=== PATIENT | female | born 1945 | race Caucasian/White ===

== ENCOUNTER → 2020-07-31 09:21 | Outpatient (BNVA) | payer MEDICARE, SELFPAY | PROVIDERS: PCP Family Medicine; Referring Provider Family Medicine; Visit Provider Nurse Practitioner | DX: R10.9 Unspecified abdominal pain (principal); K59.00 Constipation, unspecified; K64.9 Unspecified hemorrhoids; K21.9 Gastro-esophageal reflux disease without esophagitis; Z87.19 Personal history of other diseases of the digestive system | CPT/HCPCS: 99212; Q3014 ==

== ENCOUNTER → 2020-08-18 09:07 | Outpatient (BNVA) | payer MEDICARE, SELFPAY | PROVIDERS: PCP Family Medicine; Visit Provider Nurse Practitioner | DX: K59.00 Constipation, unspecified (principal); K21.9 Gastro-esophageal reflux disease without esophagitis; Z79.899 Other long term (current) drug therapy; Z87.19 Personal history of other diseases of the digestive system | CPT/HCPCS: Q3014 ==

== ENCOUNTER 2020-09-10 12:32 | Inpatient (IN) | payer MEDICARE, SELFPAY ==
[2020-09-10] VITALS (9 sets, daily range): BP systolic 107–173; BP diastolic 47–97; PULSE 90–112; RESP 16–26; TEMP 36.6–37.1; O2SAT 89–99; BMI 26.0
--- NOTE | 2020-09-10 12:55 | ECG_ITS ---
Test Reason : SOB Blood Pressure : / mmHG Vent. Rate : 113 BPM Atrial Rate : 089 BPM P-R Int : 000 ms QRS Dur : 136 ms QT Int : 362 ms P-R-T Axes : 000 108 -23 degrees QTc Int : 496 ms Atrial fibrillation Right bundle branch block Nonspecific ST and T wave abnormality Abnormal ECG When compared to the previous EKG of 11 jun 2020, rhythm change Referred By: Charlotte Morales Electronically Signed By:STEVEN MENESES
--- NOTE | 2020-09-10 12:56 | XR_ITS ---
EXAMINATION: XR CHEST CLINICAL INFORMATION: Dyspnea COMPARISON: June 11, 2020 and May 31, 2020 TECHNIQUE: AP portable view of the chest was obtained. FINDINGS: The cardiopericardial silhouette is enlarged. Patient status post median sternotomy and CABG. There is bilateral interstitial prominence present with patchy regions of disease in the perihilar regions likely related to pulmonary vascular congestion. No pneumothorax or significant pleural effusion. Left carotid artery calcification evident. XR/XR chest 1V IMPRESSION: Cardiomegaly with probable mild pulmonary edema. Interstitial infectious or inflammatory process would seem somewhat less likely.
--- NOTE | 2020-09-10 12:56 | ED_ITS ---
HPI - Asthma General Chief Complaint: Asthma Stated Complaint: Difficulty Breathing Time Seen by Provider: 09/10/20 12:53 Source: patient and EMS Mode of arrival: EMS Limitations: no limitations History of Present Illness HPI Narrative: EMS noted RA 78% on arrival given duoneb and patient up to 90s MD complaint: asthma attack and shortness of breath Onset (ago): day(s) (started this AM) Severity: moderate Context: none known Associated symptoms: dry cough Asthma History: childhood onset Treatments Prior to Arrival: inhaled bronchodilator Related Data Previous Rx's Medication Instructions Recorded magnesium citrate See Rx Instructions PO DAILY #300 07/31/20 ml Allergies Allergy/AdvReac Type Severity Reaction Status Date / Time No Known Allergies Allergy Verified 08/18/20 09:08 Review of Systems Review of Systems: Constitutional : No Fever, No Chills ENT/Mouth : No sore throat, No Rhinorrhea, No Swallowing Difficulty Eyes: No Eye Pain, No Swelling, No Redness Cardiovascular : No Chest Pain, positive SOB, No Orthopnea, no Edema Respiratory : pos Cough, No Sputum, pos Wheezing, positive dyspnea Gastrointestinal : No Nausea, No Vomiting, No Diarrhea, No abdominal Pain, No Hematochezia, No Melena Genitourinary : No Dysuria, No Urinary Frequency, No Hematuria Musculoskeletal : No joint pain, No Myalgias Skin : No Skin Lesions, No rash Neuro : No Weakness, No Numbness, No Dizziness, No Headache Psych : No Anxiety/Panic, No Depression Heme/Lymph: No Bruising, No Lymphadenopathy Endocrine : No Polyuria, No Polydipsia All other systems reviewed and are negative [facility] Past Medical History Attestation statement: The following information was validated with the patient. Medical History (Updated 09/10/20 @ 14:56 by Charlotte Morales DO) Asthma CAD (coronary artery disease) CHF (congestive heart failure) CVA (cerebral vascular accident) Surgical History (Updated 09/10/20 @ 13:18 by Charlotte Morales DO) History of esophagogastroduodenoscopy (EGD) Hx of AKA (above knee amputation) Hx of colonoscopy Family History Family History (Updated 07/31/20 @ 09:30 by FREDERICK Tijerina) Father Heart attack Mother Heart attack Diabetes Social History Social History Household Members: None Housing: Apartment Alcohol intake: unknown Smoking Status: Unknown if ever smoked Use of substances other than those prescribed or required for medical reasons: Unknown Advance Directives: No Advance Directives Information Provided: No Physical Exam Vital Signs: Vital Signs: Last Vital Signs Temp 97.8 F 09/10/20 13:09 Pulse 110 H 09/10/20 13:09 Resp 26 H 09/10/20 13:09 BP 161/68 H 09/10/20 13:09 Pulse Ox 91 L 09/10/20 13:09 Body Mass Index 26.0 Appearance: Alert. Oriented X3. Miild acute distress. Eyes: Pupils equal, round and reactive to light. ENT: Pharynx normal. Neck: Normal inspection. Neck supple. CVS: tachycardic heart rate and rhythm. Pulses normal. Respiratory: Mild respiratory distress. Breath sounds diminished, end exp wheezes, rales RLL Abdomen: Soft and non-tender. Skin: Skin warm and dry. Normal skin color. Normal skin turgor. Extremities: bilateral LE amputations No calf ttp Neuro: Oriented X 3. No motor deficit. No sensory deficit. Course Course Course Narrative: patient is anemic will need guiac study, 1 UPRBC, IV lasix ordered EF is 15% patient on eliquis hx of stroke per daughter Alison overall respiratory status improved - on 2L NC 94% brown stool on exam lactic acidosis due to albuterol use and not infection or severe sepsis EKG irregular will need recheck due to artifact discussed with hospitalist MDM - Asthma MDM Narrative Medical decision making narrative: 75 yo female with hx of CHF and asthma here with initial hypoxia and asthma attack responding to neb treatment, denies chest pain/fevers - will need IV steroids, IV magnesium, labs, CXR, COVID swab, EKG, dispo per results and findings. Lab Data Result diagrams: 09/10/20 13:37 09/10/20 13:37 Labs: Lab Results 09/10/20 09/10/20 09/10/20 Range/Units 13:37 13:37 13:37 WBC 11.8 H (4.8-10.8) X10*3/uL RBC 2.89 L (4.20-5.50) X10*6/uL Hgb 7.0 L* (12.0-16.0) g/dl Hct 23.3 L (37-47) % MCV 80.6 (80-98) fL MCH 24.2 L (27.0-33.0) pg MCHC 30.0 L (31.0-35.0) g/dl RDW 18.6 H (11.0-16.0) % Plt Count 304 (160-400) X10*3/uL MPV 12.2 (9.4-12.3) fL Immature Gran % (Auto) 0.3 (0.0-0.4) % Neut % (Auto) 78.6 H (45-73) % Lymph % (Auto) 13.5 L (20-40) % [place] % (Auto) 7.1 (2-11) % Eos % (Auto) 0.3 (0-4) % Baso % (Auto) 0.2 (0-2) % Lymph # (Auto) 1.6 (1.2-4.9) X10*3/uL [place] # (Auto) 0.8 (0.1-1.2) X10*3/uL Eos # (Auto) 0.0 (0.0-0.4) X10*3/uL Baso # (Auto) 0.0 (0.0-0.2) X10*3/uL Abs Immat Gran (auto) 0.04 H (0.00-0.03) X10*3/uL Absolute Neuts (auto) 9.2 H (2.0-8.3) X10*3/uL Absolute Nucleated RBC 0.000 (0.0-0.012) X10*3/uL Nucleated RBC % (auto) 0.0 (0.0-0.2) /100WBC PT 25.6 H (10.8-13.0) SEC INR 2.1 H (0.9-1.1) APTT 39.6 H (24.1-38.0) SEC VBG pH (7.32-7.43) VBG pCO2 mmhg VBG pO2 mmhg VBG HCO3 mmol/L VBG O2 Saturation % VBG Base Excess mmol/L Sodium 139 (135-145) mmol/L Potassium 3.2 L (3.3-5.1) mmol/l Chloride 105 (96-108) mmol/L Carbon Dioxide 19 L (22-29) mmol/L Anion Gap 18 (12-20) BUN 21 H (9-16) mg/dL Creatinine 1.30 (0.5-1.4) mg/dL Estim Creat Clear Calc 30.9 Estimated GFR 40 Random Glucose 284 H (60-115) mg/dL Lactic Acid (0.5-2.0) mmol/L Calcium 8.6 (8.4-10.2) mg/dL Magnesium 2.0 (1.6-2.6) mg/dL Total Bilirubin 0.7 (0.0-1.0) mg/dL Direct Bilirubin 0.3 (0.0-0.5) mg/dL AST 16 (5-31) U/L ALT 37 H (0-31) U/L Alkaline Phosphatase 166 H (39-117) U/L Lactate Dehydrogenase 262 H (122-220) U/L Troponin I High Sens (<3.5-17.0) ng/L B-Natriuretic Peptide (<100) pg/mL Total Protein 7.2 (6.5-8.0) g/dL Albumin 3.8 (3.5-5.0) g/dL Lipase 12 (8-78) U/L Procalcitonin ng/mL Coronavirus (PCR) (Negative) Influenza Type A (PCR) (Negative) Influenza Type B (PCR) (Negative) RSV RNA Qual (PCR) (Negative) 09/10/20 09/10/20 09/10/20 Range/Units 13:37 13:37 13:37 WBC (4.8-10.8) X10*3/uL RBC (4.20-5.50) X10*6/uL Hgb (12.0-16.0) g/dl Hct (37-47) % MCV (80-98) fL MCH (27.0-33.0) pg MCHC (31.0-35.0) g/dl RDW (11.0-16.0) % Plt Count (160-400) X10*3/uL MPV (9.4-12.3) fL Immature Gran % (Auto) (0.0-0.4) % Neut % (Auto) (45-73) % Lymph % (Auto) (20-40) % [place] % (Auto) (2-11) % Eos % (Auto) (0-4) % Baso % (Auto) (0-2) % Lymph # (Auto) (1.2-4.9) X10*3/uL [place] # (Auto) (0.1-1.2) X10*3/uL Eos # (Auto) (0.0-0.4) X10*3/uL Baso # (Auto) (0.0-0.2) X10*3/uL Abs Immat Gran (auto) (0.00-0.03) X10*3/uL Absolute Neuts (auto) (2.0-8.3) X10*3/uL Absolute Nucleated RBC (0.0-0.012) X10*3/uL Nucleated RBC % (auto) (0.0-0.2) /100WBC PT (10.8-13.0) SEC INR (0.9-1.1) APTT (24.1-38.0) SEC VBG pH (7.32-7.43) VBG pCO2 mmhg VBG pO2 mmhg VBG HCO3 mmol/L VBG O2 Saturation % VBG Base Excess mmol/L Sodium (135-145) mmol/L Potassium (3.3-5.1) mmol/l Chloride (96-108) mmol/L Carbon Dioxide (22-29) mmol/L Anion Gap (12-20) BUN (9-16) mg/dL Creatinine (0.5-1.4) mg/dL Estim Creat Clear Calc Estimated GFR Random Glucose (60-115) mg/dL Lactic Acid (0.5-2.0) mmol/L Calcium (8.4-10.2) mg/dL Magnesium (1.6-2.6) mg/dL Total Bilirubin (0.0-1.0) mg/dL Direct Bilirubin (0.0-0.5) mg/dL AST (5-31) U/L ALT (0-31) U/L Alkaline Phosphatase (39-117) U/L Lactate Dehydrogenase (122-220) U/L Troponin I High Sens 49.5 H (<3.5-17.0) ng/L B-Natriuretic Peptide 1901 H (<100) pg/mL Total Protein (6.5-8.0) g/dL Albumin (3.5-5.0) g/dL Lipase (8-78) U/L Procalcitonin 0.04 ng/mL Coronavirus (PCR) (Negative) Influenza Type A (PCR) (Negative) Influenza Type B (PCR) (Negative) RSV RNA Qual (PCR) (Negative) 09/10/20 09/10/20 09/10/20 Range/Units 13:41 13:41 13:41 WBC (4.8-10.8) X10*3/uL RBC (4.20-5.50) X10*6/uL Hgb (12.0-16.0) g/dl Hct (37-47) % MCV (80-98) fL MCH (27.0-33.0) pg MCHC (31.0-35.0) g/dl RDW (11.0-16.0) % Plt Count (160-400) X10*3/uL MPV (9.4-12.3) fL Immature Gran % (Auto) (0.0-0.4) % Neut % (Auto) (45-73) % Lymph % (Auto) (20-40) % [place] % (Auto) (2-11) % Eos % (Auto) (0-4) % Baso % (Auto) (0-2) % Lymph # (Auto) (1.2-4.9) X10*3/uL [place] # (Auto) (0.1-1.2) X10*3/uL Eos # (Auto) (0.0-0.4) X10*3/uL Baso # (Auto) (0.0-0.2) X10*3/uL Abs Immat Gran (auto) (0.00-0.03) X10*3/uL Absolute Neuts (auto) (2.0-8.3) X10*3/uL Absolute Nucleated RBC (0.0-0.012) X10*3/uL Nucleated RBC % (auto) (0.0-0.2) /100WBC PT (10.8-13.0) SEC INR (0.9-1.1) APTT (24.1-38.0) SEC VBG pH 7.30 L (7.32-7.43) VBG pCO2 46 mmhg VBG pO2 39 mmhg VBG HCO3 22 mmol/L VBG O2 Saturation 59.1 % VBG Base Excess -4.0 mmol/L Sodium (135-145) mmol/L Potassium (3.3-5.1) mmol/l Chloride (96-108) mmol/L Carbon Dioxide (22-29) mmol/L Anion Gap (12-20) BUN (9-16) mg/dL Creatinine (0.5-1.4) mg/dL Estim Creat Clear Calc Estimated GFR Random Glucose (60-115) mg/dL Lactic Acid 2.9 H* (0.5-2.0) mmol/L Calcium (8.4-10.2) mg/dL Magnesium (1.6-2.6) mg/dL Total Bilirubin (0.0-1.0) mg/dL Direct Bilirubin (0.0-0.5) mg/dL AST (5-31) U/L ALT (0-31) U/L Alkaline Phosphatase (39-117) U/L Lactate Dehydrogenase (122-220) U/L Troponin I High Sens (<3.5-17.0) ng/L B-Natriuretic Peptide (<100) pg/mL Total Protein (6.5-8.0) g/dL Albumin (3.5-5.0) g/dL Lipase (8-78) U/L Procalcitonin ng/mL Coronavirus (PCR) NEGATIVE (Negative) Influenza Type A (PCR) NEGATIVE (Negative) Influenza Type B (PCR) NEGATIVE (Negative) RSV RNA Qual (PCR) NEGATIVE (Negative) ECG Data Attestation: I personally reviewed and interpreted this ECG as follows: ECG interpretation date: 09/10/20 ECG interpretation time: 13:53 Interpretation: Rate: 113 Rhythm: irregular, PVCs and PACs [place]: RAD Normal P waves. Normal SUKUMAR. RBBB ST T wave : inferior T wave inversion, no VARUN qTC: prolonged prior studies: old RBBB old t wave inversion, artifact noted The study has been interpreted contemporaneously by me. . Discharge Plan Discharge Clinical Impression: Asthma with acute exacerbation, Congestive heart failure, Anemia, Acidosis, lactic, Abnormal ECG Prescriptions: No Action magnesium citrate Solution See Rx Instructions PO DAILY Qty: 300 RF: 0
[2020-09-10] MEDS: Albuterol Sulfate (0.083%) 2.5 MG/3 ML VIAL.NEB INHALE (13:01)
[2020-09-10 13:46] LABS: MANUAL DIFF FLAG NO
[2020-09-10 13:48] LABS: Eosinophils Percent Auto 0.3 % (0-4); Mean Corpuscular Hemoglobin 24.2 pg (27.0-33.0); Red Blood Count 2.89 X10*6/uL (4.20-5.50)
[2020-09-10 13:56] LABS: Basophils Percent Auto 0.2 % (0-2); Hematocrit 23.3 % (37-47); INTERNATIONAL NORM RATIO 2.1 (0.9-1.1); Imm Gran Abs Auto 0.04 X10*3/uL (0.00-0.03); Imm Gran Pct Auto 0.3 % (0.0-0.4); Lymphocytes Absolute Auto 1.6 X10*3/uL (1.2-4.9); Lymphocytes Percent Auto 13.5 % (20-40); Mean Corpuscular Volume 80.6 fL (80-98); Mean Platelet Volume 12.2 fL (9.4-12.3); Monocytes Absolute Auto 0.8 X10*3/uL (0.1-1.2); Monocytes Percent Auto 7.1 % (2-11); Neutrophils Absolute Auto 9.2 X10*3/uL (2.0-8.3); Neutrophils Percent Auto 78.6 % (45-73); Platelet Count 304 X10*3/uL (160-400); Prothrombin Time 25.6 SEC (10.8-13.0); Red Cell Distribution Width 18.6 % (11.0-16.0); White Blood Count 11.8 X10*3/uL (4.8-10.8)
[2020-09-10 13:59] LABS: Partial Thromboplastin Time 39.6 SEC (24.1-38.0)
[2020-09-10 14:05] LABS: HCO3 VBG 22 mmol/L; PCO2 VBG 46 mmhg; PO2 VBG 39 mmhg
[2020-09-10 14:06] LABS: Blood Gas Serial # 5414; Oxygen Saturation VBG 59.1 %
[2020-09-10] MEDS: Furosemide 40 MG/4 ML VIAL IVPUSH (14:14)
[2020-09-10] MEDS: methylPREDNISolone Sod Succ/PF 125 MG/2 ML VIAL 60 MG IVPUSH (14:14)
[2020-09-10] MEDS: Magnesium Sulfate/H2O 2 GM/50 ML PIGGYBACK IV (14:15)
[2020-09-10 14:21] LABS: Alanine Aminotransferase 37 U/L (0-31); Albumin Level 3.8 g/dL (3.5-5.0); Alkaline Phosphatase 166 U/L (39-117); Anion Gap 18 (12-20); Aspartate Amino Transferase 16 U/L (5-31); Bilirubin Direct 0.3 mg/dL (0.0-0.5); Bilirubin Total 0.7 mg/dL (0.0-1.0); Blood Urea Nitrogen 21 mg/dL (9-16); Calcium 8.6 mg/dL (8.4-10.2); Carbon Dioxide 19 mmol/L (22-29); Chloride 105 mmol/L (96-108); Creatinine Clr Calc Pharmacy 30.9; Estimated Glomerular Filt Rate 40; Glucose Random 284 mg/dL (60-115); Lactate Dehydrogenase 262 U/L (122-220); Lipase 12 U/L (8-78); Potassium 3.2 mmol/l (3.3-5.1); Sodium 139 mmol/L (135-145); Total Protein 7.2 g/dL (6.5-8.0)
[2020-09-10 14:25] LABS: B Type Natriuretic Peptide 1901 pg/mL (<100)
[2020-09-10 14:28] LABS: Troponin-I High Sensitivity 49.5 ng/L (<3.5-17.0)
[2020-09-10 14:30] LABS: Influenza A PCR NEGATIVE (Negative); Influenza B PCR NEGATIVE (Negative); Resp Syncy Virus RNA Qual PCR NEGATIVE (Negative); SARS COV2 PCR INHOUSE NEGATIVE (Negative)
[2020-09-10 14:37] LABS: Lactic Acid 2.9 mmol/L (0.5-2.0)
[2020-09-10 14:50] LABS: Procalcitonin 0.04 ng/mL
[2020-09-10 14:57] LABS: OBS Int Ctl Valid YES; OBS1 NEG (NEG)
[2020-09-10 15:00] LABS: Ferritin 25 ng/mL (10-250)
--- NOTE | 2020-09-10 15:41 | PC.NURSE ---
ptcame from home for shortness of breath. She denies pain. Pt has difficulty speaking, speaks in Frisian only and does not answer questions well with white sidewall tire buffer, though doea understand situation and treatments. IV established, pt does not tolerate well and yeslls. She awaits transfusin
[2020-09-10 15:58] LABS: Reflex Lactate? Lactic Acid Added
--- NOTE | 2020-09-10 16:56 | PM.EVENT ---
Event Note Date of Service: 09/10/20 Event Note: Patient seen and examined independently and was present during rivera portion of E/M service. Agree with midlevel's history, physical, assessment, and plan. 75-year-old female presented with shortness of breath Acute on chronic systolic CHF IV Lasix Overall poor prognosis
--- NOTE | 2020-09-10 17:16 | PM.IMHP ---
History of Present Illness Date of Service: 09/10/20 Chief Complaint: Shortness of breath This is a 75-year-old female with a history of CHF, CAD, PVD, diabetes among others who presents to the emergency department with shortness of breath. She was tachycardic and tachypneic. She was afebrile. Lab work revealed no leukocytosis. She was noted to have anemia with an H/H of 7.0/23.3 which is down somewhat from her baseline. She was heme negative. 1 unit of blood was ordered in the ED. Troponin was in the indeterminate range of 49. Lactic acid was elevated at 2.9, no repeat has been drawn at this time. BNP was elevated at 1901. Patient is a vague historian and reports shortness of breath and chest pain ?Forever? and is unable to provide any significant details. She does deny cough. The decision was made to admit her working diagnosis CHF. Review of Systems Review of Systems: Yes all other systems are reviewed and are negative Cardiovascular: Cardiovascular: Reports chest pain and Reports dyspnea Respiratory: Respiratory: Denies cough and Reports dyspnea [facility] Medical History (Updated 09/10/20 @ 17:21 by GAVIN Yang) Asthma CAD (coronary artery disease) CHF (congestive heart failure) CVA (cerebral vascular accident) Diabetes Hypertension PVD (peripheral vascular disease) Functional capacity: wheelchair bound Family History Father Heart attack Mother Heart attack Diabetes Surgical History History of esophagogastroduodenoscopy (EGD) Hx of AKA (above knee amputation) Hx of colonoscopy Social History (Updated 09/10/20 @ 17:21 by GAVIN Yang) Household Members: Children Housing: Apartment Alcohol intake: unknown Smoking Status: Unknown if ever smoked Use of substances other than those prescribed or required for medical reasons: Unknown Advance Directives: No Advance Directives Information Provided: No Meds Allergies Allergy/AdvReac Type Severity Reaction Status Date / Time No Known Allergies Allergy Verified 08/18/20 09:08 Home Medications Medication Instructions Recorded Confirmed Type albuterol sulfate [ProAir HFA] 2 puff INHALATION Q4-6H PRN 09/10/20 09/10/20 History amlodipine 2.5 mg PO DAILY 09/10/20 09/10/20 History apixaban [Eliquis] 5 mg PO BID 09/10/20 09/10/20 History ascorbic acid (vitamin C) 500 mg PO BID 09/10/20 09/10/20 History aspirin 81 mg PO DAILY 09/10/20 09/10/20 History atorvastatin 40 mg PO DAILY 09/10/20 09/10/20 History ferrous sulfate 325 mg PO BID 09/10/20 09/10/20 History furosemide 40 mg PO DAILY 09/10/20 09/10/20 History insulin glargine [Lantus Solostar 26 unit SUBCUT QAM 09/10/20 09/10/20 History U-100 Insulin] insulin lispro [Humalog KwikPen 3 unit SUBCUT TIDAC 09/10/20 09/10/20 History Insulin] lisinopril 2.5 mg PO DAILY 09/10/20 09/10/20 History montelukast 10 mg PO BEDTIME 09/10/20 09/10/20 History nitroglycerin 0.4 mg SUBLINGUAL Q5M PRN 09/10/20 09/10/20 History zolpidem 5 mg PO BEDTIME PRN 09/10/20 09/10/20 History Physical Exam Vital Signs and Narrative: Vital Signs: Last Vital Signs Temp 98 F 09/10/20 16:14 Pulse 90 09/10/20 16:14 Resp 23 H 09/10/20 16:14 BP 143/60 H 09/10/20 16:14 Pulse Ox 98 09/10/20 15:41 Body Mass Index 26.0 Const: General: alert and awake Nutritional Appearance: well nourished HENMT: Head: Yes normocephalic and Yes atraumatic Eyes: Sclerae: sclerae normal Chest: Chest palpation & inspection: normal inspection of the chest Resp: Effort & Inspection: normal respiratory effort and no respiratory distress Cardio: Rate: regular rate Rhythm: regular rhythm GI: Palpation (GI): Soft to palpation and nontender Skin: General skin exam: no rashes or lesions noted Neuro: Cranial nerves: Yes CN's II-XII intact bilaterally and Yes Bilaterally intact EOM present Extrem: Other: s/p b/l AKA Results Labs CBC and Chem 7: 12/10/20 13:37 09/10/20 13:37 Labs: Laboratory Results - last 24 hr 09/10/20 09/10/20 09/10/20 13:37 13:37 13:37 MCV 80.6 MCH 24.2 L MCHC 30.0 L RDW 18.6 H Plt Count 304 MPV 12.2 Immature Gran % (Auto) 0.3 Neut % (Auto) 78.6 H Lymph % (Auto) 13.5 L [place] % (Auto) 7.1 Eos % (Auto) 0.3 Baso % (Auto) 0.2 Lymph # (Auto) 1.6 [place] # (Auto) 0.8 Eos # (Auto) 0.0 Baso # (Auto) 0.0 Abs Immat Gran (auto) 0.04 H Absolute Neuts (auto) 9.2 H Absolute Nucleated RBC 0.000 Nucleated RBC % (auto) 0.0 PT 25.6 H INR 2.1 H APTT 39.6 H VBG pH VBG pCO2 VBG pO2 VBG HCO3 VBG O2 Saturation VBG Base Excess Anion Gap 18 Estim Creat Clear Calc 30.9 Estimated GFR 40 Random Glucose 284 H Lactic Acid Calcium 8.6 Magnesium 2.0 Ferritin 25 Total Bilirubin 0.7 Direct Bilirubin 0.3 AST 16 ALT 37 H Alkaline Phosphatase 166 H Lactate Dehydrogenase 262 H Troponin I High Sens B-Natriuretic Peptide Total Protein 7.2 Albumin 3.8 Lipase 12 Procalcitonin Stool Occult Blood Coronavirus (PCR) Influenza Type A (PCR) Influenza Type B (PCR) RSV RNA Qual (PCR) Blood Type Antibody Screen Crossmatch 09/10/20 09/10/20 09/10/20 13:37 13:37 13:37 MCV MCH MCHC RDW Plt Count MPV Immature Gran % (Auto) Neut % (Auto) Lymph % (Auto) [place] % (Auto) Eos % (Auto) Baso % (Auto) Lymph # (Auto) [place] # (Auto) Eos # (Auto) Baso # (Auto) Abs Immat Gran (auto) Absolute Neuts (auto) Absolute Nucleated RBC Nucleated RBC % (auto) PT INR APTT VBG pH VBG pCO2 VBG pO2 VBG HCO3 VBG O2 Saturation VBG Base Excess Anion Gap Estim Creat Clear Calc Estimated GFR Random Glucose Lactic Acid Calcium Magnesium Ferritin Total Bilirubin Direct Bilirubin AST ALT Alkaline Phosphatase Lactate Dehydrogenase Troponin I High Sens 49.5 H B-Natriuretic Peptide 1901 H Total Protein Albumin Lipase Procalcitonin 0.04 Stool Occult Blood Coronavirus (PCR) Influenza Type A (PCR) Influenza Type B (PCR) RSV RNA Qual (PCR) Blood Type Antibody Screen Crossmatch 09/10/20 09/10/20 09/10/20 13:41 13:41 13:41 MCV MCH MCHC RDW Plt Count MPV Immature Gran % (Auto) Neut % (Auto) Lymph % (Auto) [place] % (Auto) Eos % (Auto) Baso % (Auto) Lymph # (Auto) [place] # (Auto) Eos # (Auto) Baso # (Auto) Abs Immat Gran (auto) Absolute Neuts (auto) Absolute Nucleated RBC Nucleated RBC % (auto) PT INR APTT VBG pH 7.30 L VBG pCO2 46 VBG pO2 39 VBG HCO3 22 VBG O2 Saturation 59.1 VBG Base Excess -4.0 Anion Gap Estim Creat Clear Calc Estimated GFR Random Glucose Lactic Acid 2.9 H* Calcium Magnesium Ferritin Total Bilirubin Direct Bilirubin AST ALT Alkaline Phosphatase Lactate Dehydrogenase Troponin I High Sens B-Natriuretic Peptide Total Protein Albumin Lipase Procalcitonin Stool Occult Blood Coronavirus (PCR) NEGATIVE Influenza Type A (PCR) NEGATIVE Influenza Type B (PCR) NEGATIVE RSV RNA Qual (PCR) NEGATIVE Blood Type Antibody Screen Crossmatch 09/10/20 09/10/20 14:40 14:49 MCV MCH MCHC RDW Plt Count MPV Immature Gran % (Auto) Neut % (Auto) Lymph % (Auto) [place] % (Auto) Eos % (Auto) Baso % (Auto) Lymph # (Auto) [place] # (Auto) Eos # (Auto) Baso # (Auto) Abs Immat Gran (auto) Absolute Neuts (auto) Absolute Nucleated RBC Nucleated RBC % (auto) PT INR APTT VBG pH VBG pCO2 VBG pO2 VBG HCO3 VBG O2 Saturation VBG Base Excess Anion Gap Estim Creat Clear Calc Estimated GFR Random Glucose Lactic Acid Calcium Magnesium Ferritin Total Bilirubin Direct Bilirubin AST ALT Alkaline Phosphatase Lactate Dehydrogenase Troponin I High Sens B-Natriuretic Peptide Total Protein Albumin Lipase Procalcitonin Stool Occult Blood NEG Coronavirus (PCR) Influenza Type A (PCR) Influenza Type B (PCR) RSV RNA Qual (PCR) Blood Type A Positive Antibody Screen NEGATIVE Crossmatch See Detail Imaging Radiologist's Impressions: Impressions Chest X-Ray 09/10/20 12:56 IMPRESSION: Cardiomegaly with probable mild pulmonary edema. Interstitial infectious or inflammatory process would seem somewhat less likely. Assessment and Plan (1) Congestive heart failure: Qualifiers: Heart failure chronicity: acute on chronic Heart failure type: systolic Qualified Code(s): I50.23 - Acute on chronic systolic (congestive) heart failure Status: Acute (2) Anemia: Qualifiers: Anemia type: unspecified type Qualified Code(s): D64.9 - Anemia, unspecified Status: Acute This is a 75-year-old English-speaking female with a history of CAD, HFrEF, diabetes, asthma, PVD, hypertension, dyslipidemia who presents to the emergency department with shortness of breath found to have elevated BNP Acute on chronic HFrEF -I&Os, daily weight -IV Lasix -cardiology consult CKD3 Creatinine at baseline normocytic anemia Heme-negative Will check iron studies 1 unit of blood ordered in ED -follow CBC Elevated lactic acid No source of infection identified. No sepsis CAD Continue aspirin, statin Trop somewhat elevated, will repeat Hypertension Continue Norvasc, lisinopril Diabetes Will decrease dose of Lantus slightly from 26 units to 20 units -SSI, POC, ADA diet On AC Eliquis ? r/t PVD as no previous documentation of AFib or VTE DVT prophylaxis-Eliquis Code status-full code This case was discussed with Dr. Ivory
--- NOTE | 2020-09-10 17:42 | PC.NURSE ---
pt had one unit of PRBC transfused. She has no sign of reaction. Pt resting quietly. Pt has a piece of laminated paper with her, she believes it is a picture of her . Pt becomes upset, yelling if this item is removed and she seeks the item for comfort during lab draws.
[2020-09-10 17:53] LABS: Iron 17 mcg/dL (30-160); Percent Iron Saturation 5 % (15-50); Total Iron Binding Capacity 335 mcg/dL (228-428); Unsaturated Iron Binding 318 ug/dL
[2020-09-10 18:17] LABS: ~Lactic Acid-LAB USE ONLY 2.6 mmol/L (0.5-2.0)
[2020-09-10 18:31] LABS: Folate 14.6 ng/mL (> or = 4.0); Vitamin B12 561 pg/mL (200-900)
--- NOTE | 2020-09-10 18:43 | PC.NURSE ---
pt noted to have tremmors with movement. unable to determine if this is baseline.
[2020-09-10 19:45] LABS: Reflex Lactate? 2 Y
[2020-09-11] VITALS (7 sets, daily range): BP systolic 129–186; BP diastolic 65–99; PULSE 75–92; RESP 18–22; TEMP 36.5–36.9; O2SAT 96–100
--- NOTE | 2020-09-11 02:08 | PC.NURSE ---
REPORT GIVEN TO [facility]. PT DENIES ANY COMPLAINTS AT THIS TIME. PT AWAITING FOR TRANSFER TO [facility]. WILL CONTINUE TO MONITOR PT.
[2020-09-11 03:33] LABS: Glucose, Whole Blood 489 mg/dL (60-115)
[2020-09-11] MEDS: Ferrous Sulfate 324 MG TABLET.DR PO ×3 (04:09→21:57)
[2020-09-11] MEDS: Montelukast Sodium 10 MG TABLET PO ×2 (04:09→21:57)
[2020-09-11] MEDS: Ascorbic Acid 500 MG TABLET PO ×3 (04:09→21:57)
[2020-09-11] MEDS: Apixaban 5 MG TABLET PO ×3 (04:09→21:57)
[2020-09-11] MEDS: Insulin Lispro 100 UNIT/ML 3 ML VIAL SUBCUT ×4 (04:10→21:57)
[2020-09-11] MEDS: Furosemide 40 MG/4 ML VIAL IVPUSH ×3 (04:10→16:56)
[2020-09-11] MEDS: Insulin Lispro 100 UNIT/ML 3 ML VIAL 6 UNIT SUBCUT (04:11)
[2020-09-11] MEDS: 0.9 % Sodium Chloride Flush 3 ML SYRINGE IVFLUSH ×4 (04:21→21:58)
[2020-09-11 04:48] LABS: MANUAL DIFF FLAG NO
[2020-09-11 04:52] LABS: Basophils Percent Auto 0.2 % (0-2); Hematocrit 28.1 % (37-47); Imm Gran Abs Auto 0.09 X10*3/uL (0.00-0.03); Imm Gran Pct Auto 0.8 % (0.0-0.4); Lymphocytes Absolute Auto 0.8 X10*3/uL (1.2-4.9); Lymphocytes Percent Auto 7.4 % (20-40); Mean Corpuscular Volume 81.2 fL (80-98); Mean Platelet Volume 12.5 fL (9.4-12.3); Neutrophils Absolute Auto 9.2 X10*3/uL (2.0-8.3); Neutrophils Percent Auto 82.6 % (45-73); Platelet Count 270 X10*3/uL (160-400); Red Blood Count 3.46 X10*6/uL (4.20-5.50); White Blood Count 11.2 X10*3/uL (4.8-10.8)
[2020-09-11 05:31] LABS: ~Lactic Acid-LAB USE ONLY 2.6 mmol/L (0.5-2.0)
[2020-09-11 05:35] LABS: Anion Gap 17 (12-20); Blood Urea Nitrogen 29 mg/dL (9-16); Calcium 8.6 mg/dL (8.4-10.2); Carbon Dioxide 19 mmol/L (22-29); Chloride 102 mmol/L (96-108); Creatinine Clr Calc Pharmacy 29.1; Estimated Glomerular Filt Rate 37; Glucose Random 494 mg/dL (60-115); Potassium 4.1 mmol/l (3.3-5.1); Sodium 134 mmol/L (135-145)
[2020-09-11 05:36] LABS: B Type Natriuretic Peptide 2638 pg/mL (<100)
[2020-09-11 05:40] LABS: Troponin-I High Sensitivity 44.1 ng/L (<3.5-17.0)
[2020-09-11 06:09] LABS: Glucose, Whole Blood 285 mg/dL (60-115)
[2020-09-11] MEDS: Insulin Glargine,Hum.rec.anlog 100 UNIT/ML 10 ML VIAL 20 UNIT SUBCUT (08:32)
[2020-09-11] MEDS: amLODIPine Besylate 2.5 MG TABLET PO (08:33)
[2020-09-11] MEDS: Aspirin Enteric Coated 81 MG TABLET.DR PO (08:34)
[2020-09-11] MEDS: lisinopriL 2.5 MG TABLET PO (08:34)
[2020-09-11 09:31] LABS: Glucose, Whole Blood 142 mg/dL (60-115)
--- NOTE | 2020-09-11 09:51 | PM.CNCAR ---
History of Present Illness History of Present Illness Date of Service: 09/11/20 Chief complaint: Difficulty Breathing Narrative: This is a cardiology consultation regarding congestive heart failure. 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 She has a history of congestive heart failure, coronary disease, peripheral vascular disease, diabetes, others. She presented to the ER with shortness of breath. She was also apparently tachycardic and tachypneic. She was afebrile. She was noted to be anemic. It appears that she got some blood and subsequently admitted. Patient herself is a vague historian. She states that she presented with shortness of breath but feels better now. Not able to give any further details. No definitive anginal type symptoms. She has been admitted with a working diagnosis of CHF. Review of Systems Review of Systems: Yes all other systems are reviewed and are negative Cardiovascular: Cardiovascular: Reports as per HPI, Reports no additional cardiovascular complaints, Denies chest pain, Denies chest pain at rest, Denies chest pain with activity, Denies Epigastric Pain, Denies syncope, Denies pedal edema, Denies edema, Reports irregular heart rhythm, Reports dyspnea and Reports dyspnea on exertion Respiratory: Respiratory: Reports dyspnea and Reports dyspnea on exertion Neurologic: Denies syncope PMFSH Past Medical History Medical History (Updated 09/11/20 @ 10:23 by Abhay Deras MD) Asthma Atherosclerotic cardiovascular disease CAD (coronary artery disease) Cardiomyopathy CHF (congestive heart failure) CVA (cerebral vascular accident) Diabetes Hypertension Persistent atrial fibrillation PVD (peripheral vascular disease) Functional capacity: wheelchair bound Family History Family History Father Heart attack Mother Heart attack Diabetes Surgical History Surgical History History of esophagogastroduodenoscopy (EGD) Hx of AKA (above knee amputation) Hx of colonoscopy Social History Social History (Updated 09/10/20 @ 17:21 by GAVIN Yang) Household Members: Children Housing: Apartment Alcohol intake: unknown Smoking Status: Never smoker Use of substances other than those prescribed or required for medical reasons: No Have you been hit, kicked, punched, or otherwise hurt by someone within the past year? If so, by whom?: No Do you feel safe in your current relationship?: No Current Relationship Is there a partner from a previous relationship who is making you feel unsafe now?: No Are you made to feel afraid or neglected: No Advance Directives: No Advance Directives Information Provided: No Do you have thoughts of harming others: None Do you have a plan to hurt others: No Plan Recently lost weight without trying: Unsure Meds Allergies Allergy/AdvReac Type Severity Reaction Status Date / Time No Known Allergies Allergy Verified 08/18/20 09:08 Home Medications Medication Instructions Recorded Confirmed Type albuterol sulfate [ProAir HFA] 2 puff INHALATION Q4-6H PRN 09/10/20 09/10/20 History amlodipine 2.5 mg PO DAILY 09/10/20 09/10/20 History apixaban [Eliquis] 5 mg PO BID 09/10/20 09/10/20 History ascorbic acid (vitamin C) 500 mg PO BID 09/10/20 09/10/20 History aspirin 81 mg PO DAILY 09/10/20 09/10/20 History atorvastatin 40 mg PO DAILY 09/10/20 09/10/20 History ferrous sulfate 325 mg PO BID 09/10/20 09/10/20 History furosemide 40 mg PO DAILY 09/10/20 09/10/20 History insulin glargine [Lantus Solostar 26 unit SUBCUT QAM 09/10/20 09/10/20 History U-100 Insulin] insulin lispro [Humalog KwikPen 3 unit SUBCUT TIDAC 09/10/20 09/10/20 History Insulin] lisinopril 2.5 mg PO DAILY 09/10/20 09/10/20 History montelukast 10 mg PO BEDTIME 09/10/20 09/10/20 History nitroglycerin 0.4 mg SUBLINGUAL Q5M PRN 09/10/20 09/10/20 History zolpidem 5 mg PO BEDTIME PRN 09/10/20 09/10/20 History Physical Exam Vital Signs: Vital Signs: Last Vital Signs Temp 97.8 F 09/11/20 08:00 Pulse 91 09/11/20 08:00 Resp 22 H 09/11/20 08:00 BP 149/71 H 12/11/20 08:00 Pulse Ox 99 09/11/20 08:00 Body Mass Index 26.0 Const: General: cooperative, comfortable and no acute distress Orientation/consciousness: patient oriented x3 HENMT: Other: Unremarkable Neck: Neck: Yes normal visual inspection Chest: Chest palpation & inspection: normal inspection of the chest Resp: Auscultation: clear to auscultation bilaterally, no crackles and no wheezes Cardio: Jugular venous distension: no JVD Palpation: normal PMI Heart sounds: S1 normal heart sound present, S2 normal heart sound present, no gallops, no murmurs and no rubs GI: Palpation (GI): Soft to palpation Back/Spine/Pelvis: Other: unremarkable Skin: General skin exam: no rashes or lesions noted Neuro: General: patient oriented x3 Extrem: Other: bilateral amputation Psych: Mental Status: mental status grossly normal Results Labs and Meds Result diagrams: 09/11/20 04:26 09/11/20 04:26 Lab results: Laboratory Results - last 24 hr 09/10/20 09/10/20 09/10/20 13:37 13:37 13:37 WBC 11.8 H RBC 2.89 L Hgb 7.0 L* Hct 23.3 L MCV 80.6 MCH 24.2 L MCHC 30.0 L RDW 18.6 H Plt Count 304 MPV 12.2 Immature Gran % (Auto) 0.3 Neut % (Auto) 78.6 H Lymph % (Auto) 13.5 L [place] % (Auto) 7.1 Eos % (Auto) 0.3 Baso % (Auto) 0.2 Lymph # (Auto) 1.6 [place] # (Auto) 0.8 Eos # (Auto) 0.0 Baso # (Auto) 0.0 Abs Immat Gran (auto) 0.04 H Absolute Neuts (auto) 9.2 H Absolute Nucleated RBC 0.000 Nucleated RBC % (auto) 0.0 PT 25.6 H INR 2.1 H APTT 39.6 H VBG pH VBG pCO2 VBG pO2 VBG HCO3 VBG O2 Saturation VBG Base Excess Sodium 139 Potassium 3.2 L Chloride 105 Carbon Dioxide 19 L Anion Gap 18 BUN 21 H Creatinine 1.30 Estim Creat Clear Calc 30.9 Estimated GFR 40 POC Glucose Random Glucose 284 H Lactic Acid Lactic Acid Fup @ 2Hr Lactic Acid Fup @ 4Hr Calcium 8.6 Magnesium 2.0 Iron 17 L TIBC 335 % Saturation 5 L Unsat Iron Binding 318 Ferritin 25 Total Bilirubin 0.7 Direct Bilirubin 0.3 AST 16 ALT 37 H Alkaline Phosphatase 166 H Lactate Dehydrogenase 262 H Troponin I High Sens B-Natriuretic Peptide Total Protein 7.2 Albumin 3.8 Lipase 12 Vitamin B12 Folate Procalcitonin Stool Occult Blood Coronavirus (PCR) Influenza Type A (PCR) Influenza Type B (PCR) RSV RNA Qual (PCR) Blood Type Antibody Screen Crossmatch 09/10/20 09/10/20 09/10/20 13:37 13:37 13:37 WBC RBC Hgb Hct MCV MCH MCHC RDW Plt Count MPV Immature Gran % (Auto) Neut % (Auto) Lymph % (Auto) [place] % (Auto) Eos % (Auto) Baso % (Auto) Lymph # (Auto) [place] # (Auto) Eos # (Auto) Baso # (Auto) Abs Immat Gran (auto) Absolute Neuts (auto) Absolute Nucleated RBC Nucleated RBC % (auto) PT INR APTT VBG pH VBG pCO2 VBG pO2 VBG HCO3 VBG O2 Saturation VBG Base Excess Sodium Potassium Chloride Carbon Dioxide Anion Gap BUN Creatinine Estim Creat Clear Calc Estimated GFR POC Glucose Random Glucose Lactic Acid Lactic Acid Fup @ 2Hr Lactic Acid Fup @ 4Hr Calcium Magnesium Iron TIBC % Saturation Unsat Iron Binding Ferritin Total Bilirubin Direct Bilirubin AST ALT Alkaline Phosphatase Lactate Dehydrogenase Troponin I High Sens 49.5 H B-Natriuretic Peptide 1901 H Total Protein Albumin Lipase Vitamin B12 Folate Procalcitonin 0.04 Stool Occult Blood Coronavirus (PCR) Influenza Type A (PCR) Influenza Type B (PCR) RSV RNA Qual (PCR) Blood Type Antibody Screen Crossmatch 09/10/20 09/10/20 09/10/20 13:41 13:41 13:41 WBC RBC Hgb Hct MCV MCH MCHC RDW Plt Count MPV Immature Gran % (Auto) Neut % (Auto) Lymph % (Auto) [place] % (Auto) Eos % (Auto) Baso % (Auto) Lymph # (Auto) [place] # (Auto) Eos # (Auto) Baso # (Auto) Abs Immat Gran (auto) Absolute Neuts (auto) Absolute Nucleated RBC Nucleated RBC % (auto) PT INR APTT VBG pH 7.30 L VBG pCO2 46 VBG pO2 39 VBG HCO3 22 VBG O2 Saturation 59.1 VBG Base Excess -4.0 Sodium Potassium Chloride Carbon Dioxide Anion Gap BUN Creatinine Estim Creat Clear Calc Estimated GFR POC Glucose Random Glucose Lactic Acid 2.9 H* Lactic Acid Fup @ 2Hr Lactic Acid Fup @ 4Hr Calcium Magnesium Iron TIBC % Saturation Unsat Iron Binding Ferritin Total Bilirubin Direct Bilirubin AST ALT Alkaline Phosphatase Lactate Dehydrogenase Troponin I High Sens B-Natriuretic Peptide Total Protein Albumin Lipase Vitamin B12 Folate Procalcitonin Stool Occult Blood Coronavirus (PCR) NEGATIVE Influenza Type A (PCR) NEGATIVE Influenza Type B (PCR) NEGATIVE RSV RNA Qual (PCR) NEGATIVE Blood Type Antibody Screen Crossmatch 09/10/20 09/10/20 09/10/20 14:40 14:49 15:00 WBC RBC Hgb Hct MCV MCH MCHC RDW Plt Count MPV Immature Gran % (Auto) Neut % (Auto) Lymph % (Auto) [place] % (Auto) Eos % (Auto) Baso % (Auto) Lymph # (Auto) [place] # (Auto) Eos # (Auto) Baso # (Auto) Abs Immat Gran (auto) Absolute Neuts (auto) Absolute Nucleated RBC Nucleated RBC % (auto) PT INR APTT VBG pH VBG pCO2 VBG pO2 VBG HCO3 VBG O2 Saturation VBG Base Excess Sodium Potassium Chloride Carbon Dioxide Anion Gap BUN Creatinine Estim Creat Clear Calc Estimated GFR POC Glucose Random Glucose Lactic Acid Lactic Acid Fup @ 2Hr Lactic Acid Fup @ 4Hr Calcium Magnesium Iron TIBC % Saturation Unsat Iron Binding Ferritin Total Bilirubin Direct Bilirubin AST ALT Alkaline Phosphatase Lactate Dehydrogenase Troponin I High Sens B-Natriuretic Peptide Total Protein Albumin Lipase Vitamin B12 561 Folate 14.6 Procalcitonin Stool Occult Blood NEG Coronavirus (PCR) Influenza Type A (PCR) Influenza Type B (PCR) RSV RNA Qual (PCR) Blood Type A Positive Antibody Screen NEGATIVE Crossmatch See Detail 09/10/20 09/11/20 09/11/20 17:40 03:28 04:26 WBC RBC Hgb Hct MCV MCH MCHC RDW Plt Count MPV Immature Gran % (Auto) Neut % (Auto) Lymph % (Auto) [place] % (Auto) Eos % (Auto) Baso % (Auto) Lymph # (Auto) [place] # (Auto) Eos # (Auto) Baso # (Auto) Abs Immat Gran (auto) Absolute Neuts (auto) Absolute Nucleated RBC Nucleated RBC % (auto) PT INR APTT VBG pH VBG pCO2 VBG pO2 VBG HCO3 VBG O2 Saturation VBG Base Excess Sodium Potassium Chloride Carbon Dioxide Anion Gap BUN Creatinine Estim Creat Clear Calc Estimated GFR POC Glucose 489 H* Random Glucose Lactic Acid Lactic Acid Fup @ 2Hr 2.6 H* Lactic Acid Fup @ 4Hr 2.6 H* Calcium Magnesium Iron TIBC % Saturation Unsat Iron Binding Ferritin Total Bilirubin Direct Bilirubin AST ALT Alkaline Phosphatase Lactate Dehydrogenase Troponin I High Sens B-Natriuretic Peptide Total Protein Albumin Lipase Vitamin B12 Folate Procalcitonin Stool Occult Blood Coronavirus (PCR) Influenza Type A (PCR) Influenza Type B (PCR) RSV RNA Qual (PCR) Blood Type Antibody Screen Crossmatch 09/11/20 09/11/20 09/11/20 04:26 04:26 04:26 WBC 11.2 H RBC 3.46 L Hgb 9.0 L D Hct 28.1 L D MCV 81.2 MCH 26.0 L MCHC 32.0 RDW 20.0 H Plt Count 270 MPV 12.5 H Immature Gran % (Auto) 0.8 H Neut % (Auto) 82.6 H Lymph % (Auto) 7.4 L [place] % (Auto) 9.0 Eos % (Auto) 0.0 Baso % (Auto) 0.2 Lymph # (Auto) 0.8 L [place] # (Auto) 1.0 Eos # (Auto) 0.0 Baso # (Auto) 0.0 Abs Immat Gran (auto) 0.09 H Absolute Neuts (auto) 9.2 H Absolute Nucleated RBC 0.000 Nucleated RBC % (auto) 0.0 PT INR APTT VBG pH VBG pCO2 VBG pO2 VBG HCO3 VBG O2 Saturation VBG Base Excess Sodium Potassium Chloride Carbon Dioxide Anion Gap BUN Creatinine Estim Creat Clear Calc Estimated GFR POC Glucose Random Glucose Lactic Acid Lactic Acid Fup @ 2Hr Lactic Acid Fup @ 4Hr Calcium Magnesium Iron TIBC % Saturation Unsat Iron Binding Ferritin Total Bilirubin Direct Bilirubin AST ALT Alkaline Phosphatase Lactate Dehydrogenase Troponin I High Sens 44.1 H B-Natriuretic Peptide 2638 H Total Protein Albumin Lipase Vitamin B12 Folate Procalcitonin Stool Occult Blood Coronavirus (PCR) Influenza Type A (PCR) Influenza Type B (PCR) RSV RNA Qual (PCR) Blood Type Antibody Screen Crossmatch 09/11/20 09/11/20 09/11/20 04:26 06:03 09:13 WBC RBC Hgb Hct MCV MCH MCHC RDW Plt Count MPV Immature Gran % (Auto) Neut % (Auto) Lymph % (Auto) [place] % (Auto) Eos % (Auto) Baso % (Auto) Lymph # (Auto) [place] # (Auto) Eos # (Auto) Baso # (Auto) Abs Immat Gran (auto) Absolute Neuts (auto) Absolute Nucleated RBC Nucleated RBC % (auto) PT INR APTT VBG pH VBG pCO2 VBG pO2 VBG HCO3 VBG O2 Saturation VBG Base Excess Sodium 134 L Potassium 4.1 D Chloride 102 Carbon Dioxide 19 L Anion Gap 17 BUN 29 H Creatinine 1.38 Estim Creat Clear Calc 29.1 Estimated GFR 37 POC Glucose 285 H 142 H Random Glucose 494 H* Lactic Acid Lactic Acid Fup @ 2Hr Lactic Acid Fup @ 4Hr Calcium 8.6 Magnesium Iron TIBC % Saturation Unsat Iron Binding Ferritin Total Bilirubin Direct Bilirubin AST ALT Alkaline Phosphatase Lactate Dehydrogenase Troponin I High Sens B-Natriuretic Peptide Total Protein Albumin Lipase Vitamin B12 Folate Procalcitonin Stool Occult Blood Coronavirus (PCR) Influenza Type A (PCR) Influenza Type B (PCR) RSV RNA Qual (PCR) Blood Type Antibody Screen Crossmatch Assessment and Plan (1) Acute on chronic systolic heart failure: Status: Acute (2) Cardiomyopathy: Qualifiers: Cardiomyopathy type: ischemic Qualified Code(s): I25.5 - Ischemic cardiomyopathy Status: Acute (3) Atherosclerotic cardiovascular disease: Status: Acute (4) Persistent atrial fibrillation: Status: Acute EKG with atrial fibrillation and right bundle-branch block pattern at 113/Min. Telemetry also shows atrial fibrillation. We can treat her for acute on chronic systolic heart failure. Last EF based on echocardiogram is 10 to 15%. Continue anticoagulation for the atrial fibrillation. We will follow with you.
--- NOTE | 2020-09-11 11:00 | CA_ITS ---
Transthoracic Echocardiogram Patient (Last, First, Middle): Kat Lama, Gender: Female Date of : 1945 Age: 75 Procedure Date: 09/11/2020 Procedure Type: Transthoracic Echocardiogram Location[place] [facility] [place]: 147.32 cm Weight: 72.58 kg BSA: 1.66 m2 Heart Rate: bpm BP: 118 / 60 mmHg [employer]: Referring MD: Abhay Deras MD Symptoms: CHF Study Quality: Good ECG Rhythm: Atrial Fibrillation Conclusions: - The left ventricular systolic function is severely decreased. The visually estimated ejection fraction is between 25-30%. - The inferolateral wall, the basal inferior, and mid inferior segments are akinetic. - There is mild to moderately decreased right ventricular systolic function. - There is mild mitral valve regurgitation. - There is moderate tricuspid valve regurgitation. - Moderate pulmonary hypertension is present. Findings Left Ventricle Normal left ventricular cavity size. There is mildly increased left ventricular wall thickness. The left ventricular systolic function is severely decreased. The visually estimated ejection fraction is between 25 30%. E/E prime ratio is >15, consistent with elevated filling pressures. Evidence suggests grade II (moderate) diastolic dysfunction. Wall Motion Rest Echo Findings The inferolateral wall, the basal inferior, and mid inferior segments are akinetic. Right Ventricle Mildly increased right ventricular cavity size. There is mild to moderately decreased right ventricular systolic function. Atria The left atrium is mildly dilated. The right atrium is normal in size. Aortic Valve There is mild calcification of the aortic valve. There is no aortic valve stenosis. There is no aortic valve regurgitation. Mitral Valve The posterior mitral leaflet has restricted mobility. There is mild mitral annular calcification. There is mild mitral valve regurgitation. There is no mitral valve stenosis. Pulmonic Valve The pulmonic valve was not well visualized. There is mild pulmonic valve regurgitation. Tricuspid Valve Normal tricuspid valve structure. There is moderate tricuspid valve regurgitation. The right ventricular systolic pressure is 54 mmHg. Moderate pulmonary hypertension is present. Great Vessels The aortic annulus, sinuses of valsalva, and asc aorta are normal in size. Venous The inferior vena cava is normal in size and collapses greater than 50% with inspiration. Pericardium/Pleural There is no evidence of pericardial effusion. Prior Study Comparison Changes noted compared to prior study dated: 12/27/2018. Slight improvement in LVEF. Measurements 2D Linear Measurements IVSd: 1.26 0.6-0.9/0.6-1.0 cm LVIDd: 5.55 3.9-5.3/4.2-5.9 cm LVIDd Index: 3.34 2.4-3.2/2.2-3.1 cm/m2 LVIDs: 4.89 2.0-3.6 cm LVPWd: 1.26 0.7-1.1 cm Ao Root: 2.80 2.1-3.5 cm LA Diam: 3.70 2.7-3.8/3.0-4.0 cm LAIDs Index: 2.23 1.5-2.3 cm/m2 LV Mass: 368.79 67-162/88-224 g LV Mass Index: 222.16 43-95/49-115 g/m2 LVOT Diam: 2.00 3.0+(-)1.3 cm 2D Systolic Function EF 4C: 37.10 >55% EF 2C: 20.20 >55% EF BiP: 29.10 >55% Mitral Valve MV Pk E: 1.06 MV PK A: 0.64 MV Decel Time: 162.00 E/A: 1.70 E'Lateral: 3.96 E'Medial: 3.58 E/E' Med: 29.60 E/E' Lat: 26.80 PHT: 47.00 MVA PHT: 4.68 Decel Gooding: 6.53 Aortic Valve AoV Pk Ozzie: 1.37 AoV Mn Ozzie: 0.78 AoV VTI: 0.30 AoV Pk Grad: 8.00 Aov Mn Grad: 3.00 VEL Cont.VTI: 1.83 LVOT LVOT Pk Ozzie: 0.76 LVOT Mn Ozzie: 0.49 LVOT VTI: 0.18 LVOT Pk Grad: 2.00 LVOT Mn Grad: 1.00 LVOT Diam: 2.00 LVOT Area: 3.14 Diastolic Function MV Pk E: 1.06 MV Pk A: 0.64 E/A: 1.70 E'Medial: 3.58 E/E' Med: 29.60 E' Laterial: 3.96 E/E' Lat: 26.80 Tricuspid Valve TR Pk Ozzie: 3.56 TR Pk Grad: 51.00 RA Press: 3.00 RVSP: 54.00 Great Vessels Aorta Ao Root-2D: 2.80 2.0-3.7 cm Pulmonary Valve PV Pk Ozzie: 1.06 Peak PV Grad: 4.00 Updated in Other Vendor System with Status of Final Abhay Deras MD electronically signed on 09/12/2020 9:50:31 AM with status of Final
--- NOTE | 2020-09-11 11:03 | P.PNIM_ITS ---
Subjective Subjective Date of Service: 09/11/20 Interval History: feeling better Cardiovascular Cardiovascular: Reports no additional cardiovascular complaints Respiratory Respiratory: Reports no additional respiratory complaints Physical Exam Vital Signs: Vital Signs: Last Vital Signs Temp 97.8 F 09/11/20 08:00 Pulse 91 09/11/20 08:00 Resp 22 H 09/11/20 08:00 BP 149/71 H 09/11/20 08:00 Pulse Ox 99 09/11/20 08:00 Body Mass Index 26.0 General: alert, no acute distress Resp: crackles CVS: S1,S2,RRR GI: soft, non tender, non distended Neuro: motor grossly intact Psych: impaired insight biltareal aka Objective Data Current Medications Generic Name Dose Route Start Last Admin Trade Name Freq PRN Reason Stop Dose Admin Acetaminophen 650 mg 09/11/20 03:20 Acetaminophen 325 Mg Tablet PO Q6H PRN Pain, Mild (Pain Scale 1-3) Albuterol Sulfate 2 puff 09/11/20 03:20 Albuterol Sulfate 90 Mcg 8 Gm Inhaler INHALE Q4H PRN Shortness Of Breath Amlodipine Besylate 2.5 mg 09/11/20 09:00 09/11/20 08:33 Amlodipine Besylate 2.5 Mg Tablet PO 2.5 mg DAILY GABO Administration Protocol Apixaban 5 mg 09/11/20 03:20 09/11/20 08:33 Apixaban 5 Mg Tablet PO 5 mg BID GABO Administration Ascorbic Acid 500 mg 09/11/20 03:20 09/11/20 08:34 Ascorbic Acid 500 Mg Tablet PO 500 mg BID GABO Administration Aspirin 81 mg 09/11/20 09:00 09/11/20 08:34 Aspirin Enteric Coated 81 Mg Tablet. PO 81 mg DAILY GABO Administration Atorvastatin Calcium 40 mg 09/11/20 21:00 Atorvastatin Calcium 40 Mg Tablet PO BEDTIME GABO Docusate Sodium 100 mg 09/11/20 03:20 Docusate Sodium 100 Mg Capsule PO DAILY PRN Constipation Ferrous Sulfate 324 mg 09/11/20 03:20 09/11/20 08:33 Ferrous Sulfate 324 Mg Tablet. PO 324 mg BID GABO Administration Furosemide 40 mg 09/11/20 03:20 09/11/20 08:33 Furosemide 40 Mg/4 Ml Vial IVPUSH 40 mg BID@0800,1700 GABO Administration Protocol Insulin Glargine 20 unit 09/11/20 09:00 09/11/20 08:32 Insulin Glargine,Hum.Rec.Anlog 100 Unit/Ml 10 Ml Vial SUBCUT 20 unit DAILY GABO Administration Insulin Human Lispro 0 unit 09/11/20 03:20 09/11/20 08:32 Insulin Lispro 100 Unit/Ml 3 Ml Vial SUBCUT 6 unit QIDACHS GABO Administration Protocol Lisinopril 2.5 mg 09/11/20 09:00 09/11/20 08:34 Lisinopril 2.5 Mg Tablet PO 2.5 mg DAILY GABO Administration Protocol Montelukast Sodium 10 mg 09/11/20 03:20 09/11/20 04:09 Montelukast Sodium 10 Mg Tablet PO 10 mg BEDTIME GABO Administration Ondansetron HCl 4 mg 09/11/20 03:20 Ondansetron Hcl 4 Mg/2 Ml Vial IVPUSH Q8H PRN Nausea and Vomiting Pharmacy Consult 1 each 09/10/20 14:10 Consult Rx Perform Med Rec MISCELLANE ONCE PRN Consult order Sodium Chloride 3 ml 09/11/20 03:20 09/11/20 08:34 0.9 % Sodium Chloride Flush 3 Ml Syringe IVFLUSH 3 ml QSHIFT [facility] Administration Zolpidem Tartrate 5 mg 09/11/20 03:20 Zolpidem Tartrate 5 Mg Tablet PO BEDTIME PRN Sleep Labs CBC & Chem 7: 09/11/20 04:26 09/11/20 04:26 Assessment and Plan (1) Congestive heart failure: Status: Acute (2) Anemia: Status: Acute Assessment and Plan: 75F presented with sob Acute on chronic HFrEF continue lasix CKD3 Creatinine at baseline normocytic anemia s/p 1 unit, hgb improved appropriately 7 to 9 persistent afib eliquis CAD/PVD Continue aspirin, statin Hypertension Norvasc, lisinopril Diabetes insulin
--- NOTE | 2020-09-11 11:17 | MHC.CM.PN ---
IMM 09/11/20 FEMALE 75 DX CHF EXACERBATION. SHE LIVES WITH FAMILY. 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 Pt is WC bound. Le amp no prosthesis. DP home with [facility] and resumption of [employer] services. Family will provide transportation. HCP on file and validated. CM will follow.
--- NOTE | 2020-09-11 11:20 | P.CDIC_ITS ---
CDI Concurrent Query Service Date: 09/11/20 Documentation Clarification: Please clarify if you are treating a proba ble/suspected/likely or confirmed: Lactic Acidosis Please specify if known PLEASE DO NOT DELETE/MODIFY EXISTING CONTENT Additional information is needed in order to code to the highest accuracy and appropriate Severity of Illness (SOI). Please clarify the information noted below in your progress notes and discharge summary. Risk Factors/Clinical Indicators/Treatments Elevated lactic acid, no source of infection found, no sepsis. Ed: lactic acidosis due to Albuterol and no infection or severe sepsis, was elevated at 2.9 no repeat draw at this time. CDS: Bethany Aponte CCS, CDIS Contact Number: [phone] Please Review the information above and exercise your independent professional judgment in responding to the query. If you concur, pleas document in the PROGRESS NOTES and DISCHARGE SUMMARY. If you do not agree with the query, please document in the query above. THIS QUERY IS PART OF THE PERMANENT MEDICAL RECORD
[2020-09-11 13:25] LABS: Glucose, Whole Blood 145 mg/dL (60-115)
[2020-09-11] MEDS: Docusate Sodium 100 MG CAPSULE PO (15:58)
[2020-09-11 16:40] LABS: Glucose, Whole Blood 191 mg/dL (60-115)
[2020-09-11 20:41] LABS: Glucose, Whole Blood 159 mg/dL (60-115)
[2020-09-11] MEDS: Atorvastatin Calcium 40 MG TABLET PO (21:57)
[2020-09-12] VITALS: BP 150/76; PULSE 78; RESP 18; TEMP 37; O2SAT 99
[2020-09-12 04:00] VITALS: BP 125/61; PULSE 64; RESP 16; TEMP 36.8; O2SAT 98
--- NOTE | 2020-09-12 06:28 | PC.NURSE ---
09/12/20 0548 pt had a 5 beat v-tach on the monitor. notified and stat magnesium level ordered.
[2020-09-12 06:38] LABS: MANUAL DIFF FLAG NO
[2020-09-12 06:53] LABS: Basophils Percent Auto 0.3 % (0-2); Eosinophils Absolute Auto 0.2 X10*3/uL (0.0-0.4); Eosinophils Percent Auto 1.6 % (0-4); Hematocrit 28.2 % (37-47); Hemoglobin 9.1 g/dl (12.0-16.0); Imm Gran Abs Auto 0.07 X10*3/uL (0.00-0.03); Imm Gran Pct Auto 0.5 % (0.0-0.4); Lymphocytes Absolute Auto 2.2 X10*3/uL (1.2-4.9); Lymphocytes Percent Auto 16.3 % (20-40); Mean Corpuscular HGB Conc 32.3 g/dl (31.0-35.0); Mean Corpuscular Hemoglobin 26.4 pg (27.0-33.0); Mean Corpuscular Volume 81.7 fL (80-98); Monocytes Absolute Auto 1.2 X10*3/uL (0.1-1.2); Monocytes Percent Auto 8.8 % (2-11); Neutrophils Absolute Auto 9.9 X10*3/uL (2.0-8.3); Neutrophils Percent Auto 72.5 % (45-73); Platelet Count 296 X10*3/uL (160-400); Red Blood Count 3.45 X10*6/uL (4.20-5.50); Red Cell Distribution Width 20.8 % (11.0-16.0); White Blood Count 13.7 X10*3/uL (4.8-10.8)
[2020-09-12 07:22] LABS: Anion Gap 13 (12-20); Blood Urea Nitrogen 31 mg/dL (9-16); Calcium 8.2 mg/dL (8.4-10.2); Carbon Dioxide 23 mmol/L (22-29); Chloride 108 mmol/L (96-108); Creatinine Clr Calc Pharmacy 36.5; Estimated Glomerular Filt Rate 49; Glucose Fasting 75 mg/dL (60-99); Magnesium 2.2 mg/dL (1.6-2.6); Potassium 3.5 mmol/l (3.3-5.1); Sodium 140 mmol/L (135-145)
[2020-09-12 07:25] VITALS: BP 149/65; PULSE 77; RESP 18; TEMP 36.8; O2SAT 98
[2020-09-12 07:36] LABS: Glucose, Whole Blood 89 mg/dL (60-115)
[2020-09-12 09:10] VITALS: BP 149/65; PULSE 77
[2020-09-12] MEDS: Apixaban 5 MG TABLET PO (09:10)
[2020-09-12] MEDS: Ascorbic Acid 500 MG TABLET PO (09:10)
[2020-09-12] MEDS: Ferrous Sulfate 324 MG TABLET.DR PO (09:10)
[2020-09-12] MEDS: amLODIPine Besylate 2.5 MG TABLET PO (09:10)
[2020-09-12] MEDS: Aspirin Enteric Coated 81 MG TABLET.DR PO (09:10)
[2020-09-12] MEDS: Furosemide 40 MG/4 ML VIAL IVPUSH (09:10)
[2020-09-12 09:11] VITALS: BP 149/65; PULSE 77
[2020-09-12] MEDS: lisinopriL 2.5 MG TABLET PO (09:11)
[2020-09-12] MEDS: 0.9 % Sodium Chloride Flush 3 ML SYRINGE IVFLUSH (09:11)
--- NOTE | 2020-09-12 10:44 | PM.DS ---
DS: Providers Provider Date of admission: 09/10/20 17:12 Primary care physician: Unknown Physician Consults: 09/11/20 03:20 Consult to Cardiology Routine Consulting Provider: Abhay Deras Reason for consultation: chf Has provider been notified: No DS: Diagnosis Discharge Diagnosis (1) Congestive heart failure: Status: Acute (2) Anemia: Status: Acute DS: Medications Discharge Medications Home Medications: Home Medications Medication Instructions Recorded Confirmed Eliquis 5 mg PO BID 09/10/20 09/10/20 Lantus Solostar U-100 Insulin 26 unit SUBCUT QAM 09/10/20 09/10/20 albuterol sulfate [ProAir HFA] 2 puff INHALATION Q4-6H PRN 09/10/20 09/10/20 amlodipine 2.5 mg PO DAILY 09/10/20 09/10/20 ascorbic acid (vitamin C) 500 mg PO BID 09/10/20 09/10/20 aspirin 81 mg PO DAILY 09/10/20 09/10/20 atorvastatin 40 mg PO DAILY 09/10/20 09/10/20 ferrous sulfate 325 mg PO BID 09/10/20 09/10/20 furosemide 40 mg PO DAILY 09/10/20 09/10/20 insulin lispro [Humalog KwikPen 3 unit SUBCUT TIDAC 09/10/20 09/10/20 Insulin] lisinopril 2.5 mg PO DAILY 09/10/20 09/10/20 montelukast 10 mg PO BEDTIME 09/10/20 09/10/20 nitroglycerin 0.4 mg SUBLINGUAL Q5M PRN 09/10/20 09/10/20 zolpidem 5 mg PO BEDTIME PRN 09/10/20 09/10/20 DS: Summary Hospital Course Hospital Course: patient was admitted for acute on chronic systolic chf, she was treated with iv lasix and diuresed well. her sob symptoms resolved and she will be discharged home to continue lasix 40mg daily. Time Spent with Patient Time attestation: Total time spent providing and/or coordinating discharge services: Physical Exam Vital Signs: Vital Signs: Last Vital Signs Temp 98.2 F 09/12/20 07:25 Pulse 77 09/12/20 09:11 Resp 18 09/12/20 07:25 BP 149/65 H 09/12/20 09:11 Pulse Ox 98 09/12/20 07:25 Body Mass Index 26.0 General: AO X 3, no acute distress Resp: CTA bilateral CVS: S1,S2,RRR, bilateral aka GI: soft, non tender, non distended Neuro: motor grossly intact Psych: impaired insight DS: Data Data Completed and Pending Labs on day of discharge: 09/10/20 12:53 Albuterol Sulfate (0.083%) [Ventolin (0.083%)] 2.5 mg INHALE ONCE ONE 09/10/20 12:55 ECG 12 lead EKG Stat EKG Documentation DIRECTED Magnesium Sulfate/H2O 2 gm in 50 ml IV ONCE methylPREDNISolone Sod Succ/PF [SOLU-MedroL] 60 mg IVPUSH ONCE ONE 09/10/20 12:56 XR chest 1V Stat 09/10/20 13:37 B Type Natriuretic Peptide Stat Basic Metabolic Panel Stat Complete Blood Count Auto Diff Stat Ferritin Stat IRON PROFILE Stat Lactate Dehydrogenase Stat Lipase Stat Liver Panel Stat Magnesium Stat Partial Thromboplastin Time Stat Procalcitonin Stat Prothrombin Time INR Stat Troponin-I High Sensitivity Stat 09/10/20 13:41 Lactic Acid Stat SARS-CoV2/FLU/RSV Stat Venous Blood Gas Stat 09/10/20 13:53 Furosemide [Lasix] 40 mg IVPUSH ONCE ONE 09/10/20 14:40 OBSX1 Stat 09/10/20 14:49 Red Blood Cells Stat Type and Screen Stat 09/10/20 15:00 Vitamin B12 and Folate Routine 09/10/20 17:02 Transfer Order Routine 09/10/20 17:39 Add Laboratory Test Stat 09/10/20 17:40 ~Lactic Acid-LAB USE ONLY Stat 09/10/20 19:45 ~Lactic Acid-LAB USE ONLY Stat 09/11/20 03:28 Glucose, Whole Blood Routine 09/11/20 03:37 Insulin Lispro [Humalog] 6 unit SUBCUT ONCE ONE 09/11/20 04:26 B Type Natriuretic Peptide Routine Basic Metabolic Panel DAILY@0600 Complete Blood Count Auto Diff DAILY@0600 Troponin-I High Sensitivity Stat 09/11/20 06:03 Glucose, Whole Blood Routine 09/11/20 09:13 Glucose, Whole Blood Routine 09/11/20 11:00 CA echo transthoracic complete Routine 09/11/20 13:18 Glucose, Whole Blood Routine 09/11/20 Lunch Diabetic Diet 09/11/20 16:30 Glucose, Whole Blood Routine 09/11/20 20:38 Glucose, Whole Blood Routine 09/12/20 06:01 BMP [Basic Metabolic Panel Fasting] Routine Complete Blood Count Auto Diff Routine Magnesium Routine 09/12/20 07:23 Glucose, Whole Blood Routine Laboratory Last Values WBC 13.7 X10*3/uL (4.8-10.8) H 09/12/20 06:01 RBC 3.45 X10*6/uL (4.20-5.50) L 09/12/20 06:01 Hgb 9.1 g/dl (12.0-16.0) L 09/12/20 06:01 Hct 28.2 % (37-47) L 09/12/20 06:01 MCV 81.7 fL (80-98) 09/12/20 06:01 MCH 26.4 pg (27.0-33.0) L 09/12/20 06:01 MCHC 32.3 g/dl (31.0-35.0) 09/12/20 06:01 RDW 20.8 % (11.0-16.0) H 09/12/20 06:01 Plt Count 296 X10*3/uL (160-400) 09/12/20 06:01 MPV 12.0 fL (9.4-12.3) 09/12/20 06:01 Immature Gran % (Auto) 0.5 % (0.0-0.4) H 09/12/20 06:01 Neut % (Auto) 72.5 % (45-73) 09/12/20 06:01 Lymph % (Auto) 16.3 % (20-40) L 09/12/20 06:01 [place] % (Auto) 8.8 % (2-11) 09/12/20 06:01 Eos % (Auto) 1.6 % (0-4) 09/12/20 06:01 Baso % (Auto) 0.3 % (0-2) 09/12/20 06:01 Lymph # (Auto) 2.2 X10*3/uL (1.2-4.9) 09/12/20 06:01 [place] # (Auto) 1.2 X10*3/uL (0.1-1.2) 09/12/20 06:01 Eos # (Auto) 0.2 X10*3/uL (0.0-0.4) 09/12/20 06:01 Baso # (Auto) 0.0 X10*3/uL (0.0-0.2) 09/12/20 06:01 Abs Immat Gran (auto) 0.07 X10*3/uL (0.00-0.03) H 09/12/20 06:01 Absolute Neuts (auto) 9.9 X10*3/uL (2.0-8.3) H 09/12/20 06:01 Absolute Nucleated RBC 0.000 X10*3/uL (0.0-0.012) 09/12/20 06:01 Nucleated RBC % (auto) 0.0 /100WBC (0.0-0.2) 09/12/20 06:01 PT 25.6 SEC (10.8-13.0) H 09/10/20 13:37 INR 2.1 (0.9-1.1) H 09/10/20 13:37 APTT 39.6 SEC (24.1-38.0) H 09/10/20 13:37 VBG pH 7.30 (7.32-7.43) L 09/10/20 13:41 VBG pCO2 46 mmhg 09/10/20 13:41 VBG pO2 39 mmhg 09/10/20 13:41 VBG HCO3 22 mmol/L 09/10/20 13:41 VBG O2 Saturation 59.1 % 09/10/20 13:41 VBG Base Excess -4.0 mmol/L 09/10/20 13:41 Sodium 140 mmol/L (135-145) 09/12/20 06:01 Potassium 3.5 mmol/l (3.3-5.1) 09/12/20 06:01 Chloride 108 mmol/L (96-108) 09/12/20 06:01 Carbon Dioxide 23 mmol/L (22-29) 09/12/20 06:01 Anion Gap 13 (12-20) 09/12/20 06:01 BUN 31 mg/dL (9-16) H 09/12/20 06:01 Creatinine 1.10 mg/dL (0.5-1.4) 09/12/20 06:01 Estim Creat Clear Calc 36.5 09/12/20 06:01 Estimated GFR 49 09/12/20 06:01 POC Glucose 89 mg/dL (60-115) 09/12/20 07:23 Random Glucose 494 mg/dL (60-115) H* 09/11/20 04:26 Fasting Glucose 75 mg/dL (60-99) 09/12/20 06:01 Lactic Acid 2.9 mmol/L (0.5-2.0) H* 09/10/20 13:41 Lactic Acid Fup @ 2Hr 2.6 mmol/L (0.5-2.0) H* 09/10/20 17:40 Lactic Acid Fup @ 4Hr 2.6 mmol/L (0.5-2.0) H* 09/11/20 04:26 Calcium 8.2 mg/dL (8.4-10.2) L 09/12/20 06:01 Magnesium 2.2 mg/dL (1.6-2.6) 09/12/20 06:01 Magnesium Cancelled 09/12/20 06:01 Iron 17 mcg/dL (30-160) L 09/10/20 13:37 TIBC 335 mcg/dL (228-428) 09/10/20 13:37 % Saturation 5 % (15-50) L 09/10/20 13:37 Unsat Iron Binding 318 ug/dL 09/10/20 13:37 Ferritin 25 ng/mL (10-250) 09/10/20 13:37 Total Bilirubin 0.7 mg/dL (0.0-1.0) 09/10/20 13:37 Direct Bilirubin 0.3 mg/dL (0.0-0.5) 09/10/20 13:37 AST 16 U/L (5-31) 09/10/20 13:37 ALT 37 U/L (0-31) H 09/10/20 13:37 Alkaline Phosphatase 166 U/L (39-117) H 09/10/20 13:37 Lactate Dehydrogenase 262 U/L (122-220) H 09/10/20 13:37 Troponin I High Sens 44.1 ng/L (<3.5-17.0) H 09/11/20 04:26 B-Natriuretic Peptide 2638 pg/mL (<100) H 09/11/20 04:26 Total Protein 7.2 g/dL (6.5-8.0) 09/10/20 13:37 Albumin 3.8 g/dL (3.5-5.0) 09/10/20 13:37 Lipase 12 U/L (8-78) 09/10/20 13:37 Vitamin B12 561 pg/mL (200-900) 09/10/20 15:00 Folate 14.6 ng/mL (> or = 4.0) 09/10/20 15:00 Procalcitonin 0.04 ng/mL 09/10/20 13:37 Stool Occult Blood NEG (NEG) 09/10/20 14:40 Coronavirus (PCR) NEGATIVE (Negative) 09/10/20 13:41 Influenza Type A (PCR) NEGATIVE (Negative) 09/10/20 13:41 Influenza Type B (PCR) NEGATIVE (Negative) 09/10/20 13:41 RSV RNA Qual (PCR) NEGATIVE (Negative) 09/10/20 13:41 Blood Type A Positive 09/10/20 14:49 Antibody Screen NEGATIVE 09/10/20 14:49 Crossmatch See Detail 09/10/20 14:49 Preliminary micro results at discharge 09/10/20 13:41 Blood Culture - Preliminary Blood - Arterial No growth after 24 hours. 09/10/20 13:37 Blood Culture - Preliminary Blood - Arterial No growth after 24 hours. Discharge Plan Discharge Patient Disposition: Home, Self-Care Referrals: Physician,Unknown [Primary Care Provider] - Discharge Medications: Continued furosemide 40 mg Tablet 40 mg PO DAILY RF: 0 atorvastatin 40 mg Tablet 40 mg PO DAILY RF: 0 amlodipine 2.5 mg Tablet 2.5 mg PO DAILY RF: 0 aspirin 81 mg Tablet,Delayed Release (Dr/Ec) 81 mg PO DAILY RF: 0 ascorbic acid (vitamin C) 500 mg Tablet 500 mg PO BID RF: 0 nitroglycerin 0.4 mg Tablet, Sublingual 0.4 mg SUBLINGUAL Q5M PRN (Reason: Chest Pain) RF: 0 montelukast 10 mg Tablet 10 mg PO BEDTIME RF: 0 zolpidem 5 mg Tablet 5 mg PO BEDTIME PRN (Reason: Sleep) RF: 0 albuterol sulfate [ProAir HFA] 90 mcg/actuation Hfa Aerosol Inhaler 2 puff INHALATION Q4-6H PRN (Reason: Shortness Of Breath) RF: 0 ferrous sulfate 325 mg (65 mg iron) Tablet,Delayed Release (Dr/Ec) 325 mg PO BID RF: 0 lisinopril 2.5 mg Tablet 2.5 mg PO DAILY RF: 0 insulin lispro [Humalog KwikPen Insulin] 100 unit/mL Insulin Pen 3 unit SUBCUT TIDAC RF: 0 Lantus Solostar U-100 Insulin 100 unit/mL (3 mL) Insulin Pen 26 unit SUBCUT QAM RF: 0 Eliquis 5 mg Tablet 5 mg PO BID RF: 0 Discharge Orders: Discharge Order (Routine); Ordered 09/12/20 Ordered By: Peter Ivory Activity on Discharge: As tolerated Visit Report Forms: Patient Portal Discharge page Care Plan Goals: avoid hospitalization Health Concerns: chf Plan of Treatment: low salt diet, continue lasix, monitor weights
[2020-09-12 11:14] LABS: Glucose, Whole Blood 142 mg/dL (60-115)
--- NOTE | 2020-09-12 11:24 | MHC.CM.PN ---
Patient has been medically cleared for dc to home today, no services.Last IMM addressed yesterday.
[2020-09-12 11:28] VITALS: BP 136/64; PULSE 61; RESP 18; TEMP 36.7; O2SAT 98
--- NOTE | 2020-09-12 11:48 | PM.PNCARD ---
Subjective Subjective Date of Service: 09/12/20 Interval history: She states that she is feeling better. Less short of breath. Review of Systems Review of Systems Yes all other systems are reviewed and are negative Cardiovascular: Reports as per HPI, Reports no additional cardiovascular complaints, Denies chest pain, Denies chest pain at rest, Denies chest pain with activity, Denies Epigastric Pain, Denies syncope, Denies pedal edema, Denies edema, Reports irregular heart rhythm, Reports dyspnea and Reports dyspnea on exertion Respiratory: Reports dyspnea and Reports dyspnea on exertion Denies syncope Cardiovascular: Denies syncope Denies syncope Physical Exam Vital Signs: Last Vital Signs Temp 98.0 F 09/12/20 11:28 Pulse 61 09/12/20 11:28 Resp 18 09/12/20 11:28 BP 136/64 09/12/20 11:28 Pulse Ox 98 09/12/20 11:28 Body Mass Index 26.0 Const General: cooperative, comfortable and no acute distress Orientation/consciousness: patient oriented x3 HENMT Other: Unremarkable Neck Neck: Yes normal visual inspection Chest Chest palpation & inspection: normal inspection of the chest Resp Auscultation: clear to auscultation bilaterally, no crackles and no wheezes Cardio Jugular venous distension: no JVD Palpation: normal PMI Heart sounds: S1 normal heart sound present, S2 normal heart sound present, no gallops, no murmurs and no rubs GI Palpation (GI): Soft to palpation Back/Spine/Pelvis Other: unremarkable Skin General skin exam: no rashes or lesions noted Neuro General: patient oriented x3 Extrem Other: bilateral amputation Psych Mental Status: mental status grossly normal Results Labs and Meds Result diagrams: 09/12/20 06:01 09/12/20 06:01 Lab results: Laboratory Results - last 24 hr 09/11/20 09/11/20 09/11/20 13:18 16:30 20:38 WBC RBC Hgb Hct MCV MCH MCHC RDW Plt Count MPV Immature Gran % (Auto) Neut % (Auto) Lymph % (Auto) [place] % (Auto) Eos % (Auto) Baso % (Auto) Lymph # (Auto) [place] # (Auto) Eos # (Auto) Baso # (Auto) Abs Immat Gran (auto) Absolute Neuts (auto) Absolute Nucleated RBC Nucleated RBC % (auto) Sodium Potassium Chloride Carbon Dioxide Anion Gap BUN Creatinine Estim Creat Clear Calc Estimated GFR POC Glucose 145 H 191 H 159 H Fasting Glucose Calcium Magnesium 09/12/20 09/12/20 09/12/20 06:01 06:01 06:01 WBC 13.7 H RBC 3.45 L Hgb 9.1 L Hct 28.2 L MCV 81.7 MCH 26.4 L MCHC 32.3 RDW 20.8 H Plt Count 296 MPV 12.0 Immature Gran % (Auto) 0.5 H Neut % (Auto) 72.5 Lymph % (Auto) 16.3 L [place] % (Auto) 8.8 Eos % (Auto) 1.6 Baso % (Auto) 0.3 Lymph # (Auto) 2.2 [place] # (Auto) 1.2 Eos # (Auto) 0.2 Baso # (Auto) 0.0 Abs Immat Gran (auto) 0.07 H Absolute Neuts (auto) 9.9 H Absolute Nucleated RBC 0.000 Nucleated RBC % (auto) 0.0 Sodium 140 Potassium 3.5 Chloride 108 Carbon Dioxide 23 Anion Gap 13 BUN 31 H Creatinine 1.10 Estim Creat Clear Calc 36.5 Estimated GFR 49 POC Glucose Fasting Glucose 75 Calcium 8.2 L Magnesium 2.2 Cancelled 09/12/20 09/12/20 07:23 11:11 WBC RBC Hgb Hct MCV MCH MCHC RDW Plt Count MPV Immature Gran % (Auto) Neut % (Auto) Lymph % (Auto) [place] % (Auto) Eos % (Auto) Baso % (Auto) Lymph # (Auto) [place] # (Auto) Eos # (Auto) Baso # (Auto) Abs Immat Gran (auto) Absolute Neuts (auto) Absolute Nucleated RBC Nucleated RBC % (auto) Sodium Potassium Chloride Carbon Dioxide Anion Gap BUN Creatinine Estim Creat Clear Calc Estimated GFR POC Glucose 89 142 H Fasting Glucose Calcium Magnesium Progress Note: A&P Assessment and plan (1) Acute on chronic systolic heart failure: Status: Acute (2) Cardiomyopathy: Status: Acute (3) Atherosclerotic cardiovascular disease: Status: Acute (4) Persistent atrial fibrillation: Status: Acute Assessment and Plan: EKG with atrial fibrillation and right bundle-branch block pattern at 113/Min. Telemetry also shows atrial fibrillation. We can treat her for acute on chronic systolic heart failure. Last EF based on echocardiogram is 10 to 15%. Echocardiogram from yesterday shows LVEF 25-30%. Clinically, she seems to be improving. Can try switching her to oral diuretics and if she does okay, then discharge planning. Continue anticoagulation for the atrial fibrillation. Not clear if she is on any beta blockers considering the cardiomyopathy/atrial fibrillation; can start either coreg or Toprol XL. Fall Risk Details Current Medications: Current Medications Generic Name Dose Route Start Last Admin Trade Name Freq PRN Reason Stop Dose Admin Acetaminophen 650 mg 09/11/20 03:20 Acetaminophen 325 Mg Tablet PO Q6H PRN Pain, Mild (Pain Scale 1-3) Albuterol Sulfate 2 puff 09/11/20 03:20 Albuterol Sulfate 90 Mcg 8 Gm Inhaler INHALE Q4H PRN Shortness Of Breath Amlodipine Besylate 2.5 mg 09/11/20 09:00 09/12/20 09:10 Amlodipine Besylate 2.5 Mg Tablet PO 2.5 mg DAILY GABO Administration Protocol Apixaban 5 mg 09/11/20 03:20 09/12/20 09:10 Apixaban 5 Mg Tablet PO 5 mg BID GABO Administration Ascorbic Acid 500 mg 09/11/20 03:20 09/12/20 09:10 Ascorbic Acid 500 Mg Tablet PO 500 mg BID GABO Administration Aspirin 81 mg 09/11/20 09:00 09/12/20 09:10 Aspirin Enteric Coated 81 Mg Tablet. PO 81 mg DAILY GABO Administration Atorvastatin Calcium 40 mg 09/11/20 21:00 09/11/20 21:57 Atorvastatin Calcium 40 Mg Tablet PO 40 mg BEDTIME AGBO Administration Docusate Sodium 100 mg 09/11/20 03:20 09/11/20 15:58 Docusate Sodium 100 Mg Capsule PO 100 mg DAILY PRN Administration Constipation Ferrous Sulfate 324 mg 09/11/20 03:20 09/12/20 09:10 Ferrous Sulfate 324 Mg Tablet. PO 324 mg BID GABO Administration Furosemide 40 mg 09/11/20 03:20 09/12/20 09:10 Furosemide 40 Mg/4 Ml Vial IVPUSH 40 mg BID@0800,1700 GABO Administration Protocol Insulin Glargine 20 unit 09/11/20 09:00 09/11/20 08:32 Insulin Glargine,Hum.Rec.Anlog 100 Unit/Ml 10 Ml Vial SUBCUT 20 unit DAILY GABO Administration Insulin Human Lispro 0 unit 09/11/20 03:20 09/12/20 09:01 Insulin Lispro 100 Unit/Ml 3 Ml Vial SUBCUT Not Given QIDACHS [facility] Protocol Lisinopril 2.5 mg 09/11/20 09:00 09/12/20 09:11 Lisinopril 2.5 Mg Tablet PO 2.5 mg DAILY GABO Administration Protocol Montelukast Sodium 10 mg 09/11/20 03:20 09/11/20 21:57 Montelukast Sodium 10 Mg Tablet PO 10 mg BEDTIME GABO Administration Ondansetron HCl 4 mg 09/11/20 03:20 Ondansetron Hcl 4 Mg/2 Ml Vial IVPUSH Q8H PRN Nausea and Vomiting Pharmacy Consult 1 each 09/10/20 14:10 Consult Rx Perform Med Rec MISCELLANE ONCE PRN Consult order Sodium Chloride 3 ml 09/11/20 03:20 09/12/20 09:11 0.9 % Sodium Chloride Flush 3 Ml Syringe IVFLUSH 3 ml QSHIFT GABO Administration Zolpidem Tartrate 5 mg 09/11/20 03:20 Zolpidem Tartrate 5 Mg Tablet PO BEDTIME PRN Sleep Time Spent With Patient Time: Total time spent is greater than 50% in coordination of care (as documented) at patient's floor/unit and/or counseling patient: Time with patient: 15 - 24 minutes
[2020-09-12] MEDS: Insulin Glargine,Hum.rec.anlog 100 UNIT/ML 10 ML VIAL 20 UNIT SUBCUT (12:43)
--- NOTE | 2020-09-12 13:15 | PC.NURSE ---
Attempted to call daughter for ride/ going over discharge instructions. No answer, left message to call back. will reattempt
== END 2020-09-12 14:00 | disposition home or self-care (01) | DRG 302 ==
LOC: HO.ED 14:56 → HO.IMC 09-11 00:05
PROVIDERS: Physician Assistant Medical; Admitting Provider Internal Medicine; Emergency Provider Emergency Medicine; Visit Provider Internal Medicine
DX: I25.10 Atherosclerotic heart disease of native coronary artery without angina pectoris (principal); I50.23 Acute on chronic systolic (congestive) heart failure; E87.2 Acidosis; I48.19 Other persistent atrial fibrillation; I13.0 Hypertensive heart and chronic kidney disease with heart failure and stage 1 through stage 4 chronic kidney disease, or unspecified chronic kidney disease; I25.5 Ischemic cardiomyopathy; I45.10 Unspecified right bundle-branch block; N18.30 Chronic kidney disease, stage 3 unspecified; D63.1 Anemia in chronic kidney disease; Z20.828 Contact with and (suspected) exposure to other viral communicable diseases; Z86.73 Personal history of transient ischemic attack (TIA), and cerebral infarction without residual deficits; Z79.4 Long term (current) use of insulin; Z79.82 Long term (current) use of aspirin; Z79.899 Other long term (current) drug therapy
CPT/HCPCS: 0241U; 36415; 71045; 80048; 80076; 82272; 82607; 82728; 82746; 82803; 82947; 83540; 83605; 83615; 83690; 83735; 83880; 84145; 84484; 85025; 85610; 85730; 86850; 86900; 86901; 86920; 86923; 87040; 93005; 93306; 94640; 99285; J1940; J2930; J3475; P9016

== ENCOUNTER 2020-10-11 15:11 | Inpatient (IN) | payer MEDICARE, SELFPAY ==
[2020-10-11 15:16] VITALS: BP 137/56; PULSE 74; RESP 18; TEMP 36.6; O2SAT 91; BMI 46.5
[2020-10-11 15:21] VITALS: O2SAT 97
--- NOTE | 2020-10-11 15:22 | ED_ITS ---
HPI - SOB/Dyspnea General Chief Complaint: Upper Respiratory Symptoms <GAVIN Ko - Last Filed: 10/11/20 19:18> Stated Complaint: sob <GAVIN Ko - Last Filed: 10/11/20 19:18> Time Seen by Provider: 10/11/20 15:12 <GAVIN Ko - Last Filed: 10/11/20 19:18> Source: patient and EMS <GAVIN Ko - Last Filed: 10/11/20 19:18> Mode of arrival: EMS <GAVIN Ko - Last Filed: 10/11/20 19:18> History of Present Illness HPI Narrative: 75-year-old female with a past medical history of CHF, CAD, PVD, diabetes, asthma, prior CVA, on Eliquis, BIBA for worsening SOB, myalgias, and diarrhea x this morning. Patient was recently discharged from our facility on 09/12/20 with CHF/asthma exacerbation, presented with similar symptoms. Reports compliance with at home medications. Reports headache, sore throat, and abdominal pain. Denies chest pain, nausea/vomiting, dysuria/hematuria, sick contacts <GAVIN Ko - Last Filed: 10/11/20 19:18> MD elicited complaint: shortness of breath <GAVIN Ko - Last Filed: 10/11/20 19:18> Related Data Home Medications: Home Medications Medication Instructions Recorded Confirmed Eliquis 5 mg PO BID 09/10/20 10/11/20 Lantus Solostar U-100 Insulin 26 unit SUBCUT QAM 09/10/20 10/11/20 albuterol sulfate [ProAir HFA] 2 puff INHALATION Q4-6H PRN 09/10/20 10/11/20 amlodipine 2.5 mg PO DAILY 09/10/20 10/11/20 ascorbic acid (vitamin C) 500 mg PO BID 09/10/20 10/11/20 aspirin 81 mg PO DAILY 09/10/20 10/11/20 atorvastatin 40 mg PO DAILY 09/10/20 10/11/20 ferrous sulfate 325 mg PO BID 09/10/20 10/11/20 furosemide 40 mg PO DAILY 09/10/20 10/11/20 lisinopril 2.5 mg PO DAILY 09/10/20 10/11/20 montelukast 10 mg PO BEDTIME 09/10/20 10/11/20 nitroglycerin 0.4 mg SUBLINGUAL Q5M PRN 09/10/20 10/11/20 zolpidem 5 mg PO BEDTIME PRN 09/10/20 10/11/20 Previous Rx's Medication Instructions Recorded metoprolol succinate [Toprol XL] 25 mg PO DAILY #30 tab 09/12/20 <GAVIN Ko - Last Filed: 10/11/20 19:18> Allergies/Adverse Reactions: Allergies Allergy/AdvReac Type Severity Reaction Status Date / Time No Known Allergies Allergy Verified 08/18/20 09:08 <GAVIN Ko - Last Filed: 10/11/20 19:18> Review of Systems Review of Systems: Constitutional: No Weight loss, No Fever, No Chills ENT/Mouth: No Sinus Pain, No Hoarseness, + sore throat, No Rhinorrhea, No Swallowing Difficulty Cardiovascular: No Chest Pain, + SOB, + Dyspnea on Exertion, No Orthopnea Respiratory: No Cough, No Sputum, No Wheezing,+Dyspnea Gastrointestinal: No Nausea, No Vomiting, + Diarrhea, No Constipation, + Abdominal pain Genitourinary: No Dysuria, No Urinary Frequency, No Hematuria Musculoskeletal: No joint pain, + Myalgias, No Joint Swelling Skin: No Skin Lesions, No rash Neuro: + Headache <GAVIN Ko - Last Filed: 10/11/20 19:18> Yes all other systems are reviewed and are negative <GAVIN Ko - Last Filed: 10/11/20 19:18> [facility] Past Medical History Attestation statement: The following information was validated with the patient. <GAVIN Ko - Last Filed: 10/11/20 19:18> Source: old records reviewed and nursing notes reviewed <GAVIN Ko - Last Filed: 10/11/20 19:18> Medical History: Medical History Afib Asthma Atherosclerotic cardiovascular disease CAD (coronary artery disease) Cardiomyopathy CHF (congestive heart failure) CVA (cerebral vascular accident) Diabetes Hypertension Persistent atrial fibrillation PVD (peripheral vascular disease) <GAVIN Ko Last Filed: 10/11/20 19:18> Surgical History: Surgical History History of esophagogastroduodenoscopy (EGD) Hx of AKA (above knee amputation) Hx of colonoscopy Status post coronary artery bypass graft <GAVIN Ko - Last Filed: 10/11/20 19:18> Family History Family History: Family History Father Heart attack Mother Heart attack Diabetes <GAVIN Ko - Last Filed: 10/11/20 19:18> Social History Social History: Social History (Updated 10/11/20 @ 19:57 by GAVIN Yang) Household Members: Children Housing: Apartment Alcohol intake: never Smoking Status: Never smoker Smoked in Last 30 Days: No Use of substances other than those prescribed or required for medical reasons: No Advance Directives: No Advance Directives Information Provided: Yes service: No Current occupational status: disabled <GAVIN Ko - Last Filed: 10/11/20 19:18> Physical Exam Vital Signs: Vital Signs: Last Vital Signs Temp 98.2 F 10/11/20 22:13 Pulse 106 H 10/11/20 22:13 Resp 20 10/11/20 22:13 BP 119/57 L 10/11/20 22:13 Pulse Ox 96 10/11/20 22:13 Body Mass Index 46.5 <GAVIN Ko - Last Filed: 10/11/20 19:18> Vital Signs: Last Vital Signs Temp 98.2 F 10/11/20 22:13 Pulse 106 H 10/11/20 22:13 Resp 20 10/11/20 22:13 BP 119/57 L 10/11/20 22:13 Pulse Ox 96 10/11/20 22:13 Body Mass Index 46.5 <Baldev Crain MD - Last Filed: 10/11/20 23:01> Const: General: cooperative <GAVIN Ko - Last Filed: 10/11/20 19:18> Limitations: no limitations <GAVIN Ko - Last Filed: 10/11/20 19:18> HENMT: Head: Yes normal to inspection <[facility] [place] - Last Filed: 10/11/20 19:18> Ears: hearing grossly normal bilaterally <Caroline Janeth, PA - Last Filed: 07/22 19:18> General nose exam: Normal external nose present <[facility] [place] - Last Filed: 10/11/20 19:18> Face and sinus: Yes normal facial exam <[facility] [place] - Last Filed: 10/11/20 19:18> Eyes: General: appearance normal, both eyes and all related structures <Caroline Janeth, PA - Last Filed: 10/11/20 19:18> EOM: EOMs intact bilaterally <[facility] [place] - Last Filed: 10/11/20 19:18> Neck: Neck: Yes normal visual inspection and Yes no meningeal signs <Caroline Janeth, PA - Last Filed: 10/11/20 19:18> Resp: Auscultation: crackles (Bibasilar) <Caroline Janeth, PA - Last Filed: 10/11/20 19:18> Cardio: Rate: regular rate <[facility] [place] - Last Filed: 10/11/20 19:18> Heart sounds: S1 normal heart sound present and S2 normal heart sound present <Caroline Janeth, PA - Last Filed: 10/11/20 19:18> GI: Inspection: Yes normal to inspection <[facility] [place] - Last Filed: 10/11/20 19:18> Palpation (GI): Soft to palpation, nontender, no guarding and not rigid <Caroline Janeth, PA - Last Filed: 10/11/20 19:18> : General: Yes no CVA tenderness <Caroline Janeth, PA - Last Filed: 10/11/20 19:18> Back/Spine/Pelvis: Back: no CVA tenderness <[facility] [place] - Last Filed: 10/11/20 19:18> Skin: Rashes: no rashes <[facility] [place] - Last Filed: 10/11/20 19:18> Wounds: no wounds <Caroline Janeth, PA - Last Filed: 10/11/20 19:18> Neuro: General: no meningeal signs <Caroline Janeth, PA - Last Filed: 10/11/20 19:18> Extrem: General: Yes normal to inspection <GAVIN Ko - Last Filed: 10/11/20 19:18> Course Course Course Narrative: * COVID-19/influenza/RSV negative, chest x-ray showing prominence of the pulmonary vasculature > IV Lasix ordered * No leukocytosis, H&H at baseline, troponin 141 > likely demand ischemia, EKG without STEMI/irregular, BNP elevated at 1756 >> will obtain 3 hour repeat troponin. Plan for admission <GAVIN Ko - Last Filed: 10/11/20 19:18> Procedures EJ/Peripheral Line Neck L: Time Out Performed: No <Baldev Crain MD - Last Filed: 10/11/20 23:01> Skin Cleansed in Sterile Fashion: Yes <Baldev Crain MD - Last Filed: 10/11/20 23:01> Size (gauge): 18 <Baldev Crain MD - Last Filed: 10/11/20 23:01> IV Secured and Dressing Applied: Yes <Baldev Crain MD - Last Filed: 10/11/20 23:01> Patient Tolerated Procedure: well <Baldev Crain MD - Last Filed: 10/11/20 23:01> Additional Comments: Patient had EJ and right which infiltrated and needed IV access therefore I placed an 18 gauge in the patient's left EJ. <Baldev Crain MD - Last Filed: 10/11/20 23:01> MDM - SOB/Dyspnea MDM Narrative Medical decision making narrative: 75-year-old female with a past medical history of CHF, CAD, PVD, diabetes, asthma, prior CVA, on Eliquis, BIBA for worsening SOB, myalgias, and diarrhea x this morning. On exam 88-91% on room air > increased to 97-98% on 2L nasal cannula, bibasilar crackles, abdomen soft/nontender. Concern for COVID-19/viral syndrome vs CHF vs asthma exacerbation vs ?Pneumonia. Low concern for for sever e sepsis. Unlikely PE/ACS Plan: EKG, labs, CXR, COVID-19 testing, Duoneb, anticipated admission <GAVIN Ko - Last Filed: 10/11/20 19:18> Lab Data Result diagrams: : 10/11/20 17:00 10/11/20 18:32 <GAVIN Ko - Last Filed: 10/11/20 19:18> Labs: Lab Results 10/11/20 10/11/20 10/11/20 Range/Units 15:38 17:00 17:00 WBC 7.7 (4.8-10.8) X10*3/uL RBC 3.48 L (4.20-5.50) X10*6/uL Hgb 8.9 L (12.0-16.0) g/dl Hct 28.4 L (37-47) % MCV 81.6 (80-98) fL MCH 25.6 L (27.0-33.0) pg MCHC 31.3 (31.0-35.0) g/dl RDW 20.9 H (11.0-16.0) % Plt Count 282 (160-400) X10*3/uL MPV 11.5 (9.4-12.3) fL Immature Gran % (Auto) 0.3 (0.0-0.4) % Neut % (Auto) 74.1 H (45-73) % Lymph % (Auto) 10.7 L (20-40) % [place] % (Auto) 13.8 H (2-11) % Eos % (Auto) 0.8 (0-4) % Baso % (Auto) 0.3 (0-2) % Lymph # (Auto) 0.8 L (1.2-4.9) X10*3/uL [place] # (Auto) 1.1 (0.1-1.2) X10*3/uL Eos # (Auto) 0.1 (0.0-0.4) X10*3/uL Baso # (Auto) 0.0 (0.0-0.2) X10*3/uL Abs Immat Gran (auto) 0.02 (0.00-0.03) X10*3/uL Absolute Neuts (auto) 5.7 (2.0-8.3) X10*3/uL Absolute Nucleated RBC 0.000 (0.0-0.012) X10*3/uL Nucleated RBC % (auto) 0.0 (0.0-0.2) /100WBC PT Cancelled INR Cancelled APTT Cancelled Sodium Potassium Chloride Carbon Dioxide Anion Gap BUN Creatinine Estim Creat Clear Calc Estimated GFR Random Glucose Lactic Acid (0.5-2.0) mmol/L Calcium Magnesium Ferritin Total Bilirubin Direct Bilirubin AST ALT Alkaline Phosphatase Lactate Dehydrogenase (122-220) U/L Troponin I High Sens (<3.5-17.0) ng/L C-Reactive Protein B-Natriuretic Peptide (<100) pg/mL Total Protein Albumin Procalcitonin Coronavirus (PCR) NEGATIVE (Negative) Influenza Type A (PCR) NEGATIVE (Negative) Influenza Type B (PCR) NEGATIVE (Negative) RSV RNA Qual (PCR) NEGATIVE (Negative) 10/11/20 10/11/20 10/11/20 Range/Units 17:00 17:00 17:00 WBC (4.8-10.8) X10*3/uL RBC (4.20-5.50) X10*6/uL Hgb (12.0-16.0) g/dl Hct (37-47) % MCV (80-98) fL MCH (27.0-33.0) pg MCHC (31.0-35.0) g/dl RDW (11.0-16.0) % Plt Count (160-400) X10*3/uL MPV (9.4-12.3) fL Immature Gran % (Auto) (0.0-0.4) % Neut % (Auto) (45-73) % Lymph % (Auto) (20-40) % [place] % (Auto) (2-11) % Eos % (Auto) (0-4) % Baso % (Auto) (0-2) % Lymph # (Auto) (1.2-4.9) X10*3/uL [place] # (Auto) (0.1-1.2) X10*3/uL Eos # (Auto) (0.0-0.4) X10*3/uL Baso # (Auto) (0.0-0.2) X10*3/uL Abs Immat Gran (auto) (0.00-0.03) X10*3/uL Absolute Neuts (auto) (2.0-8.3) X10*3/uL Absolute Nucleated RBC (0.0-0.012) X10*3/uL Nucleated RBC % (auto) (0.0-0.2) /100WBC PT INR APTT Sodium Cancelled Potassium Cancelled Chloride Cancelled Carbon Dioxide Cancelled Anion Gap Cancelled BUN Cancelled Creatinine Cancelled Estim Creat Clear Calc Cancelled Estimated GFR Cancelled Random Glucose Cancelled Lactic Acid 1.1 (0.5-2.0) mmol/L Calcium Cancelled Magnesium Cancelled Ferritin Cancelled Total Bilirubin Cancelled Direct Bilirubin Cancelled AST Cancelled ALT Cancelled Alkaline Phosphatase Cancelled Lactate Dehydrogenase (122-220) U/L Troponin I High Sens 141.4 H D (<3.5-17.0) ng/L C-Reactive Protein Cancelled B-Natriuretic Peptide 1756 H (<100) pg/mL Total Protein Cancelled Albumin Cancelled Procalcitonin Coronavirus (PCR) (Negative) Influenza Type A (PCR) (Negative) Influenza Type B (PCR) (Negative) RSV RNA Qual (PCR) (Negative) 10/11/20 10/11/20 10/11/20 Range/Units 17:02 18:31 18:32 WBC (4.8-10.8) X10*3/uL RBC (4.20-5.50) X10*6/uL Hgb (12.0-16.0) g/dl Hct (37-47) % MCV (80-98) fL MCH (27.0-33.0) pg MCHC (31.0-35.0) g/dl RDW (11.0-16.0) % Plt Count (160-400) X10*3/uL MPV (9.4-12.3) fL Immature Gran % (Auto) (0.0-0.4) % Neut % (Auto) (45-73) % Lymph % (Auto) (20-40) % [place] % (Auto) (2-11) % Eos % (Auto) (0-4) % Baso % (Auto) (0-2) % Lymph # (Auto) (1.2-4.9) X10*3/uL [place] # (Auto) (0.1-1.2) X10*3/uL Eos # (Auto) (0.0-0.4) X10*3/uL Baso # (Auto) (0.0-0.2) X10*3/uL Abs Immat Gran (auto) (0.00-0.03) X10*3/uL Absolute Neuts (auto) (2.0-8.3) X10*3/uL Absolute Nucleated RBC (0.0-0.012) X10*3/uL Nucleated RBC % (auto) (0.0-0.2) /100WBC PT 28.7 H INR 2.4 H APTT 38.8 H Sodium 145 Potassium 3.7 Chloride 110 H Carbon Dioxide 23 Anion Gap 16 BUN 26 H Creatinine 1.33 Estim Creat Clear Calc 22.4 Estimated GFR 39 Random Glucose 183 H D Lactic Acid (0.5-2.0) mmol/L Calcium 8.3 L Magnesium 2.0 Ferritin Total Bilirubin 0.5 Direct Bilirubin 0.4 AST 27 D ALT 36 H Alkaline Phosphatase 216 H D Lactate Dehydrogenase 297 H (122-220) U/L Troponin I High Sens (<3.5-17.0) ng/L C-Reactive Protein 5.36 H B-Natriuretic Peptide (<100) pg/mL Total Protein 6.6 Albumin 3.5 Procalcitonin Cancelled Coronavirus (PCR) (Negative) Influenza Type A (PCR) (Negative) Influenza Type B (PCR) (Negative) RSV RNA Qual (PCR) (Negative) 10/11/20 10/11/20 Range/Units 18:32 18:32 WBC (4.8-10.8) X10*3/uL RBC (4.20-5.50) X10*6/uL Hgb (12.0-16.0) g/dl Hct (37-47) % MCV (80-98) fL MCH (27.0-33.0) pg MCHC (31.0-35.0) g/dl RDW (11.0-16.0) % Plt Count (160-400) X10*3/uL MPV (9.4-12.3) fL Immature Gran % (Auto) (0.0-0.4) % Neut % (Auto) (45-73) % Lymph % (Auto) (20-40) % [place] % (Auto) (2-11) % Eos % (Auto) (0-4) % Baso % (Auto) (0-2) % Lymph # (Auto) (1.2-4.9) X10*3/uL [place] # (Auto) (0.1-1.2) X10*3/uL Eos # (Auto) (0.0-0.4) X10*3/uL Baso # (Auto) (0.0-0.2) X10*3/uL Abs Immat Gran (auto) (0.00-0.03) X10*3/uL Absolute Neuts (auto) (2.0-8.3) X10*3/uL Absolute Nucleated RBC (0.0-0.012) X10*3/uL Nucleated RBC % (auto) (0.0-0.2) /100WBC PT INR APTT Sodium Potassium Chloride Carbon Dioxide Anion Gap BUN Creatinine Estim Creat Clear Calc Estimated GFR Random Glucose Lactic Acid (0.5-2.0) mmol/L Calcium Magnesium Ferritin 24 Total Bilirubin Direct Bilirubin AST ALT Alkaline Phosphatase Lactate Dehydrogenase (122-220) U/L Troponin I High Sens (<3.5-17.0) ng/L C-Reactive Protein B-Natriuretic Peptide (<100) pg/mL Total Protein Albumin Procalcitonin 0.13 Coronavirus (PCR) (Negative) Influenza Type A (PCR) (Negative) Influenza Type B (PCR) (Negative) RSV RNA Qual (PCR) (Negative) <GAVIN Ko - Last Filed: 10/11/20 19:18> Lab Results 10/11/20 10/11/20 10/11/20 Range/Units 15:38 17:00 17:00 WBC 7.7 (4.8-10.8) X10*3/uL RBC 3.48 L (4.20-5.50) X10*6/uL Hgb 8.9 L (12.0-16.0) g/dl Hct 28.4 L (37-47) % MCV 81.6 (80-98) fL MCH 25.6 L (27.0-33.0) pg MCHC 31.3 (31.0-35.0) g/dl RDW 20.9 H (11.0-16.0) % Plt Count 282 (160-400) X10*3/uL MPV 11.5 (9.4-12.3) fL Immature Gran % (Auto) 0.3 (0.0-0.4) % Neut % (Auto) 74.1 H (45-73) % Lymph % (Auto) 10.7 L (20-40) % [place] % (Auto) 13.8 H (2-11) % Eos % (Auto) 0.8 (0-4) % Baso % (Auto) 0.3 (0-2) % Lymph # (Auto) 0.8 L (1.2-4.9) X10*3/uL [place] # (Auto) 1.1 (0.1-1.2) X10*3/uL Eos # (Auto) 0.1 (0.0-0.4) X10*3/uL Baso # (Auto) 0.0 (0.0-0.2) X10*3/uL Abs Immat Gran (auto) 0.02 (0.00-0.03) X10*3/uL Absolute Neuts (auto) 5.7 (2.0-8.3) X10*3/uL Absolute Nucleated RBC 0.000 (0.0-0.012) X10*3/uL Nucleated RBC % (auto) 0.0 (0.0-0.2) /100WBC PT Cancelled INR Cancelled APTT Cancelled Sodium Potassium Chloride Carbon Dioxide Anion Gap BUN Creatinine Estim Creat Clear Calc Estimated GFR Random Glucose Lactic Acid (0.5-2.0) mmol/L Calcium Magnesium Ferritin Total Bilirubin Direct Bilirubin AST ALT Alkaline Phosphatase Lactate Dehydrogenase (122-220) U/L Troponin I High Sens (<3.5-17.0) ng/L C-Reactive Protein B-Natriuretic Peptide (<100) pg/mL Total Protein Albumin Procalcitonin Coronavirus (PCR) NEGATIVE (Negative) Influenza Type A (PCR) NEGATIVE (Negative) Influenza Type B (PCR) NEGATIVE (Negative) RSV RNA Qual (PCR) NEGATIVE (Negative) 10/11/20 10/11/20 10/11/20 Range/Units 17:00 17:00 17:00 WBC (4.8-10.8) X10*3/uL RBC (4.20-5.50) X10*6/uL Hgb (12.0-16.0) g/dl Hct (37-47) % MCV (80-98) fL MCH (27.0-33.0) pg MCHC (31.0-35.0) g/dl RDW (11.0-16.0) % Plt Count (160-400) X10*3/uL MPV (9.4-12.3) fL Immature Gran % (Auto) (0.0-0.4) % Neut % (Auto) (45-73) % Lymph % (Auto) (20-40) % [place] % (Auto) (2-11) % Eos % (Auto) (0-4) % Baso % (Auto) (0-2) % Lymph # (Auto) (1.2-4.9) X10*3/uL [place] # (Auto) (0.1-1.2) X10*3/uL Eos # (Auto) (0.0-0.4) X10*3/uL Baso # (Auto) (0.0-0.2) X10*3/uL Abs Immat Gran (auto) (0.00-0.03) X10*3/uL Absolute Neuts (auto) (2.0-8.3) X10*3/uL Absolute Nucleated RBC (0.0-0.012) X10*3/uL Nucleated RBC % (auto) (0.0-0.2) /100WBC PT INR APTT Sodium Cancelled Potassium Cancelled Chloride Cancelled Carbon Dioxide Cancelled Anion Gap Cancelled BUN Cancelled Creatinine Cancelled Estim Creat Clear Calc Cancelled Estimated GFR Cancelled Random Glucose Cancelled Lactic Acid 1.1 (0.5-2.0) mmol/L Calcium Cancelled Magnesium Cancelled Ferritin Cancelled Total Bilirubin Cancelled Direct Bilirubin Cancelled AST Cancelled ALT Cancelled Alkaline Phosphatase Cancelled Lactate Dehydrogenase (122-220) U/L Troponin I High Sens 141.4 H D (<3.5-17.0) ng/L C-Reactive Protein Cancelled B-Natriuretic Peptide 1756 H (<100) pg/mL Total Protein Cancelled Albumin Cancelled Procalcitonin Coronavirus (PCR) (Negative) Influenza Type A (PCR) (Negative) Influenza Type B (PCR) (Negative) RSV RNA Qual (PCR) (Negative) 10/11/20 10/11/20 10/11/20 Range/Units 17:02 18:31 18:32 WBC (4.8-10.8) X10*3/uL RBC (4.20-5.50) X10*6/uL Hgb (12.0-16.0) g/dl Hct (37-47) % MCV (80-98) fL MCH (27.0-33.0) pg MCHC (31.0-35.0) g/dl RDW (11.0-16.0) % Plt Count (160-400) X10*3/uL MPV (9.4-12.3) fL Immature Gran % (Auto) (0.0-0.4) % Neut % (Auto) (45-73) % Lymph % (Auto) (20-40) % [place] % (Auto) (2-11) % Eos % (Auto) (0-4) % Baso % (Auto) (0-2) % Lymph # (Auto) (1.2-4.9) X10*3/uL [place] # (Auto) (0.1-1.2) X10*3/uL Eos # (Auto) (0.0-0.4) X10*3/uL Baso # (Auto) (0.0-0.2) X10*3/uL Abs Immat Gran (auto) (0.00-0.03) X10*3/uL Absolute Neuts (auto) (2.0-8.3) X10*3/uL Absolute Nucleated RBC (0.0-0.012) X10*3/uL Nucleated RBC % (auto) (0.0-0.2) /100WBC PT 28.7 H INR 2.4 H APTT 38.8 H Sodium 145 Potassium 3.7 Chloride 110 H Carbon Dioxide 23 Anion Gap 16 BUN 26 H Creatinine 1.33 Estim Creat Clear Calc 22.4 Estimated GFR 39 Random Glucose 183 H D Lactic Acid (0.5-2.0) mmol/L Calcium 8.3 L Magnesium 2.0 Ferritin Total Bilirubin 0.5 Direct Bilirubin 0.4 AST 27 D ALT 36 H Alkaline Phosphatase 216 H D Lactate Dehydrogenase 297 H (122-220) U/L Troponin I High Sens (<3.5-17.0) ng/L C-Reactive Protein 5.36 H B-Natriuretic Peptide (<100) pg/mL Total Protein 6.6 Albumin 3.5 Procalcitonin Cancelled Coronavirus (PCR) (Negative) Influenza Type A (PCR) (Negative) Influenza Type B (PCR) (Negative) RSV RNA Qual (PCR) (Negative) 10/11/20 10/11/20 Range/Units 18:32 18:32 WBC (4.8-10.8) X10*3/uL RBC (4.20-5.50) X10*6/uL Hgb (12.0-16.0) g/dl Hct (37-47) % MCV (80-98) fL MCH (27.0-33.0) pg MCHC (31.0-35.0) g/dl RDW (11.0-16.0) % Plt Count (160-400) X10*3/uL MPV (9.4-12.3) fL Immature Gran % (Auto) (0.0-0.4) % Neut % (Auto) (45-73) % Lymph % (Auto) (20-40) % [place] % (Auto) (2-11) % Eos % (Auto) (0-4) % Baso % (Auto) (0-2) % Lymph # (Auto) (1.2-4.9) X10*3/uL [place] # (Auto) (0.1-1.2) X10*3/uL Eos # (Auto) (0.0-0.4) X10*3/uL Baso # (Auto) (0.0-0.2) X10*3/uL Abs Immat Gran (auto) (0.00-0.03) X10*3/uL Absolute Neuts (auto) (2.0-8.3) X10*3/uL Absolute Nucleated RBC (0.0-0.012) X10*3/uL Nucleated RBC % (auto) (0.0-0.2) /100WBC PT INR APTT Sodium Potassium Chloride Carbon Dioxide Anion Gap BUN Creatinine Estim Creat Clear Calc Estimated GFR Random Glucose Lactic Acid (0.5-2.0) mmol/L Calcium Magnesium Ferritin 24 Total Bilirubin Direct Bilirubin AST ALT Alkaline Phosphatase Lactate Dehydrogenase (122-220) U/L Troponin I High Sens (<3.5-17.0) ng/L C-Reactive Protein B-Natriuretic Peptide (<100) pg/mL Total Protein Albumin Procalcitonin 0.13 Coronavirus (PCR) (Negative) Influenza Type A (PCR) (Negative) Influenza Type B (PCR) (Negative) RSV RNA Qual (PCR) (Negative) <Baldev Crain MD - Last Filed: 10/11/20 23:01> Discharge Plan Discharge Clinical Impression: Congestive heart failure Qualifiers: Heart failure type: unspecified Heart failure chronicity: unspecified Qualified Code(s): I50.9 - Heart failure, unspecified <GAVIN Ko - Last Filed: 10/11/20 19:18> Patient Disposition: Admitted As Inpatient <GAVIN Ko - Last Filed: 10/11/20 19:18>
--- NOTE | 2020-10-11 15:26 | XR_ITS ---
EXAMINATION: XR CHEST CLINICAL INFORMATION: Shortness of breath COMPARISON: Chest radiograph from 09/10/2020 TECHNIQUE: Frontal view of the chest was obtained. FINDINGS: Prominence of the pulmonary vasculature. There is no pneumothorax. Status post median sternotomy. Trachea is midline. Cardiac mediastinal silhouette is enlarged. The aorta is tortuous. There is no pleural effusion. Osseous structures are intact. Soft tissues are unremarkable. XR/XR chest 1V IMPRESSION: 1. Prominence of the pulmonary vasculature. 2. Enlarged cardiomediastinal silhouette.
--- NOTE | 2020-10-11 15:26 | ECG_ITS ---
Test Reason : CHEST PAIN Blood Pressure : / mmHG Vent. Rate : 105 BPM Atrial Rate : 122 BPM P-R Int : 144 ms QRS Dur : 132 ms QT Int : 390 ms P-R-T Axes : 000 091 -14 degrees QTc Int : 515 ms Sinus tachycardia with occasional Premature ventricular complexes Right bundle branch block Abnormal ECG When compared with ECG of 10-SEP-2020 13:46, Sinus rhythm has replaced Atrial fibrillation Referred By: Caroline Fowler Electronically Signed By:Allan Coley
[2020-10-11 16:34] LABS: Influenza A PCR NEGATIVE (Negative); Influenza B PCR NEGATIVE (Negative); Resp Syncy Virus RNA Qual PCR NEGATIVE (Negative); SARS COV2 PCR INHOUSE NEGATIVE (Negative)
[2020-10-11] MEDS: Albuterol/Iprat 2.5/0.5MG 3 ML AMPUL.NEB INHALE (16:45)
[2020-10-11 16:51] VITALS: PULSE 119; O2SAT 100
[2020-10-11 17:09] LABS: Basophils Percent Auto 0.3 % (0-2); Eosinophils Absolute Auto 0.1 X10*3/uL (0.0-0.4); Eosinophils Percent Auto 0.8 % (0-4); Hematocrit 28.4 % (37-47); Hemoglobin 8.9 g/dl (12.0-16.0); Imm Gran Abs Auto 0.02 X10*3/uL (0.00-0.03); Imm Gran Pct Auto 0.3 % (0.0-0.4); Mean Corpuscular HGB Conc 31.3 g/dl (31.0-35.0); Mean Platelet Volume 11.5 fL (9.4-12.3); PLT CLUMP 1; SCAN SMEAR FLAG 1
[2020-10-11 17:11] LABS: Lymphocytes Absolute Auto 0.8 X10*3/uL (1.2-4.9); Lymphocytes Percent Auto 10.7 % (20-40); MANUAL DIFF FLAG NO; Mean Corpuscular Hemoglobin 25.6 pg (27.0-33.0); Mean Corpuscular Volume 81.6 fL (80-98); Monocytes Absolute Auto 1.1 X10*3/uL (0.1-1.2); Monocytes Percent Auto 13.8 % (2-11); Neutrophils Absolute Auto 5.7 X10*3/uL (2.0-8.3); Neutrophils Percent Auto 74.1 % (45-73); Platelet Count 282 X10*3/uL (160-400); Red Blood Count 3.48 X10*6/uL (4.20-5.50); Red Cell Distribution Width 20.9 % (11.0-16.0); White Blood Count 7.7 X10*3/uL (4.8-10.8)
[2020-10-11 17:27] LABS: Lactic Acid 1.1 mmol/L (0.5-2.0)
[2020-10-11 17:56] LABS: B Type Natriuretic Peptide 1756 pg/mL (<100); Troponin-I High Sensitivity 141.4 ng/L (<3.5-17.0)
[2020-10-11] MEDS: Furosemide 40 MG/4 ML VIAL IVPUSH (18:36)
[2020-10-11 18:42] LABS: INTERNATIONAL NORM RATIO 2.4 (0.9-1.1); Prothrombin Time 28.7 SEC (10.8-13.0)
[2020-10-11 18:44] LABS: Partial Thromboplastin Time 38.8 SEC (24.1-38.0)
[2020-10-11 19:03] LABS: Alanine Aminotransferase 36 U/L (0-31); Albumin Level 3.5 g/dL (3.5-5.0); Alkaline Phosphatase 216 U/L (39-117); Anion Gap 16 (12-20); Aspartate Amino Transferase 27 U/L (5-31); Bilirubin Direct 0.4 mg/dL (0.0-0.5); Bilirubin Total 0.5 mg/dL (0.0-1.0); Blood Urea Nitrogen 26 mg/dL (9-16); C Reactive Protein 5.36 mg/dL (< or = 0.50); Calcium 8.3 mg/dL (8.4-10.2); Carbon Dioxide 23 mmol/L (22-29); Chloride 110 mmol/L (96-108); Creatinine Clr Calc Pharmacy 22.4; Estimated Glomerular Filt Rate 39; Glucose Random 183 mg/dL (60-115); Lactate Dehydrogenase 297 U/L (122-220); Potassium 3.7 mmol/l (3.3-5.1); Sodium 145 mmol/L (135-145); Total Protein 6.6 g/dL (6.5-8.0)
[2020-10-11 19:19] LABS: Ferritin 24 ng/mL (10-250); Procalcitonin 0.13 ng/mL
--- NOTE | 2020-10-11 19:49 | PM.IMHP ---
History of Present Illness Date of Service: 10/11/20 Chief Complaint: Shortness of breath This is a 75-year-old Canadian-speaking female with a history of CHF who was brought to the emergency department by ambulance due to increasing shortness of breath. Patient is a poor historian unable to provide any significant history. She was admitted for acute on chronic systolic CHF in September and diuresed with good effect. Today her chest x-ray showed prominence of pulmonary vasculature. BNP was elevated at 1756, troponin was 141. She was treated with IV Lasix in the decision was made to admit her for management of acute on chronic CHF. Review of Systems Review of Systems: Yes all other systems are reviewed and are negative Constitutional: Constitutional: Denies chills and Denies fever(s) Cardiovascular: Cardiovascular: Reports dyspnea Respiratory: Respiratory: Denies cough and Reports dyspnea PMFSH Medical History Afib Asthma Atherosclerotic cardiovascular disease CAD (coronary artery disease) Cardiomyopathy CHF (congestive heart failure) CVA (cerebral vascular accident) Diabetes Hypertension Persistent atrial fibrillation PVD (peripheral vascular disease) Functional capacity: wheelchair bound Family History Father Heart attack Mother Heart attack Diabetes Surgical History History of esophagogastroduodenoscopy (EGD) Hx of AKA (above knee amputation) Hx of colonoscopy Status post coronary artery bypass graft Social History (Updated 10/11/20 @ 19:57 by GAVIN Yang) Household Members: Children Housing: Apartment Alcohol intake: never Smoking Status: Never smoker Smoked in Last 30 Days: No Use of substances other than those prescribed or required for medical reasons: No Advance Directives: No Advance Directives Information Provided: Yes service: No Current occupational status: disabled Meds Allergies Allergy/AdvReac Type Severity Reaction Status Date / Time No Known Allergies Allergy Verified 08/18/20 09:08 Home Medications Medication Instructions Recorded Confirmed Type Eliquis 5 mg PO BID 09/10/20 10/11/20 History Lantus Solostar U-100 Insulin 26 unit SUBCUT QAM 09/10/20 10/11/20 History albuterol sulfate [ProAir HFA] 2 puff INHALATION Q4-6H PRN 09/10/20 10/11/20 History amlodipine 2.5 mg PO DAILY 09/10/20 10/11/20 History ascorbic acid (vitamin C) 500 mg PO BID 09/10/20 10/11/20 History aspirin 81 mg PO DAILY 09/10/20 10/11/20 History atorvastatin 40 mg PO DAILY 09/10/20 10/11/20 History ferrous sulfate 325 mg PO BID 09/10/20 10/11/20 History furosemide 40 mg PO DAILY 09/10/20 10/11/20 History lisinopril 2.5 mg PO DAILY 09/10/20 10/11/20 History montelukast 10 mg PO BEDTIME 09/10/20 10/11/20 History nitroglycerin 0.4 mg SUBLINGUAL Q5M PRN 09/10/20 10/11/20 History zolpidem 5 mg PO BEDTIME PRN 09/10/20 10/11/20 History Physical Exam Vital Signs and Narrative: Vital Signs: Last Vital Signs Temp 97.9 F 10/11/20 15:16 Pulse 119 H 10/11/20 16:51 Resp 18 10/11/20 15:16 BP 137/56 L 10/11/20 15:16 Pulse Ox 97 10/11/20 15:21 Body Mass Index 46.5 Const: General: no acute distress, alert and awake Nutritional Appearance: well nourished HENMT: Head: Yes normocephalic and Yes atraumatic Eyes: Sclerae: sclerae normal Chest: Chest palpation & inspection: normal inspection of the chest Resp: Effort & Inspection: decreased respiratory effort and no respiratory distress Auscultation: no wheezes and diminished lung sounds Cardio: Jugular venous distension: JVD elevated Rate: tachycardic Rhythm: abnormal rhythm irregularly irregular GI: Palpation (GI): Soft to palpation and nontender Skin: General skin exam: no rashes or lesions noted Neuro: Cranial nerves: Yes CN's II-XII intact bilaterally and Yes Bilaterally intact EOM present Extrem: Other: s/p b/l aka Results Labs CBC and Chem 7: 10/11/20 17:00 10/11/20 18:32 Labs: Laboratory Results - last 24 hr 10/11/20 10/11/2021 15:38 17:00 17:00 MCV 81.6 MCH 25.6 L MCHC 31.3 RDW 20.9 H Plt Count 282 MPV 11.5 Immature Gran % (Auto) 0.3 Neut % (Auto) 74.1 H Lymph % (Auto) 10.7 L Owsley % (Auto) 13.8 H Eos % (Auto) 0.8 Baso % (Auto) 0.3 Lymph # (Auto) 0.8 L [place] # (Auto) 1.1 Eos # (Auto) 0.1 Baso # (Auto) 0.0 Abs Immat Gran (auto) 0.02 Absolute Neuts (auto) 5.7 Absolute Nucleated RBC 0.000 Nucleated RBC % (auto) 0.0 PT Cancelled INR Cancelled APTT Cancelled Anion Gap Estim Creat Clear Calc Estimated GFR Random Glucose Lactic Acid Calcium Magnesium Ferritin Total Bilirubin Direct Bilirubin AST ALT Alkaline Phosphatase Lactate Dehydrogenase Troponin I High Sens C-Reactive Protein B-Natriuretic Peptide Total Protein Albumin Procalcitonin Coronavirus (PCR) NEGATIVE Influenza Type A (PCR) NEGATIVE Influenza Type B (PCR) NEGATIVE RSV RNA Qual (PCR) NEGATIVE 10/11/20 10/11/20 10/11/20 17:00 17:00 17:00 MCV MCH MCHC RDW Plt Count MPV Immature Gran % (Auto) Neut % (Auto) Lymph % (Auto) [place] % (Auto) Eos % (Auto) Baso % (Auto) Lymph # (Auto) [place]ley # (Auto) Eos # (Auto) Baso # (Auto) Abs Immat Gran (auto) Absolute Neuts (auto) Absolute Nucleated RBC Nucleated RBC % (auto) PT INR APTT Anion Gap Cancelled Estim Creat Clear Calc Cancelled Estimated GFR Cancelled Random Glucose Cancelled Lactic Acid 1.1 Calcium Cancelled Magnesium Cancelled Ferritin Cancelled Total Bilirubin Cancelled Direct Bilirubin Cancelled AST Cancelled ALT Cancelled Alkaline Phosphatase Cancelled Lactate Dehydrogenase Troponin I High Sens 141.4 H D C-Reactive Protein Cancelled B-Natriuretic Peptide 1756 H Total Protein Cancelled Albumin Cancelled Procalcitonin Coronavirus (PCR) Influenza Type A (PCR) Influenza Type B (PCR) RSV RNA Qual (PCR) 10/11/20 10/11/20 10/11/20 17:02 18:31 18:32 MCV MCH MCHC RDW Plt Count MPV Immature Gran % (Auto) Neut % (Auto) Lymph % (Auto) [place] % (Auto) Eos % (Auto) Baso % (Auto) Lymph # (Auto) [place] # (Auto) Eos # (Auto) Baso # (Auto) Abs Immat Gran (auto) Absolute Neuts (auto) Absolute Nucleated RBC Nucleated RBC % (auto) PT 28.7 H INR 2.4 H APTT 38.8 H Anion Gap 16 Estim Creat Clear Calc 22.4 Estimated GFR 39 Random Glucose 183 H D Lactic Acid Calcium 8.3 L Magnesium 2.0 Ferritin Total Bilirubin 0.5 Direct Bilirubin 0.4 AST 27 D ALT 36 H Alkaline Phosphatase 216 H D Lactate Dehydrogenase 297 H Troponin I High Sens C-Reactive Protein 5.36 H B-Natriuretic Peptide Total Protein 6.6 Albumin 3.5 Procalcitonin Cancelled Coronavirus (PCR) Influenza Type A (PCR) Influenza Type B (PCR) RSV RNA Qual (PCR) 10/11/20 10/11/20 18:32 18:32 MCV MCH MCHC RDW Plt Count MPV Immature Gran % (Auto) Neut % (Auto) Lymph % (Auto) O[place] % (Auto) Eos % (Auto) Baso % (Auto) Lymph # (Auto) [place] # (Auto) Eos # (Auto) Baso # (Auto) Abs Immat Gran (auto) Absolute Neuts (auto) Absolute Nucleated RBC Nucleated RBC % (auto) PT INR APTT Anion Gap Estim Creat Clear Calc Estimated GFR Random Glucose Lactic Acid Calcium Magnesium Ferritin 24 Total Bilirubin Direct Bilirubin AST ALT Alkaline Phosphatase Lactate Dehydrogenase Troponin I High Sens C-Reactive Protein B-Natriuretic Peptide Total Protein Albumin Procalcitonin 0.13 Coronavirus (PCR) Influenza Type A (PCR) Influenza Type B (PCR) RSV RNA Qual (PCR) Assessment and Plan (1) Congestive heart failure: Qualifiers: Heart failure chronicity: unspecified Heart failure type: unspecified Qualified Code(s): I50.9 - Heart failure, unspecified Status: Acute This is a 75-year-old [place]-speaking female with a history of CAD, HFrEF, diabetes, asthma, PVD, hypertension, dyslipidemia who presents to the emergency department with shortness of breath found to have elevated BNP Acute on chronic HFrEF EF from 09/11 EF 25-30% -I&Os, daily weight -IV Lasix afib continue Toprol XL AC with Eliquis CKD3 Creatinine at baseline anemia h/h at baseline follow CBC CAD Continue aspirin, statin, BB Trop somewhat elevated, will trend Hypertension Continue Norvasc, lisinopril. toprol xl Diabetes Will decrease dose of Lantus -SSI, POC, ADA diet DVT prophylaxis-Eliquis Code status-full code Case discussed with Dr. Wright
[2020-10-11 21:39] VITALS: BP 129/57; PULSE 105; RESP 20; TEMP 36.6; O2SAT 98
[2020-10-11] MEDS: Insulin Lispro 100 UNIT/ML 3 ML VIAL SUBCUT (21:40)
[2020-10-11] MEDS: Ascorbic Acid 500 MG TABLET PO (21:41)
[2020-10-11] MEDS: Ferrous Sulfate 324 MG TABLET.DR PO (21:41)
[2020-10-11] MEDS: Montelukast Sodium 10 MG TABLET PO (21:41)
[2020-10-11] MEDS: Apixaban 5 MG TABLET PO (21:41)
[2020-10-11 22:13] VITALS: BP 119/57; PULSE 106; RESP 20; TEMP 36.8; O2SAT 96
[2020-10-12] VITALS (8 sets, daily range): BP systolic 83–155; BP diastolic 43–81; PULSE 71–120; RESP 17–20; TEMP 37–37.2; O2SAT 96–97
--- NOTE | 2020-10-12 | ECG_ITS ---
Test Reason : CHEST DISCOMFORT Blood Pressure : / mmHG Vent. Rate : 052 BPM Atrial Rate : 052 BPM P-R Int : 134 ms QRS Dur : 128 ms QT Int : 538 ms P-R-T Axes : 079 109 115 degrees QTc Int : 500 ms Sinus bradycardia with Premature atrial complexes Right bundle branch block T wave abnormality, consider lateral ischemia Abnormal ECG Aberrant conduction is no longer Present T wave inversion more evident in Lateral leads when compared to 11-OCT-2020 at 16:28:51 Referred By: Laura Mccloud Electronically Signed By:ROMAN BRYANT MD
[2020-10-12 00:47] LABS: Glucose, Whole Blood 176 mg/dL (60-115)
[2020-10-12] MEDS: 0.9 % Sodium Chloride Flush 3 ML SYRINGE IVFLUSH ×3 (01:12→17:16)
[2020-10-12 01:43] LABS: Troponin-I High Sensitivity 141.3 ng/L (<3.5-17.0)
[2020-10-12 04:15] LABS: CDIFF Ag Negative (Negative); CDIFF Internal ctrl Dots and bkg OK (V); CDiff Toxin Negative (Negative)
--- NOTE | 2020-10-12 07:55 | PC.NURSE ---
refuses blood draw, yelling and very demonstrative hand movements, nad
[2020-10-12] MEDS: lisinopriL 2.5 MG TABLET PO (09:34)
[2020-10-12] MEDS: Ascorbic Acid 500 MG TABLET PO (09:35)
[2020-10-12] MEDS: Apixaban 5 MG TABLET PO (09:35)
[2020-10-12] MEDS: Atorvastatin Calcium 40 MG TABLET PO (09:35)
[2020-10-12] MEDS: amLODIPine Besylate 2.5 MG TABLET PO (09:36)
[2020-10-12] MEDS: Ferrous Sulfate 324 MG TABLET.DR PO (09:36)
[2020-10-12] MEDS: Metoprolol Succinate ER 25 MG TAB.ER.24H PO (09:36)
[2020-10-12] MEDS: Aspirin Enteric Coated 81 MG TABLET.DR PO (09:37)
[2020-10-12] MEDS: Insulin Glargine,Hum.rec.anlog 100 UNIT/ML 10 ML VIAL 26 UNIT SUBCUT (09:37)
[2020-10-12] MEDS: Furosemide 40 MG/4 ML VIAL IVPUSH (09:37)
[2020-10-12 11:29] LABS: MANUAL DIFF FLAG NO
[2020-10-12 11:31] LABS: Basophils Percent Auto 0.3 % (0-2); Eosinophils Absolute Auto 0.2 X10*3/uL (0.0-0.4); Eosinophils Percent Auto 2.3 % (0-4); Hematocrit 27.3 % (37-47); Hemoglobin 8.5 g/dl (12.0-16.0); Imm Gran Abs Auto 0.02 X10*3/uL (0.00-0.03); Imm Gran Pct Auto 0.3 % (0.0-0.4); Lymphocytes Absolute Auto 1.1 X10*3/uL (1.2-4.9); Lymphocytes Percent Auto 16.4 % (20-40); Mean Corpuscular HGB Conc 31.1 g/dl (31.0-35.0); Mean Corpuscular Hemoglobin 25.3 pg (27.0-33.0); Mean Corpuscular Volume 81.3 fL (80-98); Mean Platelet Volume 11.4 fL (9.4-12.3); Monocytes Absolute Auto 1.3 X10*3/uL (0.1-1.2); Monocytes Percent Auto 19.4 % (2-11); Neutrophils Percent Auto 61.3 % (45-73); Platelet Count 312 X10*3/uL (160-400); Red Blood Count 3.36 X10*6/uL (4.20-5.50); Red Cell Distribution Width 20.7 % (11.0-16.0); White Blood Count 6.5 X10*3/uL (4.8-10.8)
[2020-10-12 12:00] LABS: Anion Gap 13 (12-20); Blood Urea Nitrogen 28 mg/dL (9-16); Calcium 8.5 mg/dL (8.4-10.2); Carbon Dioxide 26 mmol/L (22-29); Chloride 109 mmol/L (96-108); Creatinine Clr Calc Pharmacy 24.5; Estimated Glomerular Filt Rate 43; Glucose Random 117 mg/dL (60-115); Potassium 3.6 mmol/l (3.3-5.1); Sodium 144 mmol/L (135-145)
[2020-10-12 12:02] LABS: B Type Natriuretic Peptide 2240 pg/mL (<100)
[2020-10-12 12:57] LABS: Glucose, Whole Blood 102 mg/dL (60-115)
--- NOTE | 2020-10-12 13:20 | PC.NURSE ---
incontinent of urine,. cleansed. pt found with hr in 180's appeared regular narrow complex but unclear how long lasted. no EKG obtained during run of tachycardia. back into a fib in 110's afterwards/
[2020-10-12 13:39] LABS: Glucose, Whole Blood 101 mg/dL (60-115)
--- NOTE | 2020-10-12 15:14 | P.PNIM_ITS ---
Subjective Subjective Date of Service: 10/13/20 Interval History: Patient being followed for acute on chronic systolic congestive heart failure patient is a poor historian, history obtained via healthcare interpreter, feels she is better since admission with less shortness of breath denies chest pain no lightheadedness or dizziness. Review of Systems General no headache, no dizziness, no fever chills. CVS no chest pain, no palpitation. Respiratory no cough, shortness of breath improving Gastrointestinal no nausea, no vomiting, no abdominal pain Physical Exam Vital Signs: Vital Signs: Last Vital Signs Temp 98.6 F 10/12/20 13:22 Pulse 120 H 10/12/20 13:22 Resp 18 10/12/20 13:22 BP 122/81 10/12/20 13:22 Pulse Ox 96 10/12/20 13:22 Body Mass Index 46.5 General patient resting comfortably in no acute distress. Neck supple no JVD. CVS regular rate rhythm, tachycardia Respiratory clear to auscultation, diminished breath sounds,no respiratory distress, no wheeze, no rhonchi, no crackles. Gastrointestinal abdomen soft, nontender, bowel sounds audible, no guarding , no rigidity. Extremities right above-knee amputation non pitting swelling, left below-knee amputation Neuro nonfocal speech clear. Skin no rash Objective Data Current Medications Generic Name Dose Route Start Last Admin Trade Name Freq PRN Reason Stop Dose Admin Acetaminophen 650 mg 10/11/20 19:43 Acetaminophen 325 Mg Tablet PO Q6H PRN Pain, Mild (Pain Scale 1-3) Albuterol Sulfate 2 puff 10/11/20 19:43 Albuterol Sulfate 90 Mcg 8 Gm Inhaler INHALE Q4H PRN Shortness Of Breath Apixaban 5 mg 10/11/20 21:00 10/12/20 09:35 Apixaban 5 Mg Tablet PO 5 mg BID GABO Administration Ascorbic Acid 500 mg 10/11/20 21:00 10/12/20 09:35 Ascorbic Acid 500 Mg Tablet PO 500 mg BID GABO Administration Aspirin 81 mg 10/12/20 09:00 10/12/20 09:37 Aspirin Enteric Coated 81 Mg Tablet. PO 81 mg DAILY GABO Administration Atorvastatin Calcium 40 mg 10/12/20 09:00 10/12/20 09:35 Atorvastatin Calcium 40 Mg Tablet PO 40 mg DAILY GABO Administration Docusate Sodium 100 mg 10/11/20 19:43 Docusate Sodium 100 Mg Capsule PO DAILY PRN Constipation Ferrous Sulfate 324 mg 10/11/20 21:00 10/12/20 09:36 Ferrous Sulfate 324 Mg Tablet.Dr PO 324 mg BID GABO Administration Furosemide 40 mg 10/12/20 09:00 10/12/20 09:37 Furosemide 40 Mg/4 Ml Vial IVPUSH 40 mg BID@0900,1800 GABO Administration Protocol Insulin Glargine 26 unit 10/12/20 09:00 10/12/20 09:37 Insulin Glargine,Hum.Rec.Anlog 100 Unit/Ml 10 Ml Vial SUBCUT 26 unit DAILY [facility] Administration Insulin Human Lispro 0 unit 10/11/20 21:00 10/12/20 09:38 Insulin Lispro 100 Unit/Ml 3 Ml Vial SUBCUT Not Given QIDACHS [facility] Protocol Lisinopril 2.5 mg 10/12/20 09:00 10/12/20 09:34 Lisinopril 2.5 Mg Tablet PO 2.5 mg DAILY [facility] [place] Administration Protocol Metoprolol Tartrate 25 mg 10/12/20 16:00 Metoprolol Tartrate 25 Mg Tablet PO TID [facility] [place] Protocol Montelukast Sodium 10 mg 10/11/20 21:00 10/11/20 21:41 Montelukast Sodium 10 Mg Tablet PO 10 mg BEDTIME [facility] Administration Ondansetron HCl 4 mg 10/11/20 19:43 Ondansetron Hcl 4 Mg/2 Ml Vial IVPUSH Q8H PRN Nausea and Vomiting Pharmacy Consult 1 each 10/11/20 15:26 Consult Rx Perform Med Rec MISCELLANE ONCE PRN Consult order Sodium Chloride 3 ml 10/12/20 00:00 10/12/20 09:39 0.9 % Sodium Chloride Flush 3 Ml Syringe IVFLUSH 3 ml QSHIFT [facility] Administration Zolpidem Tartrate 5 mg 10/11/20 19:43 Zolpidem Tartrate 5 Mg Tablet PO BEDTIME PRN Sleep Labs CBC & Chem 7: 10/13/20 08:03 10/13/20 08:03 Assessment and Plan (1) Acute on chronic systolic heart failure: Status: Acute (2) Atherosclerotic cardiovascular disease: Status: Acute (3) Cardiomyopathy: Status: Acute Assessment and Plan: 75-year-old Lithuanian-speaking female with a history of CAD, HFrEF, diabetes, asthma, PVD, hypertension, dyslipidemia who presents to the emergency department with shortness of breath found to have elevated BNP Acute on chronic HFrEF EF from 09/11 EF 25-30% Patient is a poor historian feels better denies chest pain denies shortness of breath, is mostly incontinent, difficult to assess fluid status says due to bilateral lower extremity amputation on IV Lasix 40 mg b.i.d. follow I&Os, daily weight, add low-salt diet, patient does not appear volume overloaded at home takes Lasix 40 mg daily will switch to Lasix by mouth follow BMP Continue lisinopril, and metoprolol will discontinue Norvasc afib Initial EKG showed sinus rhythm with tachycardia on Toprol XL 25 mg daily, noted to have a burst of rapid heart rate up to 180, will repeat EKG, potassium and magnesium within normal range will keep potassium above 4, will DC Toprol XL and changed to metoprolol 25 mg t.i.d. follow blood pressure closely, obtain cardiology consultation for medication adjustment AC with Luís CKD3 Renal function remains stable will follow kidney function while being diuresed Chronic anemia h/h at baseline follow CBC CAD Continue aspirin, statin, BB, troponin elevated and flat likely due to tachycar jacquie, patient denies chest pain, will obtain cardiology consultation, history of ischemic cardiomyopathy with reduced EF Hypertension Continue lisinopril and toprol xl follow BP closely Diabetes Blood sugars stable on low-dose Lantus continue insulin sliding scale and ADA diet DVT prophylaxis-Eliquis Code status-full code
[2020-10-12] MEDS: Metoprolol Tartrate 25 MG TABLET PO (15:36)
--- NOTE | 2020-10-12 15:41 | PC.NURSE ---
POC 77. SNACK GIVEN. MEDICATED
[2020-10-12 15:44] LABS: Glucose, Whole Blood 77 mg/dL (60-115)
[2020-10-12] MEDS: Potassium Chloride ER 20 MEQ TAB.ER.PRT PO (18:10)
--- NOTE | 2020-10-12 18:17 | PC.NURSE ---
LASIX 40MG IV ON HOLD DUE TO DECREASED B/P 83/43. NO NOTED DISTRESS. SKIN COLOR GOOD. BASELINE MENTATION.
[2020-10-12] MEDS: ondansetron HCL 4 MG/2 ML VIAL IVPUSH (19:02)
--- NOTE | 2020-10-12 20:38 | PC.NURSE ---
PT RESTING IN STRETCHER AWAITING ROOM ASSIGNMENT. PT AWAKE AND ALERT, RESPIRATIONS EASY, N/L. SKIN W/D. WILL CONTINUE TO MONITOR PT.
[2020-10-13] VITALS (7 sets, daily range): BP systolic 92–109; BP diastolic 41–59; PULSE 50–74; RESP 12–22; TEMP 36.2–37; O2SAT 2–100; BMI 46.5
--- NOTE | 2020-10-13 07:44 | PC.NURSE ---
report taken from Alexandru DEWITT. pt noted upon assessment to be laying on stretcher, not following commands. poc checked and was 37. i amp of dextrose given. pt more alert and POC increased to 202. pt cureently alert and eating breakfast. will monitor poc and notify hospitalist.
[2020-10-13 07:49] LABS: Glucose, Whole Blood 37 mg/dL (60-115)
[2020-10-13 07:49] LABS: Glucose, Whole Blood 202 mg/dL (60-115)
[2020-10-13 08:08] LABS: Hematocrit 28.1 % (37-47); Hemoglobin 8.7 g/dl (12.0-16.0)
[2020-10-13 08:44] LABS: Anion Gap 15 (12-20); Blood Urea Nitrogen 39 mg/dL (9-16); Calcium 8.1 mg/dL (8.4-10.2); Carbon Dioxide 21 mmol/L (22-29); Chloride 109 mmol/L (96-108); Creatinine Clr Calc Pharmacy 15.5; Estimated Glomerular Filt Rate 25; Glucose Random 191 mg/dL (60-115); Magnesium 1.9 mg/dL (1.6-2.6); Potassium 4.4 mmol/l (3.3-5.1); Sodium 141 mmol/L (135-145)
[2020-10-13 09:00] LABS: Glucose, Whole Blood 193 mg/dL (60-115)
--- NOTE | 2020-10-13 09:41 | MHC.CM.PN ---
CM attempted to meet with Patient in her room but discovered that Patient has not yet arrived on this floor.CM attempted to reach Patient at number listed but reached Daughter/HCP/Alison at [phone] instead.Patient typically lives alone but will be returning to the community to live with Alison at time of dc. Patient is mostly w/c level at baseline and Alison is her [employer] (24 hours/week). Goal for dc is for Patient to return home and resume these services; CM has initiated and will follow for dc planning.IMM addressed with Alison and the original will be mailed certified letter to her and a copy has been placed on the chart. PCP is Dr.Nao Kirby.
[2020-10-13] MEDS: Ferrous Sulfate 324 MG TABLET.DR PO ×2 (10:54→22:51)
[2020-10-13] MEDS: Ascorbic Acid 500 MG TABLET PO ×2 (10:54→22:51)
[2020-10-13] MEDS: Aspirin Enteric Coated 81 MG TABLET.DR PO (10:54)
[2020-10-13] MEDS: Apixaban 5 MG TABLET PO (10:55)
[2020-10-13] MEDS: Atorvastatin Calcium 40 MG TABLET PO (10:55)
[2020-10-13] MEDS: 0.9 % Sodium Chloride Flush 3 ML SYRINGE IVFLUSH ×2 (10:56→17:02)
--- NOTE | 2020-10-13 11:26 | P.CONCA_ITS ---
History of Present Illness History of Present Illness Date of Service: 10/13/20 Requesting physician: Woodrow Spencer Consult reason: congestive heart failure Chief complaint: chf Narrative: Thank you for inviting us on consult the [facility] for congestive heart failure decompensation. History was obtained with help of a certified fuel cell builder. Patient was brought to the hospital because of worsening shortness of breath by her daughter. She lives at home with her daughter Nirmala as per her. She however said wire the fuel cell builder that she was having headaches next discomfort and abdominal discomfort. However she says she was getting short of breath. She also had some abdominal distension. There is no clear record of increasing weight, not being monitor at home. She was recently admitted to the hospital with decompensated congestive heart failure at time which she was noted to have severe LV systolic dysfunction with LVEF of around 25% with wall motion abnormality consistent with ischemic cardiomyopathy. She says she had a myocardial infarction 2005 for which she had stent. She has not seen any work environment safety inspector in some time. She also has peripheral vascular disease with status post bilateral amputations she is obviously not ambulatory. As per her she takes all her medications at home. She also does not eat high salt diet as per her. No recent other systemic symptoms. Because of lack of bed she was in the ED without proper monitoring for many hours. There was reported elevated heart rate, however no EKG was performed at that time. Strip suggestive of atrial fibrillation. EKG performed after that shows normal sinus rhythm while on telemetry she has no significant atrial fibrillation, but has regular PACs. Yesterday she was hypotensive and appropriately her amlodipine and lisinopril were had. Her creatinine is rising today. Her BNP is also rising. Review of Systems Constitutional: Constitutional: Denies chills, Denies fever(s) and Reports lethargy Cardiovascular: Cardiovascular: Denies chest pain, Denies Loss of Consc iousness, Denies palpitations and Reports dyspnea Respiratory: Respiratory: Denies cough, Denies excessive phlegm production and Reports dyspnea Gastrointestinal: Gastrointestinal: Reports bloating Neurologic: Reports system reviewed and no additional complaints, except as documented Psychiatric: Psychiatric: Reports no additional psychiatric complaints Endocrine: Endocrine: Reports no additional endocrine complaints and Denies palpitations Hematologic/Lymphatic: Hematologic/Lymphatic: Reports no additional hematologic/lymphatic complaints PMFSH Past Medical History Medical History Afib Asthma Atherosclerotic cardiovascular disease CAD (coronary artery disease) Cardiomyopathy CHF (congestive heart failure) CVA (cerebral vascular accident) Diabetes Hypertension Persistent atrial fibrillation PVD (peripheral vascular disease) Functional capacity: wheelchair bound Family History Family History Father Heart attack Mother Heart attack Diabetes Surgical History Surgical History History of esophagogastroduodenoscopy (EGD) Hx of AKA (above knee amputation) Hx of colonoscopy Status post coronary artery bypass graft Social History Social History (Updated 10/11/20 @ 19:57 by GAVIN Yang) Household Members: Family Housing: Apartment Do you presently have visiting nurse or other home services: No Alcohol intake: never Smoking Status: Never smoker Smoked in Last 30 Days: No Use of substances other than those prescribed or required for medical reasons: Yes Advance Directives: No Advance Directives Information Provided: Yes Do you have thoughts of harming others: None Do you have a plan to hurt others: No Plan Recently lost weight without trying: No service: No Current occupational status: disabled Meds Allergies Allergy/AdvReac Type Severity Reaction Status Date / Time No Known Allergies Allergy Verified 08/18/20 09:08 Home Medications Medication Instructions Recorded Confirmed Type Eliquis 5 mg PO BID 09/10/20 10/11/20 History Lantus Solostar U-100 Insulin 26 unit SUBCUT QAM 09/10/20 10/11/20 History albuterol sulfate [ProAir HFA] 2 puff INHALATION Q4-6H PRN 09/10/20 10/11/20 History amlodipine 2.5 mg PO DAILY 09/10/20 10/11/20 History ascorbic acid (vitamin C) 500 mg PO BID 09/10/20 10/11/20 History aspirin 81 mg PO DAILY 09/10/20 10/11/20 History atorvastatin 40 mg PO DAILY 09/10/20 10/11/20 History ferrous sulfate 325 mg PO BID 09/10/20 10/11/20 History furosemide 40 mg PO DAILY 09/10/20 10/11/20 History lisinopril 2.5 mg PO DAILY 09/10/20 10/11/20 History montelukast 10 mg PO BEDTIME 09/10/20 10/11/20 History nitroglycerin 0.4 mg SUBLINGUAL Q5M PRN 09/10/20 10/11/20 History zolpidem 5 mg PO BEDTIME PRN 09/10/20 10/11/20 History Physical Exam Vital Signs: Vital Signs: Last Vital Signs Temp 97.4 F 10/13/20 11:16 Pulse 68 10/13/20 11:16 Resp 20 10/13/20 11:16 BP 92/53 L 10/13/20 11:16 Pulse Ox 97 10/13/20 11:16 Body Mass Index 46.5 Const: General: cooperative, no acute distress, alert and awake Orientation/consciousness: patient oriented x3 HENMT: Head: Yes normocephalic and Yes atraumatic Neck: Neck: Yes trachea midline, Yes supple and Yes JVD Chest: Chest palpation & inspection: normal inspection of the chest Resp: Effort & Inspection: normal respiratory effort Auscultation: clear to auscultation bilaterally, no crackles and no rales Cardio: Palpation: abnormal PMI displaced PMI Rate: regular rate Rhythm: regular rhythm and abnormal rhythm with ectopic beats Heart sounds: S1 normal heart sound present, S2 normal heart sound present and Gallop heart sound p resent S4 gallop GI: Inspection: Yes obesity Auscultation: normal bowel sounds Skin: General skin exam: no rashes or lesions noted Neuro: General: patient oriented x3 and no focal motor deficits Extrem: General: Yes amputation noted (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 Edema of the stumps), No clubbing and No cyanosis Results Labs and Meds Result diagrams: 10/13/20 08:03 10/13/20 08:03 Lab results: Laboratory Results - last 24 hr 10/11/20 10/12/20 10/12/20 21:11 08:58 11:19 WBC 6.5 RBC 3.36 L Hgb 8.5 L Hct 27.3 L MCV 81.3 MCH 25.3 L MCHC 31.1 RDW 20.7 H Plt Count 312 MPV 11.4 Immature Gran % (Auto) 0.3 Neut % (Auto) 61.3 Lymph % (Auto) 16.4 L [place] % (Auto) 19.4 H Eos % (Auto) 2.3 Baso % (Auto) 0.3 Lymph # (Auto) 1.1 L [place] # (Auto) 1.3 H Eos # (Auto) 0.2 Baso # (Auto) 0.0 Abs Immat Gran (auto) 0.02 Absolute Neuts (auto) 4.0 Absolute Nucleated RBC 0.000 Nucleated RBC % (auto) 0.0 Sodium Potassium Chloride Carbon Dioxide Anion Gap BUN Creatinine Estim Creat Clear Calc Estimated GFR POC Glucose 176 H 102 Random Glucose Calcium Magnesium B-Natriuretic Peptide 10/12/20 10/12/20 10/12/20 11:20 11:20 13:34 WBC RBC Hgb Hct MCV MCH MCHC RDW Plt Count MPV Immature Gran % (Auto) Neut % (Auto) Lymph % (Auto) [place] % (Auto) Eos % (Auto) Baso % (Auto) Lymph # (Auto) [place] # (Auto) Eos # (Auto) Baso # (Auto) Abs Immat Gran (auto) Absolute Neuts (auto) Absolute Nucleated RBC Nucleated RBC % (auto) Sodium 144 Potassium 3.6 Chloride 109 H Carbon Dioxide 26 Anion Gap 13 BUN 28 H Creatinine 1.22 Estim Creat Clear Calc 24.5 Estimated GFR 43 POC Glucose 101 Random Glucose 117 H D Calcium 8.5 Magnesium B-Natriuretic Peptide 2240 H 10/12/20 10/13/20 10/13/20 15:39 07:31 07:44 WBC RBC Hgb Hct MCV MCH MCHC RDW Plt Count MPV Immature Gran % (Auto) Neut % (Auto) Lymph % (Auto) [place] % (Auto) Eos % (Auto) Baso % (Auto) Lymph # (Auto) [place] # (Auto) Eos # (Auto) Baso # (Auto) Abs Immat Gran (auto) Absolute Neuts (auto) Absolute Nucleated RBC Nucleated RBC % (auto) Sodium Potassium Chloride Carbon Dioxide Anion Gap BUN Creatinine Estim Creat Clear Calc Estimated GFR POC Glucose 77 37 L* 202 H Random Glucose Calcium Magnesium B-Natriuretic Peptide 10/13/20 10/13/20 10/13/20 08:03 08:03 08:55 WBC RBC Hgb 8.7 L Hct 28.1 L MCV MCH MCHC RDW Plt Count MPV Immature Gran % (Auto) Neut % (Auto) Lymph % (Auto) [place] % (Auto) Eos % (Auto) Baso % (Auto) Lymph # (Auto) [place] # (Auto) Eos # (Auto) Baso # (Auto) Abs Immat Gran (auto) Absolute Neuts (auto) Absolute Nucleated RBC Nucleated RBC % (auto) Sodium 141 Potassium 4.4 D Chloride 109 H Carbon Dioxide 21 L Anion Gap 15 BUN 39 H Creatinine 1.93 H Estim Creat Clear Calc 15.5 Estimated GFR 25 POC Glucose 193 H Random Glucose 191 H D Calcium 8.1 L Magnesium 1.9 B-Natriuretic Peptide Assessment and Plan (1) Cardiomyopathy: Qualifiers: Cardiomyopathy type: ischemic Qualified Code(s): I25.5 - Ischemic cardiomyopathy Status: Acute Severe LV systolic dysfunction secondary to ischemic cardiomyopathy. Recurrent hospitalization for heart failure, see below. Developed low blood pressure with medical therapy not tolerating usual medications which usually is a poor prognostic sign. Continue metoprolol therapy for now. Hold lisinopril therapy due to rising creatinine as well as low blood pressure. Agree with discontinuation of amlodipine therapy. (2) Paroxysmal atrial fibrillation: Status: Acute Paroxysmal atrial fibrillation. Yesterday seems like at a burst of atrial fibrillation. Overnight has remained in sinus rhythm with frequent PACs. Currently on full oral anticoagulation. Due to development of acute kidney injury, hold Eliquis therapy. Resume if creatinine improves starting tomorrow. If develops recurrent atrial fibrillation which is not well tolerated may need antiarrhythmic drug therapy most likely amiodarone therapy. Will continue to monitor with full disclosure cardiac telemetry. (3) Low blood pressure: Status: Acute Low blood pressure. Agree with discontinuation of amlodipine and holding lisinopril therapy. Closely monitor. (4) Acute kidney injury: Status: Acute Acute kidney injury, not sure if this is related to low blood pressure with medications versus cardiorenal syndrome. Less likely due to over-diuresis given that she still has significant JVD. Continue diuretic therapy. Hold all blood pressure lowering medications for now except for metoprolol. Continue to monitor renal function urine output closely. (5) Acute on chronic systolic heart failure: Status: Acute Recurrent heart failure with difficult to manage fluid status with development of acute kidney injury. Continue diuresis with Lasix. Better intake and output chart needs to be maintained while in hospital. Continue to monitor BNP and BMP. Continue metoprolol therapy. Continue rhythm control rom zeng at this point in time. Hold off on lisinopril therapy due to low blood pressure and development of rising creatinine. Will monitor closely. If fluid status remains difficult to assess may consider right heart catheterization are repeat limited echocardiogram to evaluate for IVC size and collapsibility. Will follow the patient closely. As an outpatient may be a candidate for CardioMEMS.
[2020-10-13 11:52] LABS: Glucose, Whole Blood 222 mg/dL (60-115)
[2020-10-13] MEDS: Insulin Lispro 100 UNIT/ML 3 ML VIAL SUBCUT ×3 (12:00→22:52)
[2020-10-13] MEDS: Furosemide 40 MG/4 ML VIAL IVPUSH (12:01)
--- NOTE | 2020-10-13 16:35 | P.PNIM_ITS ---
Subjective Subjective Date of Service: 10/13/20 Interval History: Patient wants to go home denies chest pain, denies shortness of breath history obtained via healthcare interpreter, patient uses 2 L of oxygen at home and lives with daughter. Review of Systems [employer]OCI[employer]FFA[employer] no headache, no dizziness CVS no chest pain, no palpitation Respiratory no cough, no shortness of breath GI no nausea, no vomiting no diarrhea Physical Exam Vital Signs: Vital Signs: Last Vital Signs Temp 97.6 F 10/13/20 16:15 Pulse 50 10/13/20 16:15 Resp 18 10/13/20 16:15 BP 105/59 L 10/13/20 16:15 Pulse Ox 100 10/13/20 16:15 Body Mass Index 46.5 General sitting comfortably, no acute distress. Neck supple CVS regular rate rhythm, Respiratory lungs clear to auscultation, no rales, no respiratory distress, no wheeze, no rhonchi. Gastrointestinal abdomen soft, nontender, bowel sounds audible Extremities right AKA and left BKA no clubbing cyanosis or edema. Neuro nonfocal Skin no rash Objective Data Current Medications Generic Name Dose Route Start Last Admin Trade Name Freq PRN Reason Stop Dose Admin Acetaminophen 650 mg 10/11/20 19:43 Acetaminophen 325 Mg Tablet PO Q6H PRN Pain, Mild (Pain Scale 1-3) Albuterol Sulfate 2 puff 10/11/20 19:43 Albuterol Sulfate 90 Mcg 8 Gm Inhaler INHALE Q4H PRN Shortness Of Breath Apixaban 5 mg 10/11/20 21:00 10/13/20 14:04 Apixaban 5 Mg Tablet PO Not Given BID [facility] Ascorbic Acid 500 mg 10/11/20 21:00 10/13/20 14:05 Ascorbic Acid 500 Mg Tablet PO Not Given BID GABO Aspirin 81 mg 10/12/20 09:00 10/13/20 10:54 Aspirin Enteric Coated 81 Mg Tablet. PO 81 mg DAILY GABO Administration Atorvastatin Calcium 40 mg 10/12/20 09:00 10/13/20 10:55 Atorvastatin Calcium 40 Mg Tablet PO 40 mg DAILY GABO Administration Docusate Sodium 100 mg 10/11/20 19:43 Docusate Sodium 100 Mg Capsule PO DAILY PRN Constipation Ferrous Sulfate 324 mg 10/11/20 21:00 10/13/20 14:05 Ferrous Sulfate 324 Mg Tablet. PO Not Given BID GABO Furosemide 40 mg 10/13/20 11:45 10/13/20 12:01 Furosemide 40 Mg/4 Ml Vial IVPUSH 40 mg DAILY [facility] Administration Protocol Insulin Glargine 26 unit 10/12/20 09:00 10/13/20 08:56 Insulin Glargine,Hum.Rec.Anlog 100 Unit/Ml 10 Ml Vial SUBCUT Not Given DAILY [facility] Insulin Human Lispro 0 unit 10/11/20 21:00 10/13/20 14:05 Insulin Lispro 100 Unit/Ml 3 Ml Vial SUBCUT Not Given QIDACHS [facility] Protocol Metoprolol Tartrate 12.5 mg 10/13/20 21:00 Metoprolol Tartrate 25 Mg Tablet PO BID [facility] Protocol Montelukast Sodium 10 mg 10/11/20 21:00 10/13/20 14:04 Montelukast Sodium 10 Mg Tablet PO Not Given BEDTIME [facility] Ondansetron HCl 4 mg 10/11/20 19:43 10/12/20 19:02 Ondansetron Hcl 4 Mg/2 Ml Vial IVPUSH 4 mg Q8H PRN Administration Nausea and Vomiting Pharmacy Consult 1 each 10/11/20 15:26 Consult Rx Perform Med Rec MISCELLANE ONCE PRN Consult order Sodium Chloride 3 ml 10/12/20 00:00 10/13/20 14:03 0.9 % Sodium Chloride Flush 3 Ml Syringe IVFLUSH Not Given QSHIFT [facility] Zolpidem Tartrate 5 mg 10/11/20 19:43 Zolpidem Tartrate 5 Mg Tablet PO BEDTIME PRN Sleep Labs CBC & Chem 7: 10/13/20 08:03 10/13/20 08:03 Microbiology Microbiology Results: Microbiology 10/12/20 03:13 Stool Stool Culture - Preliminary Culture in progress. 10/11/20 17:35 Blood - Venous Blood Culture - Preliminary No growth after 24 hours. 10/11/20 17:00 Blood - Venous Blood Culture - Preliminary No growth after 24 hours. Assessment and Plan (1) Acute on chronic systolic heart failure: Status: Acute (2) Atherosclerotic cardiovascular disease: Status: Acute (3) Cardiomyopathy: Status: Acute Assessment and Plan: 75-year-old Setswana-speaking female with a history of CAD, HFrEF, diabetes, asthma, PVD, hypertension, dyslipidemia who presents to the emergency department with shortness of breath found to have elevated BNP Acute on chronic HFrEF EF from 09/11 EF 25-30% Patient is a poor historian wants to go home, denies chest pain, denies shortness of breath,difficult to assess fluid status due to bilateral lower extremity amputation on IV Lasix 40 mg b.i.d. since patient incontinent and refusing brito output is not available, patient noted to have worsening renal function Case discussed with Cardiology they recommend to use IV Lasix since patient has elevated JVD follow renal function closely discontinue all nephrotoxic medication avoid hypotension Will attempt to place a Brito catheter,daily weight, low-salt diet afib Initial EKG showed sinus rhythm with tachycardia on Toprol XL 25 mg daily, noted to have a burst of rapid heart rate up to 180, likely atrial fibrillation with RVR, EKG showing sinus rhythm Stable potassium and magnesium will changed to metoprolol 12.5 mg b.i.d. follow blood pressure closely Acute on CKD3 Likely due to hypotension, will DC Norvasc lisinopril and lower dose of beta- brii follow renal function closely , hold Eliquis due to acute renal failure Chronic anemia h/h at baseline follow CBC CAD Continue aspirin, statin, BB, troponin elevated and flat likely due to tachycardia, patient denies chest pain,history of ischemic cardiomyopathy with reduced EF Hypertension low hold lisinopril and norvasc cont low dose metoprolol follow BP closely Diabetes Blood sugars low last night hold Lantus continue insulin sliding scale and ADA diet DVT prophylaxis-hold Eliquis Code status-full code
[2020-10-13 16:36] LABS: Glucose, Whole Blood 170 mg/dL (60-115)
[2020-10-13 19:56] LABS: Glucose, Whole Blood 224 mg/dL (60-115)
[2020-10-13] MEDS: Montelukast Sodium 10 MG TABLET PO (22:51)
[2020-10-13] MEDS: Metoprolol Tartrate 25 MG TABLET 12.5 MG PO (22:52)
[2020-10-14] VITALS (8 sets, daily range): BP systolic 101–145; BP diastolic 45–65; PULSE 51–65; RESP 18–19; TEMP 36.2–37; O2SAT 99–100
--- NOTE | 2020-10-14 | US_ITS ---
EXAMINATION: US RETROPERITONEAL LIMITED (RENAL ONLY) CLINICAL INFORMATION: SILVER. COMPARISON: None TECHNIQUE: Routine martini-scale imaging of the kidneys was performed. FINDINGS: RIGHT KIDNEY: 7.7 x 3.8 x 4.3 cm (SAG x AP x TRV). The kidney is normal in size, contour, and echogenicity. Renal cortical thickness is normal. There are multiple anechoic cysts with the largest midpole cyst measuring 1.5 x 1.3 x 1.1 cm. There are several small echogenic foci as well but no hydronephrosis seen. LEFT KIDNEY: 9.4 x 5.1 x 5.1 cm (SAG x AP x TRV). The kidney is normal in size, contour, and echogenicity. Renal cortical thickness is normal. There is a small anechoic cyst in the upper pole measuring 1.0 x 1.0 x 1.1 cm. Also visualized are echogenic stones in the upper pole measuring 0.3 x 0.3 cm and 0.4 x 0.3 cm. There are multiple small echogenic foci. US/US renal BI IMPRESSION: Bilateral renal cysts. Multiple bilateral cortical echogenic foci. Two nonobstructive echogenic upper pole left renal stones. No caliectasis or hydronephrosis seen in either kidney.
[2020-10-14] MEDS: 0.9 % Sodium Chloride Flush 3 ML SYRINGE IVFLUSH ×3 (02:02→20:20)
[2020-10-14 07:10] LABS: Anion Gap 18 (12-20); Blood Urea Nitrogen 54 mg/dL (9-16); Calcium 8.5 mg/dL (8.4-10.2); Carbon Dioxide 20 mmol/L (22-29); Chloride 104 mmol/L (96-108); Creatinine Clr Calc Pharmacy 10.5; Estimated Glomerular Filt Rate 16; Glucose Random 158 mg/dL (60-115); Potassium 5.2 mmol/l (3.3-5.1); Sodium 137 mmol/L (135-145)
[2020-10-14 07:13] LABS: B Type Natriuretic Peptide 1387 pg/mL (<100)
[2020-10-14 07:47] LABS: Glucose, Whole Blood 157 mg/dL (60-115)
[2020-10-14] MEDS: Insulin Lispro 100 UNIT/ML 3 ML VIAL SUBCUT ×2 (08:13→20:20)
[2020-10-14] MEDS: Insulin Glargine,Hum.rec.anlog 100 UNIT/ML 10 ML VIAL 12 UNIT SUBCUT (08:13)
[2020-10-14] MEDS: Aspirin Enteric Coated 81 MG TABLET.DR PO (08:14)
[2020-10-14] MEDS: Ferrous Sulfate 324 MG TABLET.DR PO ×2 (08:14→20:20)
[2020-10-14] MEDS: Ascorbic Acid 500 MG TABLET PO ×2 (08:14→20:20)
[2020-10-14] MEDS: Atorvastatin Calcium 40 MG TABLET PO (08:14)
--- NOTE | 2020-10-14 11:11 | MHC.CM.PN ---
Per ROUNDS discussion, Patient is still in w/u for ARF and not yet medically cleared for dc. Home with resumption of [employer] services is the goal and CM will continue to follow for dc planning and possible need to adjust the dc plan.
--- NOTE | 2020-10-14 11:34 | PM.PNCARD ---
Subjective Subjective Date of Service: 10/14/20 Principal diagnosis: Ischemic cardiomyopathy heart failure. Interval history: Patient after discussion of shows continue with Lasix therapy. However intake and output chart of not being well maintained. Creatinine in shows significant rise today. Patient denies shortness of breath. No other cardiac complaints. No overnight atrial fibrillation. Remains with soft blood pressure as well as low heart rate. Her metoprolol has been held Review of Systems Cardiovascular: Denies chest pain, Denies palpitations, Denies dyspnea and Denies orthopnea Respiratory: Denies cough and Denies dyspnea Gastrointestinal: Denies no additional gastrointestinal complaints Reports system reviewed and no additional complaints, except as documented Endocrine: Denies palpitations Hematologic/Lymphatic: Reports no additional hematologic/lymphatic complaints Physical Exam Vital Signs: Last Vital Signs Temp 97.5 F 10/14/20 07:24 Pulse 53 10/14/20 08:15 Resp 18 10/14/20 07:24 BP 110/45 L 10/14/20 07:24 Pulse Ox 100 10/14/20 07:24 Body Mass Index 46.5 Const General: comfortable, no acute distress, alert and awake Nutritional Appearance: overweight Orientation/consciousness: patient oriented x3 Neck Neck: Yes trachea midline, Yes supple and Yes JVD Resp Effort & Inspection: normal respiratory effort Auscultation: clear to auscultation bilaterally Cardio Palpation: abnormal PMI Rate: regular rate Rhythm: regular rhythm and abnormal rhythm with ectopic beats GI Auscultation: normal bowel sounds Skin General skin exam: no rashes or lesions noted Neuro General: patient oriented x3 Results Labs and Meds Result diagrams: 10/13/20 08:03 10/14/20 05:22 Lab results: Laboratory Results - last 24 hr 10/13/20 10/13/20 10/13/20 11:49 16:16 19:45 Sodium Potassium Chloride Carbon Dioxide Anion Gap BUN Creatinine Estim Creat Clear Calc Estimated GFR POC Glucose 222 H 170 H 224 H Random Glucose Calcium B-Natriuretic Peptide 10/14/20 10/14/20 10/14/20 05:22 05:22 07:23 Sodium 137 Potassium 5.2 H Chloride 104 Carbon Dioxide 20 L Anion Gap 18 BUN 54 H Creatinine 2.82 H Estim Creat Clear Calc 10.5 Estimated GFR 16 POC Glucose 157 H Random Glucose 158 H Calcium 8.5 B-Natriuretic Peptide 1387 H Progress Note: A&P Assessment and plan (1) Acute kidney injury: Status: Acute Assessment and Plan: Worsening creatinine suggestive of acute kidney injury. Question related to hypotension or over-diuresis with prerenal azotemia. Renal consult has been requested. Will obtain a limited echocardiogram to assess for IVC size and collapsibility to estimate right atrial pressures. Clinically very difficult to assess the same. Further treatment based on Nephro input as well as echo findings. (2) Low blood pressure: Status: Acute Assessment and Plan: Low blood pressure, agree with holding diuretics as well as metoprolol therapy at this point time. Continue to monitor closely. (3) Paroxysmal atrial fibrillation: Status: Acute Assessment and Plan: Paroxysmal atrial fibrillation without any clear clinical recurrence at this point time. Will continue to pursue rhythm control approach and use amiodarone if she has any recurrent atrial fibrillation. Currently hold oral anticoagulation therapy given her acute kidney injury. (4) Acute on chronic systolic heart failure: Status: Acute Assessment and Plan: Presentation shortness of breath with underlying severe ischemic cardiomyopathy. Diuresed and has developed elevated creatinine suggestive of acute kidney injury question related to over diuresis with pre renal azotemia. Not tolerating other therapy for neurohormonal modulation as well due to low blood pressure. (5) Ischemic cardiomyopathy: Status: Acute Assessment and Plan: Ischemic cardiomyopathy with severe LV systolic dysfunction. Repeat echo as above. Not tolerated neurohormonal modulation due to hypotension. In addition to development of acute kidney injury diuresis, overall carries poor prognosis Follow the patient Fall Risk Details Current Medications: Current Medications Generic Name Dose Route Start Last Admin Trade Name Freq PRN Reason Stop Dose Admin Acetaminophen 650 mg 10/11/20 19:43 Acetaminophen 325 Mg Tablet PO Q6H PRN Pain, Mild (Pain Scale 1-3) Albuterol Sulfate 2 puff 10/11/20 19:43 Albuterol Sulfate 90 Mcg 8 Gm Inhaler INHALE Q4H PRN Shortness Of Breath Ascorbic Acid 500 mg 10/11/20 21:00 10/14/20 08:14 Ascorbic Acid 500 Mg Tablet PO 500 mg BID GABO Administration Aspirin 81 mg 10/12/20 09:00 10/14/20 08:14 Aspirin Enteric Coated 81 Mg Tablet. PO 81 mg DAILY GABO Administration Atorvastatin Calcium 40 mg 10/12/20 09:00 10/14/20 08:14 Atorvastatin Calcium 40 Mg Tablet PO 40 mg DAILY GABO Administration Docusate Sodium 100 mg 10/11/20 19:43 Docusate Sodium 100 Mg Capsule PO DAILY PRN Constipation Ferrous Sulfate 324 mg 10/11/20 21:00 10/14/20 08:14 Ferrous Sulfate 324 Mg Tablet.Dr PO 324 mg BID GABO Administration Insulin Glargine 12 unit 10/14/20 09:00 10/14/20 08:13 Insulin Glargine,Hum.Rec.Anlog 100 Unit/Ml 10 Ml Vial SUBCUT 12 unit DAILY GABO Administration Insulin Human Lispro 0 unit 10/11/20 21:00 10/14/20 08:13 Insulin Lispro 100 Unit/Ml 3 Ml Vial SUBCUT 2 unit QIDACHS [facility] Administration Protocol Metoprolol Tartrate 12.5 mg 10/13/20 21:00 10/14/20 08:15 Metoprolol Tartrate 25 Mg Tablet PO Not Given BID [facility] Protocol Montelukast Sodium 10 mg 10/11/20 21:00 10/13/20 22:51 Montelukast Sodium 10 Mg Tablet PO 10 mg BEDTIME [facility] Administration Ondansetron HCl 4 mg 10/11/20 19:43 10/12/20 19:02 Ondansetron Hcl 4 Mg/2 Ml Vial IVPUSH 4 mg Q8H PRN Administration Nausea and Vomiting Pharmacy Consult 1 each 10/11/20 15:26 Consult Rx Perform Med Rec MISCELLANE ONCE PRN Consult order Sodium Chloride 3 ml 10/12/20 00:00 10/14/20 08:31 0.9 % Sodium Chloride Flush 3 Ml Syringe IVFLUSH Not Given QSHICHI [facility] Zolpidem Tartrate 5 mg 10/11/20 19:43 Zolpidem Tartrate 5 Mg Tablet PO BEDTIME PRN Sleep Time Spent With Patient Time: Total time spent is greater than 50% in coordination of care (as documented) at patient's floor/unit and/or counseling patient: Time with patient: 25 - 35 minutes
--- NOTE | 2020-10-14 11:45 | P.CONNP_ITS ---
History of Present Illness Reason for Consult Consult date: 10/14/20 Reason for consult: SILVER Chief Complaint Chief complaint: chf History of Present Illness Narrative: 75 y/o adm dCHF and now with SILVER after diuresis and low BPs,. Has known severe ischemic CM with LVEF as low as 15% but latest echo EF 25 %. Unclear how well she diuresed d/t ? I/O. Breathing imporvd. No CP. No GH/duysuria. Review of Systems Review of Systems [employer] no headache, no dizziness CVS no chest pain, no palpitation Respiratory no cough, no shortness of breath GI no nausea, no vomiting no diarrhea Yes all other systems are reviewed and are negative Reports system reviewed and no additional complaints, except as documented PMFSH Past Medical History Medical History Afib Asthma Atherosclerotic cardiovascular disease CAD (coronary artery disease) Cardiomyopathy CHF (congestive heart failure) CVA (cerebral vascular accident) Diabetes Hypertension Persistent atrial fibrillation PVD (peripheral vascular disease) Functional capacity: wheelchair bound Family History Family History Father Heart attack Mother Heart attack Diabetes Surgical History Surgical History History of esophagogastroduodenoscopy (EGD) Hx of AKA (above knee amputation) Hx of colonoscopy Status post coronary artery bypass graft Social History Social History (Updated 10/11/20 @ 19:57 by GAVIN Yang) Household Members: Family Housing: Apartment Do you presently have visiting nurse or other home services: No Alcohol intake: never Smoking Status: Never smoker Smoked in Last 30 Days: No Use of substances other than those prescribed or required for medical reasons: Yes Advance Directives: No Advance Directives Information Provided: Yes Do you have thoughts of harming others: None Do you have a plan to hurt others: No Plan Recently lost weight without trying: No service: No Current occupational status: disabled Meds Allergies Allergy/AdvReac Type Severity Reaction Status Date / Time No Known Allergies Allergy Verified 08/18/20 09:08 Home Medications Medication Instructions Recorded Confirmed Type Eliquis 5 mg PO BID 09/10/20 10/11/20 History Lantus Solostar U-100 Insulin 26 unit SUBCUT QAM 09/10/20 10/11/20 History albuterol sulfate [ProAir HFA] 2 puff INHALATION Q4-6H PRN 09/10/20 10/11/20 History amlodipine 2.5 mg PO DAILY 09/10/20 10/11/20 History ascorbic acid (vitamin C) 500 mg PO BID 09/10/20 10/11/20 History aspirin 81 mg PO DAILY 09/10/20 10/11/20 History atorvastatin 40 mg PO DAILY 09/10/20 10/11/20 History ferrous sulfate 325 mg PO BID 09/10/20 10/11/20 History furosemide 40 mg PO DAILY 09/10/20 10/11/20 History lisinopril 2.5 mg PO DAILY 09/10/20 10/11/20 History montelukast 10 mg PO BEDTIME 09/10/20 10/11/20 History nitroglycerin 0.4 mg SUBLINGUAL Q5M PRN 09/10/20 10/11/20 History zolpidem 5 mg PO BEDTIME PRN 09/10/20 10/11/20 History Physical Exam Vital Signs: Last Vital Signs Temp 97.5 F 10/14/20 07:24 Pulse 53 10/14/20 08:15 Resp 18 10/14/20 07:24 BP 110/45 L 10/14/20 07:24 Pulse Ox 100 10/14/20 07:24 Body Mass Index 46.5 JVD decr BS bases and rhonchi RRR Obses kandace Amputee of legs Const General: cooperative, comfortable, no acute distress, alert and awake Nutritional Appearance: well nourished and overweight Orientation/consciousness: patient oriented x3 Limitations: no limitations [facility] Head: Yes normal to inspection, Yes normocephalic and Yes atraumatic Ears: hearing grossly normal bilaterally General nose exam: Normal external nose present Face and sinus: Yes normal facial exam Eyes General: appearance normal, both eyes and all related structures Sclerae: sclerae normal EOM: EOMs intact bilaterally Neck Neck: Yes normal visual inspection, Yes no meningeal signs, Yes trachea midline, Yes supple and Yes JVD Chest Chest palpation & inspection: normal inspection of the chest Resp Effort & Inspection: normal respiratory effort, decreased respiratory effort and no respiratory distress Auscultation: clear to auscultation bilaterally, no crackles, no rales, no wheezes and diminished lung sounds Cardio Jugular venous distension: JVD elevated Palpation: abnormal PMI displaced PMI Rate: regular rate and tachycardic Rhythm: regular rhythm and abnormal rhythm with ectopic beats Heart sounds: S1 normal heart sound present, S2 normal heart sound present and Gallop heart sound present S4 gallop GI Inspection: Yes normal to inspection and Yes obesity Palpation (GI): Soft to palpation, nontender, no guarding and not rigid Auscultation: normal bowel sounds General: Yes no CVA tenderness Back/Spine/Pelvis Back: no CVA tenderness Skin General skin exam: no rashes or lesions noted Rashes: no rashes Wounds: no wounds Neuro General: patient oriented x3, no meningeal signs and no focal motor deficits Cranial nerves: Yes CN's II-XII intact bilaterally and Yes Bilaterally intact EOM present Gait exam (Neuro): Normal gait present Extrem Other: s/p b/l aka General: Yes normal to inspection, Yes amputation noted (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 Edema of the stumps), No clubbing and No cyanosis Results Lab Results Result Diagrams: 10/13/20 08:03 10/14/20 05:22 Lab results: Chemistry 10/11/20 10/11/20 10/12/20 17:00 18:32 11:20 Sodium Cancelled 145 144 Potassium Cancelled 3.7 3.6 Carbon Dioxide Cancelled 23 26 BUN Cancelled 26 H 28 H Creatinine Cancelled 1.33 1.22 Calcium Cancelled 8.3 L 8.5 10/13/20 10/14/20 08:03 05:22 Sodium 141 137 Potassium 4.4 D 5.2 H Carbon Dioxide 21 L 20 L BUN 39 H 54 H Creatinine 1.93 H 2.82 H Calcium 8.1 L 8.5 Hematology 10/11/20 10/12/20 10/13/20 17:00 11:19 08:03 WBC 7.7 6.5 Hgb 8.9 L 8.5 L 8.7 L Plt Count 282 312 Laboratory Tests 10/12/20 10/13/20 10/14/20 11:20 08:03 05:22 Creatinine 1.22 1.93 H 2.82 H Assessment and Plan (1) Acute kidney injury: Status: Acute (2) Low blood pressure: Status: Acute (3) Paroxysmal atrial fibrillation: Status: Acute (4) Acute on chronic systolic heart failure: Status: Acute (5) Ischemic cardiomyopathy: Status: Acute 1. SILVER: most c/w CRSyndrome and intolerance to diuresis with furhter compromise of renal perfusion; other poss such as AIN AGN Acute Obs all seem unlikley given the toime sequence of events for SILVER 2. CKD 3: bsl SCr 1.2..likely has underlying DN/HTN renal dis; ques of ETHAN/IRD 3. HFrEF 4. PVDx 5. Anemia REC: UA and urine studies, dc HAKEEM-I ( done already), hold diuretics; renal U/S; may need more aggressive card interventions including SWG to assess need for i notropes/IVF etc to optimize renal perfusion if SILVER worsens will follow jaz with team
[2020-10-14 11:46] LABS: Glucose, Whole Blood 118 mg/dL (60-115)
--- NOTE | 2020-10-14 14:27 | P.PNIM_ITS ---
Subjective Subjective Date of Service: 10/15/20 Interval History: History obtained via certified court/medical interpreter, patient feels better denies chest pain, denies shortness of breath refusing to have an IV placed, refused Moncada catheter, is incontinent of urine and bowels. 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 Neck supple, no jvd CVS regular rate rhythm, Respiratory lungs clear to auscultation, no rales, no respiratory distress, no wheeze, no rhonchi. Gastrointestinal abdomen soft, nontender, bowel sounds audible Extremities right AKA and left BKA no clubbing cyanosis or edema. Neuro nonfocal Skin no rash Objective Data Current Medications Generic Name Dose Route Start Last Admin Trade Name Freq PRN Reason Stop Dose Admin Acetaminophen 650 mg 10/11/20 19:43 Acetaminophen 325 Mg Tablet PO Q6H PRN Pain, Mild (Pain Scale 1-3) Albuterol Sulfate 2 puff 10/11/20 19:43 Albuterol Sulfate 90 Mcg 8 Gm Inhaler INHALE Q4H PRN Shortness Of Breath Ascorbic Acid 500 mg 10/11/20 21:00 10/14/20 08:14 Ascorbic Acid 500 Mg Tablet PO 500 mg BID GABO Administration Aspirin 81 mg 10/12/20 09:00 10/14/20 08:14 Aspirin Enteric Coated 81 Mg Tablet. PO 81 mg DAILY GABO Administration Atorvastatin Calcium 40 mg 10/12/20 09:00 10/14/20 08:14 Atorvastatin Calcium 40 Mg Tablet PO 40 mg DAILY GABO Administration Docusate Sodium 100 mg 10/11/20 19:43 Docusate Sodium 100 Mg Capsule PO DAILY PRN Constipation Ferrous Sulfate 324 mg 10/11/20 21:00 10/14/20 08:14 Ferrous Sulfate 324 Mg Tablet. PO 324 mg BID GABO Administration Insulin Glargine 12 unit 10/14/20 09:00 10/14/20 08:13 Insulin Glargine,Hum.Rec.Anlog 100 Unit/Ml 10 Ml Vial SUBCUT 12 unit DAILY PENDING SALE TO [facility] Administration Insulin Human Lispro 0 unit 10/11/20 21:00 10/14/20 11:49 Insulin Lispro 100 Unit/Ml 3 Ml Vial SUBCUT Not Given QIDACHS PENDING SALE TO [facility] Protocol Metoprolol Tartrate 12.5 mg 10/13/20 21:00 10/14/20 08:15 Metoprolol Tartrate 25 Mg Tablet PO Not Given BID PENDING SALE TO [facility] Protocol Montelukast Sodium 10 mg 10/11/20 21:00 10/13/20 22:51 Montelukast Sodium 10 Mg Tablet PO 10 mg BEDTIME PENDING SALE TO [facility] Administration Ondansetron HCl 4 mg 10/11/20 19:43 10/12/20 19:02 Ondansetron Hcl 4 Mg/2 Ml Vial IVPUSH 4 mg Q8H PRN Administration Nausea and Vomiting Pharmacy Consult 1 each 10/11/20 15:26 Consult Rx Perform Med Rec MISCELLANE ONCE PRN Consult order Sodium Chloride 3 ml 10/12/20 00:00 10/14/20 08:31 0.9 % Sodium Chloride Flush 3 Ml Syringe IVFLUSH Not Given QSHIFT PENDING SALE TO [facility] Zolpidem Tartrate 5 mg 10/11/20 19:43 Zolpidem Tartrate 5 Mg Tablet PO BEDTIME PRN Sleep Labs CBC & Chem 7: 10/13/20 08:03 10/15/20 05:53 Microbiology Microbiology Results: Microbiology 10/12/20 03:13 Stool Stool Culture - Preliminary Normal so far. 10/11/20 17:35 Blood - Venous Blood Culture - Preliminary No growth after 48 hours. 10/11/20 17:00 Blood - Venous Blood Culture - Preliminary No growth after 48 hours. Assessment and Plan (1) Acute on chronic systolic heart failure: Status: Acute (2) Atherosclerotic cardiovascular disease: Status: Acute (3) Cardiomyopathy: Status: Acute (4) Acute kidney injury: Status: Acute (5) Ischemic cardiomyopathy: Status: Acute (6) Low blood pressure: Status: Acute (7) Paroxysmal atrial fibrillation: Status: Acute Assessment and Plan: 75-year-old Ukrainian-speaking female with a history of CAD, HFrEF, di abetes, asthma, PVD, hypertension, dyslipidemia who presents to the emergency department with shortness of breath found to have elevated BNP Acute on chronic HFrEF EF from 09/11 EF 25-30% Patient is a poor historian denies chest pain, denies shortness of breath,difficult to assess fluid status due to bilateral lower extremity amputation, refusal to keep Moncada, incontinent of urine Since creatinine trending up will discontinue diuretics, lisinopril discontinued yesterday, due to low BP will hold beta-brii Cardiology obtained echo that showed an EF 20-25% with regional wall motion abnormality, dilated IVC suggestive of elevated right atrial pressures with moderately elevated right ventricular systolic pressure, will discuss further intervention with BNP improved from 2240 - 1387 afib Initial EKG showed sinus rhythm with tachycardia on Toprol XL 25 mg daily, noted to have a burst of rapid heart rate up to 180, likely atrial fibrillation with RVR, EKG showing sinus rhythm Stable potassium and magnesium patient noted to have low blood pressure and low pulse therefore will discontinue beta-brii continue tele monitor Acute on CKD3 Creatinine further worsened today therefore obtain nephrology consultation patient seen by Dr. Flaherty patient has a broad differential likely related to cardiorenal syndrome, other possibilities are AIN, AGN , obstructive uropathy urine studies sent by Nephrology patient will need inotrope/IV fluid if renal function worsens. Will avoid hypotension, not on any nephrotoxic medication follow renal function, obtain renal ultrasound Chronic anemia h/h at baseline follow CBC CAD Continue aspirin, statin, troponin elevated but flat likely due to tachycardia, patient denies chest pain,history of ischemic cardiomyopathy with reduced EF Hypertension Low blood pressure all meds antihypertensive on hold Diabetes Blood sugars low last night hold Lantus continue insulin sliding scale and ADA diet DVT prophylaxis-hold Eliquis Code status-full code
[2020-10-14 15:41] LABS: Glucose, Whole Blood 115 mg/dL (60-115)
--- NOTE | 2020-10-14 16:00 | CA_ITS ---
Transthoracic Echocardiogram Patient (Last, First, Middle): Kat Lama, Gender: Female Date of : 1945 Age: 75 Procedure Date: 10/14/2020 Procedure Type: Transthoracic Echocardiogram [place] [facility] [place] Height: 121.92 cm Weight: 68.95 kg BSA: 1.41 m2 Heart Rate: bpm BP: 110 / 45 mmHg Body Design Checker: REANNA Referring MD: Ankit Fish MD Webbing Tacker: Ankit Fish MD Symptoms: SILVER, to evaluate RA pressures and LV function Study Quality: Fair Conclusions: - 1. Severely reduced LV ejection fraction with LVEF of 20-25% with regional wall motion abnormality consistent with ischemic cardiomyopathy with grade 3 diastolic dysfunction 2. Dilated IVC without collapsibility suggestive significantly elevated right atrial pressures with moderately elevated right ventricular systolic pressure Findings Left Ventricle Normal left ventricular cavity size. There is mildly increased left ventricular wall thickness. The left ventricular systolic function is severely decreased. The visually estimated ejection fraction is between 20 25%. There is evidence of regional wall motion abnormalities. Spectral Doppler is indicative of a reversible restrictive filling pattern. E/E prime ratio is >15, consistent with elevated filling pressures. Evidence suggests grade III (severe) diastolic dysfunction. Wall Motion Rest Echo Findings The inferoseptal wall, inferior wall, and inferolateral wall are akinetic. All other scored wall segments showed normal motion. Tricuspid Valve There is moderate tricuspid valve regurgitation. Significantly elevated right atrial pressure. Moderate pulmonary hypertension is present. Pericardium/Pleural There is no evidence of pericardial effusion. Measurements 2D Linear Measurements IVSd: 1.22 0.6-0.9/0.6-1.0 cm LVIDd: 5.44 3.9-5.3/4.2-5.9 cm LVIDd Index: 3.86 2.4-3.2/2.2-3.1 cm/m2 LVIDs: 4.95 2.0-3.6 cm LVPWd: 0.81 0.7-1.1 cm LV Mass: 266.43 67-162/88-224 g LV Mass Index: 188.95 43-95/49-115 g/m2 2D Systolic Function EF 4C: 23.80 >55% EF 2C: 20.60 >55% EF BiP: 22.70 >55% Mitral Valve MV Pk E: 1.29 MV Decel Time: 169.00 E'Lateral: 3.87 E'Medial: 4.16 E/E' Med: 31.00 E/E' Lat: 33.30 PHT: 50.00 MVA PHT: 4.40 Decel Dickson: 7.61 Diastolic Function MV Pk E: 1.29 E'Medial: 4.16 E/E' Med: 31.00 E' Laterial: 3.87 E/E' Lat: 33.30 Tricuspid Valve TR Pk Ozzie: 3.14 TR Pk Grad: 39.00 RA Press: 15.00 RVSP: 54.00 Updated in Other Vendor System with Status of Final Ankit Fish MD electronically signed on 10/14/2020 1:32:27 PM with status of Final
[2020-10-14 16:06] LABS: Sodium Urine Random < 20.0 mmol/L; Total Protein Urine Random 54 mg/dL (<12)
[2020-10-14 16:07] LABS: Glucose Urine UA NEG (NEG); Leukocyte Esterase Urine 1+ (NEG); Nitrite Urine NEG (NEG); PH 5.5 (5.0-8.0); Specific Gravity - Urine >= 1.030 (1.005-1.025); Urine Blood 2+ (NEG); Urine Ketones 5 MG/DL (NEG); Urine Protein 1+ MG/DL (NEG-TRACE)
[2020-10-14 16:36] LABS: Bacteria Urine 2+ /LPF; Squamous Epithelial Cell Urine 2+ /LPF
[2020-10-14 16:37] LABS: Mucus Urine 2+ /LPF
[2020-10-14 16:40] LABS: Appearance Urine HAZY; Color Urine YELLOW
[2020-10-14 19:44] LABS: Glucose, Whole Blood 168 mg/dL (60-115)
[2020-10-14] MEDS: Montelukast Sodium 10 MG TABLET PO (20:20)
[2020-10-15 03:32] VITALS: BP 117/71; PULSE 68; RESP 18; TEMP 36.2; O2SAT 95
--- NOTE | 2020-10-15 06:40 | PC.NURSE ---
Addendum entered by Viri Clifton RN 10/15/20 07:06: Magnesium ordered per Dr Gaston. Original Note: Pt had 10 beat vtach on tele. Pt asymptomatic. Dr Gaston notified. Pt remains in sr with frequent pvc's.
[2020-10-15 07:07] LABS: Glucose, Whole Blood 98 mg/dL (60-115)
[2020-10-15 07:50] VITALS: BP 139/70; PULSE 70; RESP 20; TEMP 36.4; O2SAT 100
[2020-10-15 07:54] LABS: Anion Gap 18 (12-20); Blood Urea Nitrogen 63 mg/dL (9-16); Calcium 8.1 mg/dL (8.4-10.2); Carbon Dioxide 18 mmol/L (22-29); Chloride 104 mmol/L (96-108); Estimated Glomerular Filt Rate 17; Glucose Random 98 mg/dL (60-115); Magnesium 2.2 mg/dL (1.6-2.6); Potassium 5.3 mmol/l (3.3-5.1); Sodium 135 mmol/L (135-145)
--- NOTE | 2020-10-15 09:01 | P.PNCA_ITS ---
Subjective Subjective Date of Service: 10/15/20 <GARRY Gr - Last Filed: 10/15/20 09:55> 10/15/20 <Ankit Fish MD - Last Filed: 10/15/20 16:53> Principal diagnosis: Ischemic cardiomyopathy heart failure, CHF, SILVER, PAF, NSVT <GARRY Gr - Last Filed: 10/15/20 09:55> Interval history: Cardiology follow up for CMP, CHF, SILVER, PAF, NSVT. Seen at 0845. Today she reports breathing is comfortable. Slept well with HPB 30 degrees. No cough. No chest pains, palpitation. Incontinent of urine. 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 <GARRY Gr - Last Filed: 10/15/20 09:55> Review of Systems Review of Systems as above <GARRY Gr - Last Filed: 10/15/20 09:55> Yes all other systems are reviewed and are negative <GARRY Gr - Last Filed: 10/15/20 09:55> Reports system reviewed and no additional complaints, except as documented <GARRY Gr - Last Filed: 10/15/20 09:55> Physical Exam Vital Signs: Last Vital Signs Temp 97.6 F 10/15/20 07:50 Pulse 70 10/15/20 07:50 Resp 20 10/15/20 07:50 BP 139/70 10/15/20 07:50 Pulse Ox 100 10/15/20 07:50 Body Mass Index 46.5 <GARRY Gr - Last Filed: 10/15/20 09:55> Const General: cooperative, no acute distress, alert and awake <GARRY Gr - Last Filed: 10/15/20 09:55> Orientation/consciousness: patient oriented x3 <GARRY Gr Last Filed: 10/15/20 09:55> Neck Other: JVD to below jaw line <GARRY Gr - Last Filed: 10/15/20 09:55> Resp Effort & Inspection: normal respiratory effort, able to speak in complete sentences and not labored <Ne SolizMARICELC - Last Filed: 10/15/20 09:55> Auscultation: clear to auscultation bilaterally (dim bases), no crackles, no rales, no rhonchi and no wheezes <Ne SolizMARICELC - Last Filed: 10/15/20 09:55> Cardio Jugular venous distension: JVD present <Ne SolizMARICELTaraC - Last Filed: 10/15/20 09:55> Rate: regular rate <[facility] Last Filed: 10/15/20 09:55> Rhythm: regular rhythm <Ne SolizMARICEL - Last Filed: 10/15/20 09:55> Heart sounds: S1 normal heart sound present and S2 normal heart sound present <Ne SolizMARICEL - Last Filed: 10/15/20 09:55> GI Inspection: Yes normal to inspection <Ne SolizMARICEL - Last Filed: 10/15/20 09:55> Neuro General: patient oriented x3 <Ne SolizMARICEL - Last Filed: 10/15/20 09:55> Extrem Other: bilateral AKA <Ne SolizMARICELTara - Last Filed: 10/15/20 09:55> General: Yes normal to inspection and No edema <Ne SolizMARICELTara - Last Filed: 10/15/20 09:55> Results Labs and Meds Result diagrams: : 10/13/20 08:03 10/15/20 05:53 <Ne SolizMARICEL - Last Filed: 10/15/20 09:55> Lab results: Laboratory Results - last 24 hr 10/14/20 10/14/20 10/14/20 11:42 14:25 14:25 Sodium Potassium Chloride Carbon Dioxide Anion Gap BUN Creatinine Estim Creat Clear Calc Estimated GFR POC Glucose 118 H Random Glucose Calcium Magnesium Urine Color YELLOW Urine Appearance HAZY Urine pH 5.5 Ur Specific [place] >= 1.030 H Urine Protein 1+ H Urine Glucose (UA) NEG Urine Ketones 5 Urine Blood 2+ H Urine Nitrite NEG Ur Leukocyte Esterase 1+ H Urine RBC 10-14 H Urine WBC 1-4 Ur Squamous Epith Cells 2+ Urine Bacteria 2+ Urine Mucus 2+ U Random Total Protein 54 H Ur Random Sodium < 20.0 Urine Creatinine 222.40 10/14/20 10/14/20 10/15/20 15:38 19:33 05:53 Sodium 135 Potassium 5.3 H Chloride 104 Carbon Dioxide 18 L Anion Gap 18 BUN 63 H Creatinine 2.71 H Estim Creat Clear Calc 11.0 Estimated GFR 17 POC Glucose 115 168 H Random Glucose 98 D Calcium 8.1 L Magnesium 2.2 Urine Color Urine Appearance Urine pH Ur Specific [place] Urine Protein Urine Glucose (UA) Urine Ketones Urine Blood Urine Nitrite Ur Leukocyte Esterase Urine RBC Urine WBC Ur Squamous Epith Cells Urine Bacteria Urine Mucus U Random Total Protein Ur Random Sodium Urine Creatinine 10/15/20 06:58 Sodium Potassium Chloride Carbon Dioxide Anion Gap BUN Creatinine Estim Creat Clear Calc Estimated GFR POC Glucose 98 Random Glucose Calcium Magnesium Urine Color Urine Appearance Urine pH Ur Specific [place] Urine Protein Urine Glucose (UA) Urine Ketones Urine Blood Urine Nitrite Ur Leukocyte Esterase Urine RBC Urine WBC Ur Squamous Epith Cells Urine Bacteria Urine Mucus U Random Total Protein Ur Random Sodium Urine Creatinine <GARRY Gr - Last Filed: 10/15/20 09:55> Imaging Radiologist's impression: Impressions Renal Ultrasound 10/14/20 00:00 IMPRESSION: Bilateral renal cysts. Multiple bilateral cortical echogenic foci. Two nonobstructive echogenic upper pole left renal stones. No caliectasis or hydronephrosis seen in either kidney. <GARRY Gr - Last Filed: 10/15/20 09:55> Progress Note: A&P Assessment and plan (1) Congestive heart failure: Status: Acute <GARRY Gr - Last Filed: 10/15/20 09:55> Assessment and Plan: Admit with sob, abdominal distention. Tx for acute on chronic HFrEF, diuresed and Cr clovis up to 2.82. Diuretics then held. Hypotensive and Lisinopril, amlodipine, metoprolol held. Echo yesterday shows EF 20-25%, + WMA consistent with ischemic CMP, grade 3 diastolic dysfunction, dilated IVC, RVSP 54. Echo 11/2018 with EF 10-15%. Follows with Dr Curtis as outpt. Today Cr 2.71, BUN 63. Prominant JVD present. Breathing comfortable at rest. I+Os have been inaccurate as pt is incontinent of urine. Nephrology note reviewed. SILVER most consistent with cardiorenal syndrome. BP is overall better today. Will continue to hold diuretics and antihypertensives. Continue close monitoring of BP, kidney function. More accurate I+Os would be beneficial. We will follow. <GARRY Gr - Last Filed: 10/15/20 09:55> (2) Ischemic cardiomyopathy: Status: Acute <GARRY Gr - Last Filed: 10/15/20 09:55> Assessment and Plan: Reported hx of [place] 2005 with coronary stent. Echo shows inferoseptal, inferior and inferolateral akinetic. No report of anginal symptoms at present <GARRY Gr - Last Filed: 10/15/20 09:55> Ischemic cardiomyopathy presentation with heart failure. Currently doing well from heart failure perspective. Not overtly in significant respiratory distress requiring higher levels of oxygen. Continue to monitor clinically. Hold off on oral heart failure therapy at this point in time. <Ankit Fish MD - Last Filed: 10/15/20 16:53> (3) Acute kidney injury: Status: Acute <GARRY Gr - Last Filed: 10/15/20 09:55> Assessment and Plan: as above <GARRY Gr - Last Filed: 10/15/20 09:55> Acute kidney injury question related to hypotension. Will hold off on all antihypertensive therapy on a long-term discontinue amlodipine therapy. Hold off on lisinopril and metoprolol therapy for some time till her blood pressure regulated self. Hold off on diuretics as well. <Ankit Fish MD - Last Filed: 10/15/20 16:53> (4) Low blood pressure: Status: Acute <GARRY Gr - Last Filed: 10/15/20 09:55> Assessment and Plan: Antihypertensives and diuresis on hold. BP improved in last 20 hrs. This am 139/70. <GARRY Gr - Last Filed: 10/15/20 09:55> Low blood pressure, currently stabilized. No more low blood pressure readings at this point time. Will continue monitor clinically. Hold off on antihypertensive therapy at this point in time. <Ankit Fish MD - Last Filed: 10/15/20 16:53> (5) Paroxysmal atrial fibrillation: Status: Acute <GARRY Gr - Last Filed: 10/15/20 09:55> Assessment and Plan: Tele strips shows episode of PAF in ED. In last 24 hr, tele shows SB, PACs, brief atrial runs and up to 10 beat NSVT vs afib with aberrancy. Off Metoprolol at present due to hypotension. Off Eliquis due to SILVER. <GARRY Gr - Last Filed: 10/15/20 09:55> Paroxysmal atrial fibrillation without any major recurrence. Hold off on any additional therapy. Noted to have nonsustained VT, will continue to monitor by cardiac telemetry. If has continued episode will reintroduce metoprolol at a low dose. Avoidance of stimulants. Hold off on oral anticoagulation due to acute kidney injury. Continue to follow and trend BMP. Case was discussed with Ne. Will continue to follow with the patient. <Ankit Fish MD - Last Filed: 10/15/20 16:53> (6) Atherosclerotic cardiovascular disease: Status: Acute <GARRY Gr - Last Filed: 10/15/20 09:55> (7) NSVT (nonsustained ventricular tachycardia): Status: Acute <GARRY Gr - Last Filed: 10/15/20 09:55> Assessment and Plan: Tele showing brief episodes of NSVT vs possible AF with aberrancy( 3 bt, 5 bt, 10 bt) since last jose. No reported symptoms of lightheadedness. Known EF 20-25%. Ongoing tele monitoring. Mg 2.2, K 5.3. Will evaluate for start of low dose BB tomorrow. <GARRY Gr - Last Filed: 10/15/20 09:55> Fall Risk Details Current Medications: Current Medications Generic Name Dose Route Start Last Admin Trade Name Freq PRN Reason Stop Dose Admin Acetaminophen 650 mg 10/11/20 19:43 Acetaminophen 325 Mg Tablet PO Q6H PRN Pain, Mild (Pain Scale 1-3) Albuterol Sulfate 2 puff 10/11/20 19:43 Albuterol Sulfate 90 Mcg 8 Gm Inhaler INHALE Q4H PRN Shortness Of Breath Ascorbic Acid 500 mg 10/11/20 21:00 10/14/20 20:20 Ascorbic Acid 500 Mg Tablet PO 500 mg BID GABO Administration Aspirin 81 mg 10/12/20 09:00 10/14/20 08:14 Aspirin Enteric Coated 81 Mg Tablet. PO 81 mg DAILY GABO Administration Atorvastatin Calcium 40 mg 10/12/20 09:00 10/14/20 08:14 Atorvastatin Calcium 40 Mg Tablet PO 40 mg DAILY GABO Administration Docusate Sodium 100 mg 10/11/20 19:43 Docusate Sodium 100 Mg Capsule PO DAILY PRN Constipation Ferrous Sulfate 324 mg 10/11/20 21:00 10/14/20 20:20 Ferrous Sulfate 324 Mg Tablet. PO 324 mg BID GABO Administration Insulin Glargine 12 unit 10/14/20 09:00 10/14/20 08:13 Insulin Glargine,Hum.Rec.Anlog 100 Unit/Ml 10 Ml Vial SUBCUT 12 unit DAILY GABO Administration Insulin Human Lispro 0 unit 10/11/20 21:00 10/14/20 20:20 Insulin Lispro 100 Unit/Ml 3 Ml Vial SUBCUT 2 unit QIDACHS GABO Administration Protocol Montelukast Sodium 10 mg 10/11/20 21:00 10/14/20 20:20 Montelukast Sodium 10 Mg Tablet PO 10 mg BEDTIME GABO Administration Ondansetron HCl 4 mg 10/11/20 19:43 10/12/20 19:02 Ondansetron Hcl 4 Mg/2 Ml Vial IVPUSH 4 mg Q8H PRN Administration Nausea and Vomiting Pharmacy Consult 1 each 10/11/20 15:26 Consult Rx Perform Med Rec MISCELLANE ONCE PRN Consult order Sodium Chloride 3 ml 10/12/20 00:00 10/14/20 20:20 0.9 % Sodium Chloride Flush 3 Ml Syringe IVFLUSH 3 ml QSHIFT GABO Administration Zolpidem Tartrate 5 mg 10/11/20 19:43 Zolpidem Tartrate 5 Mg Tablet PO BEDTIME PRN Sleep <Ne M GARRY Soliz - Last Filed: 10/15/20 09:55> Time Spent With Patient Time: Total time spent is greater than 50% in coordination of care (as documented) at patient's floor/unit and/or counseling patient: 24 <GARRY Gr - Last Filed: 10/15/20 09:55> Time with patient: 15 - 24 minutes <GARRY Gr - Last Filed: 10/15/20 09:55>
[2020-10-15] MEDS: 0.9 % Sodium Chloride Flush 3 ML SYRINGE IVFLUSH ×3 (09:35→21:06)
[2020-10-15] MEDS: Aspirin Enteric Coated 81 MG TABLET.DR PO (09:36)
[2020-10-15] MEDS: Ascorbic Acid 500 MG TABLET PO ×2 (09:36→21:06)
[2020-10-15] MEDS: Sodium Polystyrene Sulfon/Sorb 15 GM/60 ML ORAL.SUSP PO (09:36)
[2020-10-15] MEDS: Ferrous Sulfate 324 MG TABLET.DR PO ×2 (09:36→21:06)
[2020-10-15] MEDS: Atorvastatin Calcium 40 MG TABLET PO (09:36)
[2020-10-15] MEDS: Insulin Glargine,Hum.rec.anlog 100 UNIT/ML 10 ML VIAL 12 UNIT SUBCUT (09:37)
[2020-10-15 11:10] LABS: Glucose, Whole Blood 153 mg/dL (60-115)
[2020-10-15 11:28] VITALS: BP 122/84; PULSE 65; RESP 18; TEMP 36.6; O2SAT 100
[2020-10-15] MEDS: Insulin Lispro 100 UNIT/ML 3 ML VIAL SUBCUT ×2 (11:47→21:06)
--- NOTE | 2020-10-15 13:10 | PM.PNNEP ---
Subjective Subjective Date of Service: 10/15/20 Principal diagnosis: Ischemic cardiomyopathy heart failure, CHF, SILVER, PAF, NSVT Interval history: Seen and examined. events noted. overall feeling better no cp/sob. No gH/dysuria Physical Exam Vital Signs: Vital Signs: Last Vital Signs Temp 97.8 F 10/15/20 11:28 Pulse 65 10/15/20 11:28 Resp 18 10/15/20 11:28 BP 122/84 10/15/20 11:28 Pulse Ox 100 10/15/20 11:28 Body Mass Index 46.5 Const: General: cooperative, comfortable, no acute distress, alert and awake Nutritional Appearance: well nourished and overweight Orientation/consciousness: patient oriented x3 Limitations: no limitations HENMT: Head: Yes normal to inspection, Yes normocephalic and Yes atraumatic Ears: hearing grossly normal bilaterally General nose exam: Normal external nose present Face and sinus: Yes normal facial exam Eyes: General: appearance normal, both eyes and all related structures Sclerae: sclerae normal EOM: EOMs intact bilaterally Neck: Neck: Yes normal visual inspection, Yes no meningeal signs, Yes trachea midline, Yes supple and Yes JVD Chest: Chest palpation & inspection: normal inspection of the chest Resp: Effort & Inspection: normal respiratory effort, decreased respiratory effort and no respiratory distress Auscultation: clear to auscultation bilaterally, no crackles, no rales, no wheezes and diminished lung sounds Cardio: Jugular venous distension: JVD elevated Palpation: abnormal PMI displaced PMI Rate: regular rate and tachycardic Rhythm: regular rhythm and abnormal rhythm with ectopic beats Heart sounds: S1 normal heart sound present, S2 normal heart sound present and Gallop heart sound present S4 gallop GI: Inspection: Yes normal to inspection and Yes obesity Palpation (GI): Soft to palpation, nontender, no guarding and not rigid Auscultation: normal bowel sounds : General: Yes no CVA tenderness Back/Spine/Pelvis: Back: no CVA tenderness Skin: General skin exam: no rashes or lesions noted Rashes: no rashes Wounds: no wounds Neuro: General: patient oriented x3, no meningeal signs and no focal motor deficits Cranial nerves: Yes CN's II-XII intact bilaterally and Yes Bilaterally intact EOM present Gait exam (Neuro): Normal gait present Extrem: Other: s/p b/l aka General: Yes normal to inspection, Yes amputation noted (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 Edema of the stumps), No clubbing and No cyanosis Objective Data Labs CBC & Chem 7: 10/13/20 08:03 10/15/20 05:53 Labs: Laboratory Results - last 24 hr 10/14/20 10/14/20 10/14/20 14:25 14:25 15:38 Sodium Potassium Chloride Carbon Dioxide Anion Gap BUN Creatinine Estim Creat Clear Calc Estimated GFR POC Glucose 115 Random Glucose Calcium Magnesium Urine Color YELLOW Urine Appearance HAZY Urine pH 5.5 Ur Specific [place] >= 1.030 H Urine Protein 1+ H Urine Glucose (UA) NEG Urine Ketones 5 Urine Blood 2+ H Urine Nitrite NEG Ur Leukocyte Esterase 1+ H Urine RBC 10-14 H Urine WBC 1-4 Ur Squamous Epith Cells 2+ Urine Bacteria 2+ Urine Mucus 2+ U Random Total Protein 54 H Ur Random Sodium < 20.0 Urine Creatinine 222.40 10/14/20 10/15/20 10/15/20 19:33 05:53 06:58 Sodium 135 Potassium 5.3 H Chloride 104 Carbon Dioxide 18 L Anion Gap 18 BUN 63 H Creatinine 2.71 H Estim Creat Clear Calc 11.0 Estimated GFR 17 POC Glucose 168 H 98 Random Glucose 98 D Calcium 8.1 L Magnesium 2.2 Urine Color Urine Appearance Urine pH Ur Specific [place] Urine Protein Urine Glucose (UA) Urine Ketones Urine Blood Urine Nitrite Ur Leukocyte Esterase Urine RBC Urine WBC Ur Squamous Epith Cells Urine Bacteria Urine Mucus U Random Total Protein Ur Random Sodium Urine Creatinine 10/15/20 11:06 Sodium Potassium Chloride Carbon Dioxide Anion Gap BUN Creatinine Estim Creat Clear Calc Estimated GFR POC Glucose 153 H Random Glucose Calcium Magnesium Urine Color Urine Appearance Urine pH Ur Specific [place] Urine Protein Urine Glucose (UA) Urine Ketones Urine Blood Urine Nitrite Ur Leukocyte Esterase Urine RBC Urine WBC Ur Squamous Epith Cells Urine Bacteria Urine Mucus U Random Total Protein Ur Random Sodium Urine Creatinine Laboratory Tests 10/12/20 10/13/20 10/14/20 11:20 08:03 05:22 Creatinine 1.22 1.93 H 2.82 H 10/15/20 05:53 Creatinine 2.71 H Microbiology Microbiology Results: Microbiology 10/12/20 03:13 Stool Stool Culture - Final 10/11/20 17:35 Blood - Venous Blood Culture - Preliminary No growth after 48 hours. 10/11/20 17:00 Blood - Venous Blood Culture - Preliminary No growth after 48 hours. Assessment & Plan Assessment and plan (1) Acute kidney injury: Status: Acute (2) Low blood pressure: Status: Acute (3) Paroxysmal atrial fibrillation: Status: Acute (4) Acute on chronic systolic heart failure: Status: Acute (5) Ischemic cardiomyopathy: Status: Acute Assessment and Plan: 1. SILVER: repeat SCr slt decr and urine studies c/w renal hypoperfusion FENa << 1% and most c/w CRSyndrome and intolerance to diuresis with furhter compromise of renal perfusion; other poss such as listed below eem unlikely AIN AGN Acute Obs all seem unlikley given the toime sequence of events for SILVER 2. CKD 3: bsl SCr 1.2..likely has underlying DN/HTN renal dis; ques of ETHAN/IRD 3. HFrEF 4. PVDx 5. Anemia REC: cont to hold HAKEEM-I ( done already), cont ot hold diuretics; track UOP/renal func; avoid NSAIDs will follow jaz with team Time Spent With Patient Time: Total time spent is greater than 50% in coordination of care (as documented) at patient's floor/unit and/or counseling patient:
[2020-10-15 16:00] VITALS: BP 156/66; PULSE 75; RESP 18; TEMP 36.9; O2SAT 100
--- NOTE | 2020-10-15 16:03 | P.PNIM_ITS ---
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 Review of Systems VISITING NURSE no headache, no dizziness CVS no chest pain, no shortness of breath Gastroenterology no nausea, no vomiting, no diarrhea Skin no rash Physical Exam Vital Signs: Vital Signs: Last Vital Signs Temp 97.8 F 10/15/20 11:28 Pulse 65 10/15/20 11:28 Resp 18 10/15/20 11:28 BP 122/84 10/15/20 11:28 Pulse Ox 100 10/15/20 11:28 Body Mass Index 46.5 General sitting comfortably, no acute distress. Neck supple, no jvd CVS regular rate rhythm, Respiratory lungs clear to auscultation, no rales, no respiratory distress, no wheeze, no rhonchi. Gastrointestinal abdomen soft, nontender, bowel sounds audible Extremities right AKA and left BKA no clubbing cyanosis or edema. Neuro nonfocal Skin no rash Objective Data Current Medications Generic Name Dose Route Start Last Admin Trade Name Wesq PRN Reason Stop Dose Admin Acetaminophen 650 mg 10/11/20 19:43 Acetaminophen 325 Mg Tablet PO Q6H PRN Pain, Mild (Pain Scale 1-3) Albuterol Sulfate 2 puff 10/11/20 19:43 Albuterol Sulfate 90 Mcg 8 Gm Inhaler INHALE Q4H PRN Shortness Of Breath Ascorbic Acid 500 mg 10/11/20 21:00 10/15/20 09:36 Ascorbic Acid 500 Mg Tablet PO 500 mg BID GABO Administration Aspirin 81 mg 10/12/20 09:00 10/15/20 09:36 Aspirin Enteric Coated 81 Mg Tablet. PO 81 mg DAILY GABO Administration Atorvastatin Calcium 40 mg 10/12/20 09:00 10/15/20 09:36 Atorvastatin Calcium 40 Mg Tablet PO 40 mg DAILY GABO Administration Docusate Sodium 100 mg 10/11/20 19:43 Docusate Sodium 100 Mg Capsule PO DAILY PRN Constipation Ferrous Sulfate 324 mg 10/11/20 21:00 10/15/20 09:36 Ferrous Sulfate 324 Mg Tablet. PO 324 mg BID GABO Administration Insulin Glargine 12 unit 10/14/20 09:00 10/15/20 09:37 Insulin Glargine,Hum.Rec.Anlog 100 Unit/Ml 10 Ml Vial SUBCUT 12 unit DAILY GABO Administration Insulin Human Lispro 0 unit 10/11/20 21:00 10/15/20 11:47 Insulin Lispro 100 Unit/Ml 3 Ml Vial SUBCUT 2 unit QIDACHS GABO Administration Protocol Montelukast Sodium 10 mg 10/11/20 21:00 10/14/20 20:20 Montelukast Sodium 10 Mg Tablet PO 10 mg BEDTIME GABO Administration Ondansetron HCl 4 mg 10/11/20 19:43 10/12/20 19:02 Ondansetron Hcl 4 Mg/2 Ml Vial IVPUSH 4 mg Q8H PRN Administration Nausea and Vomiting Pharmacy Consult 1 each 10/11/20 15:26 Consult Rx Perform Med Rec MISCELLANE ONCE PRN Consult order Sodium Chloride 3 ml 10/12/20 00:00 10/15/20 09:35 0.9 % Sodium Chloride Flush 3 Ml Syringe IVFLUSH 3 ml QSHIFT GABO Administration Zolpidem Tartrate 5 mg 10/11/20 19:43 Zolpidem Tartrate 5 Mg Tablet PO BEDTIME PRN Sleep Labs CBC & Chem 7: 10/13/20 08:03 10/15/20 05:53 Microbiology Microbiology Results: Microbiology 10/12/20 03:13 Stool Stool Culture - Final 10/11/20 17:35 Blood - Venous Blood Culture - Preliminary No growth after 48 hours. 10/11/20 17:00 Blood - Venous Blood Culture - Preliminary No growth after 48 hours. Assessment and Plan (1) Acute on chronic systolic heart failure: Status: Acute (2) Atherosclerotic cardiovascular disease: Status: Acute (3) Cardiomyopathy: Status: Acute (4) Acute kidney injury: Status: Acute (5) Ischemic cardiomyopathy: Status: Acute (6) Low blood pressure: Status: Acute (7) Paroxysmal atrial fibrillation: Status: Acute Assessment and Plan: 75-year-old Georgian-speaking female with a history of CAD, HFrEF, diabetes, asthma, PVD, hypertension, dyslipidemia who presents to the emergency department with shortness of breath found to have elevated BNP Acute on chronic HFrEF EF from 09/11 EF 25-30% poor historian ,no chest pain, no shortness of breath,difficult to assess fluid status due to bilateral lower extremity amputation, refusal to keep [place], incontinent of urine all diuretics on hold due to acute kidney injury and hypotension, blood pressure now gradually trending up will resume beta-brii if BP remains stable echo showed an EF 20-25% with regional wall motion abnormality, dilated IVC suggestive of elevated right atrial pressures with moderately elevated right ventricular systolic pressure, case discussed with Dr. Sanchez he recommend to monitor renal function and continue to hold diuretics and lisinopril BNP improved from 2240 - 1387 afib Initial EKG showed sinus rhythm with tachycardia on Toprol XL 25 mg daily, noted to have a burst of rapid heart rate up to 180, likely atrial fibrillation with RVR, EKG showing sinus rhythm Stable potassium and magnesium , beta-blockers on hold due to low blood pressure, continue tele monitor Acute on CKD3/mild hyperkalemia Creatinine improved a little, being followed by Dr. Flaherty as per Nephro urine studies c/w renal hypoperfusion FENa < 1% and most c/w CRSyndrome and intolerance to diuresis with furhter compromise of renal perfusion ddx AIN AGN, renal ultrasound showed no obstruction Acute Obs all seem unlikley given the toime sequence of events for SILVER Kayexalate 15 mg given for hyperkalemia follow BMP Will avoid hypotension, not on any nephrotoxic medication follow renal function Chronic anemia h/h at baseline follow CBC CAD Continue aspirin, statin, troponin elevated but flat likely due to tachycardia, patient denies chest pain,history of ischemic cardiomyopathy with reduced EF Hypertension Low blood pressure all antihypertensive medications on hold Diabetes Blood sugars low on October 13, since blood sugar remains stable on low-dose Lantus ,continue insulin sliding scale and ADA diet DVT prophylaxis-hold Eliquis due to renal failure,cont compression boots. Code status-full code
[2020-10-15 16:27] LABS: Glucose, Whole Blood 104 mg/dL (60-115)
[2020-10-15 18:52] LABS: Urea, Random Urine 272 mg/dL
[2020-10-15 19:28] VITALS: BP 134/66; PULSE 81; RESP 18; TEMP 37.2; O2SAT 99
[2020-10-15 19:39] LABS: Glucose, Whole Blood 186 mg/dL (60-115)
[2020-10-15] MEDS: Montelukast Sodium 10 MG TABLET PO (21:06)
[2020-10-16] VITALS (8 sets, daily range): BP systolic 134–168; BP diastolic 56–80; PULSE 57–79; RESP 18–20; TEMP 36.2–37; O2SAT 92–100
[2020-10-16 07:43] LABS: Anion Gap 16 (12-20); Blood Urea Nitrogen 58 mg/dL (9-16); Carbon Dioxide 22 mmol/L (22-29); Chloride 104 mmol/L (96-108); Creatinine Clr Calc Pharmacy 16.6; Estimated Glomerular Filt Rate 28; Glucose Random 123 mg/dL (60-115); Potassium 4.7 mmol/l (3.3-5.1); Sodium 137 mmol/L (135-145)
[2020-10-16 08:12] LABS: Glucose, Whole Blood 125 mg/dL (60-115)
[2020-10-16] MEDS: Ferrous Sulfate 324 MG TABLET.DR PO ×2 (08:57→22:06)
[2020-10-16] MEDS: Insulin Glargine,Hum.rec.anlog 100 UNIT/ML 10 ML VIAL 12 UNIT SUBCUT (08:57)
[2020-10-16] MEDS: Ascorbic Acid 500 MG TABLET PO ×2 (08:57→22:06)
[2020-10-16] MEDS: Atorvastatin Calcium 40 MG TABLET PO (08:57)
[2020-10-16] MEDS: 0.9 % Sodium Chloride Flush 3 ML SYRINGE IVFLUSH ×3 (08:57→22:15)
[2020-10-16] MEDS: Aspirin Enteric Coated 81 MG TABLET.DR PO (08:57)
--- NOTE | 2020-10-16 11:12 | P.PNNP_ITS ---
Subjective Subjective Date of Service: 10/16/20 Principal diagnosis: Ischemic cardiomyopathy heart failure, CHF, SILVER, PAF, NSVT Interval history: Seen and examined. Events noted Physical Exam Vital Signs: Vital Signs: Last Vital Signs Temp 97.6 F 10/16/20 08:08 Pulse 66 10/16/20 08:08 Resp 18 10/16/20 08:08 BP 167/80 H 10/16/20 08:08 Pulse Ox 99 10/16/20 08:08 Body Mass Index 46.5 Const: General: cooperative, comfortable, no acute distress, alert and awake Nutritional Appearance: well nourished and overweight Orientation/consciousness: patient oriented x3 Limitations: no limitations HENMT: Head: Yes normal to inspection, Yes normocephalic and Yes atraumatic Ears: hearing grossly normal bilaterally General nose exam: Normal external nose present Face and sinus: Yes normal facial exam Eyes: General: appearance normal, both eyes and all related structures Scle matthias: sclerae normal EOM: EOMs intact bilaterally Neck: Neck: Yes normal visual inspection, Yes no meningeal signs, Yes trachea midline, Yes supple and Yes JVD Chest: Chest palpation & inspection: normal inspection of the chest Resp: Effort & Inspection: normal respiratory effort, decreased respiratory effort and no respiratory distress Auscultation: clear to auscultation bilaterally, no crackles, no rales, no wheezes and diminished lung sounds Cardio: Jugular venous distension: JVD elevated Palpation: abnormal PMI displaced PMI Rate: regular rate and tachycardic Rhythm: regular rhythm and abnormal rhythm with ectopic beats Heart sounds: S1 normal heart sound present, S2 normal heart sound present and Gallop heart sound present S4 gallop GI: Inspection: Yes normal to inspection and Yes obesity Palpation (GI): Soft to palpation, nontender, no guarding and not rigid Auscultation: normal bowel sounds : General: Yes no CVA tenderness Back/Spine/Pelvis: Back: no CVA tenderness Skin: General skin exam: no rashes or lesions noted Rashes: no rashes Wounds: no wounds Neuro: General: patient oriented x3, no meningeal signs and no focal motor deficits Cranial nerves: Yes CN's II-XII intact bilaterally and Yes Bilaterally intact EOM present Gait exam (Neuro): Normal gait present Extrem: Other: s/p b/l aka General: Yes normal to inspection, Yes amputation noted (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 Edema of the stumps), No clubbing and No cyanosis Objective Data Labs CBC & Chem 7: 10/13/20 08:03 10/16/20 05:41 Labs: Laboratory Results - last 24 hr 10/14/20 10/15/20 10/15/20 14:25 16:22 19:31 Sodium Potassium Chloride Carbon Dioxide Anion Gap BUN Creatinine Estim Creat Clear Calc Estimated GFR POC Glucose 104 186 H Random Glucose Calcium Ur Random Urea 272 10/16/20 10/16/20 05:41 08:05 Sodium 137 Potassium 4.7 Chloride 104 Carbon Dioxide 22 Anion Gap 16 BUN 58 H Creatinine 1.80 H Estim Creat Clear Calc 16.6 Estimated GFR 28 POC Glucose 125 H Random Glucose 123 H Calcium 8.0 L Ur Random Urea Microbiology Microbiology Results: Microbiology 10/12/20 03:13 Stool Stool Culture - Final 10/11/20 17:35 Blood - Venous Blood Culture - Preliminary No growth after 48 hours. 10/11/20 17:00 Blood - Venous Blood Culture - Preliminary No growth after 48 hours. Assessment & Plan Assessment and plan (1) Acute kidney injury: Status: Acute (2) Low blood pressure: Status: Acute (3) Paroxysmal atrial fibrillation: Status: Acute (4) Acute on chronic systolic heart failure: Status: Acute (5) Ischemic cardiomyopathy: Status: Acute Assessment and Plan: 1. SILVER: repeat SCr cont decr and urine studies c/w renal hypoperfusion FENa << 1% and most c/w CRSyndrome and intolerance to diuresis with furhter compromise of renal perfusion; other poss such as listed below seem unlikely AIN AGN Acute Obs all seem unlikley given the toime sequence of events for SILVER 2. CKD 3: bsl SCr 1.2..likely has underlying DN/HTN renal dis; ques of ETHAN/IRD 3. HFrEF 4. PVDx 5. Anemia REC: cont to hold HAKEEM-I ( done already), cont ot hold diuretics for now but will need to r/s in next 24 to 48 hrs; track UOP/renal func; avoid NSAIDs will follow jaz with team Time Spent With Patient Time: Total time spent is greater than 50% in coordination of care (as documented) at patient's floor/unit and/or counseling patient:
[2020-10-16 11:17] LABS: Glucose, Whole Blood 167 mg/dL (60-115)
[2020-10-16] MEDS: Insulin Lispro 100 UNIT/ML 3 ML VIAL SUBCUT ×3 (12:01→22:06)
--- NOTE | 2020-10-16 14:25 | P.PNCA_ITS ---
Subjective Subjective Date of Service: 10/16/20 Principal diagnosis: Ischemic cardiomyopathy heart failure, CHF, SILVER, PAF, NSVT Interval history: Patient denies any chest pain or shortness of breath. Blood pressure is rising. Creatinine improving. Review of Systems Constitutional: Reports no additional constitutional complaints Cardiovascular: Reports no additional cardiovascular complaints Respiratory: Reports no additional respiratory complaints Gastrointestinal: Reports no additional gastrointestinal complaints Reports system reviewed and no additional complaints, except as documented Physical Exam Vital Signs: Last Vital Signs Temp 97.4 F 10/16/20 11:18 Pulse 79 10/16/20 11:18 Resp 20 10/16/20 11:18 BP 167/74 H 10/16/20 11:18 Pulse Ox 95 10/16/20 11:18 Body Mass Index 46.5 Const General: comfortable, no acute distress, alert and awake Orientation/consciousness: patient oriented x3 Neck Neck: Yes trachea midline, Yes supple and Yes JVD Resp Effort & Inspection: normal respiratory effort Auscultation: clear to auscultation bilaterally Cardio Palpation: abnormal PMI displaced PMI Rate: regular rate Rhythm: regular rhythm Heart sounds: S1 normal heart sound present and S2 normal heart sound present GI Auscultation: normal bowel sounds Neuro General: patient oriented x3 and no focal motor deficits Results Labs and Meds Result diagrams: 10/13/20 08:03 10/16/20 05:41 Lab results: Laboratory Results - last 24 hr 10/14/20 10/15/20 10/15/20 14:25 16:22 19:31 Sodium Potassium Chloride Carbon Dioxide Anion Gap BUN Creatinine Estim Creat Clear Calc Estimated GFR POC Glucose 104 186 H Random Glucose Calcium Ur Random Urea 272 10/16/20 10/16/20 10/16/20 05:41 08:05 11:11 Sodium 137 Potassium 4.7 Chloride 104 Carbon Dioxide 22 Anion Gap 16 BUN 58 H Creatinine 1.80 H Estim Creat Clear Calc 16.6 Estimated GFR 28 POC Glucose 125 H 167 H Random Glucose 123 H Calcium 8.0 L Ur Random Urea Progress Note: A&P Assessment and plan (1) Acute kidney injury: Status: Acute Assessment and Plan: Acute kidney injury question or diuresis question ATN. Slowly improving. Blood pressure is improved. Continue to hold diuretics for today does not appear to be in overt heart failure. Continue to trend BMP and BNP. (2) Ischemic cardiomyopathy: Status: Acute Assessment and Plan: Severe ischemic cardiomyopathy. No symptoms of heart failure at current time. Hold off on Lasix today. Will slowly introduce neurohormonal modulation given that her blood pressure is rising. Start valsartan 40 mg daily and Lopressor 12.5 mg b.i.d.. Monitor blood pressure closely. Will follow with the patient. (3) Paroxysmal atrial fibrillation: Status: Acute Assessment and Plan: Paroxysmal atrial fibrillation without any clinical recurrence at this point time. Will continue to monitor on telemetry. If he has no recurrent atrial fi brillation of other therapy is recommended. She continues to have burst of atrial fibrillation, will add amiodarone to her regimen. If creatinine tomorrow improves, will resume Eliquis therapy. (4) NSVT (nonsustained ventricular tachycardia): Status: Acute Assessment and Plan: Nonsustained VT in setting of ischemic cardiomyopathy. Resume low-dose metoprolol therapy. Will follow the patient Fall Risk Details Current Medications: Current Medications Generic Name Dose Route Start Last Admin Trade Name Freq PRN Reason Stop Dose Admin Acetaminophen 650 mg 10/11/20 19:43 Acetaminophen 325 Mg Tablet PO Q6H PRN Pain, Mild (Pain Scale 1-3) Albuterol Sulfate 2 puff 10/11/20 19:43 Albuterol Sulfate 90 Mcg 8 Gm Inhaler INHALE Q4H PRN Shortness Of Breath Ascorbic Acid 500 mg 10/11/20 21:00 10/16/20 08:57 Ascorbic Acid 500 Mg Tablet PO 500 mg BID GABO Administration Aspirin 81 mg 10/12/20 09:00 10/16/20 08:57 Aspirin Enteric Coated 81 Mg Tablet. PO 81 mg DAILY GABO Administration Atorvastatin Calcium 40 mg 10/12/20 09:00 10/16/20 08:57 Atorvastatin Calcium 40 Mg Tablet PO 40 mg DAILY GABO Administration Docusate Sodium 100 mg 10/11/20 19:43 Docusate Sodium 100 Mg Capsule PO DAILY PRN Constipation Ferrous Sulfate 324 mg 10/11/20 21:00 10/16/20 08:57 Ferrous Sulfate 324 Mg Tablet. PO 324 mg BID AGBO Administration Insulin Glargine 12 unit 10/14/20 09:00 10/16/20 08:57 Insulin Glargine,Hum.Rec.Anlog 100 Unit/Ml 10 Ml Vial SUBCUT 12 unit DAILY GABO Administration Insulin Human Lispro 0 unit 10/11/20 21:00 10/16/20 12:01 Insulin Lispro 100 Unit/Ml 3 Ml Vial SUBCUT 2 unit QIDACHS [facility] Administration Protocol Metoprolol Tartrate 12.5 mg 10/16/20 21:00 Metoprolol Tartrate 12.5 Mg Halftab PO BID [facility] Protocol Montelukast Sodium 10 mg 10/11/20 21:00 10/15/20 21:06 Montelukast Sodium 10 Mg Tablet PO 10 mg BEDTIME GABO Administration Ondansetron HCl 4 mg 10/11/20 19:43 10/12/20 19:02 Ondansetron Hcl 4 Mg/2 Ml Vial IVPUSH 4 mg Q8H PRN Administration Nausea and Vomiting Pharmacy Consult 1 each 10/11/20 15:26 Consult Rx Perform Med Rec MISCELLANE ONCE PRN Consult order Sodium Chloride 3 ml 10/12/20 00:00 10/16/20 08:57 0.9 % Sodium Chloride Flush 3 Ml Syringe IVFLUSH 3 ml QSHIFT [facility] Administration Zolpidem Tartrate 5 mg 10/11/20 19:43 Zolpidem Tartrate 5 Mg Tablet PO BEDTIME PRN Sleep Time Spent With Patient Time: Total time spent is greater than 50% in coordination of care (as documented) at patient's floor/unit and/or counseling patient: Time with patient: 25 - 35 minutes
--- NOTE | 2020-10-16 15:45 | HO.PM.IMPN ---
Subjective Subjective Date of Service: 10/16/20 Interval History: Patient admitted with shortness of breath, patient reports no complaints Review of Systems [employer] no headache, no dizziness CVS no chest pain, no shortness of breath Gastroenterology no nausea, no vomiting, no diarrhea Skin no rash Constitutional Constitutional: Denies chills and Denies fever(s) Cardiovascular Cardiovascular: Reports dyspnea Respiratory Respiratory: Denies cough and Reports dyspnea Physical Exam Vital Signs: Vital Signs: Last Vital Signs Temp 98.1 F 10/16/20 15:20 Pulse 70 10/16/20 15:20 Resp 19 10/16/20 15:20 BP 168/68 H 10/16/20 15:20 Pulse Ox 92 10/16/20 15:20 Body Mass Index 46.5 Const: General: no acute distress, alert and awake Nutritional Appearance: well nourished HENMT: Head: Yes normocephalic and Yes atraumatic Eyes: Sclerae: sclerae normal Chest: Chest palpation & inspection: normal inspection of the chest Resp: Effort & Inspection: decreased respiratory effort and no respiratory distress Auscultation: no wheezes and diminished lung sounds Cardio: Jugular venous distension: JVD elevated Rate: tachycardic Rhythm: abnormal rhythm irregularly irregular GI: Palpation (GI): Soft to palpation and nontender Skin: General skin exam: no rashes or lesions noted Neuro: Cranial nerves: Yes CN's II-XII intact bilaterally and Yes Bilaterally intact EOM present Extrem: Other: s/p b/l aka Objective Data Current Medications Generic Name Dose Route Start Last Admin Trade Name Freq PRN Reason Stop Dose Admin Acetaminophen 650 mg 10/11/20 19:43 Acetaminophen 325 Mg Tablet PO Q6H PRN Pain, Mild (Pain Scale 1-3) Albuterol Sulfate 2 puff 10/11/20 19:43 Albuterol Sulfate 90 Mcg 8 Gm Inhaler INHALE Q4H PRN Shortness Of Breath Ascorbic Acid 500 mg 10/11/20 21:00 10/16/20 08:57 Ascorbic Acid 500 Mg Tablet PO 500 mg BID GABO Administration Aspirin 81 mg 10/12/20 09:00 10/16/20 08:57 Aspirin Enteric Coated 81 Mg Tablet. PO 81 mg DAILY GABO Administration Atorvastatin Calcium 40 mg 10/12/20 09:00 10/16/20 08:57 Atorvastatin Calcium 40 Mg Tablet PO 40 mg DAILY GABO Administration Docusate Sodium 100 mg 10/11/20 19:43 Docusate Sodium 100 Mg Capsule PO DAILY PRN Constipation Ferrous Sulfate 324 mg 10/11/20 21:00 10/16/20 08:57 Ferrous Sulfate 324 Mg Tablet.Dr PO 324 mg BID GABO Administration Insulin Glargine 12 unit 10/14/20 09:00 10/16/20 08:57 Insulin Glargine,Hum.Rec.Anlog 100 Unit/Ml 10 Ml Vial SUBCUT 12 unit DAILY [facility] Administration Insulin Human Lispro 0 unit 10/11/20 21:00 10/16/20 12:01 Insulin Lispro 100 Unit/Ml 3 Ml Vial SUBCUT 2 unit QIDACHS [facility] Administration Protocol Metoprolol Tartrate 12.5 mg 10/16/20 21:00 Metoprolol Tartrate 12.5 Mg Halftab PO BID [facility] Protocol Montelukast Sodium 10 mg 10/11/20 21:00 10/15/20 21:06 Montelukast Sodium 10 Mg Tablet PO 10 mg BEDTIME [facility] Administration Ondansetron HCl 4 mg 10/11/20 19:43 10/12/20 19:02 Ondansetron Hcl 4 Mg/2 Ml Vial IVPUSH 4 mg Q8H PRN Administration Nausea and Vomiting Pharmacy Consult 1 each 10/11/20 15:26 Consult Rx Perform Med Rec MISCELLANE ONCE PRN Consult order Sodium Chloride 3 ml 10/12/20 00:00 10/16/20 08:57 0.9 % Sodium Chloride Flush 3 Ml Syringe IVFLUSH 3 ml QSHIFT [facility] Administration Zolpidem Tartrate 5 mg 10/11/20 19:43 Zolpidem Tartrate 5 Mg Tablet PO BEDTIME PRN Sleep Labs CBC & Chem 7: 10/13/20 08:03 10/16/20 05:41 Microbiology Microbiology Results: Microbiology 10/12/20 03:13 Stool Stool Culture - Final 10/11/20 17:35 Blood - Venous Blood Culture - Preliminary No growth after 48 hours. 10/11/20 17:00 Blood - Venous Blood Culture - Preliminary No growth after 48 hours. Assessment and Plan (1) Acute on chronic systolic heart failure: Status: Acute (2) Atherosclerotic cardiovascular disease: Status: Acute (3) Cardiomyopathy: Status: Acute (4) Acute kidney injury: Status: Acute (5) Ischemic cardiomyopathy: Status: Acute (6) Low blood pressure: Status: Acute (7) Paroxysmal atrial fibrillation: Status: Acute Assessment and Plan: 75-year-old [place]-speaking female with a history of CAD, HFrEF, diabetes, asthma, PVD, hypertension, dyslipidemia who presents to the emergency department with shortness of breath found to have elevated BNP Acute on chronic HFrEF EF from 09/11 EF 25-30% poor historian ,no chest pain, no shortness of breath,difficult to assess fluid status due to bilateral lower extremity amputation, refusal to keep [place], incontinent of urine all diuretics on hold due to acute kidney injury and hypotension, blood pressure now gradually echo showed an EF 20-25% with regional wall motion abnormality, dilated IVC suggestive of elevated right atrial pressures with moderately elevated right ventricular systolic pressure, cardiology following recommend to monitor renal function and continue to hold diuretics Will resume low-dose Lopressor and Diovan BNP improved from 2240 - 1387 afib Initial EKG showed sinus rhythm with tachycardia noted to have a burst of rapid heart rate up to 180, likely atrial fibrillation with RVR, EKG showing sinus rhythm patient has episode of nonsustained V-tach Stable potassium and magnesium , will start on low-dose Lopressor monitor on telemetry Acute on CKD3/mild hyperkalemia Creatinine improved a little, being followed by Dr. Flaherty as per Nephro urine studies c/w renal hypoperfusion FENa < 1% and most c/w CRSyndrome and intolerance to diuresis with furhter compromise of renal perfusion ddx AIN AGN, renal ultrasound showed no obstruction Acute Obs all seem unlikley given the toime sequence of events for SILVER creatinine trending down monitor kidney function Chronic anemia h/h at baseline follow CBC CAD Continue aspirin, statin, troponin elevated but flat likely due to tachycardia, patient denies chest pain,history of ischemic cardiomyopathy with reduced EF Hypertension restarted on Lopressor and Diovan Diabetes Blood sugars low on October 13, since blood sugar remains stable on low-dose Lantus ,continue insulin sliding scale and ADA diet DVT prophylaxis-hold Eliquis due to renal failure,cont compression boots. Code status-full code
[2020-10-16 16:26] LABS: Glucose, Whole Blood 166 mg/dL (60-115)
[2020-10-16 19:52] LABS: Glucose, Whole Blood 199 mg/dL (60-115)
[2020-10-16] MEDS: Montelukast Sodium 10 MG TABLET PO (22:06)
[2020-10-16] MEDS: Metoprolol Tartrate 12.5 MG HALFTAB PO (22:07)
[2020-10-17 04:00] VITALS: BP 122/68; PULSE 59; RESP 18; TEMP 36.8; O2SAT 100
[2020-10-17 07:34] LABS: Glucose, Whole Blood 69 mg/dL (60-115)
[2020-10-17] MEDS: Ascorbic Acid 500 MG TABLET PO (07:47)
[2020-10-17] MEDS: Aspirin Enteric Coated 81 MG TABLET.DR PO (07:47)
[2020-10-17] MEDS: Atorvastatin Calcium 40 MG TABLET PO (07:47)
[2020-10-17] MEDS: Ferrous Sulfate 324 MG TABLET.DR PO (07:47)
[2020-10-17 07:48] VITALS: BP 139/63; PULSE 64; RESP 16; TEMP 36; O2SAT 96
[2020-10-17 07:52] VITALS: BP 139/63; PULSE 64
[2020-10-17] MEDS: Valsartan 80 MG TABLET PO (07:52)
[2020-10-17] MEDS: Metoprolol Tartrate 12.5 MG HALFTAB PO (07:52)
[2020-10-17] MEDS: 0.9 % Sodium Chloride Flush 3 ML SYRINGE IVFLUSH (07:52)
[2020-10-17 10:08] LABS: Anion Gap 16 (12-20); Blood Urea Nitrogen 47 mg/dL (9-16); Calcium 8.2 mg/dL (8.4-10.2); Carbon Dioxide 20 mmol/L (22-29); Chloride 107 mmol/L (96-108); Creatinine Clr Calc Pharmacy 21.3; Estimated Glomerular Filt Rate 37; Glucose Random 73 mg/dL (60-115); Potassium 4.4 mmol/l (3.3-5.1); Sodium 139 mmol/L (135-145)
--- NOTE | 2020-10-17 11:04 | P.PNCA_ITS ---
Subjective Subjective Date of Service: 10/17/20 Principal diagnosis: Ischemic cardiomyopathy heart failure, CHF, SILVER, PAF, NSVT Interval history: Patient denies any symptoms. Remains without any chest pain or shortness of breath. Kidney functions improving. Review of Systems Constitutional: Reports no additional constitutional complaints Cardiovascular: Reports no additional cardiovascular complaints Respiratory: Reports no additional respiratory complaints Reports system reviewed and no additional complaints, except as documented Allergic/Immunologic: Reports no additional allergic/immunologic complaints Physical Exam Vital Signs: Last Vital Signs Temp 96.8 F 10/17/20 07:48 Pulse 64 10/17/20 07:52 Resp 16 10/17/20 07:48 BP 139/63 10/17/20 07:52 Pulse Ox 96 10/17/20 07:48 Body Mass Index 46.5 Const General: cooperative, comfortable, no acute distress, alert and awake Nutritional Appearance: obese Neck Neck: Yes trachea midline, Yes supple and Yes JVD Resp Effort & Inspection: normal respiratory effort Auscultation: clear to auscultation bilaterally Cardio Palpation: abnormal PMI displaced PMI Rate: regular rate Rhythm: regular rhythm Heart sounds: S1 normal heart sound present and S2 normal heart sound present GI Auscultation: normal bowel sounds Neuro General: no focal motor deficits Results Labs and Meds Result diagrams: 10/13/20 08:03 10/17/20 09:20 Lab results: Laboratory Results - last 24 hr 10/16/20 10/16/20 10/16/20 11:11 16:22 19:48 Sodium Potassium Chloride Carbon Dioxide Anion Gap BUN Creatinine Estim Creat Clear Calc Estimated GFR POC Glucose 167 H 166 H 199 H Random Glucose Calcium 10/17/20 10/17/20 07:31 09:20 Sodium 139 Potassium 4.4 Chloride 107 Carbon Dioxide 20 L Anion Gap 16 BUN 47 H Creatinine 1.40 Estim Creat Clear Calc 21.3 Estimated GFR 37 POC Glucose 69 Random Glucose 73 D Calcium 8.2 L Progress Note: A&P Assessment and plan (1) NSVT (nonsustained ventricular tachycardia): Status: Acute Assessment and Plan: Nonsustained VT expected in patient with severe ischemic cardiomyopathy. Will obtain Holter monitor as an outpatient. Continue metoprolol therapy. Will up titrate metoprolol as outpatient depending on her blood pressure and heart rate on Holter monitor. (2) Ischemic cardiomyopathy: Status: Acute Assessment and Plan: Ischemic cardiomyopathy severe LV systolic dysfunction. Continue valsartan 40 mg daily and metoprolol 12.5 mg b.i.d.. Will gradually uptitrate as outpatient as tolerated. Follow-up basic metabolic profile in 1 weeks time. Prognosis is guarded. (3) Paroxysmal atrial fibrillation: Status: Acute Assessment and Plan: Paroxysmal atrial fibrillation, has remained suppressed. If she has recurrent episodes, will require amiodarone therapy for maintenance of sinus rhythm to avoid hospitalizations and cardiac decompensation. Can resume Eliquis 5 mg b.i.d. to her regimen. Also continue metoprolol therapy. (4) Congestive heart failure: Status: Acute Assessment and Plan: Congestive heart failure, will remain difficult to manage. Resume Lasix tomorrow, agree with Nephrology. Continue valsartan and metoprolol. Continue rhythm control approach. Heart failure education should be provided. Will set up for outpatient follow-up. Thank you for allowing us to partake in her care Fall Risk Details Current Medications: Current Medications Generic Name Dose Route Start Last Admin Trade Name Wesq PRN Reason Stop Dose Admin Acetaminophen 650 mg 10/11/20 19:43 Acetaminophen 325 Mg Tablet PO Q6H PRN Pain, Mild (Pain Scale 1-3) Albuterol Sulfate 2 puff 10/11/20 19:43 Albuterol Sulfate 90 Mcg 8 Gm Inhaler INHALE Q4H PRN Shortness Of Breath Ascorbic Acid 500 mg 10/11/20 21:00 10/17/20 07:47 Ascorbic Acid 500 Mg Tablet PO 500 mg BID GABO Administration Aspirin 81 mg 10/12/20 09:00 10/17/20 07:47 Aspirin Enteric Coated 81 Mg Tablet. PO 81 mg DAILY GABO Administration Atorvastatin Calcium 40 mg 10/12/20 09:00 10/17/20 07:47 Atorvastatin Calcium 40 Mg Tablet PO 40 mg DAILY GABO Administration Docusate Sodium 100 mg 10/11/20 19:43 Docusate Sodium 100 Mg Capsule PO DAILY PRN Constipation Ferrous Sulfate 324 mg 10/11/20 21:00 10/17/20 07:47 Ferrous Sulfate 324 Mg Tablet. PO 324 mg BID GABO Administration Insulin Glargine 12 unit 10/14/20 09:00 10/17/20 10:54 Insulin Glargine,Hum.Rec.Anlog 100 Unit/Ml 10 Ml Vial SUBCUT Not Given DAILY [facility] Insulin Human Lispro 0 unit 10/11/20 21:00 10/17/20 07:52 Insulin Lispro 100 Unit/Ml 3 Ml Vial SUBCUT Not Given QIDACHS [facility] Protocol Metoprolol Tartrate 12.5 mg 10/16/20 21:00 10/17/20 07:52 Metoprolol Tartrate 12.5 Mg Halftab PO 12.5 mg BID GABO Administration Protocol Montelukast Sodium 10 mg 10/11/20 21:00 10/16/20 22:06 Montelukast Sodium 10 Mg Tablet PO 10 mg BEDTIME GABO Administration Ondansetron HCl 4 mg 10/11/20 19:43 10/12/20 19:02 Ondansetron Hcl 4 Mg/2 Ml Vial IVPUSH 4 mg Q8H PRN Administration Nausea and Vomiting Pharmacy Consult 1 each 10/11/20 15:26 Consult Rx Perform Med Rec MISCELLANE ONCE PRN Consult order Sodium Chloride 3 ml 10/12/20 00:00 10/17/20 07:52 0.9 % Sodium Chloride Flush 3 Ml Syringe IVFLUSH 3 ml QSHIFT [facility] Administration Valsartan 80 mg 10/17/20 09:00 10/17/20 07:52 Valsartan 80 Mg Tablet PO 80 mg DAILY [facility] Administration Protocol Time Spent With Patient Time: Total time spent is greater than 50% in coordination of care (as documented) at patient's floor/unit and/or counseling patient: Time with patient: 25 - 35 minutes
--- NOTE | 2020-10-17 11:17 | MHC.CM.PN ---
Patient has been medically cleared for dc to home today, with [facility]. A referral was made to NA, who has been notified of today's dc. Second IMM addressed today.
[2020-10-17 11:39] LABS: Glucose, Whole Blood 160 mg/dL (60-115)
[2020-10-17 12:00] VITALS: BP 106/57; PULSE 55; RESP 20; TEMP 36.4; O2SAT 96
[2020-10-17] MEDS: Insulin Lispro 100 UNIT/ML 3 ML VIAL SUBCUT (12:02)
--- NOTE | 2020-10-17 14:01 | PM.DS ---
DS: Providers Provider Date of Service: 10/17/20 Date of admission: 10/11/20 19:43 Primary care physician: Unknown Physician Consults: 10/13/20 09:02 Consult to Cardiology Routine Consulting Provider: Ankit Fish Reason for consultation: chf /rapid heart rate 10/14/20 10:21 Consult to Nephrology Routine Consulting Provider: Nakul Flaherty Reason for consultation: armond DS: Diagnosis Discharge Diagnosis (1) NSVT (nonsustained ventricular tachycardia): Status: Acute (2) Ischemic cardiomyopathy: Status: Acute (3) Paroxysmal atrial fibrillation: Status: Acute (4) Congestive heart failure: Status: Acute DS: Medications Discharge Medications Home Medications: Home Medications Medication Instructions Recorded Confirmed Eliquis 5 mg PO BID 09/10/20 10/11/20 Lantus Solostar U-100 Insulin 26 unit SUBCUT QAM 09/10/20 10/11/20 albuterol sulfate [ProAir HFA] 2 puff INHALATION Q4-6H PRN 09/10/20 10/11/20 ascorbic acid (vitamin C) 500 mg PO BID 09/10/20 10/11/20 aspirin 81 mg PO DAILY 09/10/20 10/11/20 atorvastatin 40 mg PO DAILY 09/10/20 10/11/20 ferrous sulfate 325 mg PO BID 09/10/20 10/11/20 furosemide 40 mg PO DAILY 09/10/20 10/11/20 montelukast 10 mg PO BEDTIME 09/10/20 10/11/20 nitroglycerin 0.4 mg SUBLINGUAL Q5M PRN 09/10/20 10/11/20 zolpidem 5 mg PO BEDTIME PRN 09/10/20 10/11/20 Previous Rx's Medication Instructions Recorded metoprolol tartrate 12.5 mg PO BID #30 tab 10/17/20 valsartan 80 mg PO DAILY #30 tab 10/17/20 DS: Summary Hospital Course Hospital Course: HPI 75-year-old Cypriot-speaking female with a history of CHF who was brought to the emergency department by ambulance due to increasing shortness of breath. Patient is a poor historian unable to provide any significant history. She was admitted for acute on chronic systolic CHF in September and diuresed with good effect. Today her chest x-ray showed prominence of pulmonary vasculature. BNP was elevated at 1756, troponin was 141. She was treated with IV Lasix in the decision was made to admit her for management of acute on chronic CHF. Hospital course 75-year-old female admitted with acute on chronic systolic CHF patient was started on IV diuresis, cardiology was consulted, patient developed Armond I while on IV diuresis, diuretics were held, nephrology was involved, Armond I improved, creatinine was trending down, patient was started on low-dose Diovan after clearing by Nephrology, patient also found to have nonsustained V-tach likely secondary to underlying cardiomyopathy, Electrolytes were monitored and replaced, patient was restarted on Lopressor low-dose, per Cardiology, patient was stable cleared by Cardiology for discharge, patient was discharged home , patient will resume Lasix upon discharge per Nephrology, patient will follow-up Nephrology Dr. Flaherty and Cardiology Dr. Fish as outpatient Time Spent with Patient Time attestation: Total time spent providing and/or coordinating discharge services: Discharge coordination time: Greater than 30 minutes Physical Exam Vital Signs: Vital Signs: Last Vital Signs Temp 97.5 F 10/17/20 12:00 Pulse 55 10/17/20 12:00 Resp 20 10/17/20 12:00 BP 106/57 L 10/17/20 12:00 Pulse Ox 96 10/17/20 12:00 Body Mass Index 46.5 DS: Data Data Completed and Pending Completed studies during hospitalization [Text1]: Procedures Transfusion of Nonautologous Red Blood Cells into Peripheral Vein, Percutaneous Approach (09/10/20) Labs on day of discharge: Laboratory Tests 10/11/20 10/11/20 10/11/20 15:38 17:00 17:00 WBC 7.7 RBC 3.48 L Hgb 8.9 L Hct 28.4 L MCV 81.6 MCH 25.6 L MCHC 31.3 RDW 20.9 H Plt Count 282 MPV 11.5 Immature Gran % (Auto) 0.3 Neut % (Auto) 74.1 H Lymph % (Auto) 10.7 L [place] % (Auto) 13.8 H Eos % (Auto) 0.8 Baso % (Auto) 0.3 Lymph # (Auto) 0.8 L [place] # (Auto) 1.1 Eos # (Auto) 0.1 Baso # (Auto) 0.0 Abs Immat Gran (auto) 0.02 Absolute Neuts (auto) 5.7 Absolute Nucleated RBC 0.000 Nucleated RBC % (auto) 0.0 PT Cancelled INR Cancelled APTT Cancelled Sodium Potassium Chloride Carbon Dioxide Anion Gap BUN Creatinine Estim Creat Clear Calc Estimated GFR POC Glucose Random Glucose Lactic Acid Calcium Magnesium Ferritin Total Bilirubin Direct Bilirubin AST ALT Alkaline Phosphatase Lactate Dehydrogenase Troponin I High Sens C-Reactive Protein B-Natriuretic Peptide Total Protein Albumin Procalcitonin Urine Color Urine Appearance Urine pH Ur Specific [place] Urine Protein Urine Glucose (UA) Urine Ketones Urine Blood Urine Nitrite Ur Leukocyte Esterase Urine RBC Urine WBC Ur Squamous Epith Cells Urine Bacteria Urine Mucus U Random Total Protein Ur Random Sodium Ur Random Urea Urine Creatinine C. difficile Toxin A&B C. difficile Antigen C. difficile Interpret Coronavirus (PCR) NEGATIVE Influenza Type A (PCR) NEGATIVE Influenza Type B (PCR) NEGATIVE RSV RNA Qual (PCR) NEGATIVE 10/11/20 10/11/20 10/11/20 17:00 17:00 17:00 WBC RBC Hgb Hct MCV MCH MCHC RDW Plt Count MPV Immature Gran % (Auto) Neut % (Auto) Lymph % (Auto) [place] % (Auto) Eos % (Auto) Baso % (Auto) Lymph # (Auto) [place] # (Auto) Eos # (Auto) Baso # (Auto) Abs Immat Gran (auto) Absolute Neuts (auto) Absolute Nucleated RBC Nucleated RBC % (auto) PT INR APTT Sodium Cancelled Potassium Cancelled Chloride Cancelled Carbon Dioxide Cancelled Anion Gap Cancelled BUN Cancelled Creatinine Cancelled Estim Creat Clear Calc Cancelled Estimated GFR Cancelled POC Glucose Random Glucose Cancelled Lactic Acid 1.1 Calcium Cancelled Magnesium Cancelled Ferritin Cancelled Total Bilirubin Cancelled Direct Bilirubin Cancelled AST Cancelled ALT Cancelled Alkaline Phosphatase Cancelled Lactate Dehydrogenase Troponin I High Sens 141.4 H D C-Reactive Protein Cancelled B-Natriuretic Peptide 1756 H Total Protein Cancelled Albumin Cancelled Procalcitonin Urine Color Urine Appearance Urine pH Ur Specific [place] Urine Protein Urine Glucose (UA) Urine Ketones Urine Blood Urine Nitrite Ur Leukocyte Esterase Urine RBC Urine WBC Ur Squamous Epith Cells Urine Bacteria Urine Mucus U Random Total Protein Ur Random Sodium Ur Random Urea Urine Creatinine C. difficile Toxin A&B C. difficile Antigen C. difficile Interpret Coronavirus (PCR) Influenza Type A (PCR) Influenza Type B (PCR) RSV RNA Qual (PCR) 10/11/20 10/11/20 10/11/20 17:02 18:31 18:32 WBC RBC Hgb Hct MCV MCH MCHC RDW Plt Count MPV Immature Gran % (Auto) Neut % (Auto) Lymph % (Auto) [place] % (Auto) Eos % (Auto) Baso % (Auto) Lymph # (Auto) [place] # (Auto) Eos # (Auto) Baso # (Auto) Abs Immat Gran (auto) Absolute Neuts (auto) Absolute Nucleated RBC Nucleated RBC % (auto) PT 28.7 H INR 2.4 H APTT 38.8 H Sodium 145 Potassium 3.7 Chloride 110 H Carbon Dioxide 23 Anion Gap 16 BUN 26 H Creatinine 1.33 Estim Creat Clear Calc 22.4 Estimated GFR 39 POC Glucose Random Glucose 183 H D Lactic Acid Calcium 8.3 L Magnesium 2.0 Ferritin Total Bilirubin 0.5 Direct Bilirubin 0.4 AST 27 D ALT 36 H Alkaline Phosphatase 216 H D Lactate Dehydrogenase 297 H Troponin I High Sens C-Reactive Protein 5.36 H B-Natriuretic Peptide Total Protein 6.6 Albumin 3.5 Procalcitonin Cancelled Urine Color Urine Appearance Urine pH Ur Specific [place] Urine Protein Urine Glucose (UA) Urine Ketones Urine Blood Urine Nitrite Ur Leukocyte Esterase Urine RBC Urine WBC Ur Squamous Epith Cells Urine Bacteria Urine Mucus U Random Total Protein Ur Random Sodium Ur Random Urea Urine Creatinine C. difficile Toxin A&B C. difficile Antigen C. difficile Interpret Coronavirus (PCR) Influenza Type A (PCR) Influenza Type B (PCR) RSV RNA Qual (PCR) 10/11/20 10/11/20 10/11/20 18:32 18:32 21:11 WBC RBC Hgb Hct MCV MCH MCHC RDW Plt Count MPV Immature Gran % (Auto) Neut % (Auto) Lymph % (Auto) [place] % (Auto) Eos % (Auto) Baso % (Auto) Lymph # (Auto) [place] # (Auto) Eos # (Auto) Baso # (Auto) Abs Immat Gran (auto) Absolute Neuts (auto) Absolute Nucleated RBC Nucleated RBC % (auto) PT INR APTT Sodium Potassium Chloride Carbon Dioxide Anion Gap BUN Creatinine Estim Creat Clear Calc Estimated GFR POC Glucose 176 H Random Glucose Lactic Acid Calcium Magnesium Ferritin 24 Total Bilirubin Direct Bilirubin AST ALT Alkaline Phosphatase Lactate Dehydrogenase Troponin I High Sens C-Reactive Protein B-Natriuretic Peptide Total Protein Albumin Procalcitonin 0.13 Urine Color Urine Appearance Urine pH Ur Specific [place] Urine Protein Urine Glucose (UA) Urine Ketones Urine Blood Urine Nitrite Ur Leukocyte Esterase Urine RBC Urine WBC Ur Squamous Epith Cells Urine Bacteria Urine Mucus U Random Total Protein Ur Random Sodium Ur Random Urea Urine Creatinine C. difficile Toxin A&B C. difficile Antigen C. difficile Interpret Coronavirus (PCR) Influenza Type A (PCR) Influenza Type B (PCR) RSV RNA Qual (PCR) 10/12/20 10/12/20 10/12/20 01:00 03:13 08:58 WBC RBC Hgb Hct MCV MCH MCHC RDW Plt Count MPV Immature Gran % (Auto) Neut % (Auto) Lymph % (Auto) [place] % (Auto) Eos % (Auto) Baso % (Auto) Lymph # (Auto) [place] # (Auto) Eos # (Auto) Baso # (Auto) Abs Immat Gran (auto) Absolute Neuts (auto) Absolute Nucleated RBC Nucleated RBC % (auto) PT INR APTT Sodium Potassium Chloride Carbon Dioxide Anion Gap BUN Creatinine Estim Creat Clear Calc Estimated GFR POC Glucose 102 Random Glucose Lactic Acid Calcium Magnesium Ferritin Total Bilirubin Direct Bilirubin AST ALT Alkaline Phosphatase Lactate Dehydrogenase Troponin I High Sens 141.3 H C-Reactive Protein B-Natriuretic Peptide Total Protein Albumin Procalcitonin Urine Color Urine Appearance Urine pH Ur Specific [place] Urine Protein Urine Glucose (UA) Urine Ketones Urine Blood Urine Nitrite Ur Leukocyte Esterase Urine RBC Urine WBC Ur Squamous Epith Cells Urine Bacteria Urine Mucus U Random Total Protein Ur Random Sodium Ur Random Urea Urine Creatinine C. difficile Toxin A&B Negative C. difficile Antigen Negative C. difficile Interpret SEE NOTE Coronavirus (PCR) Influenza Type A (PCR) Influenza Type B (PCR) RSV RNA Qual (PCR) 10/12/20 10/12/20 10/12/20 11:19 11:20 11:20 WBC 6.5 RBC 3.36 L Hgb 8.5 L Hct 27.3 L MCV 81.3 MCH 25.3 L MCHC 31.1 RDW 20.7 H Plt Count 312 MPV 11.4 Immature Gran % (Auto) 0.3 Neut % (Auto) 61.3 Lymph % (Auto) 16.4 L [place] % (Auto) 19.4 H Eos % (Auto) 2.3 Baso % (Auto) 0.3 Lymph # (Auto) 1.1 L [place] # (Auto) 1.3 H Eos # (Auto) 0.2 Baso # (Auto) 0.0 Abs Immat Gran (auto) 0.02 Absolute Neuts (auto) 4.0 Absolute Nucleated RBC 0.000 Nucleated RBC % (auto) 0.0 PT INR APTT Sodium 144 Potassium 3.6 Chloride 109 H Carbon Dioxide 26 Anion Gap 13 BUN 28 H Creatinine 1.22 Estim Creat Clear Calc 24.5 Estimated GFR 43 POC Glucose Random Glucose 117 H D Lactic Acid Calcium 8.5 Magnesium Ferritin Total Bilirubin Direct Bilirubin AST ALT Alkaline Phosphatase Lactate Dehydrogenase Troponin I High Sens C-Reactive Protein B-Natriuretic Peptide 2240 H Total Protein Albumin Procalcitonin Urine Color Urine Appearance Urine pH Ur Specific [place] Urine Protein Urine Glucose (UA) Urine Ketones Urine Blood Urine Nitrite Ur Leukocyte Esterase Urine RBC Urine WBC Ur Squamous Epith Cells Urine Bacteria Urine Mucus U Random Total Protein Ur Random Sodium Ur Random Urea Urine Creatinine C. difficile Toxin A&B C. difficile Antigen C. difficile Interpret Coronavirus (PCR) Influenza Type A (PCR) Influenza Type B (PCR) RSV RNA Qual (PCR) 10/12/20 10/12/20 10/13/20 13:34 15:39 07:31 WBC RBC Hgb Hct MCV MCH MCHC RDW Plt Count MPV Immature Gran % (Auto) Neut % (Auto) Lymph % (Auto) [place] % (Auto) Eos % (Auto) Baso % (Auto) Lymph # (Auto) [place] # (Auto) Eos # (Auto) Baso # (Auto) Abs Immat Gran (auto) Absolute Neuts (auto) Absolute Nucleated RBC Nucleated RBC % (auto) PT INR APTT Sodium Potassium Chloride Carbon Dioxide Anion Gap BUN Creatinine Estim Creat Clear Calc Estimated GFR POC Glucose 101 77 37 L* Random Glucose Lactic Acid Calcium Magnesium Ferritin Total Bilirubin Direct Bilirubin AST ALT Alkaline Phosphatase Lactate Dehydrogenase Troponin I High Sens C-Reactive Protein B-Natriuretic Peptide Total Protein Albumin Procalcitonin Urine Color Urine Appearance Urine pH Ur Specific [place] Urine Protein Urine Glucose (UA) Urine Ketones Urine Blood Urine Nitrite Ur Leukocyte Esterase Urine RBC Urine WBC Ur Squamous Epith Cells Urine Bacteria Urine Mucus U Random Total Protein Ur Random Sodium Ur Random Urea Urine Creatinine C. difficile Toxin A&B C. difficile Antigen C. difficile Interpret Coronavirus (PCR) Influenza Type A (PCR) Influenza Type B (PCR) RSV RNA Qual (PCR) 10/13/20 10/13/20 10/13/20 07:44 08:03 08:03 WBC RBC Hgb 8.7 L Hct 28.1 L MCV MCH MCHC RDW Plt Count MPV Immature Gran % (Auto) Neut % (Auto) Lymph % (Auto) [place] % (Auto) Eos % (Auto) Baso % (Auto) Lymph # (Auto) [place] # (Auto) Eos # (Auto) Baso # (Auto) Abs Immat Gran (auto) Absolute Neuts (auto) Absolute Nucleated RBC Nucleated RBC % (auto) PT INR APTT Sodium 141 Potassium 4.4 D Chloride 109 H Carbon Dioxide 21 L Anion Gap 15 BUN 39 H Creatinine 1.93 H Estim Creat Clear Calc 15.5 Estimated GFR 25 POC Glucose 202 H Random Glucose 191 H D Lactic Acid Calcium 8.1 L Magnesium 1.9 Ferritin Total Bilirubin Direct Bilirubin AST ALT Alkaline Phosphatase Lactate Dehydrogenase Troponin I High Sens C-Reactive Protein B-Natriuretic Peptide Total Protein Albumin Procalcitonin Urine Color Urine Appearance Urine pH Ur Specific [place] Urine Protein Urine Glucose (UA) Urine Ketones Urine Blood Urine Nitrite Ur Leukocyte Esterase Urine RBC Urine WBC Ur Squamous Epith Cells Urine Bacteria Urine Mucus U Random Total Protein Ur Random Sodium Ur Random Urea Urine Creatinine C. difficile Toxin A&B C. difficile Antigen C. difficile Interpret Coronavirus (PCR) Influenza Type A (PCR) Influenza Type B (PCR) RSV RNA Qual (PCR) 10/13/20 10/13/20 10/13/20 08:55 11:49 16:16 WBC RBC Hgb Hct MCV MCH MCHC RDW Plt Count MPV Immature Gran % (Auto) Neut % (Auto) Lymph % (Auto) [place] % (Auto) Eos % (Auto) Baso % (Auto) Lymph # (Auto) [place] # (Auto) Eos # (Auto) Baso # (Auto) Abs Immat Gran (auto) Absolute Neuts (auto) Absolute Nucleated RBC Nucleated RBC % (auto) PT INR APTT Sodium Potassium Chloride Carbon Dioxide Anion Gap BUN Creatinine Estim Creat Clear Calc Estimated GFR POC Glucose 193 H 222 H 170 H Random Glucose Lactic Acid Calcium Magnesium Ferritin Total Bilirubin Direct Bilirubin AST ALT Alkaline Phosphatase Lactate Dehydrogenase Troponin I High Sens C-Reactive Protein B-Natriuretic Peptide Total Protein Albumin Procalcitonin Urine Color Urine Appearance Urine pH Ur Specific [place] Urine Protein Urine Glucose (UA) Urine Ketones Urine Blood Urine Nitrite Ur Leukocyte Esterase Urine RBC Urine WBC Ur Squamous Epith Cells Urine Bacteria Urine Mucus U Random Total Protein Ur Random Sodium Ur Random Urea Urine Creatinine C. difficile Toxin A&B C. difficile Antigen C. difficile Interpret Coronavirus (PCR) Influenza Type A (PCR) Influenza Type B (PCR) RSV RNA Qual (PCR) 10/13/20 10/14/20 10/14/20 19:45 05:22 05:22 WBC RBC Hgb Hct MCV MCH MCHC RDW Plt Count MPV Immature Gran % (Auto) Neut % (Auto) Lymph % (Auto) [place] % (Auto) Eos % (Auto) Baso % (Auto) Lymph # (Auto) [place] # (Auto) Eos # (Auto) Baso # (Auto) Abs Immat Gran (auto) Absolute Neuts (auto) Absolute Nucleated RBC Nucleated RBC % (auto) PT INR APTT Sodium 137 Potassium 5.2 H Chloride 104 Carbon Dioxide 20 L Anion Gap 18 BUN 54 H Creatinine 2.82 H Estim Creat Clear Calc 10.5 Estimated GFR 16 POC Glucose 224 H Random Glucose 158 H Lactic Acid Calcium 8.5 Magnesium Ferritin Total Bilirubin Direct Bilirubin AST ALT Alkaline Phosphatase Lactate Dehydrogenase Troponin I High Sens C-Reactive Protein B-Natriuretic Peptide 1387 H Total Protein Albumin Procalcitonin Urine Color Urine Appearance Urine pH Ur Specific [place] Urine Protein Urine Glucose (UA) Urine Ketones Urine Blood Urine Nitrite Ur Leukocyte Esterase Urine RBC Urine WBC Ur Squamous Epith Cells Urine Bacteria Urine Mucus U Random Total Protein Ur Random Sodium Ur Random Urea Urine Creatinine C. difficile Toxin A&B C. difficile Antigen C. difficile Interpret Coronavirus (PCR) Influenza Type A (PCR) Influenza Type B (PCR) RSV RNA Qual (PCR) 10/14/20 10/14/20 10/14/20 07:23 11:42 14:25 WBC RBC Hgb Hct MCV MCH MCHC RDW Plt Count MPV Immature Gran % (Auto) Neut % (Auto) Lymph % (Auto) [place] % (Auto) Eos % (Auto) Baso % (Auto) Lymph # (Auto) [place] # (Auto) Eos # (Auto) Baso # (Auto) Abs Immat Gran (auto) Absolute Neuts (auto) Absolute Nucleated RBC Nucleated RBC % (auto) PT INR APTT Sodium Potassium Chloride Carbon Dioxide Anion Gap BUN Creatinine Estim Creat Clear Calc Estimated GFR POC Glucose 157 H 118 H Random Glucose Lactic Acid Calcium Magnesium Ferritin Total Bilirubin Direct Bilirubin AST ALT Alkaline Phosphatase Lactate Dehydrogenase Troponin I High Sens C-Reactive Protein B-Natriuretic Peptide Total Protein Albumin Procalcitonin Urine Color YELLOW Urine Appearance HAZY Urine pH 5.5 Ur Specific [place] >= 1.030 H Urine Protein 1+ H Urine Glucose (UA) NEG Urine Ketones 5 Urine Blood 2+ H Urine Nitrite NEG Ur Leukocyte Esterase 1+ H Urine RBC 10-14 H Urine WBC 1-4 Ur Squamous Epith Cells 2+ Urine Bacteria 2+ Urine Mucus 2+ U Random Total Protein Ur Random Sodium Ur Random Urea Urine Creatinine C. difficile Toxin A&B C. difficile Antigen C. difficile Interpret Coronavirus (PCR) Influenza Type A (PCR) Influenza Type B (PCR) RSV RNA Qual (PCR) 10/14/20 10/14/20 10/14/20 14:25 14:25 15:38 WBC RBC Hgb Hct MCV MCH MCHC RDW Plt Count MPV Immature Gran % (Auto) Neut % (Auto) Lymph % (Auto) [place] % (Auto) Eos % (Auto) Baso % (Auto) Lymph # (Auto) [place] # (Auto) Eos # (Auto) Baso # (Auto) Abs Immat Gran (auto) Absolute Neuts (auto) Absolute Nucleated RBC Nucleated RBC % (auto) PT INR APTT Sodium Potassium Chloride Carbon Dioxide Anion Gap BUN Creatinine Estim Creat Clear Calc Estimated GFR POC Glucose 115 Random Glucose Lactic Acid Calcium Magnesium Ferritin Total Bilirubin Direct Bilirubin AST ALT Alkaline Phosphatase Lactate Dehydrogenase Troponin I High Sens C-Reactive Protein B-Natriuretic Peptide Total Protein Albumin Procalcitonin Urine Color Urine Appearance Urine pH Ur Specific [place] Urine Protein Urine Glucose (UA) Urine Ketones Urine Blood Urine Nitrite Ur Leukocyte Esterase Urine RBC Urine WBC Ur Squamous Epith Cells Urine Bacteria Urine Mucus U Random Total Protein 54 H Ur Random Sodium < 20.0 Ur Random Urea 272 Urine Creatinine 222.40 C. difficile Toxin A&B C. difficile Antigen C. difficile Interpret Coronavirus (PCR) Influenza Type A (PCR) Influenza Type B (PCR) RSV RNA Qual (PCR) 10/14/20 10/15/20 10/15/20 19:33 05:53 06:58 WBC RBC Hgb Hct MCV MCH MCHC RDW Plt Count MPV Immature Gran % (Auto) Neut % (Auto) Lymph % (Auto) [place] % (Auto) Eos % (Auto) Baso % (Auto) Lymph # (Auto) [place] # (Auto) Eos # (Auto) Baso # (Auto) Abs Immat Gran (auto) Absolute Neuts (auto) Absolute Nucleated RBC Nucleated RBC % (auto) PT INR APTT Sodium 135 Potassium 5.3 H Chloride 104 Carbon Dioxide 18 L Anion Gap 18 BUN 63 H Creatinine 2.71 H Estim Creat Clear Calc 11.0 Estimated GFR 17 POC Glucose 168 H 98 Random Glucose 98 D Lactic Acid Calcium 8.1 L Magnesium 2.2 Ferritin Total Bilirubin Direct Bilirubin AST ALT Alkaline Phosphatase Lactate Dehydrogenase Troponin I High Sens C-Reactive Protein B-Natriuretic Peptide Total Protein Albumin Procalcitonin Urine Color Urine Appearance Urine pH Ur Specific [place] Urine Protein Urine Glucose (UA) Urine Ketones Urine Blood Urine Nitrite Ur Leukocyte Esterase Urine RBC Urine WBC Ur Squamous Epith Cells Urine Bacteria Urine Mucus U Random Total Protein Ur Random Sodium Ur Random Urea Urine Creatinine C. difficile Toxin A&B C. difficile Antigen C. difficile Interpret Coronavirus (PCR) Influenza Type A (PCR) Influenza Type B (PCR) RSV RNA Qual (PCR) 10/15/20 10/15/20 10/15/20 11:06 16:22 19:31 WBC RBC Hgb Hct MCV MCH MCHC RDW Plt Count MPV Immature Gran % (Auto) Neut % (Auto) Lymph % (Auto) [place] % (Auto) Eos % (Auto) Baso % (Auto) Lymph # (Auto) [place] # (Auto) Eos # (Auto) Baso # (Auto) Abs Immat Gran (auto) Absolute Neuts (auto) Absolute Nucleated RBC Nucleated RBC % (auto) PT INR APTT Sodium Potassium Chloride Carbon Dioxide Anion Gap BUN Creatinine Estim Creat Clear Calc Estimated GFR POC Glucose 153 H 104 186 H Random Glucose Lactic Acid Calcium Magnesium Ferritin Total Bilirubin Direct Bilirubin AST ALT Alkaline Phosphatase Lactate Dehydrogenase Troponin I High Sens C-Reactive Protein B-Natriuretic Peptide Total Protein Albumin Procalcitonin Urine Color Urine Appearance Urine pH Ur Specific [place] Urine Protein Urine Glucose (UA) Urine Ketones Urine Blood Urine Nitrite Ur Leukocyte Esterase Urine RBC Urine WBC Ur Squamous Epith Cells Urine Bacteria Urine Mucus U Random Total Protein Ur Random Sodium Ur Random Urea Urine Creatinine C. difficile Toxin A&B C. difficile Antigen C. difficile Interpret Coronavirus (PCR) Influenza Type A (PCR) Influenza Type B (PCR) RSV RNA Qual (PCR) 10/16/20 10/16/20 10/16/20 05:41 08:05 11:11 WBC RBC Hgb Hct MCV MCH MCHC RDW Plt Count MPV Immature Gran % (Auto) Neut % (Auto) Lymph % (Auto) [place] % (Auto) Eos % (Auto) Baso % (Auto) Lymph # (Auto) [place] # (Auto) Eos # (Auto) Baso # (Auto) Abs Immat Gran (auto) Absolute Neuts (auto) Absolute Nucleated RBC Nucleated RBC % (auto) PT INR APTT Sodium 137 Potassium 4.7 Chloride 104 Carbon Dioxide 22 Anion Gap 16 BUN 58 H Creatinine 1.80 H Estim Creat Clear Calc 16.6 Estimated GFR 28 POC Glucose 125 H 167 H Random Glucose 123 H Lactic Acid Calcium 8.0 L Magnesium Ferritin Total Bilirubin Direct Bilirubin AST ALT Alkaline Phosphatase Lactate Dehydrogenase Troponin I High Sens C-Reactive Protein B-Natriuretic Peptide Total Protein Albumin Procalcitonin Urine Color Urine Appearance Urine pH Ur Specific [place] Urine Protein Urine Glucose (UA) Urine Ketones Urine Blood Urine Nitrite Ur Leukocyte Esterase Urine RBC Urine WBC Ur Squamous Epith Cells Urine Bacteria Urine Mucus U Random Total Protein Ur Random Sodium Ur Random Urea Urine Creatinine C. difficile Toxin A&B C. difficile Antigen C. difficile Interpret Coronavirus (PCR) Influenza Type A (PCR) Influenza Type B (PCR) RSV RNA Qual (PCR) 10/16/20 10/16/20 10/17/20 16:22 19:48 07:31 WBC RBC Hgb Hct MCV MCH MCHC RDW Plt Count MPV Immature Gran % (Auto) Neut % (Auto) Lymph % (Auto) [place] % (Auto) Eos % (Auto) Baso % (Auto) Lymph # (Auto) [place] # (Auto) Eos # (Auto) Baso # (Auto) Abs Immat Gran (auto) Absolute Neuts (auto) Absolute Nucleated RBC Nucleated RBC % (auto) PT INR APTT Sodium Potassium Chloride Carbon Dioxide Anion Gap BUN Creatinine Estim Creat Clear Calc Estimated GFR POC Glucose 166 H 199 H 69 Random Glucose Lactic Acid Calcium Magnesium Ferritin Total Bilirubin Direct Bilirubin AST ALT Alkaline Phosphatase Lactate Dehydrogenase Troponin I High Sens C-Reactive Protein B-Natriuretic Peptide Total Protein Albumin Procalcitonin Urine Color Urine Appearance Urine pH Ur Specific [place] Urine Protein Urine Glucose (UA) Urine Ketones Urine Blood Urine Nitrite Ur Leukocyte Esterase Urine RBC Urine WBC Ur Squamous Epith Cells Urine Bacteria Urine Mucus U Random Total Protein Ur Random Sodium Ur Random Urea Urine Creatinine C. difficile Toxin A&B C. difficile Antigen C. difficile Interpret Coronavirus (PCR) Influenza Type A (PCR) Influenza Type B (PCR) RSV RNA Qual (PCR) 10/17/20 10/17/20 09:20 11:33 WBC RBC Hgb Hct MCV MCH MCHC RDW Plt Count MPV Immature Gran % (Auto) Neut % (Auto) Lymph % (Auto) [place] % (Auto) Eos % (Auto) Baso % (Auto) Lymph # (Auto) [place] # (Auto) Eos # (Auto) Baso # (Auto) Abs Immat Gran (auto) Absolute Neuts (auto) Absolute Nucleated RBC Nucleated RBC % (auto) PT INR APTT Sodium 139 Potassium 4.4 Chloride 107 Carbon Dioxide 20 L Anion Gap 16 BUN 47 H Creatinine 1.40 Estim Creat Clear Calc 21.3 Estimated GFR 37 POC Glucose 160 H Random Glucose 73 D Lactic Acid Calcium 8.2 L Magnesium Ferritin Total Bilirubin Direct Bilirubin AST ALT Alkaline Phosphatase Lactate Dehydrogenase Troponin I High Sens C-Reactive Protein B-Natriuretic Peptide Total Protein Albumin Procalcitonin Urine Color Urine Appearance Urine pH Ur Specific [place] Urine Protein Urine Glucose (UA) Urine Ketones Urine Blood Urine Nitrite Ur Leukocyte Esterase Urine RBC Urine WBC Ur Squamous Epith Cells Urine Bacteria Urine Mucus U Random Total Protein Ur Random Sodium Ur Random Urea Urine Creatinine C. difficile Toxin A&B C. difficile Antigen C. difficile Interpret Coronavirus (PCR) Influenza Type A (PCR) Influenza Type B (PCR) RSV RNA Qual (PCR) Discharge Plan Discharge Anticipated Discharge Date/Time: 10/17/20 11:00 Patient Disposition: Home Health Service Referrals: [facility] [Outside] Verenice Kirby MD [Physician] - 1 Week (TELE VISIT 10/22/2020 9:30. WILL CALL YOU TO DISCUSS YOUR HOSPITAL STAY.) Discharge Medications: New valsartan 80 mg Tablet 80 mg PO DAILY Qty: 30 RF: 0 metoprolol tartrate 25 mg tablet 12.5 mg PO BID Qty: 30 RF: 0 Continued furosemide 40 mg Tablet 40 mg PO DAILY RF: 0 atorvastatin 40 mg Tablet 40 mg PO DAILY RF: 0 aspirin 81 mg Tablet,Delayed Release (Dr/Ec) 81 mg PO DAILY RF: 0 ascorbic acid (vitamin C) 500 mg Tablet 500 mg PO BID RF: 0 nitroglycerin 0.4 mg Tablet, Sublingual 0.4 mg SUBLINGUAL Q5M PRN (Reason: Chest Pain) RF: 0 montelukast 10 mg Tablet 10 mg PO BEDTIME RF: 0 zolpidem 5 mg Tablet 5 mg PO BEDTIME PRN (Reason: Sleep) RF: 0 albuterol sulfate [ProAir HFA] 90 mcg/actuation Hfa Aerosol Inhaler 2 puff INHALATION Q4-6H PRN (Reason: Shortness Of Breath) RF: 0 ferrous sulfate 325 mg (65 mg iron) Tablet,Delayed Release (Dr/Ec) 325 mg PO BID RF: 0 Lantus Solostar U-100 Insulin 100 unit/mL (3 mL) Insulin Pen 26 unit SUBCUT QAM RF: 0 Eliquis 5 mg Tablet 5 mg PO BID RF: 0 Discontinued amlodipine 2.5 mg Tablet 2.5 mg PO DAILY RF: 0 lisinopril 2.5 mg Tablet 2.5 mg PO DAILY RF: 0 metoprolol succinate [Toprol XL] 25 mg tablet extended release 24 hr 25 mg PO DAILY Qty: 30 RF: 0 Discharge Orders: Discharge Order (Routine); Ordered 10/17/20 Ordered By: Chu Gao Diet: low salt diet Activity on Discharge: As tolerated Discharge Date/Time: 10/17/20 14:46 Visit Report Forms: Patient Portal Discharge page Care Plan Goals: prevent CHF exacerbation Health Concerns: cardiomyopathy Plan of Treatment: see above
== END 2020-10-17 14:46 | disposition home health service (06) | DRG 291 ==
LOC: HO.ED 19:16 → HO.IMC 10-13 08:00
PROVIDERS: Hospitalist; Internal Medicine Nephrology; Physician Assistant; Physician Assistant Medical; Admitting Provider Internal Medicine; Emergency Provider Emergency Medicine; Visit Provider Internal Medicine
DX: I13.0 Hypertensive heart and chronic kidney disease with heart failure and stage 1 through stage 4 chronic kidney disease, or unspecified chronic kidney disease (principal); I50.23 Acute on chronic systolic (congestive) heart failure; N17.9 Acute kidney failure, unspecified; I48.0 Paroxysmal atrial fibrillation; I25.5 Ischemic cardiomyopathy; D63.1 Anemia in chronic kidney disease; I25.10 Atherosclerotic heart disease of native coronary artery without angina pectoris; E11.51 Type 2 diabetes mellitus with diabetic peripheral angiopathy without gangrene; Z20.822 Contact with and (suspected) exposure to COVID-19; E11.22 Type 2 diabetes mellitus with diabetic chronic kidney disease; N18.30 Chronic kidney disease, stage 3 unspecified; Z86.73 Personal history of transient ischemic attack (TIA), and cerebral infarction without residual deficits; Z79.4 Long term (current) use of insulin; Z79.82 Long term (current) use of aspirin; Z79.899 Other long term (current) drug therapy
CPT/HCPCS: 0241U; 11104; 36415; 71045; 76775; 80048; 80076; 81001; 82728; 82947; 83605; 83615; 83735; 83880; 84145; 84156; 84300; 84484; 84540; 85014; 85018; 85025; 85610; 85730; 86140; 87040; 87045; 87046; 87324; 87449; 93005; 93308; 94640; 99285; C1758; J1940; J2405

== ENCOUNTER 2020-11-09 16:32 | Emergency (ER) | payer MEDICARE, SELFPAY ==
--- NOTE | ~2020-11-09 | XR_ITS ---
EXAMINATION: PORTABLE CHEST 1 VIEW CLINICAL INFORMATION: sob . COMPARISON: 10/11/2020. TECHNIQUE: Portable frontal view of the chest was obtained. FINDINGS: Lungs well-expanded with chronic appearing reticular markings again seen bilaterally. There remains central vascular prominence. No significant effusion or pneumothorax. Cardiac silhouette remains enlarged. Patient is status post sternotomy. No acute bony abnormality. XR/XR chest 1V IMPRESSION: Chronic appearing changes similar to the recent prior study. Cardiac silhouette is enlarged. There remains central vascular prominence and a component of mild edema would be suspected although this is similar to the prior study.
[2020-11-09 18:27] VITALS: BP 117/62; PULSE 79; RESP 34; TEMP 36.9; O2SAT 88
--- NOTE | 2020-11-09 18:46 | ECG_ITS ---
Test Reason : EYE SWELLING Blood Pressure : / mmHG Vent. Rate : 070 BPM Atrial Rate : 035 BPM P-R Int : 000 ms QRS Dur : 134 ms QT Int : 422 ms P-R-T Axes : 000 095 -28 degrees QTc Int : 455 ms Normal sinus rhythm with Premature atrial complexes Right bundle branch block Nonspecific ST and T wave abnormality Abnormal ECG When compared with ECG of 12-OCT-2020 19:29, No significant changes seen Referred By: Generic ED Physician Electronically Signed By:STEVEN MENESES
[2020-11-09 20:55] VITALS: BP 159/65; PULSE 71; RESP 24; TEMP 36.8; O2SAT 100
--- NOTE | 2020-11-09 20:55 | PC.NURSE ---
no change in assessment. remains tachipnic. eye inflammed, slight wheeze.
[2020-11-09 21:41] LABS: Basophils Percent Auto 0.4 % (0-2); MANUAL DIFF FLAG SCAN; SCAN SMEAR FLAG 1
[2020-11-09 21:43] LABS: Eosinophils Absolute Auto 0.1 X10*3/uL (0.0-0.4); Hematocrit 27.9 % (37-47); Hemoglobin 8.9 g/dl (12.0-16.0); Imm Gran Abs Auto 0.03 X10*3/uL (0.00-0.03); Imm Gran Pct Auto 0.4 % (0.0-0.4); Lymphocytes Absolute Auto 1.6 X10*3/uL (1.2-4.9); Lymphocytes Percent Auto 23.5 % (20-40); Mean Corpuscular HGB Conc 31.9 g/dl (31.0-35.0); Mean Corpuscular Hemoglobin 25.9 pg (27.0-33.0); Mean Corpuscular Volume 81.1 fL (80-98); Mean Platelet Volume 11.3 fL (9.4-12.3); Monocytes Percent Auto 14.4 % (2-11); Neutrophils Absolute Auto 4.1 X10*3/uL (2.0-8.3); Neutrophils Percent Auto 59.3 % (45-73); Platelet Count 227 X10*3/uL (160-400); Red Blood Count 3.44 X10*6/uL (4.20-5.50); Red Cell Distribution Width 22.8 % (11.0-16.0); White Blood Count 6.9 X10*3/uL (4.8-10.8)
[2020-11-09 21:44] LABS: PLT ABN DIST 1
[2020-11-09 22:00] VITALS: BP 102/60; PULSE 85; RESP 20; TEMP 36.7; O2SAT 93
[2020-11-09 22:01] LABS: Anion Gap 14 (12-20); Blood Urea Nitrogen 31 mg/dL (9-16); Calcium 8.4 mg/dL (8.4-10.2); Carbon Dioxide 22 mmol/L (22-29); Chloride 110 mmol/L (96-108); Estimated Glomerular Filt Rate 35; Glucose Random 170 mg/dL (60-115); Sodium 142 mmol/L (135-145)
[2020-11-09 22:02] LABS: SLIDE REVIEW VERIFIED
[2020-11-09 22:12] LABS: B Type Natriuretic Peptide 2673 pg/mL (<100); Troponin-I High Sensitivity 36.3 ng/L (<3.5-17.0)
--- NOTE | 2020-11-09 22:33 | ED_ITS ---
HPI - Eye Problem General Chief complaint: Eye Problems Stated complaint: eye swelling Time Seen by Provider: 11/09/20 22:20 Source: patient Mode of arrival: ambulatory Limitations: no limitations History of Present Illness HPI Narrative: Patient comes emergency room complaining left-sided eye lid swelling. Patient states it started approximately 3 days ago. Patient complaining eye sticking together. Patient states she does not have any pain when she moves her eye. Patient denies fever. Patient has developmental delay, however her answers seem accurate. MD chief complaint: eye redness Related Data Home Medications Medication Instructions Recorded Confirmed Eliquis 5 mg PO BID 09/10/20 10/11/20 Lantus Solostar U-100 Insulin 26 unit SUBCUT QAM 09/10/20 10/11/20 albuterol sulfate [ProAir HFA] 2 puff INHALATION Q4-6H PRN 09/10/20 10/11/20 ascorbic acid (vitamin C) 500 mg PO BID 09/10/20 10/11/20 aspirin 81 mg PO DAILY 09/10/20 10/11/20 atorvastatin 40 mg PO DAILY 09/10/20 10/11/20 ferrous sulfate 325 mg PO BID 09/10/20 10/11/20 furosemide 40 mg PO DAILY 09/10/20 10/11/20 montelukast 10 mg PO BEDTIME 09/10/20 10/11/20 nitroglycerin 0.4 mg SUBLINGUAL Q5M PRN 09/10/20 10/11/20 zolpidem 5 mg PO BEDTIME PRN 09/10/20 10/11/20 Previous Rx's Medication Instructions Recorded metoprolol tartrate 12.5 mg PO BID #30 tab 10/17/20 valsartan 80 mg PO DAILY #30 tab 10/17/20 cephalexin 500 mg PO BID #13 cap 11/09/20 erythromycin 0.5 inch OPHTHALMIC (EYE) BID #3.5 11/09/20 g Allergies Allergy/AdvReac Type Severity Reaction Status Date / Time No Known Allergies Allergy Verified 11/09/20 18:27 Review of Systems Review of Systems: Constitutional :No Fever, No Chills, No Night Sweats, No Fatigue ENT/Mouth : No Hearing loss, No Ear Pain, No Nasal Congestion, No Sinus Pain, No Hoarseness, No sore throat, No Rhinorrhea, No Swallowing Difficulty Eyes: No Eye Pain, left eye swelling and redness, worse in the lower eyelid, No Foreign Body, mild to moderate Discharge, No Vision Changes Cardiovascular : No Chest Pain, No SOB, chronic dyspnea Respiratory : No Cough, No Sputum, No Wheezing, No Smoke Exposure, mild shortness of breath, per patient and her daughter it is at baseline Gastrointestinal : No Nausea, No Vomiting, No Diarrhea, No Constipation, No abdominal Pain, No Hematochezia, No Melena Genitourinary : no irregular bleeding, No Dysuria, No Urinary Frequency, No Hematuria, No Urinary Incontinence, No Urgency, No Flank Pain, No Urinary Flow Changes, No Hesitancy Musculoskeletal : No joint pain, No Myalgias, No Joint Swelling Skin : No Skin Lesions, No rash Neuro : No Weakness, No Numbness, No Paresthesias, No Loss of Consciousness, No Dizziness, No Headache Psych : No Anxiety/Panic, No Depression, No SI/HI/AH/VH, No Social Issues, Heme/Lymph: No Bruising, No Bleeding,No Lymphadenopathy Endocrine : No Polyuria, No Polydipsia, No Temperature Intolerance [facility] Past Medical History Medical History Afib Asthma Atherosclerotic cardiovascular disease CAD (coronary artery disease) Cardiomyopathy CHF (congestive heart failure) CVA (cerebral vascular accident) Diabetes Hypertension Persistent atrial fibrillation PVD (peripheral vascular disease) Surgical History History of esophagogastroduodenoscopy (EGD) Hx of AKA (above knee amputation) Hx of colonoscopy Status post coronary artery bypass graft Family History Family History Father Heart attack Mother Heart attack Diabetes Social History Social History (Updated 10/11/20 @ 19:57 by GAVIN Yang) Household Members: Family Housing: Apartment Alcohol intake: never Smoking Status: Never smoker Use of substances other than those prescribed or required for medical reasons: No Advance Directives: No Advance Directives Information Provided: Yes service: No Current occupational status: disabled Physical Exam Vital Signs: Vital Signs: Last Vital Signs Temp 98.0 F 11/09/20 22:00 Pulse 85 11/09/20 22:00 Resp 20 11/09/20 22:00 BP 102/60 11/09/20 22:00 Pulse Ox 93 11/09/20 22:00 Body Mass Index 0.0 Appearance: Alert. No acute distress. Eyes: Pupils equal, round and reactive to light. Left lower eyelid is swollen, pain to palpation over the left lacrimal gland, patient has mild yellowish and sticking secretion on the left eye. Patient is able to move the eyes bilaterally in all directions with no pain ENT: Pharynx normal. Neck: Normal inspection. Neck supple. No lymph nodes noted. No crepitus CVS: Normal heart rate and rhythm. Normal S1 and S2 Respiratory: No respiratory distress. Breath sounds normal. No Wheezing. No rales Abdomen: Soft and nontender. No rigidity. No distention. good BS x4 Skin: Skin warm and dry. Normal skin color. Normal skin turgor. Extremities: No lower extremity edema. No lower extremity edema. No Lacerations. No Rash Neuro: Oriented X 3. No motor deficit. No sensory deficit. Moving all exte rmities. No slurred speech. Course Course Course Narrative: When patient arrived, it was noted the patient's oxygen saturation was 88% on room air and she was put on nasal cannula. I discussed this with the nurse, she states that the O2 waveform was poor and it was probably inaccurate. Patient is now on room air, she has remained saturating between 95 and 97% on room air. I discussed the shortness of breath issue with the patient's daughter Alison, according to the daughter, the patient is at baseline, although her labs are elevated, the patient's baseline as well. Patient's creatinine is slightly elevated at 1.46, at this time, patient will not be given IV fluids, as it is, patient has significant heart failure. Patient will follow-up with the primary care physician Patient received the 1st dose of antibiotic p.o. cephalexin and erythromycin ointment. MDM - Eye Problem Lab Data Result diagrams: 11/09/20 Unknown 11/09/20 Unknown Labs: Lab Results 11/09/20 11/09/20 11/09/20 Range/Units Unknown Unknown Unknown WBC 6.9 (4.8-10.8) X10*3/uL RBC 3.44 L (4.20-5.50) X10*6/uL Hgb 8.9 L (12.0-16.0) g/dl Hct 27.9 L (37-47) % MCV 81.1 (80-98) fL MCH 25.9 L (27.0-33.0) pg MCHC 31.9 (31.0-35.0) g/dl RDW 22.8 H (11.0-16.0) % Plt Count 227 D (160-400) X10*3/uL MPV 11.3 (9.4-12.3) fL Immature Gran % (Auto) 0.4 (0.0-0.4) % Neut % (Auto) 59.3 (45-73) % Lymph % (Auto) 23.5 (20-40) % [place] % (Auto) 14.4 H (2-11) % Eos % (Auto) 2.0 (0-4) % Baso % (Auto) 0.4 (0-2) % Lymph # (Auto) 1.6 (1.2-4.9) X10*3/uL [place] # (Auto) 1.0 (0.1-1.2) X10*3/uL Eos # (Auto) 0.1 (0.0-0.4) X10*3/uL Baso # (Auto) 0.0 (0.0-0.2) X10*3/uL Abs Immat Gran (auto) 0.03 (0.00-0.03) X10*3/uL Absolute Neuts (auto) 4.1 (2.0-8.3) X10*3/uL Absolute Nucleated RBC 0.000 (0.0-0.012) X10*3/uL Nucleated RBC % (auto) 0.0 (0.0-0.2) /100WBC Smear Tech's Comments VERIFIED Hold Blue Top SEE NOTE Sodium 142 (135-145) mmol/L Potassium 4.0 (3.3-5.1) mmol/L Chloride 110 H (96-108) mmol/L Carbon Dioxide 22 (22-29) mmol/L Anion Gap 14 (12-20) BUN 31 H (9-16) mg/dL Creatinine 1.46 H (0.5-1.4) mg/dL Estim Creat Clear Calc TNP Estimated GFR 35 Random Glucose 170 H D (60-115) mg/dL Calcium 8.4 (8.4-10.2) mg/dL Troponin I High Sens (<3.5-17.0) ng/L B-Natriuretic Peptide (<100) pg/mL 11/09/20 Range/Units Unknown WBC (4.8-10.8) X10*3/uL RBC (4.20-5.50) X10*6/uL Hgb (12.0-16.0) g/dl Hct (37-47) % MCV (80-98) fL MCH (27.0-33.0) pg MCHC (31.0-35.0) g/dl RDW (11.0-16.0) % Plt Count (160-400) X10*3/uL MPV (9.4-12.3) fL Immature Gran % (Auto) (0.0-0.4) % Neut % (Auto) (45-73) % Lymph % (Auto) (20-40) % [place] % (Auto) (2-11) % Eos % (Auto) (0-4) % Baso % (Auto) (0-2) % Lymph # (Auto) (1.2-4.9) X10*3/uL [place] # (Auto) (0.1-1.2) X10*3/uL Eos # (Auto) (0.0-0.4) X10*3/uL Baso # (Auto) (0.0-0.2) X10*3/uL Abs Immat Gran (auto) (0.00-0.03) X10*3/uL Absolute Neuts (auto) (2.0-8.3) X10*3/uL Absolute Nucleated RBC (0.0-0.012) X10*3/uL Nucleated RBC % (auto) (0.0-0.2) /100WBC Smear Tech's Comments Hold Blue Top Sodium (135-145) mmol/L Potassium (3.3-5.1) mmol/L Chloride (96-108) mmol/L Carbon Dioxide (22-29) mmol/L Anion Gap (12-20) BUN (9-16) mg/dL Creatinine (0.5-1.4) mg/dL Estim Creat Clear Calc Estimated GFR Random Glucose (60-115) mg/dL Calcium (8.4-10.2) mg/dL Troponin I High Sens 36.3 H D (<3.5-17.0) ng/L B-Natriuretic Peptide 2673 H (<100) pg/mL ECG Data Attestation: I personally reviewed and interpreted this ECG as follows: (Atrial fibrillation, heart rate 70, right bundle-branch block, QTC 455, nonspecific T- wave abnormalities. No EKG changes since EKG of October 2020) Discharge Plan Discharge Clinical Impression: Acute dacryoadenitis of left eye Blepharitis of eyelid of left eye Qualifiers: Blepharitis type: unspecified type Eyelid: lower Qualified Code(s): H01.005 - Unspecified blepharitis left lower eyelid Patient Disposition: Home, Self-Care Instructions: Blepharitis (ED) Additional Instructions: If the redness of the eye worsens, she has more discharge, fever, chills, any new problems, please return to the emergency room. Otherwise, please continue taking the antibiotic until finished. 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 Prescriptions: New erythromycin 5 mg/gram (0.5 %) ointment 0.5 inch ophthalmic (eye) BID Qty: 3.5 RF: 0 cephalexin 500 mg capsule 500 mg PO BID Qty: 13 RF: 0 No Action valsartan 80 mg Tablet 80 mg PO DAILY Qty: 30 RF: 0 metoprolol tartrate 25 mg tablet 12.5 mg PO BID Qty: 30 RF: 0 furosemide 40 mg Tablet 40 mg PO DAILY RF: 0 atorvastatin 40 mg Tablet 40 mg PO DAILY RF: 0 aspirin 81 mg Tablet,Delayed Release (Dr/Ec) 81 mg PO DAILY RF: 0 ascorbic acid (vitamin C) 500 mg Tablet 500 mg PO BID RF: 0 nitroglycerin 0.4 mg Tablet, Sublingual 0.4 mg SUBLINGUAL Q5M PRN (Reason: Chest Pain) RF: 0 montelukast 10 mg Tablet 10 mg PO BEDTIME RF: 0 zolpidem 5 mg Tablet 5 mg PO BEDTIME PRN (Reason: Sleep) RF: 0 albuterol sulfate [ProAir HFA] 90 mcg/actuation Hfa Aerosol Inhaler 2 puff INHALATION Q4-6H PRN (Reason: Shortness Of Breath) RF: 0 ferrous sulfate 325 mg (65 mg iron) Tablet,Delayed Release (Dr/Ec) 325 mg PO BID RF: 0 Lantus Solostar U-100 Insulin 100 unit/mL (3 mL) Insulin Pen 26 unit SUBCUT QAM RF: 0 Eliquis 5 mg Tablet 5 mg PO BID RF: 0
[2020-11-09] MEDS: Erythromycin Base 0.5% Oph Oin 1 GM TUBE 1 CM EYE-LEFT (22:50)
[2020-11-09] MEDS: cephALEXin 500 MG CAPSULE PO (22:50)
--- NOTE | 2020-11-09 22:52 | PC.NURSE ---
patient medicated per order
--- NOTE | 2020-11-09 22:59 | PC.NURSE ---
lt eye swelling/redness, with yellow drainage, pt was medicated
[2020-11-09 23:53] VITALS: O2SAT 98
== END 2020-11-09 23:55 | disposition home or self-care (01) ==
PROVIDERS: Emergency Provider Emergency Medicine
DX: H04.012 Acute dacryoadenitis, left lacrimal gland (principal); H01.005 Unspecified blepharitis left lower eyelid; I48.91 Unspecified atrial fibrillation; E11.9 Type 2 diabetes mellitus without complications; I11.0 Hypertensive heart disease with heart failure; I50.9 Heart failure, unspecified
CPT/HCPCS: 36415; 71045; 80048; 83880; 84484; 85025; 93005; 99284

== ENCOUNTER 2020-11-16 11:37 | Inpatient (IN) | payer MEDICARE, SELFPAY ==
--- NOTE | ~2020-11-16 | XR_ITS ---
EXAMINATION: XR FEMUR, LEFT CLINICAL INFORMATION: Left stump pain. Status post below-knee amputation COMPARISON: None TECHNIQUE: AP and lateral views of the left femur were obtained. FINDINGS: Diffuse soft tissue swelling is seen about the remaining lower extremity. Extensive vascular calcification is seen. I do not appreciate any soft tissue gas or radiopaque foreign body. Patient is status post below-knee amputation. It do not appreciate any focal cortical disruption or trabecular irregularity to suggest underlying fracture. No acute bony destructive lesions or periosteal reaction. XR/XR femur LT 2V IMPRESSION: Diffuse soft tissue swelling and extensive vascular calcification. No acute bony abnormality.
--- NOTE | ~2020-11-16 | CT_ITS ---
EXAMINATION: CT ANGIOGRAM CHEST WITH AND WITHOUT CONTRAST (CT PULMONARY ANGIOGRAM FOR PE) CLINICAL INFORMATION: Chest pain, elevated D-dimer. COMPARISON: Chest radiograph earlier today. TECHNIQUE: Prior to contrast administration, noncontrast localization images were obtained. Subsequently, multidetector volumetric imaging was performed from the thoracic inlet to below the diaphragms following the administration of 85 mL Omnipaque 350 intravenous contrast. No contrast reaction reported. Sagittal, coronal, and MIP oblique sagittal reformatted images were obtained on the CT workstation, uploaded to PACS, and reviewed. This CT examination was performed using dose optimization techniques as appropriate, variously including the following: *Automated exposure control. *Adjustment of mA and/or kV according to patient size (this includes techniques or standardized protocols for targeted exams where dose is matched to indication/reason for exam; i.e. extremities or head). *Use of iterative reconstruction technique. Total exam dose-length product 1070 mGy-cm. FINDINGS: QUALITY OF STUDY/CONTRAST BOLUS: Satisfactory. PULMONARY ARTERIES: No central or segmental pulmonary emboli. THORACIC AORTA: No aneurysm or dissection. LUNG: No worrisome focal consolidation, nodules or masses. Some nonspecific groundglass changes are present in the lungs. PLEURA: There is a trace right pleural effusion. No significant pleural effusion or pneumothorax. MEDIASTINUM: The heart is markedly enlarged. Marked coronary calcifications are seen. No evidence of septal.The trachea is flattened suggesting tracheomalacia. No mediastinal adenopathy is seen. CHEST WALL/AXILLA: No axillary or internal mammary lymphadenopathy. OSSEOUS STRUCTURES: No acute or suspicious osseous abnormality. UPPER ABDOMEN: Unremarkable. There is gross reflux of contrast into the IVC and hepatic veins to be consistent with elevated right heart pressures. CT/CT angio chest PE protocol IMPRESSION: 1. No evidence of pulmonary emboli. 2. Marked cardiomegaly and evidence of elevated right heart pressures. 3. Tracheomalacia. VTE: Negative.
--- NOTE | ~2020-11-16 | XR_ITS ---
EXAMINATION: XR CHEST CLINICAL INFORMATION: Chest pain COMPARISON: Previous chest x-ray November 2020 TECHNIQUE: Frontal view of the chest was obtained. FINDINGS: The heart is enlarged. There are median sternotomy wires. There is pulmonary venous redistribution and bilateral predominantly perihilar airspace disease. Appearance is suggestive of pulmonary edema. There is no significant pleural effusion. There is no pneumothorax. XR/XR chest 1V IMPRESSION: Stable enlargement of the cardiac silhouette and probable pulmonary edema.
--- NOTE | ~2020-11-16 | CT_ITS ---
EXAMINATION: CT ABDOMEN AND PELVIS WITH CONTRAST CLINICAL INFORMATION: Abdominal pain. COMPARISON: CT abdomen and pelvis 12/07/2018. TECHNIQUE: Multidetector volumetric images were obtained from the superior aspect of the liver through the pubic symphysis following administration 85 mL of Omnipaque 350 intravenous contrast. Sagittal and coronal reformatted images were obtained on the technologist's workstation. Oral Contrast: No. This CT examination was performed using dose optimization techniques as appropriate, variously including the following: *Automated exposure control. *Adjustment of mA and/or kV according to patient size (this includes techniques or standardized protocols for targeted exams where dose is matched to indication/reason for exam; i.e. extremities or head). *Use of iterative reconstruction technique. DLP: 752 mGy-cm FINDINGS: LUNG BASES: Marked cardiomegaly and trace right pleural effusion. LIVER, GALLBLADDER, AND BILIARY TREE: The liver is normal in size, shape, and attenuation. No focal hepatic lesion or biliary ductal dilatation is present. The gallbladder is contracted but otherwise unremarkable with no evidence of radiopaque gallstones, gallbladder wall thickening, or obvious pericholecystic inflammatory changes. PANCREAS: Unremarkable. SPLEEN: Unremarkable. ADRENAL GLANDS: Unremarkable. KIDNEYS AND URETERS: The kidneys are normal in size, shape, and attenuation. At least 9 renal masses are seen in the right kidney, none of these really definitively measure water density wall in the range of about 30-40 Hounsfield units. These still most likely represent renal cysts. On the prior CT scan from 12/07/2018, multiple hyperattenuating right renal masses are seen. A few small cysts also present in the left kidney. No hydronephrosis or hydroureter is seen. No definite renal calculi are present but vascular calcifications are noted. BLADDER: Unremarkable. GASTROINTESTINAL TRACT: Diverticular changes present in the colon without diverticulitis. The small and large bowel are unremarkable. The appendix is unremarkable. ABDOMINAL WALL: Significant anasarca is seen in the abdominal wall noted when compared to the 12/07/2018 study. LYMPH NODES: No retroperitoneal lymphadenopathy. VASCULAR: Marked atherosclerotic changes present throughout the aorta iliofemoral system with calcifications and areas of stenoses in the external iliac arteries, common femoral arteries and superficial femoral arteries. No aneurysms. PELVIC VISCERA: An anteverted uterus is present. An abnormal adnexal mass is not seen. A small amount of free intraperitoneal fluid is noted in the cul-de-sac. OSSEOUS STRUCTURES: Degenerative changes present in the spine. CT/CT abdomen pelvis w con IMPRESSION: 1. Marked cardiomegaly. 2. Bilateral renal masses, right greater than left, most likely complicated hyperattenuating cysts. 3. Colonic diverticulosis without diverticulitis. 4. Marked abdominal/pelvic wall anasarca. 5. Severe iliofemoral atherosclerotic disease.
--- NOTE | 2020-11-16 11:49 | ED_ITS ---
HPI - General Adult General Chief complaint: Chest Pain <Alberto Arce NP - Last Filed: 11/16/20 18:15> Stated complaint: Leg and chest pain <Alberto Arce NP - Last Filed: 11/16/20 18:15> Time Seen by Provider: 11/16/20 11:48 <Alberto Arce NP - Last Filed: 11/16/20 18:15> Source: EMS <Alberto Arce NP - Last Filed: 11/16/20 18:15> Mode of arrival: EMS <Alberto Arce NP - Last Filed: 11/16/20 18:15> Limitations: language barrier <Alberto Arce NP - Last Filed: 11/16/20 18:15> History of Present Illness HPI narrative: This is a primarily Vietnamese-speaking 75-year-old female with below noted past medical history including history of coronary artery disease, congestive heart failure, CVA, diabetes, hypertension, peripheral vascular disease, ischemic cardiomyopathy, paroxysmal atrial fibrillation chronically anticoagulated on Eliquis who is familiar to this facility for multiple visits here and most recently admission on October 11 through 10/17/2020 with diagnosis of nonsustained ventricular tachycardia, ischemic cardiomyopathy, paroxysmal atrial fibrillation, CHF, SILVER who re-presented today via EMS with complaint of left leg pain patient does have surgical history of bilateral lower extremity amputations question of chronicity of this pain and also upon arrival patient complaint of left-sided chest pain which she has had ?forever?. She denies any shortness of breath or recent URI symptoms no fevers. <Alberto Arce NP - Last Filed: 11/16/20 18:15> Onset (ago): day(s) <Alberto Arce NP - Last Filed: 11/16/20 18:15> Location: left <Alberto Arce NP - Last Filed: 11/16/20 18:15> Relieving factors: none <Alberto Arce NP - Last Filed: 11/16/20 18:15> Exacerbating factors: none <Ablerto Arce NP - Last Filed: 11/16/20 18:15> Associated symptoms: denies other symptoms <Alberto Arce NP - Last Filed: 11/16/20 18:15> Treatments prior to arrival: none <MARICEL Coe Last Filed: 11/16/20 18:15> Related Data Home medications: Home Medications Medication Instructions Recorded Confirmed Eliquis 5 mg PO BID 09/10/20 11/16/20 Lantus Solostar U-100 Insulin 26 unit SUBCUT QAM 09/10/20 11/16/20 albuterol sulfate [ProAir HFA] 2 puff INHALATION Q4-6H PRN 09/10/20 11/16/20 ascorbic acid (vitamin C) 500 mg PO BID 09/10/20 11/16/20 aspirin 81 mg PO DAILY 09/10/20 11/16/20 atorvastatin 40 mg PO DAILY 09/10/20 11/16/20 ferrous sulfate 325 mg PO BID 09/10/20 11/16/20 furosemide 40 mg PO DAILY 09/10/20 11/16/20 montelukast 10 mg PO BEDTIME 09/10/20 11/16/20 nitroglycerin 0.4 mg SUBLINGUAL Q5M PRN 09/10/20 11/16/20 Previous Rx's Medication Instructions Recorded metoprolol tartrate 12.5 mg PO BID #30 tab 10/17/20 valsartan 80 mg PO DAILY #30 tab 10/17/20 <Alberto Arce NP - Last Filed: 11/16/20 18:15> Allergies/adverse reactions: Allergies Allergy/AdvReac Type Severity Reaction Status Date / Time No Known Allergies Allergy Verified 11/16/20 13:38 <Alberto Arce NP - Last Filed: 11/16/20 18:15> Review of Systems Review of Systems: Constitutional: No Weight loss, No Fever, No Chills, No Night Sweats, No Fatigue, No Malaise ENT/Mouth: No Hearing loss, No Ear Pain, No Nasal Congestion, No Sinus Pain, No Hoarseness, No sore throat, No Rhinorrhea, No Swallowing Difficulty Eyes: No Eye Pain, No Swelling, No Redness, No Foreign Body, No Discharge, No Vision Changes Cardiovascular: + Chest Pain, No SOB, No Dyspnea on Exertion, No Orthopnea, No Edema, No Palpitations Respiratory: No Cough, No Sputum, No Wheezing, No Smoke Exposure, No Dyspnea Gastrointestinal: No Nausea, No Vomiting, No Diarrhea, No Constipation, No abdominal Pain, No Hematochezia, No Melena Genitourinary: No Dysuria, No Urinary Frequency, No Hematuria, No Urinary Incontinence, No Urgency, No Flank Pain, No Urinary Flow Changes, No Hesitancy Musculoskeletal: No joint pain, No Myalgias, No Joint Swelling, BLE pain Skin: No Skin Lesions, No rash Neuro: No Weakness, No Numbness, No Paresthesias, No Loss of Consciousness, No Dizziness, No Headache Psych: No Social Issues Heme/Lymph: No Bruising, No Bleeding,No Lymphadenopathy Endocrine: No Polyuria, No Polydipsia, No Temperature Intolerance <Alberto Arce NP - Last Filed: 11/16/20 18:15> Yes all other systems are reviewed and are negative <Alberto Arce NP - Last Filed: 11/16/20 18:15> [facility] Past Medical History Medical History: Medical History (Updated 11/16/20 @ 20:56 by Reina Finley NP) Afib Asthma Atherosclerotic cardiovascular disease CAD (coronary artery disease) Cardiomyopathy CHF (congestive heart failure) CVA (cerebral vascular accident) Diabetes Hypertension NSVT (nonsustained ventricular tachycardia) Persistent atrial fibrillation PVD (peripheral vascular disease) <Alberto Arce NP - Last Filed: 11/16/20 18:15> Surgical History: Surgical History History of esophagogastroduodenoscopy (EGD) Hx of AKA (above knee amputation) Hx of colonoscopy Status post coronary artery bypass graft <Alberto Arce NP - Last Filed: 11/16/20 18:15> Family History Family History: Family History Father Heart attack Mother Heart attack Diabetes <Alberto Arce NP - Last Filed: 11/16/20 18:15> Social History Social History: Social History Household Members: Family Housing: Apartment Alcohol intake: never Smoking Status: Never smoker Advance Directives: Yes Advance Directives on File: Yes Advance Directives Date on File: 09/10/20 service: No Current occupational status: disabled <Alberto Arce NP - Last Filed: 11/16/20 18:15> Physical Exam Vital Signs: Vital Signs: Last Vital Signs Temp 97.6 F 11/16/20 17:59 Pulse 72 11/16/20 20:47 Resp 18 11/16/20 20:47 BP 127/76 11/16/20 20:47 Pulse Ox 96 11/16/20 20:47 Body Mass Index 30.9 Reviewed <Albertojennifer Arce NP - Last Filed: 11/16/20 18:15> Vital Signs: Last Vital Signs Temp 97.6 F 11/16/20 17:59 Pulse 72 11/16/20 20:47 Resp 18 11/16/20 20:47 BP 127/76 11/16/20 20:47 Pulse Ox 96 11/16/20 20:47 Body Mass Index 30.9 <Reina Finley CLOTH WINDER - Last Filed: 11/16/20 22:47> Const: General: cooperative and healthy appearing; No acute distress or intoxicated appearing <Albertojennifer Arce NP - Last Filed: 11/16/20 18:15> Nutritional Appearance: average body habitus <Albertojennifer Arce NP - Last Filed: 11/16/20 18:15> Orientation/consciousness: patient oriented x3 <[facility] MARICEL Arce - Last Filed: 11/16/20 18:15> HENMT: Head: Yes normal to inspection <Albertojennifer Arce NP - Last Filed: 11/16/20 18:15> Ears: hearing grossly normal bilaterally <[facility] MARICEL Arce - Last Filed: 11/16/20 18:15> Eyes: General: appearance normal, both eyes and all related structures <Albertojennifer Arce NP - Last Filed: 11/16/20 18:15> Visual Cristobal: normal visual cristobal by confrontation <[facility] MARICEL Arce - Last Filed: 11/16/20 18:15> Neck: Neck: Yes normal visual inspection, No positive Brudzinski's sign, No positive Kernig's sign and No tender <[facility] MARICEL Arce - Last Filed: 11/16/20 18:15> Thyroid: Thyroid normal <[facility] MARICEL Arce - Last Filed: 11/16/20 18:15> Chest: Chest palpation & inspection: normal inspection of the chest <Alberto Arce CLOTH WINDER - Last Filed: 11/16/20 18:15> Resp: Effort & Inspection: normal respiratory effort <Alberto Yazmin CLOTH WINDER - Last Filed: 11/16/20 18:15> Cardio: Jugular venous distension: no JVD <[facility] Yazmin CLOTH WINDER - Last Filed: 11/16/20 18:15> Rhythm: regular rhythm <[facility] Arce - Last Filed: 11/16/20 18:15> Heart sounds: S1 normal heart sound present and S2 normal heart sound present <[facility] Yazmin CLOTH WINDER - Last Filed: 11/16/20 18:15> GI: Inspection: Yes normal to inspection <[facility] Arce - Last Filed: 11/16/20 18:15> Percussion: Yes normal to percussion <[facility] Arce - Last Filed: 11/16/20 18:15> Auscultation: normal bowel sounds <[facility] Arce - Last Filed: 11/16/20 18:15> : General: Yes no CVA tenderness <[facility] Arce CLOTH WINDER - Last Filed: 11/16/20 18:15> Back/Spine/Pelvis: Back: no CVA tenderness <[facility] Arce CLOTH WINDER - Last Filed: 11/16/20 18:15> Skin: General skin exam: no rashes or lesions noted <Alberto ArceMARICEL - Last Filed: 11/16/20 18:15> Neuro: General: patient oriented x3 <Alberto Arce CLOTH WINDER - Last Filed: 11/16/20 18:15> Extrem: Other: Bilateral lower extremity amputations right above the knee left below the knee. Left. Slightly erythematous. <Alberto ArceMARICEL - Last Filed: 11/16/20 18:15> General: Yes normal to inspection <Alberto ArceMARICEL licona - Last Filed: 11/16/20 18:15> Course Course Course Narrative: At 6:30 p.m. 2nd trip elevated at 50.3 which is an improvement from her p rior which was 57, a review of records indicates that she has CHF, severe left ventricular systolic dysfunction with left ventricular ejection fraction around 25% with wall motion abnormality consistent with ischemic cardiomyopathy. Had an TX in 2005 with a stent placed, has severe PVD with bilateral AKA. CT PE study negative for embolism but indicates marked cardiomegaly with evidence of right heart pressures. Discussed with hospitalist at 7:30 p.m. regarding planned to admit for CHF exacerbation, SILVER, and possible assessment for palliative care. Discussion with family, family agrees to plan of care. <Reina Finley NP - Last Filed: 11/16/20 22:47> Reevaluation(s) Reevaluation #1: Has been resting comfortably after initial dose of pain medication no complaints. Hemodynamically stable. With stable H&H consistent with her previous. D-dimer 611 age adjusted within limits. Chemistry shows slight transaminitis with troponin 57 previous 36 on November 09 and BNP of 2506 with previous on November 09 of 03/21/2073. Clinically does not appear fluid overloaded x-ray shows mild findings consistent with pulmonary edema. A moderate evaluation vague complaint of abdominal pain no chest pain at this time. Plan for repeat troponin and CT of the abdomen pelvis. <Alberto Arce NP - Last Filed: 11/16/20 18:15> Reevaluation #2: Patient agreeable initially with the CT when she went to CT room now states she does not want any testing until her daughter gets here and she talks to her. I spoke to her daughter Vanessa rhodes at 04:13 [id number] who states she will be here in about 20-30 minutes. <Alberto Arce NP - Last Filed: 11/16/20 18:15> Reevaluation #3: [id number] I met with the patient at bedside in the presence of daughter had declined any testing however after conversation with daughter she is not agreeable repeat troponin is in process and CT of the abdomen pelvis is being done now. <Alberto Arce NP - Last Filed: 11/16/20 18:15> Consultations Consultation #1: krish <Reina Finley NP - Last Filed: 11/16/20 22:47> Time: 19:30 <Reina Finley NP - Last Filed: 11/16/20 22:47> Medical Decision Making MDM Narrative Medical decision making narrative: In review of 75-year-old female primarily Vietnamese-speaking extensive history as noted above presenting with bilateral lower extremity pain consistent with phantom leg upon arrival also vague complaint of left chest pain very typical given her comorbidities workup will be initiated will check labs incl uding cardiac enzyme EKG chest x-ray and COVID given her recent hospitalization. Will treat with analgesia and re-evaluate. History very limited from the patient as she is a very vague historian I did attempt to contact her daughter Vanessa who is listed health care proxy at the listed number however no answer left voicemail to request call back. I will attempt to call her back at [phone] <Alberto Arce NP - Last Filed: 11/16/20 18:15> Lab Data Result diagrams: : 11/16/20 12:24 11/16/20 12:24 <Alberto Arce NP - Last Filed: 11/16/20 18:15> Labs: Lab Results 11/16/20 11/16/20 11/16/20 Range/Units 12:24 12:24 12:24 WBC 7.4 (4.8-10.8) X10*3/uL RBC 3.32 L (4.20-5.50) X10*6/uL Hgb 8.5 L (12.0-16.0) g/dl Hct 27.3 L (37-47) % MCV 82.2 (80-98) fL MCH 25.6 L (27.0-33.0) pg MCHC 31.1 (31.0-35.0) g/dl RDW 23.4 H (11.0-16.0) % Plt Count 213 (160-400) X10*3/uL MPV 11.1 (9.4-12.3) fL Immature Gran % (Auto) 0.3 (0.0-0.4) % Neut % (Auto) 57.6 (45-73) % Lymph % (Auto) 23.7 (20-40) % [place] % (Auto) 16.8 H (2-11) % Eos % (Auto) 1.2 (0-4) % Baso % (Auto) 0.4 (0-2) % Lymph # (Auto) 1.8 (1.2-4.9) X10*3/uL [place] # (Auto) 1.2 (0.1-1.2) X10*3/uL Eos # (Auto) 0.1 (0.0-0.4) X10*3/uL Baso # (Auto) 0.0 (0.0-0.2) X10*3/uL Abs Immat Gran (auto) 0.02 (0.00-0.03) X10*3/uL Absolute Neuts (auto) 4.3 (2.0-8.3) X10*3/uL Absolute Nucleated RBC 0.000 (0.0-0.012) X10*3/uL Nucleated RBC % (auto) 0.0 (0.0-0.2) /100WBC PT 26.0 H (10.8-13.0) SEC INR 2.2 H (0.9-1.1) APTT 36.4 (24.1-38.0) SEC D-Dimer 611 NG/ML Sodium 141 (135-145) mmol/L Potassium 4.5 (3.3-5.1) mmol/L Chloride 110 H (96-108) mmol/L Carbon Dioxide 22 (22-29) mmol/L Anion Gap 14 (12-20) BUN 31 H (9-16) mg/dL Creatinine 1.39 (0.5-1.4) mg/dL Estim Creat Clear Calc 34.0 Estimated GFR 37 Random Glucose 120 H (60-115) mg/dL Calcium 8.2 L (8.4-10.2) mg/dL Magnesium 2.0 (1.6-2.6) mg/dL Total Bilirubin 0.9 (0.0-1.0) mg/dL AST 44 H D (5-31) U/L ALT 63 H (0-31) U/L Alkaline Phosphatase 362 H D (39-117) U/L Troponin I High Sens (<3.5-17.0) ng/L B-Natriuretic Peptide (<100) pg/mL Total Protein 6.6 (6.5-8.0) g/dL Albumin 2.9 L (3.5-5.0) g/dL Coronavirus (PCR) (Negative) COVID-19 ([facility]) (Negative) COVID-19 Clin Com Influenza Type A (PCR) (Negative) Influenza Type B (PCR) (Negative) RSV RNA Qual (PCR) (Negative) 02/15/21 02/15/21 02/15/21 Range/Units 12:24 12:24 12:41 WBC (4.8-10.8) X10*3/uL RBC (4.20-5.50) X10*6/uL Hgb (12.0-16.0) g/dl Hct (37-47) % MCV (80-98) fL MCH (27.0-33.0) pg MCHC (31.0-35.0) g/dl RDW (11.0-16.0) % Plt Count (160-400) X10*3/uL MPV (9.4-12.3) fL Immature Gran % (Auto) (0.0-0.4) % Neut % (Auto) (45-73) % Lymph % (Auto) (20-40) % [place] % (Auto) (2-11) % Eos % (Auto) (0-4) % Baso % (Auto) (0-2) % Lymph # (Auto) (1.2-4.9) X10*3/uL [place] # (Auto) (0.1-1.2) X10*3/uL Eos # (Auto) (0.0-0.4) X10*3/uL Baso # (Auto) (0.0-0.2) X10*3/uL Abs Immat Gran (auto) (0.00-0.03) X10*3/uL Absolute Neuts (auto) (2.0-8.3) X10*3/uL Absolute Nucleated RBC (0.0-0.012) X10*3/uL Nucleated RBC % (auto) (0.0-0.2) /100WBC PT (10.8-13.0) SEC INR (0.9-1.1) APTT (24.1-38.0) SEC D-Dimer NG/ML Sodium (135-145) mmol/L Potassium (3.3-5.1) mmol/L Chloride (96-108) mmol/L Carbon Dioxide (22-29) mmol/L Anion Gap (12-20) BUN (9-16) mg/dL Creatinine (0.5-1.4) mg/dL Estim Creat Clear Calc Estimated GFR Random Glucose (60-115) mg/dL Calcium (8.4-10.2) mg/dL Magnesium (1.6-2.6) mg/dL Total Bilirubin (0.0-1.0) mg/dL AST (5-31) U/L ALT (0-31) U/L Alkaline Phosphatase (39-117) U/L Troponin I High Sens 57.3 H D (<3.5-17.0) ng/L B-Natriuretic Peptide 2506 H (<100) pg/mL Total Protein (6.5-8.0) g/dL Albumin (3.5-5.0) g/dL Coronavirus (PCR) (Negative) COVID-19 ([facility]) Negative (Negative) COVID-19 Clin Com See Note Influenza Type A (PCR) (Negative) Influenza Type B (PCR) (Negative) RSV RNA Qual (PCR) (Negative) 11/16/20 11/16/20 Range/Units 17:33 17:41 WBC (4.8-10.8) X10*3/uL RBC (4.20-5.50) X10*6/uL Hgb (12.0-16.0) g/dl Hct (37-47) % MCV (80-98) fL MCH (27.0-33.0) pg MCHC (31.0-35.0) g/dl RDW (11.0-16.0) % Plt Count (160-400) X10*3/uL MPV (9.4-12.3) fL Immature Gran % (Auto) (0.0-0.4) % Neut % (Auto) (45-73) % Lymph % (Auto) (20-40) % [place] % (Auto) (2-11) % Eos % (Auto) (0-4) % Baso % (Auto) (0-2) % Lymph # (Auto) (1.2-4.9) X10*3/uL [place] # (Auto) (0.1-1.2) X10*3/uL Eos # (Auto) (0.0-0.4) X10*3/uL Baso # (Auto) (0.0-0.2) X10*3/uL Abs Immat Gran (auto) (0.00-0.03) X10*3/uL Absolute Neuts (auto) (2.0-8.3) X10*3/uL Absolute Nucleated RBC (0.0-0.012) X10*3/uL Nucleated RBC % (auto) (0.0-0.2) /100WBC PT (10.8-13.0) SEC INR (0.9-1.1) APTT (24.1-38.0) SEC D-Dimer NG/ML Sodium (135-145) mmol/L Potassium (3.3-5.1) mmol/L Chloride (96-108) mmol/L Carbon Dioxide (22-29) mmol/L Anion Gap (12-20) BUN (9-16) mg/dL Creatinine (0.5-1.4) mg/dL Estim Creat Clear Calc Estimated GFR Random Glucose (60-115) mg/dL Calcium (8.4-10.2) mg/dL Magnesium (1.6-2.6) mg/dL Total Bilirubin (0.0-1.0) mg/dL AST (5-31) U/L ALT (0-31) U/L Alkaline Phosphatase (39-117) U/L Troponin I High Sens 50.3 H (<3.5-17.0) ng/L B-Natriuretic Peptide (<100) pg/mL Total Protein (6.5-8.0) g/dL Albumin (3.5-5.0) g/dL Coronavirus (PCR) NEGATIVE (Negative) COVID-19 ([facility]) (Negative) COVID-19 Clin Com Influenza Type A (PCR) NEGATIVE (Negative) Influenza Type B (PCR) NEGATIVE (Negative) RSV RNA Qual (PCR) NEGATIVE (Negative) <Alberto Arce NP - Last Filed: 11/16/20 18:15> Lab Results 11/16/20 11/16/20 11/16/20 Range/Units 12:24 12:24 12:24 WBC 7.4 (4.8-10.8) X10*3/uL RBC 3.32 L (4.20-5.50) X10*6/uL Hgb 8.5 L (12.0-16.0) g/dl Hct 27.3 L (37-47) % MCV 82.2 (80-98) fL MCH 25.6 L (27.0-33.0) pg MCHC 31.1 (31.0-35.0) g/dl RDW 23.4 H (11.0-16.0) % Plt Count 213 (160-400) X10*3/uL MPV 11.1 (9.4-12.3) fL Immature Gran % (Auto) 0.3 (0.0-0.4) % Neut % (Auto) 57.6 (45-73) % Lymph % (Auto) 23.7 (20-40) % [place] % (Auto) 16.8 H (2-11) % Eos % (Auto) 1.2 (0-4) % Baso % (Auto) 0.4 (0-2) % Lymph # (Auto) 1.8 (1.2-4.9) X10*3/uL [place] # (Auto) 1.2 (0.1-1.2) X10*3/uL Eos # (Auto) 0.1 (0.0-0.4) X10*3/uL Baso # (Auto) 0.0 (0.0-0.2) X10*3/uL Abs Immat Gran (auto) 0.02 (0.00-0.03) X10*3/uL Absolute Neuts (auto) 4.3 (2.0-8.3) X10*3/uL Absolute Nucleated RBC 0.000 (0.0-0.012) X10*3/uL Nucleated RBC % (auto) 0.0 (0.0-0.2) /100WBC PT 26.0 H (10.8-13.0) SEC INR 2.2 H (0.9-1.1) APTT 36.4 (24.1-38.0) SEC D-Dimer 611 NG/ML Sodium 141 (135-145) mmol/L Potassium 4.5 (3.3-5.1) mmol/L Chloride 110 H (96-108) mmol/L Carbon Dioxide 22 (22-29) mmol/L Anion Gap 14 (12-20) BUN 31 H (9-16) mg/dL Creatinine 1.39 (0.5-1.4) mg/dL Estim Creat Clear Calc 34.0 Estimated GFR 37 Random Glucose 120 H (60-115) mg/dL Calcium 8.2 L (8.4-10.2) mg/dL Magnesium 2.0 (1.6-2.6) mg/dL Total Bilirubin 0.9 (0.0-1.0) mg/dL AST 44 H D (5-31) U/L ALT 63 H (0-31) U/L Alkaline Phosphatase 362 H D (39-117) U/L Troponin I High Sens (<3.5-17.0) ng/L B-Natriuretic Peptide (<100) pg/mL Total Protein 6.6 (6.5-8.0) g/dL Albumin 2.9 L (3.5-5.0) g/dL Coronavirus (PCR) (Negative) COVID-19 ([facility]) (Negative) COVID-19 Clin Com Influenza Type A (PCR) (Negative) Influenza Type B (PCR) (Negative) RSV RNA Qual (PCR) (Negative) 11/16/20 11/16/20 11/16/20 Range/Units 12:24 12:24 12:41 WBC (4.8-10.8) X10*3/uL RBC (4.20-5.50) X10*6/uL Hgb (12.0-16.0) g/dl Hct (37-47) % MCV (80-98) fL MCH (27.0-33.0) pg MCHC (31.0-35.0) g/dl RDW (11.0-16.0) % Plt Count (160-400) X10*3/uL MPV (9.4-12.3) fL Immature Gran % (Auto) (0.0-0.4) % Neut % (Auto) (45-73) % Lymph % (Auto) (20-40) % [place] % (Auto) (2-11) % Eos % (Auto) (0-4) % Baso % (Auto) (0-2) % Lymph # (Auto) (1.2-4.9) X10*3/uL [place] # (Auto) (0.1-1.2) X10*3/uL Eos # (Auto) (0.0-0.4) X10*3/uL Baso # (Auto) (0.0-0.2) X10*3/uL Abs Immat Gran (auto) (0.00-0.03) X10*3/uL Absolute Neuts (auto) (2.0-8.3) X10*3/uL Absolute Nucleated RBC (0.0-0.012) X10*3/uL Nucleated RBC % (auto) (0.0-0.2) /100WBC PT (10.8-13.0) SEC INR (0.9-1.1) APTT (24.1-38.0) SEC D-Dimer NG/ML Sodium (135-145) mmol/L Potassium (3.3-5.1) mmol/L Chloride (96-108) mmol/L Carbon Dioxide (22-29) mmol/L Anion Gap (12-20) BUN (9-16) mg/dL Creatinine (0.5-1.4) mg/dL Estim Creat Clear Calc Estimated GFR Random Glucose (60-115) mg/dL Calcium (8.4-10.2) mg/dL Magnesium (1.6-2.6) mg/dL Total Bilirubin (0.0-1.0) mg/dL AST (5-31) U/L ALT (0-31) U/L Alkaline Phosphatase (39-117) U/L Troponin I High Sens 57.3 H D (<3.5-17.0) ng/L B-Natriuretic Peptide 2506 H (<100) pg/mL Total Protein (6.5-8.0) g/dL Albumin (3.5-5.0) g/dL Coronavirus (PCR) (Negative) COVID-19 ([facility]) Negative (Negative) COVID-19 Clin Com See Note Influenza Type A (PCR) (Negative) Influenza Type B (PCR) (Negative) RSV RNA Qual (PCR) (Negative) 11/16/20 11/16/20 Range/Units 17:33 17:41 WBC (4.8-10.8) X10*3/uL RBC (4.20-5.50) X10*6/uL Hgb (12.0-16.0) g/dl Hct (37-47) % MCV (80-98) fL MCH (27.0-33.0) pg MCHC (31.0-35.0) g/dl RDW (11.0-16.0) % Plt Count (160-400) X10*3/uL MPV (9.4-12.3) fL Immature Gran % (Auto) (0.0-0.4) % Neut % (Auto) (45-73) % Lymph % (Auto) (20-40) % [place] % (Auto) (2-11) % Eos % (Auto) (0-4) % Baso % (Auto) (0-2) % Lymph # (Auto) (1.2-4.9) X10*3/uL [place] # (Auto) (0.1-1.2) X10*3/uL Eos # (Auto) (0.0-0.4) X10*3/uL Baso # (Auto) (0.0-0.2) X10*3/uL Abs Immat Gran (auto) (0.00-0.03) X10*3/uL Absolute Neuts (auto) (2.0-8.3) X10*3/uL Absolute Nucleated RBC (0.0-0.012) X10*3/uL Nucleated RBC % (auto) (0.0-0.2) /100WBC PT (10.8-13.0) SEC INR (0.9-1.1) APTT (24.1-38.0) SEC D-Dimer NG/ML Sodium (135-145) mmol/L Potassium (3.3-5.1) mmol/L Chloride (96-108) mmol/L Carbon Dioxide (22-29) mmol/L Anion Gap (12-20) BUN (9-16) mg/dL Creatinine (0.5-1.4) mg/dL Estim Creat Clear Calc Estimated GFR Random Glucose (60-115) mg/dL Calcium (8.4-10.2) mg/dL Magnesium (1.6-2.6) mg/dL Total Bilirubin (0.0-1.0) mg/dL AST (5-31) U/L ALT (0-31) U/L Alkaline Phosphatase (39-117) U/L Troponin I High Sens 50.3 H (<3.5-17.0) ng/L B-Natriuretic Peptide (<100) pg/mL Total Protein (6.5-8.0) g/dL Albumin (3.5-5.0) g/dL Coronavirus (PCR) NEGATIVE (Negative) COVID-19 (TAURUS) (Negative) COVID-19 Clin Com Influenza Type A (PCR) NEGATIVE (Negative) Influenza Type B (PCR) NEGATIVE (Negative) RSV RNA Qual (PCR) NEGATIVE (Negative) <Reina FinleyMARICEL - Last Filed: 11/16/20 22:47> Imaging Data CT PE study: Attestation: I personally reviewed and interpreted this imaging study as follows: <Reina MARICEL Finley - Last Filed: 11/16/20 22:47> Radiologist's impression: EXAMINATION: CT ANGIOGRAM CHEST WITH AND WITHOUT CONTRAST (CT PULMONARY ANGIOGRAM FOR PE) CLINICAL INFORMATION: Chest pain, elevated D-dimer. COMPARISON: Chest radiograph earlier today. TECHNIQUE: Prior to contrast administration, noncontrast localization images were obtained. Subsequently, multidetector volumetric imaging was performed from the thoracic inlet to below the diaphragms following the administration of 85 mL Omnipaque 350 intravenous contrast. No contrast reaction reported. Sagittal, coronal, and MIP oblique sagittal reformatted images were obtained on the CT workstation, uploaded to PACS, and reviewed. This CT examination was performed using dose optimization techniques as appropriate, variously including the following: *Automated exposure control. *Adjustment of mA and/or kV according to patient size (this includes techniques or standardized protocols for targeted exams where dose is matched to indication/reason for exam; i.e. extremities or head). *Use of iterative reconstruction technique. Total exam dose-length product 1070 mGy-cm. FINDINGS: QUALITY OF STUDY/CONTRAST BOLUS: Satisfactory. PULMONARY ARTERIES: No central or segmental pulmonary emboli. THORACIC AORTA: No aneurysm or dissection. LUNG: No worrisome focal consolidation, nodules or masses. Some nonspecific groundglass changes are present in the lungs. PLEURA: There is a trace right pleural effusion. No significant pleural effusion or pneumothorax. MEDIASTINUM: The heart is markedly enlarged. Marked coronary calcifications are seen. No evidence of septal.The trachea is flattened suggesting tracheomalacia. No mediastinal adenopathy is seen. CHEST WALL/AXILLA: No axillary or internal mammary lymphadenopathy. OSSEOUS STRUCTURES: No acute or suspicious osseous abnormality. UPPER ABDOMEN: Unremarkable. There is gross reflux of contrast into the IVC and hepatic veins to be consistent with elevated right heart pressures. CT/CT angio chest PE protocol IMPRESSION: 1. No evidence of pulmonary emboli. 2. Marked cardiomegaly and evidence of elevated right heart pressures. 3. Tracheomalacia. VTE: Negative. <Reina Finley NP - Last Filed: 11/16/20 22:47> CT abdomen pelvis: Attestation: I personally reviewed and interpreted this imaging study as follows: <Reina Finley NP - Last Filed: 11/16/20 22:47> Radiologist's impression: EXAMINATION: CT ABDOMEN AND PELVIS WITH CONTRAST CLINICAL INFORMATION: Abdominal pain. COMPARISON: CT abdomen and pelvis 12/07/2018. TECHNIQUE: Multidetector volumetric images were obtained from the superior aspect of the liver through the pubic symphysis following administration 85 mL of Omnipaque 350 intravenous contrast. Sagittal and coronal reformatted images were obtained on the technologist's workstation. Oral Contrast: No. This CT examination was performed using dose optimization techniques as appropriate, variously including the following: *Automated exposure control. *Adjustment of mA and/or kV according to patient size (this includes techniques or standardized protocols for targeted exams where dose is matched to indication/reason for exam; i.e. extremities or head). *Use of iterative reconstruction technique. DLP: 752 mGy-cm FINDINGS: LUNG BASES: Marked cardiomegaly and trace right pleural effusion. LIVER, GALLBLADDER, AND BILIARY TREE: The liver is normal in size, shape, and attenuation. No focal hepatic lesion or biliary ductal dilatation is present. The gallbladder is contracted but otherwise unremarkable with no evidence of radiopaque gallstones, gallbladder wall thickening, or obvious pericholecystic inflammatory changes. PANCREAS: Unremarkable. SPLEEN: Unremarkable. ADRENAL GLANDS: Unremarkable. KIDNEYS AND URETERS: The kidneys are normal in size, shape, and attenuation. At least 9 renal masses are seen in the right kidney, none of these really definitively measure water density wall in the range of about 30-40 Hounsfield units. These still most likely represent renal cysts. On the prior CT scan from 12/07/2018, multiple hyperattenuating right renal masses are seen. A few small cysts also present in the left kidney. No hydronephrosis or hydroureter is seen. No definite renal calculi are present but vascular calcifications are noted. BLADDER: Unremarkable. GASTROINTESTINAL TRACT: Diverticular changes present in the colon without diverticulitis. The small and large bowel are unremarkable. The appendix is unremarkable. ABDOMINAL WALL: Significant anasarca is seen in the abdominal wall noted when compared to the 12/07/2018 study. LYMPH NODES: No retroperitoneal lymphadenopathy. VASCULAR: Marked atherosclerotic changes present throughout the aorta iliofemoral system with calcifications and areas of stenoses in the external iliac arteries, common femoral arteries and superficial femoral arteries. No aneurysms. PELVIC VISCERA: An anteverted uterus is present. An abnormal adnexal mass is not seen. A small amount of free intraperitoneal fluid is noted in the cul-de-sac. OSSEOUS STRUCTURES: Degenerative changes present in the spine. CT/CT abdomen pelvis w con IMPRESSION: 1. Marked cardiomegaly. 2. Bilateral renal masses, right greater than left, most likely complicated hyperattenuating cysts. 3. Colonic diverticulosis without diverticulitis. 4. Marked abdominal/pelvic wall anasarca. 5. Severe iliofemoral atherosclerotic disease. <Reina Finley NP - Last Filed: 11/16/20 22:47> Discharge Plan Discharge Clinical Impression: Ischemic cardiomyopathy, SILVER (acute kidney injury) Congestive heart failure Qualifiers: Heart failure type: systolic Heart failure chronicity: acute on chronic Qualified Code(s): I50.23 - Acute on chronic systolic (congestive) heart failure Chest pain Qualifiers: Chest pain type: unspecified Qualified Code(s): R07.9 - Chest pain, unspecified <Alberto Arce NP - Last Filed: 11/16/20 18:15> Patient Disposition: Admitted As Inpatient <Alberto Arce NP - Last Filed: 11/16/20 18:15>
--- NOTE | 2020-11-16 11:50 | ECG_ITS ---
Test Reason : CP Blood Pressure : / mmHG Vent. Rate : 070 BPM Atrial Rate : 044 BPM P-R Int : 000 ms QRS Dur : 126 ms QT Int : 496 ms P-R-T Axes : 000 088 051 degrees QTc Int : 535 ms Normal sinus rhythm with PACs Right bundle branch block Abnormal ECG When compared with ECG of 09-NOV-2020 20:50, QT has lengthened Referred By: Alberto Arce Electronically Signed By:Allan Coley
[2020-11-16 11:54] VITALS: BP 110/60; BP 110/72; PULSE 62; PULSE 74; RESP 20; TEMP 36.5; O2SAT 100; O2SAT 93; BMI 30.9
[2020-11-16] MEDS: Morphine Sulfate 4 MG/ML CARTRIDGE IVPUSH (12:32)
[2020-11-16] MEDS: ondansetron HCL 4 MG/2 ML VIAL IVPUSH (12:32)
[2020-11-16 12:33] LABS: MANUAL DIFF FLAG NO
[2020-11-16 12:36] LABS: Basophils Percent Auto 0.4 % (0-2); Eosinophils Absolute Auto 0.1 X10*3/uL (0.0-0.4); Eosinophils Percent Auto 1.2 % (0-4); Hematocrit 27.3 % (37-47); Hemoglobin 8.5 g/dl (12.0-16.0); Imm Gran Abs Auto 0.02 X10*3/uL (0.00-0.03); Imm Gran Pct Auto 0.3 % (0.0-0.4); Lymphocytes Absolute Auto 1.8 X10*3/uL (1.2-4.9); Lymphocytes Percent Auto 23.7 % (20-40); Mean Corpuscular HGB Conc 31.1 g/dl (31.0-35.0); Mean Corpuscular Hemoglobin 25.6 pg (27.0-33.0); Mean Corpuscular Volume 82.2 fL (80-98); Mean Platelet Volume 11.1 fL (9.4-12.3); Monocytes Absolute Auto 1.2 X10*3/uL (0.1-1.2); Monocytes Percent Auto 16.8 % (2-11); Neutrophils Absolute Auto 4.3 X10*3/uL (2.0-8.3); Neutrophils Percent Auto 57.6 % (45-73); Platelet Count 213 X10*3/uL (160-400); Red Blood Count 3.32 X10*6/uL (4.20-5.50); Red Cell Distribution Width 23.4 % (11.0-16.0); White Blood Count 7.4 X10*3/uL (4.8-10.8)
[2020-11-16 12:42] LABS: INTERNATIONAL NORM RATIO 2.2 (0.9-1.1)
[2020-11-16 12:45] LABS: D Dimer 611 NG/ML; Partial Thromboplastin Time 36.4 SEC (24.1-38.0)
[2020-11-16 12:58] LABS: Alanine Aminotransferase 63 U/L (0-31); Albumin Level 2.9 g/dL (3.5-5.0); Alkaline Phosphatase 362 U/L (39-117); Anion Gap 14 (12-20); Aspartate Amino Transferase 44 U/L (5-31); Bilirubin Total 0.9 mg/dL (0.0-1.0); Blood Urea Nitrogen 31 mg/dL (9-16); Calcium 8.2 mg/dL (8.4-10.2); Carbon Dioxide 22 mmol/L (22-29); Chloride 110 mmol/L (96-108); Estimated Glomerular Filt Rate 37; Glucose Random 120 mg/dL (60-115); Potassium 4.5 mmol/L (3.3-5.1); Sodium 141 mmol/L (135-145); Total Protein 6.6 g/dL (6.5-8.0)
[2020-11-16 13:05] LABS: Troponin-I High Sensitivity 57.3 ng/L (<3.5-17.0)
[2020-11-16 13:11] LABS: COVID-19 Test Negative (Negative)
[2020-11-16 15:14] LABS: B Type Natriuretic Peptide 2506 pg/mL (<100)
[2020-11-16 15:20] VITALS: BP 121/94; PULSE 60; RESP 12; TEMP 37.2; O2SAT 100
[2020-11-16] MEDS: Furosemide 20 MG/2 ML VIAL IVPUSH (16:20)
[2020-11-16] MEDS: 0.9 % Sodium Chloride 500 ML IV (16:23)
[2020-11-16 16:24] VITALS: BP 126/65; PULSE 68; RESP 14; TEMP 36.3; O2SAT 100
--- NOTE | 2020-11-16 17:23 | PC.NURSE ---
Pt refusing CT scan and repeat blood work. Alberto TAILMAN at bedside w/ lozenge maker.
--- NOTE | 2020-11-16 17:32 | PC.NURSE ---
Pt daughter at bedside- pt now agreeable to ct and labs.
[2020-11-16 17:59] VITALS: BP 129/69; PULSE 65; RESP 16; TEMP 36.4; O2SAT 100
[2020-11-16] MEDS: iohexoL 350 MG/ML 100 ML INFUS..BTL IV (18:02)
[2020-11-16 18:09] VITALS: PULSE 61
[2020-11-16 18:27] LABS: Troponin-I High Sensitivity 50.3 ng/L (<3.5-17.0)
[2020-11-16 18:28] LABS: Influenza A PCR NEGATIVE (Negative); Influenza B PCR NEGATIVE (Negative); Resp Syncy Virus RNA Qual PCR NEGATIVE (Negative); SARS COV2 PCR INHOUSE NEGATIVE (Negative)
--- NOTE | 2020-11-16 20:05 | P.HPHOSP_ITS ---
History of Present Illness Date of Service: 11/16/20 Chief Complaint: chest pain, leg pain, shortness of breath This is a 75 year old [place] Speaking female with multiple medical problems who presents to the ED with multiple complaints. Her history was obtained with her daughter at the bedside as well as a wiring mechanic. She has complaints of chest pain which has been going on forever. She is a vague historian and unable to describe the pain well. Her troponin was checked and was 57.3, repeat 50.3. She also reports shortness of breath which has been worse over the past two days. She denies associated cough, fever, or chills. She has abdominal pain in the left lower quadrant as well as left leg pain. There were abrasions noted on her stump, but patient and daughter both deny any trauma. Lab work was significant for anemia which is chronic, mild transaminitis with AST 44, ALT 63. BNP 2506, chest x-ray shows probable pulmonary edema. She underwent a CTA due to elevated D-dimer which showed no evidence of PE. Due to her abdominal pain she underwent a CT scan of her abdomen as well which showed bilateral renal masses which are most likely cysts and no other acute changes to account for her pain. She received a dose of IV Lasix in the decision was made to admit her for further management. Review of Systems Review of Systems: Yes all other systems are reviewed and are negative Constitutional: Constitutional: Denies chills and Denies fever(s) Cardiovascular: Cardiovascular: Reports chest pain and Reports dyspnea Respiratory: Respiratory: Denies cough and Reports dyspnea [facility] Medical History (Updated 11/16/20 @ 20:15 by GAVIN Yang) Afib Asthma Atherosclerotic cardiovascular disease CAD (coronary artery disease) Cardiomyopathy CHF (congestive heart failure) CVA (cerebral vascular accident) Diabetes Hypertension NSVT (nonsustained ventricular tachycardia) Persistent atrial fibrillation PVD (peripheral vascular disease) Functional capacity: wheelchair bound Family History Father Heart attack Mother Heart attack Diabetes Family history: reviewed and not pertinent Surgical History History of esophagogastroduodenoscopy (EGD) Hx of AKA (above knee amputation) Hx of colonoscopy Status post coronary artery bypass graft Social History Household Members: Family Housing: Apartment Alcohol intake: never Smoking Status: Never smoker Advance Directives: Yes Advance Directives on File: Yes Advance Directives Date on File: 09/10/20 service: No Current occupational status: disabled Meds Allergies Allergy/AdvReac Type Severity Reaction Status Date / Time No Known Allergies Allergy Verified 11/16/20 13:38 Active Medications: Current Medications Generic Name Dose Route Start Last Admin Trade Name Freq PRN Reason Stop Dose Admin Insulin Human Lispro 0 unit 11/16/20 21:00 Insulin Lispro 100 Unit/Ml 3 M[facility] Medications Medication Instructions Recorded Confirmed Last Taken Type Eliquis 5 mg PO BID 09/10/20 11/16/20 Unknown History Lantus Solostar U-100 Insulin 26 unit SUBCUT QAM 09/10/20 11/16/20 Unknown History albuterol sulfate [ProAir HFA] 2 puff INHALATION Q4-6H PRN 09/10/20 11/16/20 Unknown History ascorbic acid (vitamin C) 500 mg PO BID 09/10/20 11/16/20 Unknown History aspirin 81 mg PO DAILY 09/10/20 11/16/20 Unknown History atorvastatin 40 mg PO DAILY 09/10/20 11/16/20 Unknown History ferrous sulfate 325 mg PO BID 09/10/20 11/16/20 Unknown History furosemide 40 mg PO DAILY 09/10/20 11/16/20 Unknown History montelukast 10 mg PO BEDTIME 09/10/20 11/16/20 Unknown History nitroglycerin 0.4 mg SUBLINGUAL Q5M PRN 09/10/20 11/16/20 Unknown History Physical Exam Vital Signs and Narrative: Vital Signs: Last Vital Signs Temp 97.6 F 11/16/20 17:59 Pulse 65 11/16/20 17:59 Resp 16 11/16/20 17:59 BP 129/69 11/16/20 17:59 Pulse Ox 100 11/16/20 17:59 Body Mass Index 30.9 Const: General: alert and awake Nutritional Appearance: well nourished HENMT: Head: Yes normocephalic and Yes atraumatic Eyes: Sclerae: sclerae normal Chest: Chest palpation & inspection: normal inspection of the chest Resp: Effort & Inspection: decreased respiratory effort and no respiratory distress Auscultation: wheezes and diminished lung sounds Cardio: Rate: regular rate Rhythm: regular rhythm GI: Palpation (GI): Soft to palpation and nontender Skin: Other: abrasion to left leg as below Neuro: Cranial nerves: Yes CN's II-XII intact bilaterally and Yes Bilaterally intact EOM present Extrem: Other: s/p L BKA abrasions noted to medial aspect of stump; patient screaming and not allowing full examination of area; no ulcers or other wounds appreciated Results Labs CBC and Chem 7: 11/16/20 12:24 11/16/20 12:24 Labs: Laboratory Results - last 24 hr 11/16/20 11/16/20 11/16/20 12:24 12:24 12:24 MCV 82.2 MCH 25.6 L MCHC 31.1 RDW 23.4 H Plt Count 213 MPV 11.1 Immature Gran % (Auto) 0.3 Neut % (Auto) 57.6 Lymph % (Auto) 23.7 Villalba % (Auto) 16.8 H Eos % (Auto) 1.2 Baso % (Auto) 0.4 Lymph # (Auto) 1.8 Villalba # (Auto) 1.2 Eos # (Auto) 0.1 Baso # (Auto) 0.0 Abs Immat Gran (auto) 0.02 Absolute Neuts (auto) 4.3 Absolute Nucleated RBC 0.000 Nucleated RBC % (auto) 0.0 PT 26.0 H INR 2.2 H APTT 36.4 D-Dimer 611 Anion Gap 14 Estim Creat Clear Calc 34.0 Estimated GFR 37 Random Glucose 120 H Calcium 8.2 L Total Bilirubin 0.9 AST 44 H D ALT 63 H Alkaline Phosphatase 362 H D Troponin I High Sens B-Natriuretic Peptide Total Protein 6.6 Albumin 2.9 L Coronavirus (PCR) COVID-19 ([facility]) COVID-19 Clin Com Influenza Type A (PCR) Influenza Type B (PCR) RSV RNA Qual (PCR) 11/16/20 11/16/20 11/16/20 12:24 12:24 12:41 MCV MCH MCHC RDW Plt Count MPV Immature Gran % (Auto) Neut % (Auto) Lymph % (Auto) Villalba % (Auto) Eos % (Auto) Baso % (Auto) Lymph # (Auto) Villalba # (Auto) Eos # (Auto) Baso # (Auto) Abs Immat Gran (auto) Absolute Neuts (auto) Absolute Nucleated RBC Nucleated RBC % (auto) PT INR APTT D-Dimer Anion Gap Estim Creat Clear Calc Estimated GFR Random Glucose Calcium Total Bilirubin AST ALT Alkaline Phosphatase Troponin I High Sens 57.3 H D B-Natriuretic Peptide 2506 H Total Protein Albumin Coronavirus (PCR) COVID-19 ([facility]) Negative COVID-19 Clin Com See Note Influenza Type A (PCR) Influenza Type B (PCR) RSV RNA Qual (PCR) 11/16/20 11/16/20 17:33 17:41 MCV MCH MCHC RDW Plt Count MPV Immature Gran % (Auto) Neut % (Auto) Lymph % (Auto) Villalba % (Auto) Eos % (Auto) Baso % (Auto) Lymph # (Auto) Villalba # (Auto) Eos # (Auto) Baso # (Auto) Abs Immat Gran (auto) Absolute Neuts (auto) Absolute Nucleated RBC Nucleated RBC % (auto) PT INR APTT D-Dimer Anion Gap Estim Creat Clear Calc Estimated GFR Random Glucose Calcium Total Bilirubin AST ALT Alkaline Phosphatase Troponin I High Sens 50.3 H B-Natriuretic Peptide Total Protein Albumin Coronavirus (PCR) NEGATIVE COVID-19 ([facility]) COVID-19 Clin Com Influenza Type A (PCR) NEGATIVE Influenza Type B (PCR) NEGATIVE RSV RNA Qual (PCR) NEGATIVE Imaging Radiologist's Impressions: Impressions Chest X-Ray 11/16/20 11:49 IMPRESSION: Stable enlargement of the cardiac silhouette and probable pulmonary edema. Chest CTA 11/16/20 15:47 IMPRESSION: 1. No evidence of pulmonary emboli. 2. Marked cardiomegaly and evidence of elevated right heart pressures. 3. Tracheomalacia. VTE: Negative. Abdomen/Pelvis CT 11/16/20 16:23 IMPRESSION: 1. Marked cardiomegaly. 2. Bilateral renal masses, right greater than left, most likely complicated hyperattenuating cysts. 3. Colonic diverticulosis without diverticulitis. 4. Marked abdominal/pelvic wall anasarca. 5. Severe iliofemoral atherosclerotic disease. Assessment and Plan (1) Ischemic cardiomyopathy: Status: Acute (2) Paroxysmal atrial fibrillation: Status: Acute (3) Congestive heart failure: Qualifiers: Heart failure chronicity: unspecified Heart failure type: unspecified Qualified Code(s): I50.9 - Heart failure, unspecified Status: Acute This is a 75-year-old [place]-speaking female with a history of CAD, HFrEF, diabetes, asthma, PVD, hypertension, dyslipidemia who presents to the emergency department with shortness of breath and chest pain found to have elevated BNP Acute on chronic HFrEF ECHO from 10/14/20 shows 1.Severely reduced LV ejection fraction with LVEF of 20-25% with regional wall motion abnormality consistent with ischemic cardiomyopathy with grade 3 diastolic dysfunction. 2. Dilated IVC without collapsibility suggestive significantly elevated right atrial pressures with moderately elevated right ventricular systolic pressure -I&Os, daily weight, low sodium diet -IV Lasix -continue losartan, metoprolol -cardiology consult -per previous cardiology notes - pt prognosis guarded mild transaminitis likely r/t hepatic congestion in setting of chf -trend liver function left leg stump pain seems r/t abrasions in the area of pain will get xray h/o NSVT in setting of severe ischemic CM had planned for outpatient Holter on last admission, has not yet followed up with cardiology Continue metoprolol afib continue metoprolol AC with Eliquis CKD3 Creatinine at baseline anemia h/h at baseline follow CBC Chest pain h/o CAD trops flat Continue aspirin, statin, BB Hypertension Continue metoprolol Diabetes Will decrease dose of Lantus -SSI, POC, ADA diet DVT prophylaxis-Eliquis Code status-full code. Code status was discussed with the patient's HCP Alison (daughter). Her severe heart disease and poor prognosis was discussed. She states this is the 1st time she has been told about her mother severe heart disease. For now she would like mother to continue to be a full code. THis will likely need further discussion. This case was discussed with Dr. Marie
[2020-11-16 20:32] LABS: Glucose, Whole Blood 56 mg/dL (60-115)
--- NOTE | 2020-11-16 20:46 | PC.NURSE ---
Pt alert, eating and drinking at this time. denies complaints. will recehck poc in 30mins then q2hrs per hospitalistt
[2020-11-16 20:47] VITALS: BP 127/76; PULSE 72; RESP 18; O2SAT 96
[2020-11-16 21:15] LABS: Glucose, Whole Blood 101 mg/dL (60-115)
--- NOTE | 2020-11-16 22:21 | PC.NURSE ---
x1 attempt to give report- awaiting return phone call
[2020-11-17] VITALS (8 sets, daily range): BP systolic 95–141; BP diastolic 50–71; PULSE 54–80; RESP 16–18; TEMP 36.2–36.8; O2SAT 98–100; BMI 30.9
[2020-11-17] MEDS: Montelukast Sodium 10 MG TABLET PO ×2 (00:03→21:12)
[2020-11-17] MEDS: Metoprolol Tartrate 25 MG TABLET 12.5 MG PO ×3 (00:03→21:12)
[2020-11-17] MEDS: Ascorbic Acid 500 MG TABLET PO ×3 (00:03→21:12)
[2020-11-17] MEDS: Apixaban 5 MG TABLET PO ×3 (00:04→21:12)
[2020-11-17] MEDS: 0.9 % Sodium Chloride Flush 3 ML SYRINGE IVFLUSH ×4 (00:06→23:51)
[2020-11-17 00:25] LABS: Glucose, Whole Blood 96 mg/dL (60-115)
[2020-11-17 01:54] LABS: Glucose, Whole Blood 112 mg/dL (60-115)
[2020-11-17 06:06] LABS: Eosinophils Absolute Auto 0.1 X10*3/uL (0.0-0.4); PLT ABN DIST 1; Red Blood Count 3.29 X10*6/uL (4.20-5.50); SCAN SMEAR FLAG 1
[2020-11-17 06:09] LABS: Basophils Percent Auto 0.5 % (0-2); Hematocrit 27.1 % (37-47); Hemoglobin 8.3 g/dl (12.0-16.0); Imm Gran Abs Auto 0.02 X10*3/uL (0.00-0.03); Imm Gran Pct Auto 0.3 % (0.0-0.4); Lymphocytes Absolute Auto 1.5 X10*3/uL (1.2-4.9); Lymphocytes Percent Auto 24.2 % (20-40); Mean Corpuscular HGB Conc 30.6 g/dl (31.0-35.0); Mean Corpuscular Hemoglobin 25.2 pg (27.0-33.0); Mean Corpuscular Volume 82.4 fL (80-98); Mean Platelet Volume 11.5 fL (9.4-12.3); Monocytes Percent Auto 17.2 % (2-11); Neutrophils Absolute Auto 3.3 X10*3/uL (2.0-8.3); Neutrophils Percent Auto 55.8 % (45-73); Platelet Count 183 X10*3/uL (160-400); Red Cell Distribution Width 23.1 % (11.0-16.0)
[2020-11-17 06:16] LABS: MANUAL DIFF FLAG NO
[2020-11-17 06:31] LABS: B Type Natriuretic Peptide 2527 pg/mL (<100)
[2020-11-17 06:35] LABS: Alanine Aminotransferase 50 U/L (0-31); Albumin Level 2.7 g/dL (3.5-5.0); Alkaline Phosphatase 325 U/L (39-117); Anion Gap 12 (12-20); Aspartate Amino Transferase 31 U/L (5-31); Bilirubin Direct 0.5 mg/dL (0.0-0.5); Bilirubin Total 0.9 mg/dL (0.0-1.0); Blood Urea Nitrogen 32 mg/dL (9-16); Carbon Dioxide 21 mmol/L (22-29); Chloride 111 mmol/L (96-108); Creatinine Clr Calc Pharmacy 31.5; Estimated Glomerular Filt Rate 34; Glucose Random 94 mg/dL (60-115); Potassium 4.2 mmol/L (3.3-5.1); Sodium 140 mmol/L (135-145); Total Protein 6.1 g/dL (6.5-8.0)
[2020-11-17 06:45] LABS: Glucose, Whole Blood 98 mg/dL (60-115)
[2020-11-17 06:45] LABS: Glucose, Whole Blood 97 mg/dL (60-115)
[2020-11-17 07:42] LABS: Glucose, Whole Blood 79 mg/dL (60-115)
[2020-11-17] MEDS: Insulin Glargine,Hum.rec.anlog 100 UNIT/ML 10 ML VIAL 15 UNIT SUBCUT (09:16)
[2020-11-17] MEDS: Furosemide 40 MG/4 ML VIAL IVPUSH ×2 (09:17→19:16)
[2020-11-17] MEDS: Ferrous Sulfate 324 MG TABLET.DR PO ×2 (09:18→19:16)
[2020-11-17] MEDS: Valsartan 80 MG TABLET PO (09:19)
[2020-11-17] MEDS: Aspirin Enteric Coated 81 MG TABLET.DR PO (09:19)
[2020-11-17 09:50] LABS: Glucose, Whole Blood 162 mg/dL (60-115)
--- NOTE | 2020-11-17 09:58 | PC.NURSE ---
was notified by [employer] that patient had a 9 beat, spoke with Dottie [facility] nurse, coleertexted Dr. Ivory.
--- NOTE | 2020-11-17 11:17 | MHC.CM.PN ---
IMM 11/17/20, EMR REVIEWED, PT ADMITTED WITH CHF EXACERBATION, PT ATTEMPTED TO MEET WITH PT USING AN BENDER HELPER, PT ALERT TO NAME AND HOME ADDRESS, PT UNABLE TO ANSWER MANY QUESTIONS, CM ATTEMPTED TO CALL PT'S DAUGHTER REINALDO SALMERON AND LEFT MESSAGE AT [phone].CM WILL LOOK FOR ADDITIONAL CONTACT NUMBER FOR DAUGHTER.
--- NOTE | 2020-11-17 11:30 | HO.PM.IMPN ---
Subjective Subjective Date of Service: 11/17/20 Interval History: feels well Cardiovascular Cardiovascular: Reports no additional cardiovascular complaints Respiratory Respiratory: Reports no additional respiratory complaints Physical Exam Vital Signs: Vital Signs: Last Vital Signs Temp 97.4 F 11/17/20 07:26 Pulse 80 11/17/20 07:26 Resp 18 11/17/20 07:26 BP 110/62 11/17/20 07:26 Pulse Ox 99 11/17/20 07:26 Body Mass Index 30.9 General: AO X 3, no acute distress Resp: CTA bilateral CVS: S1,S2,RRR GI: soft, non tender, non distended Neuro: motor grossly intact Psych: appropriate affect Objective Data Current Medications Generic Name Dose Route Start Last Admin Trade Name Freq PRN Reason Stop Dose Admin Acetaminophen 650 mg 11/16/20 23:00 Acetaminophen 325 Mg Tablet PO Q6H PRN Pain, Mild (Pain Scale 1-3) Apixaban 5 mg 11/16/20 23:00 11/17/20 09:17 Apixaban 5 Mg Tablet PO 5 mg BID [facility] Administration Ascorbic Acid 500 mg 11/16/20 23:00 11/17/20 09:19 Ascorbic Acid 500 Mg Tablet PO 500 mg BID G[facility]O Administration Aspirin 81 mg 11/17/20 09:00 11/17/20 09:19 Aspirin Enteric Coated 81 Mg Tablet. PO 81 mg DAILY GABO Administration Atorvastatin Calcium 40 mg 11/17/20 22:00 Atorvastatin Calcium 40 Mg Tablet PO DAILY@2200 [facility] Docusate Sodium 100 mg 11/16/20 23:00 Docusate Sodium 100 Mg Capsule PO DAILY PRN Constipation Ferrous Sulfate 324 mg 11/17/20 08:30 11/17/20 09:18 Ferrous Sulfate 324 Mg Tablet. PO 324 mg BIDPC [facility] Administration Furosemide 40 mg 11/17/20 09:00 11/17/20 09:17 Furosemide 40 Mg/4 Ml Vial IVPUSH 40 mg BID@0900,1800 [facility] Administration Protocol Insulin Glargine 15 unit 11/17/20 09:00 11/17/20 09:16 Insulin Glargine,Hum.Rec.Anlog 100 Unit/Ml 10 Ml Vial SUBCUT 15 unit DAILY [facility] Administration Insulin Human Lispro 0 unit 11/16/20 21:00 11/17/20 08:03 Insulin Lispro 100 Unit/Ml 3 Ml Vial SUBCUT Not Given QIDACHS [facility] Metoprolol Tartrate 12.5 mg 11/16/20 23:00 11/17/20 09:17 Metoprolol Tartrate 25 Mg Tablet PO 12.5 mg BID GABO Administration Protocol Montelukast Sodium 10 mg 11/16/20 23:00 11/17/20 00:03 Montelukast Sodium 10 Mg Tablet PO 10 mg BEDTIME [facility] Administration Ondansetron HCl 4 mg 11/16/20 23:00 Ondansetron Hcl 4 Mg/2 Ml Vial IVPUSH Q8H PRN Nausea and Vomiting Sodium Chloride 3 ml 11/17/20 00:00 11/17/20 09:16 0.9 % Sodium Chloride Flush 3 Ml Syringe IVFLUSH 3 ml QSHIFT [facility]O Administration Valsartan 80 mg 11/17/20 09:00 11/17/20 09:19 Valsartan 80 Mg Tablet PO 80 mg DAILY GABO Administration Protocol Labs CBC & Chem 7: 11/17/20 05:48 11/17/20 05:48 Assessment and Plan (1) Ischemic cardiomyopathy: Status: Acute (2) Paroxysmal atrial fibrillation: Status: Acute (3) Congestive heart failure: Status: Acute Assessment and Plan: This is a 75-year-old Estonian-speaking female with a history of CAD, HFrEF, diabetes, asthma, PVD, hypertension, dyslipidemia who presents to the emergency department with shortness of breath and chest pain found to have elevated BNP Acute on chronic HFrEF ECHO from 10/14/20 shows Severely reduced LV ejection fraction with LVEF of 20-25% with regional wall motion abnormality consistent with ischemic cardiomyopathy with grade 3 diastolic dysfunction. 2. Dilated IVC without collapsibility suggestive significantly elevated right atrial pressures with moderately elevated right ventricular systolic pressure continue lasix, carrie, beta blcoker cardio follow up left leg stump pain seems r/t abrasions in the area of pain no OM h/o NSVT in setting of severe ischemic CM had planned for outpatient Holter on last admission, has not yet followed up with cardiology Continue metoprolol, had 9 beat NSVT afib continue metoprolol AC with Eliquis CKD3 Creatinine at baseline anemia h/h at baseline follow CBC Chest pain h/o CAD trops flat Continue aspirin, statin, BB Hypertension Continue metoprolol Diabetes insulin
--- NOTE | 2020-11-17 11:54 | MHC.CM.PN ---
CM ATTEMPTED TO CALL PTS DAUGHTER/HCP AT [phone], SECOND MESSAGE AT 11:53AM, PER RECORDS PT WAS DISCHARGED IN OCTOBER WITH [facility], PER PT SHE HAS A NURSE TWICE A WEEK, DAUGHTER REINALDO IS ALSO HER SINK MAKER 24HR WKLY, PT LIVES WITH DAUGHTER. DISCHARGE PLAN: HOME W/RESUMPTION OF [facility] AND S[facility] HRS, PT MAY NEED TRANSPORTATION.
[2020-11-17 11:58] LABS: Glucose, Whole Blood 153 mg/dL (60-115)
[2020-11-17 11:58] LABS: Glucose, Whole Blood 162 mg/dL (60-115)
--- NOTE | 2020-11-17 12:05 | PM.CNCAR ---
History of Present Illness History of Present Illness Date of Service: 11/17/20 Requesting physician: Peter Ivory Chief complaint: CHF Narrative: 75-year-old female with background history of bypass surgery, paroxysmal atrial fibrillation, ischemic cardiomyopathy with EF 15%, COPD, history of tobacco abuse and CVA. She has bilateral lower extremity amputations in the past from peripheral vascular disease. She is presenting with shortness of breath. 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 On questioning she said her breathing is good now. She denied any chest discomfort. She said she has been taking medications regularly. Patient has been seen few times in the past with similar issues. She has advanced cardiomyopathy, previous bypass, bilateral peripheral vascular disease with amputations and CVA. There were discussion with family in the past about goals of care but it appears she has continues to be full code. Review of Systems Review of Systems: Yes Unobtainable due to mental condition [facility] Past Medical History Medical History (Updated 11/17/20 @ 12:09 by Allan Coley MD) Afib Asthma Atherosclerotic cardiovascular disease CAD (coronary artery disease) Cardiomyopathy CHF (congestive heart failure) CVA (cerebral vascular accident) Diabetes Hypertension NSVT (nonsustained ventricular tachycardia) Persistent atrial fibrillation PVD (peripheral vascular disease) Functional capacity: wheelchair bound Family History Family History Father Heart attack Mother Heart attack Diabetes Family history: reviewed and not pertinent Surgical History Surgical History History of esophagogastroduodenoscopy (EGD) Hx of AKA (above knee amputation) Hx of colonoscopy Status post coronary artery bypass graft Social History Social History (Updated 11/17/20 @ 11:22 by Shalini Traore) Household Members: Children Housing: Unknown / Unable to assess Alcohol intake: current Alcohol intake frequency: does not drink Smoking Status: Never smoker Use of substances other than those prescribed or required for medical reasons: No Advance Directives Date on File: 09/10/20 service: No Current occupational status: disabled Meds Allergies Allergy/AdvReac Type Severity Reaction Status Date / Time No Known Allergies Allergy Verified 11/17/20 11:21 Active Medications: Current Medications Generic Name Dose Route Start Last Admin Trade Name Daphne PRN Reason Stop Dose Admin Acetaminophen 650 mg 11/16/20 23:00 Acetaminophen 325 Mg Tablet PO Q6H PRN Pain, Mild (Pain Scale 1-3) Apixaban 5 mg 11/16/20 23:00 11/17/20 09:17 Apixaban 5 Mg Tablet PO 5 mg BID GABO Administration Ascorbic Acid 500 mg 11/16/20 23:00 11/17/20 09:19 Ascorbic Acid 500 Mg Tablet PO 500 mg BID GABO Administration Aspirin 81 mg 11/17/20 09:00 11/17/20 09:19 Aspirin Enteric Coated 81 Mg Tablet. PO 81 mg DAILY GABO Administration Atorvastatin Calcium 40 mg 11/17/20 22:00 Atorvastatin Calcium 40 Mg Tablet PO DAILY@2200 [facility] Docusate Sodium 100 mg 11/16/20 23:00 Docusate Sodium 100 Mg Capsule PO DAILY PRN Constipation Ferrous Sulfate 324 mg 11/17/20 08:30 11/17/20 09:18 Ferrous Sulfate 324 Mg Tablet. PO 324 mg BIDPC [facility] Administration Furosemide 40 mg 11/17/20 09:00 11/17/20 09:17 Furosemide 40 Mg/4 Ml Vial IVPUSH 40 mg BID@0900,1800 [facility] Administration Protocol Insulin Glargine 15 unit 11/17/20 09:00 11/17/20 09:16 Insulin Glargine,Hum.Rec.Anlog 100 Unit/Ml 10 Ml Vial SUBCUT 15 unit DAILY [facility] Administration Insulin Human Lispro 0 unit 11/16/20 21:00 11/17/20 08:03 Insulin Lispro 100 Unit/Ml 3 Ml Vial SUBCUT Not Given QIDACHS [facility] Metoprolol Tartrate 12.5 mg 11/16/20 23:00 11/17/20 09:17 Metoprolol Tartrate 25 Mg Tablet PO 12.5 mg BID [facility] Administration Protocol Montelukast Sodium 10 mg 11/16/20 23:00 11/17/20 00:03 Montelukast Sodium 10 Mg Tablet PO 10 mg BEDTIME GABO Administration Ondansetron HCl 4 mg 11/16/20 23:00 Ondansetron Hcl 4 Mg/2 Ml Vial IVPUSH Q8H PRN Nausea and Vomiting Sodium Chloride 3 ml 11/17/20 00:00 11/17/20 09:16 0.9 % Sodium Chloride Flush 3 Ml Syringe IVFLUSH 3 ml QSHIFT [facility] Administration Valsartan 80 mg 11/17/20 09:00 11/17/20 09:19 Valsartan 80 Mg Tablet PO 80 mg DAILY [facility] Administration Protocol Home Medications Medication Instructions Recorded Confirmed Last Taken Type Eliquis 5 mg PO BID 09/10/20 11/16/20 Unknown History Lantus Solostar U-100 Insulin 26 unit SUBCUT QAM 09/10/20 11/16/20 Unknown History albuterol sulfate [ProAir HFA] 2 puff INHALATION Q4-6H PRN 09/10/20 11/16/20 Unknown History ascorbic acid (vitamin C) 500 mg PO BID 09/10/20 11/16/20 Unknown History aspirin 81 mg PO DAILY 09/10/20 11/16/20 Unknown History atorvastatin 40 mg PO DAILY 09/10/20 11/16/20 Unknown History ferrous sulfate 325 mg PO BID 09/10/20 11/16/20 Unknown History furosemide 40 mg PO DAILY 09/10/20 11/16/20 Unknown History montelukast 10 mg PO BEDTIME 09/10/20 11/16/20 Unknown History nitroglycerin 0.4 mg SUBLINGUAL Q5M PRN 09/10/20 11/16/20 Unknown History Physical Exam Vital Signs: Vital Signs: Last Vital Signs Temp 97.4 F 11/17/20 11:51 Pulse 79 11/17/20 11:51 Resp 18 11/17/20 11:51 BP 119/66 11/17/20 11:51 Pulse Ox 98 11/17/20 11:51 Body Mass Index 30.9 GENERAL APPEARANCE: Ill-appearing. HEENT: unremarkable. HEAD: normocephalic, atraumatic. NECK/THYROID: Distended neck veins to the angle of jaw. SKIN: Left below-knee amputation and site has some erythema. HEART: no murmurs, regular rate and rhythm, S1, S2 normal. LUNGS: clear to auscultation bilaterally. ABDOMEN: normal, bowel sounds present, soft, nontender, nondistended. EXTREMITIES: no clubbing, cyanosis. 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 1+ edema on the left stump. NEUROLOGIC: Awake, following commands, garbled speech. PSYCH: Depressed. Results Labs and Meds Result diagrams: 11/17/20 05:48 11/17/20 05:48 Lab results: Laboratory Results - last 24 hr 11/16/20 11/16/20 11/16/20 12:24 12:24 12:24 WBC 7.4 RBC 3.32 L Hgb 8.5 L Hct 27.3 L MCV 82.2 MCH 25.6 L MCHC 31.1 RDW 23.4 H Plt Count 213 MPV 11.1 Immature Gran % (Auto) 0.3 Neut % (Auto) 57.6 Lymph % (Auto) 23.7 [place] % (Auto) 16.8 H Eos % (Auto) 1.2 Baso % (Auto) 0.4 Lymph # (Auto) 1.8 [place] # (Auto) 1.2 Eos # (Auto) 0.1 Baso # (Auto) 0.0 Abs Immat Gran (auto) 0.02 Absolute Neuts (auto) 4.3 Absolute Nucleated RBC 0.000 Nucleated RBC % (auto) 0.0 PT 26.0 H INR 2.2 H APTT 36.4 D-Dimer 611 Sodium 141 Potassium 4.5 Chloride 110 H Carbon Dioxide 22 Anion Gap 14 BUN 31 H Creatinine 1.39 Estim Creat Clear Calc 34.0 Estimated GFR 37 POC Glucose Random Glucose 120 H Calcium 8.2 L Magnesium 2.0 Total Bilirubin 0.9 Direct Bilirubin AST 44 H D ALT 63 H Alkaline Phosphatase 362 H D Troponin I High Sens B-Natriuretic Peptide Total Protein 6.6 Albumin 2.9 L Coronavirus (PCR) COVID-19 ([facility]) COVID-19 Clin Com Influenza Type A (PCR) Influenza Type B (PCR) RSV RNA Qual (PCR) 11/16/20 11/16/20 11/16/20 12:24 12:24 12:41 WBC RBC Hgb Hct MCV MCH MCHC RDW Plt Count MPV Immature Gran % (Auto) Neut % (Auto) Lymph % (Auto) [place] % (Auto) Eos % (Auto) Baso % (Auto) Lymph # (Auto) [place] # (Auto) Eos # (Auto) Baso # (Auto) Abs Immat Gran (auto) Absolute Neuts (auto) Absolute Nucleated RBC Nucleated RBC % (auto) PT INR APTT D-Dimer Sodium Potassium Chloride Carbon Dioxide Anion Gap BUN Creatinine Estim Creat Clear Calc Estimated GFR POC Glucose Random Glucose Calcium Magnesium Total Bilirubin Direct Bilirubin AST ALT Alkaline Phosphatase Troponin I High Sens 57.3 H D B-Natriuretic Peptide 2506 H Total Protein Albumin Coronavirus (PCR) COVID-19 ([facility]) Negative COVID-19 Clin Com See Note Influenza Type A (PCR) Influenza Type B (PCR) RSV RNA Qual (PCR) 11/16/20 11/16/20 11/16/20 17:33 17:41 20:29 WBC RBC Hgb Hct MCV MCH MCHC RDW Plt Count MPV Immature Gran % (Auto) Neut % (Auto) Lymph % (Auto) [place] % (Auto) Eos % (Auto) Baso % (Auto) Lymph # (Auto) [place] # (Auto) Eos # (Auto) Baso # (Auto) Abs Immat Gran (auto) Absolute Neuts (auto) Absolute Nucleated RBC Nucleated RBC % (auto) PT INR APTT D-Dimer Sodium Potassium Chloride Carbon Dioxide Anion Gap BUN Creatinine Estim Creat Clear Calc Estimated GFR POC Glucose 56 L* Random Glucose Calcium Magnesium Total Bilirubin Direct Bilirubin AST ALT Alkaline Phosphatase Troponin I High Sens 50.3 H B-Natriuretic Peptide Total Protein Albumin Coronavirus (PCR) NEGATIVE COVID-19 ([facility]) COVID-19 Clin Com Influenza Type A (PCR) NEGATIVE Influenza Type B (PCR) NEGATIVE RSV RNA Qual (PCR) NEGATIVE 11/16/20 11/17/20 11/17/20 21:10 00:19 01:50 WBC RBC Hgb Hct MCV MCH MCHC RDW Plt Count MPV Immature Gran % (Auto) Neut % (Auto) Lymph % (Auto) [place] % (Auto) Eos % (Auto) Baso % (Auto) Lymph # (Auto) [place] # (Auto) Eos # (Auto) Baso # (Auto) Abs Immat Gran (auto) Absolute Neuts (auto) Absolute Nucleated RBC Nucleated RBC % (auto) PT INR APTT D-Dimer Sodium Potassium Chloride Carbon Dioxide Anion Gap BUN Creatinine Estim Creat Clear Calc Estimated GFR POC Glucose 101 96 112 Random Glucose Calcium Magnesium Total Bilirubin Direct Bilirubin AST ALT Alkaline Phosphatase Troponin I High Sens B-Natriuretic Peptide Total Protein Albumin Coronavirus (PCR) COVID-19 ([facility]) COVID-19 Clin Com Influenza Type A (PCR) Influenza Type B (PCR) RSV RNA Qual (PCR) 02/16/21 02/16/21 02/16/21 04:47 05:48 05:48 WBC 6.0 RBC 3.29 L Hgb 8.3 L Hct 27.1 L MCV 82.4 MCH 25.2 L MCHC 30.6 L RDW 23.1 H Plt Count 183 MPV 11.5 Immature Gran % (Auto) 0.3 Neut % (Auto) 55.8 Lymph % (Auto) 24.2 [place] % (Auto) 17.2 H Eos % (Auto) 2.0 Baso % (Auto) 0.5 Lymph # (Auto) 1.5 [place] # (Auto) 1.0 Eos # (Auto) 0.1 Baso # (Auto) 0.0 Abs Immat Gran (auto) 0.02 Absolute Neuts (auto) 3.3 Absolute Nucleated RBC 0.000 Nucleated RBC % (auto) 0.0 PT INR APTT D-Dimer Sodium 140 Potassium 4.2 Chloride 111 H Carbon Dioxide 21 L Anion Gap 12 BUN 32 H Creatinine 1.50 H Estim Creat Clear Calc 31.5 Estimated GFR 34 POC Glucose 98 Random Glucose 94 Calcium 8.0 L Magnesium Total Bilirubin 0.9 Direct Bilirubin 0.5 AST 31 ALT 50 H Alkaline Phosphatase 325 H Troponin I High Sens B-Natriuretic Peptide Total Protein 6.1 L Albumin 2.7 L Coronavirus (PCR) COVID-19 ([facility]) COVID-19 Clin Com Influenza Type A (PCR) Influenza Type B (PCR) RSV RNA Qual (PCR) 11/17/20 11/17/20 11/17/20 05:48 05:52 07:23 WBC RBC Hgb Hct MCV MCH MCHC RDW Plt Count MPV Immature Gran % (Auto) Neut % (Auto) Lymph % (Auto) [place] % (Auto) Eos % (Auto) Baso % (Auto) Lymph # (Auto) [place] # (Auto) Eos # (Auto) Baso # (Auto) Abs Immat Gran (auto) Absolute Neuts (auto) Absolute Nucleated RBC Nucleated RBC % (auto) PT INR APTT D-Dimer Sodium Potassium Chloride Carbon Dioxide Anion Gap BUN Creatinine Estim Creat Clear Calc Estimated GFR POC Glucose 97 79 Random Glucose Calcium Magnesium Total Bilirubin Direct Bilirubin AST ALT Alkaline Phosphatase Troponin I High Sens B-Natriuretic Peptide 2527 H Total Protein Albumin Coronavirus (PCR) COVID-19 ([facility]) COVID-19 Clin Com Influenza Type A (PCR) Influenza Type B (PCR) RSV RNA Qual (PCR) 11/17/20 11/17/20 11/17/20 09:46 11:15 11:50 WBC RBC Hgb Hct MCV MCH MCHC RDW Plt Count MPV Immature Gran % (Auto) Neut % (Auto) Lymph % (Auto) [place] % (Auto) Eos % (Auto) Baso % (Auto) Lymph # (Auto) [place] # (Auto) Eos # (Auto) Baso # (Auto) Abs Immat Gran (auto) Absolute Neuts (auto) Absolute Nucleated RBC Nucleated RBC % (auto) PT INR APTT D-Dimer Sodium Potassium Chloride Carbon Dioxide Anion Gap BUN Creatinine Estim Creat Clear Calc Estimated GFR POC Glucose 162 H 162 H 153 H Random Glucose Calcium Magnesium Total Bilirubin Direct Bilirubin AST ALT Alkaline Phosphatase Troponin I High Sens B-Natriuretic Peptide Total Protein Albumin Coronavirus (PCR) COVID-19 ([facility]) COVID-19 Clin Com Influenza Type A (PCR) Influenza Type B (PCR) RSV RNA Qual (PCR) Imaging Radiologist's impression: Impressions Chest X-Ray 11/16/20 11:49 IMPRESSION: Stable enlargement of the cardiac silhouette and probable pulmonary edema. Chest CTA 11/16/20 15:47 IMPRESSION: 1. No evidence of pulmonary emboli. 2. Marked cardiomegaly and evidence of elevated right heart pressures. 3. Tracheomalacia. VTE: Negative. Abdomen/Pelvis CT 11/16/20 16:23 IMPRESSION: 1. Marked cardiomegaly. 2. Bilateral renal masses, right greater than left, most likely complicated hyperattenuating cysts. 3. Colonic diverticulosis without diverticulitis. 4. Marked abdominal/pelvic wall anasarca. 5. Severe iliofemoral atherosclerotic disease. Femur X-Ray 11/16/20 20:08 IMPRESSION: Diffuse soft tissue swelling and extensive vascular calcification. No acute bony abnormality. Assessment and Plan (1) Ischemic cardiomyopathy: Status: Acute (2) Paroxysmal atrial fibrillation: Status: Acute (3) Peripheral vascular disease: Status: Acute 75-year-old female with complex medical issues including previous bypass surgery, ischemic cardiomyopathy with severely reduced ejection fraction, paroxysmal atrial fibrillation, kidney issues, peripheral vascular disease bilateral amputations and CVA. She also was a heavy smoker and has lung disease. Clinically she looks overloaded. Continue IV diuretics at 40 mg IV b.i.d.. If she does not diurese well with that then please increase the diuretics to 80 mg IV b.i.d.. She has a poor prognosis in my opinion given multiple issues as described above. She needs goals of care discussion and will benefit from hospice input. She does not need repeat echocardiography because it will not change our management plan. If creatinine is stable then resume her valsartan. Also once diuresed consider changing her to Toprol-XL 25 mg once a day. Follow-up with Dr. Curtis. Thank you for allowing me to participate in the care of your patient. Please feel free to contact me if you have any questions.
--- NOTE | 2020-11-17 12:18 | MHC.CM.PN ---
CM received call back from pt's daughter/HCP Alison at 12pm, pt's daughter verifies pt has [facility] visits once a week, pt cont's with 24hr/week [facility] hours. Pt uses a wheelchair, can assist with transfers. Pt's daughter requesting home O2 and reports pt's breathing has been getting worse. CM sent message to provider requesting home OT eval. Pt's daughter or son can transport pt. CM made referral for resumption of care with [facility], no discharge planned for today. DISCHARGE PLAN: HOME W/RESUMPTION OF [facility] HRS, FAMILY TO TRANSPORT
[2020-11-17 14:41] LABS: Glucose, Whole Blood 134 mg/dL (60-115)
[2020-11-17 16:57] LABS: Glucose, Whole Blood 141 mg/dL (60-115)
[2020-11-17 18:00] LABS: Glucose, Whole Blood 109 mg/dL (60-115)
[2020-11-17 20:14] LABS: Glucose, Whole Blood 130 mg/dL (60-115)
[2020-11-17] MEDS: Atorvastatin Calcium 40 MG TABLET PO (21:12)
[2020-11-17 22:13] LABS: Glucose, Whole Blood 116 mg/dL (60-115)
[2020-11-18] VITALS (9 sets, daily range): BP systolic 107–133; BP diastolic 51–71; PULSE 53–69; RESP 18–22; TEMP 36.4–37.2; O2SAT 95–100
[2020-11-18 00:56] LABS: Glucose, Whole Blood 91 mg/dL (60-115)
[2020-11-18 05:06] LABS: Glucose, Whole Blood 97 mg/dL (60-115)
[2020-11-18 05:06] LABS: Glucose, Whole Blood 114 mg/dL (60-115)
--- NOTE | 2020-11-18 05:09 | PC.NURSE ---
Addendum entered by Bianca Kennedy RN 11/18/20 05:34: IDIOVENTRICULAR BURST Original Note: PATIENT IS A 75 YEAR OLD FEMALE WITH DX:CHF AND BEING MONITORED BY TELEPAK WITH [facility] [place] AND [facility] [employer] LAUNDR[employer] ARTICLES. CALL WAS RECEIVED ON AND ANSWERED BY [facility] RN FOR A 9 BEAT VTACH SHOWING AT 0400, [facility] RN OBSERVED PT WHOM WAS SLEEPING WITH NO DISTRESS, ALSO VIEWED CARDIAC MONITORING SCREEN. PT THERE AFTER MONITORED FREQUENTLY BY THIS HYDRAULIC PRESS IN OPERATOR AND FOUND TO BE SLEEPING WELL. ARASH BY [facility] [place] [employer] AND GRINDER TENDER.L 0440 BY [facility] S[employer]TER [employer]UNDRY ARTICLES FOR A VENTIRICULAR BURST AND THIS TIME MESSAGE RELAYED TO [facility] [place] [employer] GRIND[employer] TENDER WHO WAS ROUNDING AND ON THIS FLOOR. ADVISED NO CALL TO REPORT TO MD NEEDED AT THIS TIME
[2020-11-18 06:41] LABS: MANUAL DIFF FLAG NO
[2020-11-18 07:09] LABS: Basophils Absolute Auto 0.1 X10*3/uL (0.0-0.2); Basophils Percent Auto 0.7 % (0-2); Eosinophils Absolute Auto 0.1 X10*3/uL (0.0-0.4); Eosinophils Percent Auto 1.2 % (0-4); Hematocrit 25.3 % (37-47); Imm Gran Abs Auto 0.03 X10*3/uL (0.00-0.03); Imm Gran Pct Auto 0.4 % (0.0-0.4); Lymphocytes Absolute Auto 2.2 X10*3/uL (1.2-4.9); Lymphocytes Percent Auto 29.9 % (20-40); Mean Corpuscular HGB Conc 31.6 g/dl (31.0-35.0); Mean Corpuscular Hemoglobin 25.6 pg (27.0-33.0); Mean Corpuscular Volume 81.1 fL (80-98); Mean Platelet Volume 12.4 fL (9.4-12.3); Monocytes Absolute Auto 1.3 X10*3/uL (0.1-1.2); Monocytes Percent Auto 17.5 % (2-11); Neutrophils Absolute Auto 3.7 X10*3/uL (2.0-8.3); Neutrophils Percent Auto 50.3 % (45-73); Platelet Count 191 X10*3/uL (160-400); Red Blood Count 3.12 X10*6/uL (4.20-5.50); Red Cell Distribution Width 22.5 % (11.0-16.0); White Blood Count 7.4 X10*3/uL (4.8-10.8)
[2020-11-18 07:38] LABS: Glucose, Whole Blood 81 mg/dL (60-115)
[2020-11-18] MEDS: Insulin Glargine,Hum.rec.anlog 100 UNIT/ML 10 ML VIAL 15 UNIT SUBCUT (08:32)
[2020-11-18] MEDS: Furosemide 40 MG/4 ML VIAL IVPUSH (08:32)
[2020-11-18] MEDS: Aspirin Enteric Coated 81 MG TABLET.DR PO (08:33)
[2020-11-18] MEDS: Apixaban 5 MG TABLET PO ×2 (08:33→20:46)
[2020-11-18] MEDS: Ferrous Sulfate 324 MG TABLET.DR PO ×2 (08:33→17:11)
[2020-11-18] MEDS: 0.9 % Sodium Chloride Flush 3 ML SYRINGE IVFLUSH ×3 (08:33→23:37)
[2020-11-18] MEDS: Valsartan 80 MG TABLET PO (08:33)
[2020-11-18] MEDS: Ascorbic Acid 500 MG TABLET PO ×2 (08:33→20:47)
[2020-11-18 09:19] LABS: Anion Gap 13 (12-20); Blood Urea Nitrogen 43 mg/dL (9-16); Calcium 8.1 mg/dL (8.4-10.2); Carbon Dioxide 20 mmol/L (22-29); Chloride 106 mmol/L (96-108); Creatinine Clr Calc Pharmacy 21.4; Estimated Glomerular Filt Rate 22; Glucose Random 70 mg/dL (60-115); Magnesium 2.1 mg/dL (1.6-2.6); Potassium 4.4 mmol/L (3.3-5.1); Sodium 135 mmol/L (135-145)
--- NOTE | 2020-11-18 10:09 | HO.PM.IMPN ---
Subjective Subjective Date of Service: 11/18/20 Interval History: feels fine Cardiovascular Cardiovascular: Reports no additional cardiovascular complaints Respiratory Respiratory: Reports no additional respiratory complaints Physical Exam Vital Signs: Vital Signs: Last Vital Signs Temp 97.7 F 11/18/20 08:00 Pulse 58 11/18/20 08:34 Resp 22 H 11/18/20 08:00 BP 125/64 11/18/20 08:00 Pulse Ox 100 11/18/20 08:00 Body Mass Index 30.9 General: Alert, no acute distress Resp: CTA bilateral CVS: S1,S2,RRR GI: soft, non tender, non distended Neuro: motor grossly intact Psych: impaired insight Objective Data Current Medications Generic Name Dose Route Start Last Admin Trade Name Freq PRN Reason Stop Dose Admin Acetaminophen 650 mg 11/16/20 23:00 Acetaminophen 325 Mg Tablet PO Q6H PRN Pain, Mild (Pain Scale 1-3) Apixaban 5 mg 11/16/20 23:00 11/18/20 08:33 Apixaban 5 Mg Tablet PO 5 mg BID GABO Administration Ascorbic Acid 500 mg 11/16/20 23:00 11/18/20 08:33 Ascorbic Acid 500 Mg Tablet PO 500 mg BID GABO Administration Aspirin 81 mg 11/17/20 09:00 11/18/20 08:33 Aspirin Enteric Coated 81 Mg Tablet. PO 81 mg DAILY GABO Administration Atorvastatin Calcium 40 mg 11/17/20 22:00 11/17/20 21:12 Atorvastatin Calcium 40 Mg Tablet PO 40 mg DAILY@2200 GABO Administration Docusate Sodium 100 mg 11/16/20 23:00 Docusate Sodium 100 Mg Capsule PO DAILY PRN Constipation Ferrous Sulfate 324 mg 11/17/20 08:30 11/18/20 08:33 Ferrous Sulfate 324 Mg Tablet. PO 324 mg BIDPC [facility] Administration Insulin Glargine 15 unit 11/17/20 09:00 11/18/20 08:32 Insulin Glargine,Hum.Rec.Anlog 100 Unit/Ml 10 Ml Vial SUBCUT 15 unit DAILY GABO Administration Insulin Human Lispro 0 unit 11/17/20 21:00 11/18/20 08:19 Insulin Lispro 100 Unit/Ml 3 Ml Vial SUBCUT Not Given QIDACHS [facility] Protocol Metoprolol Tartrate 12.5 mg 11/16/20 23:00 11/18/20 08:34 Metoprolol Tartrate 25 Mg Tablet PO Not Given BID GABO Protocol Montelukast Sodium 10 mg 11/16/20 23:00 11/17/20 21:12 Montelukast Sodium 10 Mg Tablet PO 10 mg BEDTIME GABO Administration Ondansetron HCl 4 mg 11/16/20 23:00 Ondansetron Hcl 4 Mg/2 Ml Vial IVPUSH Q8H PRN Nausea and Vomiting Sodium Chloride 3 ml 11/17/20 00:00 11/18/20 08:33 0.9 % Sodium Chloride Flush 3 Ml Syringe IVFLUSH 3 ml QSHIFT GABO Administration Valsartan 80 mg 11/17/20 09:00 11/18/20 08:33 Valsartan 80 Mg Tablet PO 80 mg DAILY GABO Administration Protocol Labs CBC & Chem 7: 11/18/20 05:41 11/18/20 08:46 Assessment and Plan (1) Ischemic cardiomyopathy: Status: Acute (2) Paroxysmal atrial fibrillation: Status: Acute (3) Congestive heart failure: Status: Acute Assessment and Plan: This is a 75-year-old Bahraini-speaking female with a history of CAD, HFrEF, diabetes, asthma, PVD, hypertension, dyslipidemia who presents to the emergency department with shortness of breath and chest pain found to have elevated BNP now with worsening renal function Acute on chronic HFrEF ECHO from 10/14/20 shows Severely reduced LV ejection fraction with LVEF of 20-25% with regional wall motion abnormality consistent with ischemic cardiomyopathy with grade 3 diastolic dysfunction. 2. Dilated IVC without collapsibility suggestive significantly elevated right atrial pressures with moderately elevated right ventricular systolic pressure hold lasix and arb for akiko, continue beta blcoker cardio follow up poor overall prognosis left leg stump pain seems r/t abrasions in the area of pain no OM h/o NSVT in setting of severe ischemic CM had planned for outpatient Holter on last admission, has not yet followed up with cardiology Continue metoprolol, had 9 beat NSVT afib continue metoprolol AC with Eliquis CKD3 Creatinine at baseline anemia h/h at baseline follow CBC Chest pain h/o CAD trops flat Continue aspirin, statin, BB Hypertension Continue metoprolol Diabetes insulin
[2020-11-18 11:44] LABS: Glucose, Whole Blood 132 mg/dL (60-115)
[2020-11-18 16:48] LABS: Glucose, Whole Blood 165 mg/dL (60-115)
[2020-11-18] MEDS: Insulin Lispro 100 UNIT/ML 3 ML VIAL SUBCUT ×2 (17:11→20:47)
[2020-11-18 20:39] LABS: Glucose, Whole Blood 192 mg/dL (60-115)
[2020-11-18] MEDS: Metoprolol Tartrate 25 MG TABLET 12.5 MG PO (20:45)
[2020-11-18] MEDS: Montelukast Sodium 10 MG TABLET PO (20:46)
[2020-11-18] MEDS: Atorvastatin Calcium 40 MG TABLET PO (20:47)
[2020-11-18] MEDS: Acetaminophen 325 MG TABLET 650 MG PO (23:43)
[2020-11-19] VITALS (7 sets, daily range): BP systolic 99–169; BP diastolic 58–100; PULSE 53–67; RESP 18–22; TEMP 36.1–36.6; O2SAT 96–100
[2020-11-19 06:07] LABS: Eosinophils Absolute Auto 0.1 X10*3/uL (0.0-0.4); Hematocrit 26.5 % (37-47); Hemoglobin 8.3 g/dl (12.0-16.0); Mean Corpuscular HGB Conc 31.3 g/dl (31.0-35.0); Mean Corpuscular Volume 79.8 fL (80-98); PLT ABN DIST 1; Red Blood Count 3.32 X10*6/uL (4.20-5.50); SCAN SMEAR FLAG 1
[2020-11-19 06:09] LABS: Basophils Percent Auto 0.6 % (0-2); Imm Gran Abs Auto 0.02 X10*3/uL (0.00-0.03); Imm Gran Pct Auto 0.3 % (0.0-0.4); Lymphocytes Absolute Auto 1.6 X10*3/uL (1.2-4.9); Lymphocytes Percent Auto 23.3 % (20-40); Monocytes Absolute Auto 1.1 X10*3/uL (0.1-1.2); Monocytes Percent Auto 16.3 % (2-11); Neutrophils Absolute Auto 4.1 X10*3/uL (2.0-8.3); Neutrophils Percent Auto 58.5 % (45-73); Platelet Count 204 X10*3/uL (160-400); Red Cell Distribution Width 22.5 % (11.0-16.0); White Blood Count 6.9 X10*3/uL (4.8-10.8)
[2020-11-19 06:15] LABS: MANUAL DIFF FLAG NO
[2020-11-19 06:43] LABS: Anion Gap 16 (12-20); Blood Urea Nitrogen 49 mg/dL (9-16); Calcium 7.6 mg/dL (8.4-10.2); Carbon Dioxide 17 mmol/L (22-29); Chloride 106 mmol/L (96-108); Creatinine Clr Calc Pharmacy 15.3; Estimated Glomerular Filt Rate 15; Glucose Fasting 194 mg/dL (60-99); Sodium 134 mmol/L (135-145)
[2020-11-19] MEDS: Metoprolol Tartrate 25 MG TABLET 12.5 MG PO ×2 (07:57→21:50)
[2020-11-19] MEDS: Ascorbic Acid 500 MG TABLET PO ×2 (07:57→21:50)
[2020-11-19] MEDS: Ferrous Sulfate 324 MG TABLET.DR PO (07:57)
[2020-11-19] MEDS: Apixaban 5 MG TABLET PO (07:57)
[2020-11-19] MEDS: Aspirin Enteric Coated 81 MG TABLET.DR PO (07:57)
[2020-11-19] MEDS: Insulin Lispro 100 UNIT/ML 3 ML VIAL SUBCUT ×2 (07:58→11:40)
[2020-11-19] MEDS: 0.9 % Sodium Chloride Flush 3 ML SYRINGE IVFLUSH ×3 (07:58→19:06)
[2020-11-19] MEDS: Insulin Glargine,Hum.rec.anlog 100 UNIT/ML 10 ML VIAL 15 UNIT SUBCUT (07:59)
[2020-11-19 08:08] LABS: Glucose, Whole Blood 174 mg/dL (60-115)
--- NOTE | 2020-11-19 09:16 | P.PNIM_ITS ---
Subjective Subjective Date of Service: 11/19/20 Physical Exam Vital Signs: Vital Signs: Last Vital Signs Temp 97.5 F 11/19/20 07:25 Pulse 53 11/19/20 07:25 Resp 21 H 11/19/20 07:25 BP 99/58 L 11/19/20 07:25 Pulse Ox 96 11/19/20 07:25 Body Mass Index 30.9 General: Alert, no acute distress Resp: CTA bilateral CVS: S1,S2,RRR GI: soft, non tender, non distended Neuro: motor grossly intact Psych: appropriate affect Objective Data Current Medications Generic Name Dose Route Start Last Admin Trade Name Freq PRN Reason Stop Dose Admin Acetaminophen 650 mg 11/16/20 23:00 11/18/20 23:43 Acetaminophen 325 Mg Tablet PO 650 mg Q6H PRN Administration Pain, Mild (Pain Scale 1-3) Apixaban 5 mg 11/16/20 23:00 11/19/20 07:57 Apixaban 5 Mg Tablet PO 5 mg BID GABO Administration Ascorbic Acid 500 mg 11/16/20 23:00 11/19/20 07:57 Ascorbic Acid 500 Mg Tablet PO 500 mg BID GABO Administration Aspirin 81 mg 11/17/20 09:00 11/19/20 07:57 Aspirin Enteric Coated 81 Mg Tablet. PO 81 mg DAILY GABO Administration Atorvastatin Calcium 40 mg 11/17/20 22:00 11/18/20 20:47 Atorvastatin Calcium 40 Mg Tablet PO 40 mg DAILY@2200 GABO Administration Docusate Sodium 100 mg 11/16/20 23:00 Docusate Sodium 100 Mg Capsule PO DAILY PRN Constipation Ferrous Sulfate 324 mg 11/17/20 08:30 11/19/20 07:57 Ferrous Sulfate 324 Mg Tablet. PO 324 mg BIDPC [facility] Administration Insulin Glargine 15 unit 11/17/20 09:00 11/19/20 07:59 Insulin Glargine,Hum.Rec.Anlog 100 Unit/Ml 10 Ml Vial SUBCUT 15 unit DAILY [facility] Administration Insulin Human Lispro 0 unit 11/17/20 21:00 11/19/20 07:58 Insulin Lispro 100 Unit/Ml 3 Ml Vial SUBCUT 2 unit QIDACHS [facility] Administration Protocol Metoprolol Tartrate 12.5 mg 11/16/20 23:00 11/19/20 07:57 Metoprolol Tartrate 25 Mg Tablet PO 12.5 mg BID GABO Administration Protocol Montelukast Sodium 10 mg 11/16/20 23:00 11/18/20 20:46 Montelukast Sodium 10 Mg Tablet PO 10 mg BEDTIME GABO Administration Ondansetron HCl 4 mg 11/16/20 23:00 Ondansetron Hcl 4 Mg/2 Ml Vial IVPUSH Q8H PRN Nausea and Vomiting Sodium Chloride 3 ml 11/17/20 00:00 11/19/20 07:58 0.9 % Sodium Chloride Flush 3 Ml Syringe IVFLUSH 3 ml QSHIFT GABO Administration Labs CBC & Chem 7: 11/19/20 05:42 11/19/20 05:42 Assessment and Plan (1) Ischemic cardiomyopathy: Status: Acute (2) Paroxysmal atrial fibrillation: Status: Acute (3) Congestive heart failure: Status: Acute Assessment and Plan: This is a 75-year-old Luxembourgish-speaking female with a history of CAD, HFrEF, diabetes, asthma, PVD, hypertension, dyslipidemia who presents to the emergency department with shortness of breath and chest pain found to have elevated BNP now with worsening renal function Acute on chronic HFrEF ECHO from 10/14/20 shows Severely reduced LV ejection fraction with LVEF of 20-25% with regional wall motion abnormality consistent with ischemic cardiomyopathy with grade 3 diastolic dysfunction. 2. Dilated IVC without collapsibility suggestive significantly elevated right atrial pressures with moderately elevated right lolita tricular systolic pressure hold lasix and arb for silver, continue beta blcoker cardio follow up poor overall prognosis SILVER worsening today, will get nephro eval continue to monitor left leg stump pain seems r/t abrasions in the area of pain no OM h/o NSVT in setting of severe ischemic CM had planned for outpatient Holter on last admission, has not yet followed up with cardiology Continue metoprolol, had 9 beat NSVT afib continue metoprolol AC with Eliquis CKD3 Creatinine at baseline anemia h/h at baseline follow CBC Chest pain h/o CAD trops flat Continue aspirin, statin, BB Hypertension Continue metoprolol Diabetes insulin
--- NOTE | 2020-11-19 10:29 | P.PNCA_ITS ---
Subjective Subjective Date of Service: 11/19/20 Interval history: no significant change SIVLER. Off diuretics. Physical Exam Vital Signs: Last Vital Signs Temp 97.5 F 11/19/20 07:25 Pulse 53 11/19/20 07:25 Resp 21 H 11/19/20 07:25 BP 99/58 L 11/19/20 07:25 Pulse Ox 96 11/19/20 07:25 Body Mass Index 30.9 GENERAL APPEARANCE: Ill-appearing. HEENT: unremarkable. HEAD: normocephalic, atraumatic. NECK/THYROID: Distended neck veins to the angle of jaw. HEART: no murmurs, regular rate and rhythm, S1, S2 normal. LUNGS: clear to auscultation bilaterally. ABDOMEN: normal, bowel sounds present, soft, nontender, nondistended. EXTREMITIES: no clubbing, cyanosis. 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 1+ edema on the left stump. NEUROLOGIC: Awake, following commands, garbled speech. PSYCH: Depressed. Results Labs and Meds Result diagrams: 11/19/20 05:42 11/19/20 05:42 Lab results: Laboratory Results - last 24 hr 11/18/20 11/18/20 11/18/20 11:40 16:36 20:24 WBC RBC Hgb Hct MCV MCH MCHC RDW Plt Count MPV Immature Gran % (Auto) Neut % (Auto) Lymph % (Auto) [place] % (Auto) Eos % (Auto) Baso % (Auto) Lymph # (Auto) [place] # (Auto) Eos # (Auto) Baso # (Auto) Abs Immat Gran (auto) Absolute Neuts (auto) Absolute Nucleated RBC Nucleated RBC % (auto) Sodium Potassium Chloride Carbon Dioxide Anion Gap BUN Creatinine Estim Creat Clear Calc Estimated GFR POC Glucose 132 H 165 H 192 H Fasting Glucose Calcium 11/19/20 11/19/20 11/19/20 05:42 05:42 07:24 WBC 6.9 RBC 3.32 L Hgb 8.3 L Hct 26.5 L MCV 79.8 L MCH 25.0 L MCHC 31.3 RDW 22.5 H Plt Count 204 MPV 11.0 Immature Gran % (Auto) 0.3 Neut % (Auto) 58.5 Lymph % (Auto) 23.3 [place] % (Auto) 16.3 H Eos % (Auto) 1.0 Baso % (Auto) 0.6 Lymph # (Auto) 1.6 [place] # (Auto) 1.1 Eos # (Auto) 0.1 Baso # (Auto) 0.0 Abs Immat Gran (auto) 0.02 Absolute Neuts (auto) 4.1 Absolute Nucleated RBC 0.000 Nucleated RBC % (auto) 0.0 Sodium 134 L Potassium 5.0 Chloride 106 Carbon Dioxide 17 L Anion Gap 16 BUN 49 H Creatinine 3.08 H Estim Creat Clear Calc 15.3 Estimated GFR 15 POC Glucose 174 H Fasting Glucose 194 H D Calcium 7.6 L D Progress Note: A&P Assessment and plan (1) Peripheral vascular disease: Status: Acute (2) SILVER (acute kidney injury): Status: Acute (3) Ischemic cardiomyopathy: Status: Acute (4) Paroxysmal atrial fibrillation: Status: Acute Assessment and Plan: 75-year-old female with multiple complex issues including CVA, previous CABG and ICM EF 10-15%, PAF on eliquis and CKD. Admitted with CHF. Creatinine worsened with diuresis. Hold further diuretics. Decreased the dose of Eliquis to 2.5 mg BID. Not a candidate for advanced heart failure options like LVAD or transplant. She has been admitted multiple times and has a poor prognosis. Please involve Hospice. Please page if any questions. Fall Risk Details Current Medications: Current Medications Generic Name Dose Route Start Last Admin Trade Name Freq PRN Reason Stop Dose Admin Acetaminophen 650 mg 11/16/20 23:00 11/18/20 23:43 Acetaminophen 325 Mg Tablet PO 650 mg Q6H PRN Administration Pain, Mild (Pain Scale 1-3) Apixaban 2.5 mg 11/20/20 09:00 Apixaban 2.5 Mg Tablet PO BID GABO Ascorbic Acid 500 mg 11/16/20 23:00 11/19/20 07:57 Ascorbic Acid 500 Mg Tablet PO 500 mg BID GABO Administration Aspirin 81 mg 11/17/20 09:00 11/19/20 07:57 Aspirin Enteric Coated 81 Mg Tablet. PO 81 mg DAILY GABO Administration Atorvastatin Calcium 40 mg 11/17/20 22:00 11/18/20 20:47 Atorvastatin Calcium 40 Mg Tablet PO 40 mg DAILY@2200 GABO Administration Docusate Sodium 100 mg 11/16/20 23:00 Docusate Sodium 100 Mg Capsule PO DAILY PRN Constipation Ferrous Sulfate 324 mg 11/17/20 08:30 11/19/20 07:57 Ferrous Sulfate 324 Mg Tablet.Dr PO 324 mg BIDPC GABO Administration Insulin Glargine 15 unit 11/17/20 09:00 11/19/20 07:59 Insulin Glargine,Hum.Rec.Anlog 100 Unit/Ml 10 Ml Vial SUBCUT 15 unit DAILY GABO Administration Insulin Human Lispro 0 unit 11/17/20 21:00 11/19/20 07:58 Insulin Lispro 100 Unit/Ml 3 Ml Vial SUBCUT 2 unit QIDACHS [facility] Administration Protocol Metoprolol Tartrate 12.5 mg 11/16/20 23:00 11/19/20 07:57 Metoprolol Tartrate 25 Mg Tablet PO 12.5 mg BID GABO Administration Protocol Montelukast Sodium 10 mg 11/16/20 23:00 11/18/20 20:46 Montelukast Sodium 10 Mg Tablet PO 10 mg BEDTIME GABO Administration Ondansetron HCl 4 mg 11/16/20 23:00 Ondansetron Hcl 4 Mg/2 Ml Vial IVPUSH Q8H PRN Nausea and Vomiting Sodium Chloride 3 ml 11/17/20 00:00 11/19/20 07:58 0.9 % Sodium Chloride Flush 3 Ml Syringe IVFLUSH 3 ml QSHIFT [facility] Administration Time Spent With Patient Time: Total time spent is greater than 50% in coordination of care (as docfaran mal) at patient's floor/unit and/or counseling patient: Time with patient: less than 15 minutes
--- NOTE | 2020-11-19 11:15 | MHC.CM.PN ---
PER MULTIDISCIPLINARY ROUNDS NO PLAN FOR DISCHARGE TODAY, PT HAS WORSENING RENAL FUNCTION AND PROVIDER HAS BEEN IN CONTACT WITH [facility] HOWEVER NO DECISION HAS BEEN MADE THUS FAR. CM WILL CONTINUE TO MONITOR DISCHARGE NEEDS.
[2020-11-19 11:44] LABS: Glucose, Whole Blood 193 mg/dL (60-115)
[2020-11-19] MEDS: Acetaminophen 325 MG TABLET 650 MG PO (15:53)
[2020-11-19 16:36] LABS: Glucose, Whole Blood 173 mg/dL (60-115)
--- NOTE | 2020-11-19 17:07 | PM.CNNEP ---
History of Present Illness Reason for Consult Consult date: 11/19/20 Chief Complaint Chief complaint: CHF History of Present Illness Narrative: Kat is a 75 year old Croatian Speaking female with multiple medical problems who presents to the ED with multiple complaints. Her history was obtained with her daughter at the bedside as well as a certified court/medical interpreter. She has complaints of chest pain which has been going on forever. She is a vague historian and unable to describe the pain well. Her troponin was checked and was 57.3, repeat 50.3. She also reports shortness of breath which has been worse over the past two days. She denies associated cough, fever, or chills. She has abdominal pain in the left lower quadrant as well as left leg pain. There were abrasions noted on her stump, but patient and daughter both deny any trauma. Lab work was significant for anemia which is chronic, mild transaminitis with AST 44, ALT 63. BNP 2506, chest x-ray shows probable pulmonary edema. She underwent a CTA due to elevated D-dimer which showed no evidence of PE. Due to her abdominal pain she underwent a CT scan of her abdomen as well which showed bilateral renal masses which are most likely cysts and no other acute changes to account for her pain. She was admitted for further management. Her serum creatinine has gone up from her baseline. Nephrology has been consulted to assist in her clinical care during her current hospital stay. Review of Systems Review of Systems Yes all other systems are reviewed and are negative and Other PMFSH Past Medical History Medical History Afib Asthma Atherosclerotic cardiovascular disease CAD (coronary artery disease) Cardiomyopathy CHF (congestive heart failure) CVA (cerebral vascular accident) Diabetes Hypertension NSVT (nonsustained ventricular tachycardia) Persistent atrial fibrillation PVD (peripheral vascular disease) Functional capacity: wheelchair bound Family History Family History Father Heart attack Mother Heart attack Diabetes Family history: reviewed and not pertinent Surgical History Surgical History History of esophagogastroduodenoscopy (EGD) Hx of AKA (above knee amputation) Hx of colonoscopy Status post coronary artery bypass graft Social History Social History Household Members: Children Housing: Unknown / Unable to assess Alcohol intake: current Alcohol intake frequency: does not drink Smoking Status: Never smoker Advance Directives Date on File: 09/10/20 service: No Current occupational status: disabled Meds Allergies Allergy/AdvReac Type Severity Reaction Status Date / Time No Known Allergies Allergy Verified 11/17/20 11:21 Active Medications: Current Medications Generic Name Dose Route Start Last Admin Trade Name Freq PRN Reason Stop Dose Admin Acetaminophen 650 mg 11/16/20 23:00 11/19/20 15:53 Acetaminophen 325 Mg Tablet PO 650 mg Q6H PRN Administration Pain, Mild (Pain Scale 1-3) Apixaban 2.5 mg 11/20/20 09:00 Apixaban 2.5 Mg Tablet PO BID GABO Ascorbic Acid 500 mg 11/16/20 23:00 11/19/20 07:57 Ascorbic Acid 500 Mg Tablet PO 500 mg BID GABO Administration Aspirin 81 mg 11/17/20 09:00 11/19/20 07:57 Aspirin Enteric Coated 81 Mg Tablet. PO 81 mg DAILY GABO Administration Atorvastatin Calcium 40 mg 11/17/20 22:00 11/18/20 20:47 Atorvastatin Calcium 40 Mg Tablet PO 40 mg DAILY@2200 GABO Administration Docusate Sodium 100 mg 11/16/20 23:00 Docusate Sodium 100 Mg Capsule PO DAILY PRN Constipation Ferrous Sulfate 324 mg 11/17/20 08:30 11/19/20 07:57 Ferrous Sulfate 324 Mg Tablet. PO 324 mg BIDPC GABO Administration Furosemide 40 mg 11/19/20 18:00 Furosemide 40 Mg/4 Ml Vial IVPUSH BID@0900,1800 [facility] Protocol Insulin Glargine 15 unit 11/17/20 09:00 11/19/20 07:59 Insulin Glargine,Hum.Rec.Anlog 100 Unit/Ml 10 Ml Vial SUBCUT 15 unit DAILY GABO Administration Insulin Human Lispro 0 unit 11/17/20 21:00 11/19/20 11:40 Insulin Lispro 100 Unit/Ml 3 Ml Vial SUBCUT 2 unit QIDACHS [facility] Administration Protocol Metoprolol Tartrate 12.5 mg 11/16/20 23:00 11/19/20 07:57 Metoprolol Tartrate 25 Mg Tablet PO 12.5 mg BID GABO Administration Protocol Montelukast Sodium 10 mg 11/16/20 23:00 11/18/20 20:46 Montelukast Sodium 10 Mg Tablet PO 10 mg BEDTIME GABO Administration Ondansetron HCl 4 mg 11/16/20 23:00 Ondansetron Hcl 4 Mg/2 Ml Vial IVPUSH Q8H PRN Nausea and Vomiting Sodium Chloride 3 ml 11/17/20 00:00 11/19/20 15:55 0.9 % Sodium Chloride Flush 3 Ml Syringe IVFLUSH 3 ml QSHIFT GABO Administration Home Medications Medication Instructions Recorded Confirmed Last Taken Type Eliquis 5 mg PO BID 09/10/20 11/16/20 Unknown History Lantus Solostar U-100 Insulin 26 unit SUBCUT QAM 09/10/20 11/16/20 Unknown History albuterol sulfate [ProAir HFA] 2 puff INHALATION Q4-6H PRN 09/10/20 11/16/20 Unknown History ascorbic acid (vitamin C) 500 mg PO BID 09/10/20 11/16/20 Unknown History aspirin 81 mg PO DAILY 09/10/20 11/16/20 Unknown History atorvastatin 40 mg PO DAILY 09/10/20 11/16/20 Unknown History ferrous sulfate 325 mg PO BID 09/10/20 11/16/20 Unknown History furosemide 40 mg PO DAILY 09/10/20 11/16/20 Unknown History montelukast 10 mg PO BEDTIME 09/10/20 11/16/20 Unknown History nitroglycerin 0.4 mg SUBLINGUAL Q5M PRN 09/10/20 11/16/20 Unknown History Physical Exam Vital Signs: Last Vital Signs Temp 97.6 F 11/19/20 15:43 Pulse 67 11/19/20 15:43 Resp 18 11/19/20 15:43 BP 169/100 H 11/19/20 15:43 Pulse Ox 97 11/19/20 15:43 Body Mass Index 30.9 Const General: cooperative Neck Neck: Yes JVD Resp Auscultation: diminished lung sounds Cardio Rate: regular rate GI Palpation (GI): Soft to palpation Neuro Other: Alert and awake Results Lab Results Result Diagrams: 11/19/20 05:42 11/19/20 05:42 Lab results: Chemistry 11/17/20 11/18/20 11/18/20 05:48 05:41 08:46 Sodium 140 Cancelled 135 Potassium 4.2 Cancelled 4.4 Carbon Dioxide 21 L Cancelled 20 L BUN 32 H Cancelled 43 H Creatinine 1.50 H Cancelled 2.21 H Calcium 8.0 L Cancelled 8.1 L 11/19/20 05:42 Sodium 134 L Potassium 5.0 Carbon Dioxide 17 L BUN 49 H Creatinine 3.08 H Calcium 7.6 L D Hematology 11/17/20 11/18/20 11/19/20 05:48 05:41 05:42 WBC 6.0 7.4 6.9 Hgb 8.3 L 8.0 L 8.3 L Plt Count 183 191 204 Assessment and Plan (1) SILVER (acute kidney injury): Problem details: Has CKD 3 at baseline SILVER due to IV contrast and CHF No ACEI/ ARB; Start lasix 40 mg IV bid Fluid restriction/ 2 Gram Na restriction Daily weights; Labs AM No indication for renal replacement Shall closely follow up Status: Acute
[2020-11-19] MEDS: Furosemide 40 MG/4 ML VIAL IVPUSH (19:05)
[2020-11-19 20:41] LABS: Glucose, Whole Blood 146 mg/dL (60-115)
[2020-11-19] MEDS: Atorvastatin Calcium 40 MG TABLET PO (21:50)
[2020-11-19] MEDS: Montelukast Sodium 10 MG TABLET PO (21:50)
[2020-11-20] VITALS (7 sets, daily range): BP systolic 105–142; BP diastolic 42–65; PULSE 51–94; RESP 14–20; TEMP 36.6–37; O2SAT 96–100
[2020-11-20 06:33] LABS: MANUAL DIFF FLAG NO
[2020-11-20 07:19] LABS: Basophils Percent Auto 0.3 % (0-2); Eosinophils Absolute Auto 0.1 X10*3/uL (0.0-0.4); Eosinophils Percent Auto 1.9 % (0-4); Hematocrit 26.2 % (37-47); Hemoglobin 8.5 g/dl (12.0-16.0); Imm Gran Abs Auto 0.03 X10*3/uL (0.00-0.03); Imm Gran Pct Auto 0.4 % (0.0-0.4); Lymphocytes Absolute Auto 1.8 X10*3/uL (1.2-4.9); Lymphocytes Percent Auto 23.7 % (20-40); Mean Corpuscular HGB Conc 32.4 g/dl (31.0-35.0); Mean Corpuscular Hemoglobin 26.1 pg (27.0-33.0); Mean Corpuscular Volume 80.4 fL (80-98); Mean Platelet Volume 11.2 fL (9.4-12.3); Monocytes Absolute Auto 1.2 X10*3/uL (0.1-1.2); Monocytes Percent Auto 16.1 % (2-11); Neutrophils Absolute Auto 4.3 X10*3/uL (2.0-8.3); Neutrophils Percent Auto 57.6 % (45-73); Platelet Count 194 X10*3/uL (160-400); Red Blood Count 3.26 X10*6/uL (4.20-5.50); Red Cell Distribution Width 22.6 % (11.0-16.0); White Blood Count 7.5 X10*3/uL (4.8-10.8)
[2020-11-20 07:24] LABS: Anion Gap 15 (12-20); Blood Urea Nitrogen 60 mg/dL (9-16); Calcium 7.6 mg/dL (8.4-10.2); Carbon Dioxide 18 mmol/L (22-29); Chloride 107 mmol/L (96-108); Creatinine Clr Calc Pharmacy 12.6; Estimated Glomerular Filt Rate 12; Glucose Fasting 140 mg/dL (60-99); Potassium 5.3 mmol/L (3.3-5.1); Sodium 135 mmol/L (135-145)
[2020-11-20 07:52] LABS: Glucose, Whole Blood 135 mg/dL (60-115)
[2020-11-20] MEDS: Metoprolol Tartrate 25 MG TABLET 12.5 MG PO ×2 (09:30→22:20)
[2020-11-20] MEDS: Apixaban 2.5 MG TABLET PO ×2 (09:33→22:20)
[2020-11-20] MEDS: Ascorbic Acid 500 MG TABLET PO ×2 (09:33→22:20)
[2020-11-20] MEDS: Aspirin Enteric Coated 81 MG TABLET.DR PO (09:33)
[2020-11-20] MEDS: Ferrous Sulfate 324 MG TABLET.DR PO ×2 (09:33→16:48)
[2020-11-20] MEDS: Insulin Glargine,Hum.rec.anlog 100 UNIT/ML 10 ML VIAL 15 UNIT SUBCUT (09:33)
[2020-11-20] MEDS: 0.9 % Sodium Chloride Flush 3 ML SYRINGE IVFLUSH ×3 (09:36→22:21)
--- NOTE | 2020-11-20 10:17 | HO.PM.IMPN ---
Subjective Subjective Date of Service: 11/20/20 Interval History: feels fine Cardiovascular Cardiovascular: Reports no additional cardiovascular complaints Respiratory Respiratory: Reports no additional respiratory complaints Physical Exam Vital Signs: Vital Signs: Last Vital Signs Temp 98.3 F 11/20/20 07:19 Pulse 91 11/20/20 09:30 Resp 17 11/20/20 07:19 BP 113/53 L 11/20/20 09:30 Pulse Ox 96 11/20/20 07:19 Body Mass Index 30.9 General: Alert, no acute distress Resp: CTA bilateral CVS: S1,S2,RRR GI: soft, non tender, non distended Neuro: motor grossly intact Psych: appropriate affect Objective Data Current Medications Generic Name Dose Route Start Last Admin Trade Name Freq PRN Reason Stop Dose Admin Acetaminophen 650 mg 11/16/20 23:00 11/19/20 15:53 Acetaminophen 325 Mg Tablet PO 650 mg Q6H PRN Administration Pain, Mild (Pain Scale 1-3) Apixaban 2.5 mg 11/20/20 09:00 11/20/20 09:33 Apixaban 2.5 Mg Tablet PO 2.5 mg BID GABO Administration Ascorbic Acid 500 mg 11/16/20 23:00 11/20/20 09:33 Ascorbic Acid 500 Mg Tablet PO 500 mg BID GABO Administration Aspirin 81 mg 11/17/20 09:00 11/20/20 09:33 Aspirin Enteric Coated 81 Mg Tablet. PO 81 mg DAILY GABO Administration Atorvastatin Calcium 40 mg 11/17/20 22:00 11/19/20 21:50 Atorvastatin Calcium 40 Mg Tablet PO 40 mg DAILY@2200 GABO Administration Docusate Sodium 100 mg 11/16/20 23:00 Docusate Sodium 100 Mg Capsule PO DAILY PRN Constipation Ferrous Sulfate 324 mg 11/17/20 08:30 11/20/20 09:33 Ferrous Sulfate 324 Mg Tablet. PO 324 mg BIDPC [facility] Administration Insulin Glargine 15 unit 11/17/20 09:00 11/20/20 09:33 Insulin Glargine,Hum.Rec.Anlog 100 Unit/Ml 10 Ml Vial SUBCUT 15 unit DAILY GABO Administration Insulin Human Lispro 0 unit 11/17/20 21:00 11/20/20 09:28 Insulin Lispro 100 Unit/Ml 3 Ml Vial SUBCUT Not Given QIDACHS [facility] Protocol Metoprolol Tartrate 12.5 mg 11/16/20 23:00 11/20/20 09:30 Metoprolol Tartrate 25 Mg Tablet PO 12.5 mg BID GABO Administration Protocol Montelukast Sodium 10 mg 11/16/20 23:00 11/19/20 21:50 Montelukast Sodium 10 Mg Tablet PO 10 mg BEDTIME GABO Administration Ondansetron HCl 4 mg 11/16/20 23:00 Ondansetron Hcl 4 Mg/2 Ml Vial IVPUSH Q8H PRN Nausea and Vomiting Sodium Chloride 3 ml 11/17/20 00:00 11/20/20 09:36 0.9 % Sodium Chloride Flush 3 Ml Syringe IVFLUSH 3 ml QSHIFT GABO Administration Labs CBC & Chem 7: 11/20/20 05:58 11/20/20 05:58 Assessment and Plan (1) Ischemic cardiomyopathy: Status: Acute (2) Paroxysmal atrial fibrillation: Status: Acute (3) Congestive heart failure: Status: Acute Assessment and Plan: This is a 75-year-old Malaysian-speaking female with a history of CAD, HFrEF, diabetes, asthma, PVD, hypertension, dyslipidemia who presents to the emergency department with shortness of breath and chest pain found to have elevated BNP now with worsening renal function Acute on chronic HFrEF ECHO from 10/14/20 shows Severely reduced LV ejection fraction with LVEF of 20-25% with regional wall motion abnormality consistent with ischemic cardiomyopathy with grade 3 diastolic dysfunction. 2. Dilated IVC without collapsibility suggestive significantly elevated right atrial pressures with moderately elevated right ventricular systolic pressure holding lasix and arb for silver, continue beta blcoker cardio follow up poor overall prognosis SILVER continues to worsen, follow up nephro continue to monitor left leg stump pain seems r/t abrasions in the area of pain no OM h/o NSVT in setting of severe ischemic CM had planned for outpatient Holter on last admission, has not yet followed up with cardiology Continue metoprolol, had 9 beat NSVT afib continue metoprolol AC with Eliquis decerased to 2.5 bid for renal function anemia h/h at baseline follow CBC Chest pain h/o CAD trops flat Continue aspirin, statin, BB Hypertension Continue metoprolol Diabetes insulin
--- NOTE | 2020-11-20 11:03 | MHC.CM.PN ---
PER MULTIDISCIPLINARY ROUNDS NO ANTICIPATED PLAN FOR DISCHARGE OVER WEEKEND, PLAN WILL BE TO RETURN HOME W/RESUMPTION OF [facility].
[2020-11-20 11:35] LABS: Glucose, Whole Blood 146 mg/dL (60-115)
[2020-11-20 16:37] LABS: Glucose, Whole Blood 154 mg/dL (60-115)
--- NOTE | 2020-11-20 16:52 | PM.PNNEP ---
Subjective Subjective Date of Service: 11/20/20 Interval history: Feels fine. Events noted. All recent data reviewed Physical Exam Vital Signs: Vital Signs: Last Vital Signs Temp 98.5 F 11/20/20 15:21 Pulse 51 11/20/20 15:21 Resp 14 11/20/20 15:21 BP 127/63 11/20/20 15:21 Pulse Ox 99 11/20/20 15:21 Body Mass Index 30.9 Const: General: alert Neck: Neck: Yes supple Resp: Auscultation: diminished lung sounds Cardio: Rate: regular rate GI: Palpation (GI): Soft to palpation Neuro: General: no focal motor deficits Objective Data Labs CBC & Chem 7: 11/20/20 05:58 11/20/20 05:58 Labs: Laboratory Results - last 24 hr 11/19/20 11/20/20 11/20/20 20:35 05:58 05:58 WBC 7.5 RBC 3.26 L Hgb 8.5 L Hct 26.2 L MCV 80.4 MCH 26.1 L MCHC 32.4 RDW 22.6 H Plt Count 194 MPV 11.2 Immature Gran % (Auto) 0.4 Neut % (Auto) 57.6 Lymph % (Auto) 23.7 [place] % (Auto) 16.1 H Eos % (Auto) 1.9 Baso % (Auto) 0.3 Lymph # (Auto) 1.8 [place] # (Auto) 1.2 Eos # (Auto) 0.1 Baso # (Auto) 0.0 Abs Immat Gran (auto) 0.03 Absolute Neuts (auto) 4.3 Absolute Nucleated RBC 0.000 Nucleated RBC % (auto) 0.0 Sodium 135 Potassium 5.3 H Chloride 107 Carbon Dioxide 18 L Anion Gap 15 BUN 60 H Creatinine 3.76 H Estim Creat Clear Calc 12.6 Estimated GFR 12 POC Glucose 146 H Fasting Glucose 140 H Calcium 7.6 L 11/20/20 11/20/20 11/20/20 07:17 11:15 16:25 WBC RBC Hgb Hct MCV MCH MCHC RDW Plt Count MPV Immature Gran % (Auto) Neut % (Auto) Lymph % (Auto) [place] % (Auto) Eos % (Auto) Baso % (Auto) Lymph # (Auto) [place] # (Auto) Eos # (Auto) Baso # (Auto) Abs Immat Gran (auto) Absolute Neuts (auto) Absolute Nucleated RBC Nucleated RBC % (auto) Sodium Potassium Chloride Carbon Dioxide Anion Gap BUN Creatinine Estim Creat Clear Calc Estimated GFR POC Glucose 135 H 146 H 154 H Fasting Glucose Calcium Assessment & Plan Assessment and plan (1) SILVER (acute kidney injury): Problem details: Has CKD 3 at baseline SILVER due to IV contrast and CHF Serum creatinine not plateaued yet No ACEI/ ARB; lasix held today Fluid restriction/ 2 Gram Na restriction Daily weights; Labs AM No indication for renal replacement Shall closely follow up Status: Acute Time Spent With Patient Time: Total time spent is greater than 50% in coordination of care (as documented) at patient's floor/unit and/or counseling patient:
[2020-11-20 20:40] LABS: Glucose, Whole Blood 191 mg/dL (60-115)
[2020-11-20] MEDS: Montelukast Sodium 10 MG TABLET PO (22:20)
[2020-11-20] MEDS: Atorvastatin Calcium 40 MG TABLET PO (22:20)
[2020-11-20] MEDS: Insulin Lispro 100 UNIT/ML 3 ML VIAL SUBCUT (22:20)
[2020-11-21 03:42] VITALS: BP 124/38; PULSE 54; RESP 18; TEMP 36.9; O2SAT 99
[2020-11-21 04:23] VITALS: BP 120/45
[2020-11-21 06:52] LABS: MANUAL DIFF FLAG SCAN; Mean Platelet Volume 11.3 fL (9.4-12.3); SCAN SMEAR FLAG 1
[2020-11-21 06:54] LABS: Basophils Percent Auto 0.5 % (0-2); Eosinophils Absolute Auto 0.1 X10*3/uL (0.0-0.4); Eosinophils Percent Auto 1.1 % (0-4); Hematocrit 25.4 % (37-47); Hemoglobin 8.1 g/dl (12.0-16.0); Imm Gran Abs Auto 0.05 X10*3/uL (0.00-0.03); Imm Gran Pct Auto 0.6 % (0.0-0.4); Lymphocytes Absolute Auto 1.9 X10*3/uL (1.2-4.9); Lymphocytes Percent Auto 23.5 % (20-40); Mean Corpuscular HGB Conc 31.9 g/dl (31.0-35.0); Mean Corpuscular Hemoglobin 25.6 pg (27.0-33.0); Mean Corpuscular Volume 80.4 fL (80-98); Monocytes Absolute Auto 1.4 X10*3/uL (0.1-1.2); Monocytes Percent Auto 16.6 % (2-11); Neutrophils Absolute Auto 4.8 X10*3/uL (2.0-8.3); Neutrophils Percent Auto 57.7 % (45-73); Platelet Count 199 X10*3/uL (160-400); Red Blood Count 3.16 X10*6/uL (4.20-5.50); Red Cell Distribution Width 22.6 % (11.0-16.0); White Blood Count 8.3 X10*3/uL (4.8-10.8)
[2020-11-21 07:22] LABS: PLT ABN DIST 1
[2020-11-21 07:36] LABS: Anion Gap 16 (12-20); Blood Urea Nitrogen 67 mg/dL (9-16); Calcium 7.7 mg/dL (8.4-10.2); Carbon Dioxide 17 mmol/L (22-29); Chloride 108 mmol/L (96-108); Creatinine Clr Calc Pharmacy 10.5; Estimated Glomerular Filt Rate 10; Glucose Fasting 130 mg/dL (60-99); Potassium 5.7 mmol/L (3.3-5.1); Sodium 135 mmol/L (135-145)
[2020-11-21 07:37] LABS: SLIDE REVIEW VERIFIED
[2020-11-21 07:45] VITALS: BP 120/52; PULSE 52; RESP 18; TEMP 36.7; O2SAT 100
[2020-11-21 08:10] LABS: Glucose, Whole Blood 122 mg/dL (60-115)
[2020-11-21] MEDS: 0.9 % Sodium Chloride Flush 3 ML SYRINGE IVFLUSH ×3 (09:14→20:29)
[2020-11-21] MEDS: Metoprolol Tartrate 25 MG TABLET 12.5 MG PO (09:14)
[2020-11-21] MEDS: Ferrous Sulfate 324 MG TABLET.DR PO ×2 (09:14→17:51)
[2020-11-21] MEDS: Aspirin Enteric Coated 81 MG TABLET.DR PO (09:14)
[2020-11-21] MEDS: Apixaban 2.5 MG TABLET PO (09:14)
[2020-11-21] MEDS: Insulin Glargine,Hum.rec.anlog 100 UNIT/ML 10 ML VIAL 15 UNIT SUBCUT (09:15)
[2020-11-21] MEDS: Ascorbic Acid 500 MG TABLET PO (09:16)
[2020-11-21 11:31] LABS: Glucose, Whole Blood 158 mg/dL (60-115)
--- NOTE | 2020-11-21 11:43 | P.PNIM_ITS ---
Subjective Subjective Date of Service: 11/21/20 Interval History: no complaints Cardiovascular Cardiovascular: Reports no additional cardiovascular complaints Gastrointestinal Gastrointestinal: Reports no additional gastrointestinal complaints Physical Exam Vital Signs: Vital Signs: Last Vital Signs Temp 98.1 F 11/21/20 07:45 Pulse 52 11/21/20 07:45 Resp 18 11/21/20 07:45 BP 120/52 L 11/21/20 07:45 Pulse Ox 100 11/21/20 07:45 Body Mass Index 30.9 General: Alert, no acute distress Resp: CTA bilateral CVS: S1,S2,RRR GI: soft, non tender, non distended Neuro: motor grossly intact Psych: appropriate affect Objective Data Current Medications Generic Name Dose Route Start Last Admin Trade Name Freq PRN Reason Stop Dose Admin Acetaminophen 650 mg 11/16/20 23:00 11/19/20 15:53 Acetaminophen 325 Mg Tablet PO 650 mg Q6H PRN Administration Pain, Mild (Pain Scale 1-3) Apixaban 2.5 mg 11/20/20 09:00 11/21/20 09:14 Apixaban 2.5 Mg Tablet PO 2.5 mg BID [facility] Administration Ascorbic Acid 500 mg 11/16/20 23:00 11/21/20 09:16 Ascorbic Acid 500 Mg Tablet PO 500 mg BID [facility] Administration Aspirin 81 mg 11/17/20 09:00 11/21/20 09:14 Aspirin Enteric Coated 81 Mg Tablet. PO 81 mg DAILY [facility] Administration Atorvastatin Calcium 40 mg 11/17/20 22:00 11/20/20 22:20 Atorvastatin Calcium 40 Mg Tablet PO 40 mg DAILY@2200 [facility] Administration Docusate Sodium 100 mg 11/16/20 23:00 Docusate Sodium 100 Mg Capsule PO DAILY PRN Constipation Ferrous Sulfate 324 mg 11/17/20 08:30 11/21/20 09:14 Ferrous Sulfate 324 Mg Tablet. PO 324 mg BIDPC [facility] Administration Insulin Glargine 15 unit 11/17/20 09:00 11/21/20 09:15 Insulin Glargine,Hum.Rec.Anlog 100 Unit/Ml 10 Ml Vial SUBCUT 15 unit DAILY [facility] Administration Insulin Human Lispro 0 unit 11/17/20 21:00 11/21/20 08:18 Insulin Lispro 100 Unit/Ml 3 Ml Vial SUBCUT Not Given QIDACHS [facility] Protocol Metoprolol Tartrate 12.5 mg 11/16/20 23:00 11/21/20 09:14 Metoprolol Tartrate 25 Mg Tablet PO 12.5 mg BID [facility] Administration Protocol Montelukast Sodium 10 mg 11/16/20 23:00 11/20/20 22:20 Montelukast Sodium 10 Mg Tablet PO 10 mg BEDTIME [facility] Administration Ondansetron HCl 4 mg 11/16/20 23:00 Ondansetron Hcl 4 Mg/2 Ml Vial IVPUSH Q8H PRN Nausea and Vomiting Sodium Chloride 3 ml 11/17/20 00:00 11/21/20 09:14 0.9 % Sodium Chloride Flush 3 Ml Syringe IVFLUSH 3 ml QSHIFT [facility] Administration Labs CBC & Chem 7: 11/21/20 06:16 11/21/20 06:16 Assessment and Plan (1) SILVER (acute kidney injury): Problem details: Has CKD 3 at baseline SILVER due to IV contrast and CHF Serum creatinine not plateaued yet No ACEI/ ARB; lasix held today Fluid restriction/ 2 Gram Na restriction Daily weights; Labs AM No indication for renal replacement Shall closely follow up Status: Acute Assessment and Plan: This is a 75-year-old Albanian-speaking female with a history of CAD, HFrEF, diabetes, asthma, PVD, hypertension, dyslipidemia who presents to the emergency department with shortness of breath and chest pain found to have elevated BNP now with worsening renal function Acute on chronic HFrEF ECHO from 10/14/20 shows Severely reduced LV ejection fraction with LVEF of 20-25% with regional wall mot ion abnormality consistent with ischemic cardiomyopathy with grade 3 diastolic dysfunction. 2. Dilated IVC without collapsibility suggestive significantly elevated right atrial pressures with moderately elevated right ventricular systolic pressure holding lasix and arb for silver, continue beta brii cardio follow up poor overall prognosis SILVER continues to worsen, creatinine up to 4.52, minimal urine output, no retention continue to monitor, nephrology following left leg stump pain seems r/t abrasions in the area of pain no OM h/o NSVT in setting of severe ischemic CM had planned for outpatient Holter on last admission, has not yet followed up with cardiology Continue metoprolol, had 9 beat NSVT afib continue metoprolol AC with Eliquis decerased to 2.5 bid for renal function anemia h/h at baseline follow CBC Chest pain h/o CAD trops flat Continue aspirin, statin, BB Hypertension Continue metoprolol Diabetes insulin
[2020-11-21 11:48] VITALS: BP 107/56; PULSE 52; RESP 18; TEMP 37; O2SAT 95
[2020-11-21] MEDS: Sodium Polystyrene Sulfon/Sorb 15 GM/60 ML ORAL.SUSP 30 GM PO (12:07)
[2020-11-21] MEDS: Insulin Lispro 100 UNIT/ML 3 ML VIAL SUBCUT ×2 (12:56→20:26)
[2020-11-21 15:22] VITALS: BP 106/45; PULSE 65; RESP 18; TEMP 36.6; O2SAT 93
--- NOTE | 2020-11-21 16:23 | PM.PNNEP ---
Subjective Subjective Date of Service: 11/21/20 Interval history: Awake and alert Laying flat without distress Happy and smiling Physical Exam Vital Signs: Vital Signs: Last Vital Signs Temp 97.8 F 11/21/20 15:22 Pulse 65 11/21/20 15:22 Resp 18 11/21/20 15:22 BP 106/45 L 11/21/20 15:22 Pulse Ox 93 11/21/20 15:22 Body Mass Index 30.9 Const: General: cooperative, comfortable and no acute distress HENMT: Mouth: Normal oral and palatal mucosa present, tongue normal and moist mucous membranes Eyes: Pupils: Equal, round and reactive pupils present Resp: Other: Tachypneic. Auscultation: rales Cardio: Rate: regular rate GI: Palpation (GI): Soft to palpation Neuro: Other: Alert. Cognitive delays at baseline Cranial nerves: Yes Equal, round and reactive pupils present Objective Data Labs CBC & Chem 7: 11/21/20 06:16 11/21/20 06:16 Labs: Laboratory Results - last 24 hr 11/20/20 11/20/20 11/21/20 16:25 20:25 06:16 WBC 8.3 RBC 3.16 L Hgb 8.1 L Hct 25.4 L MCV 80.4 MCH 25.6 L MCHC 31.9 RDW 22.6 H Plt Count 199 MPV 11.3 Immature Gran % (Auto) 0.6 H Neut % (Auto) 57.7 Lymph % (Auto) 23.5 [place] % (Auto) 16.6 H Eos % (Auto) 1.1 Baso % (Auto) 0.5 Lymph # (Auto) 1.9 [place] # (Auto) 1.4 H Eos # (Auto) 0.1 Baso # (Auto) 0.0 Abs Immat Gran (auto) 0.05 H Absolute Neuts (auto) 4.8 Absolute Nucleated RBC 0.000 Nucleated RBC % (auto) 0.0 Smear Tech's Comments VERIFIED Sodium Potassium Chloride Carbon Dioxide Anion Gap BUN Creatinine Estim Creat Clear Calc Estimated GFR POC Glucose 154 H 191 H Fasting Glucose Calcium 11/21/20 11/21/20 11/21/20 06:16 07:43 11:24 WBC RBC Hgb Hct MCV MCH MCHC RDW Plt Count MPV Immature Gran % (Auto) Neut % (Auto) Lymph % (Auto) [place] % (Auto) Eos % (Auto) Baso % (Auto) Lymph # (Auto) [place] # (Auto) Eos # (Auto) Baso # (Auto) Abs Immat Gran (auto) Absolute Neuts (auto) Absolute Nucleated RBC Nucleated RBC % (auto) Smear Tech's Comments Sodium 135 Potassium 5.7 H Chloride 108 Carbon Dioxide 17 L Anion Gap 16 BUN 67 H Creatinine 4.52 H* Estim Creat Clear Calc 10.5 Estimated GFR 10 POC Glucose 122 H 158 H Fasting Glucose 130 H Calcium 7.7 L Assessment & Plan Assessment and plan (1) Cardiomyopathy: Status: Acute (2) Congestive heart failure: Status: Acute (3) SILVER (acute kidney injury): Problem details: Has CKD 3 likely due due to type 2 CRS SILVER due to IV contrast and acute type 1 CRS. Diuresed however GFR progressively declining to the extent where she is developing hyperkalemia and metabolic acidosis. Continues to have some signs of volume overload. Status: Acute Assessment and Plan: - Bumex 2mg PO BID for maintenance. - Kayexalate 15g daily for chronic hyperkalemia - Na Bicarb 650mg TID may help with acidosis but may also provide a volume load. - the patient is not a dialysis candidate given her end stage heart failure. - Please address GOC (4) Cardiorenal syndrome with renal failure: Status: Acute Time Spent With Patient Time: Total time spent is greater than 50% in coordination of care (as documented) at patient's floor/unit and/or counseling patient:
[2020-11-21 16:44] LABS: Glucose, Whole Blood 141 mg/dL (60-115)
[2020-11-21] MEDS: Furosemide 40 MG/4 ML VIAL IVPUSH (17:50)
[2020-11-21 19:02] VITALS: BP 107/45; PULSE 50; RESP 18; TEMP 36.5; O2SAT 100
[2020-11-21 20:24] LABS: Glucose, Whole Blood 173 mg/dL (60-115)
[2020-11-22] VITALS (9 sets, daily range): BP systolic 119–151; BP diastolic 59–81; PULSE 51–64; RESP 17–20; TEMP 36.3–37.2; O2SAT 92–100
[2020-11-22 07:14] LABS: Basophils Absolute Auto 0.1 X10*3/uL (0.0-0.2); Basophils Percent Auto 0.6 % (0-2); Imm Gran Abs Auto 0.04 X10*3/uL (0.00-0.03); Imm Gran Pct Auto 0.5 % (0.0-0.4); Red Cell Distribution Width 23.1 % (11.0-16.0)
[2020-11-22 07:16] LABS: Eosinophils Absolute Auto 0.1 X10*3/uL (0.0-0.4); Eosinophils Percent Auto 1.5 % (0-4); Hematocrit 27.1 % (37-47); Hemoglobin 8.7 g/dl (12.0-16.0); Lymphocytes Absolute Auto 2.3 X10*3/uL (1.2-4.9); Lymphocytes Percent Auto 26.3 % (20-40); Mean Corpuscular HGB Conc 32.1 g/dl (31.0-35.0); Mean Corpuscular Hemoglobin 25.8 pg (27.0-33.0); Mean Corpuscular Volume 80.4 fL (80-98); Monocytes Absolute Auto 1.4 X10*3/uL (0.1-1.2); Monocytes Percent Auto 15.9 % (2-11); Neutrophils Absolute Auto 4.8 X10*3/uL (2.0-8.3); Neutrophils Percent Auto 55.2 % (45-73); Platelet Count 187 X10*3/uL (160-400); Red Blood Count 3.37 X10*6/uL (4.20-5.50); White Blood Count 8.7 X10*3/uL (4.8-10.8)
[2020-11-22 08:06] LABS: Anion Gap 20 (12-20); Blood Urea Nitrogen 74 mg/dL (9-16); Calcium 7.9 mg/dL (8.4-10.2); Carbon Dioxide 15 mmol/L (22-29); Chloride 107 mmol/L (96-108); Creatinine Clr Calc Pharmacy 9.2; Estimated Glomerular Filt Rate 8; Glucose Fasting 127 mg/dL (60-99); Potassium 6.1 mmol/L (3.3-5.1); Sodium 136 mmol/L (135-145)
[2020-11-22 08:18] LABS: Glucose, Whole Blood 119 mg/dL (60-115)
[2020-11-22] MEDS: Aspirin Enteric Coated 81 MG TABLET.DR PO (08:36)
[2020-11-22] MEDS: Ferrous Sulfate 324 MG TABLET.DR PO ×2 (08:36→16:34)
[2020-11-22] MEDS: Ascorbic Acid 500 MG TABLET PO ×2 (08:36→21:27)
[2020-11-22] MEDS: Apixaban 2.5 MG TABLET PO (08:37)
[2020-11-22] MEDS: Insulin Glargine,Hum.rec.anlog 100 UNIT/ML 10 ML VIAL 15 UNIT SUBCUT (08:38)
[2020-11-22] MEDS: 0.9 % Sodium Chloride Flush 3 ML SYRINGE IVFLUSH ×3 (08:38→21:32)
[2020-11-22] MEDS: Sodium Polystyrene Sulfon/Sorb 15 GM/60 ML ORAL.SUSP PO (08:50)
[2020-11-22] MEDS: Bumetanide 1 MG/4 ML VIAL 2 MG IVPUSH ×2 (08:50→21:27)
--- NOTE | 2020-11-22 10:03 | P.PNIM_ITS ---
Subjective Subjective Date of Service: 11/22/20 Interval History: no complaints Cardiovascular Cardiovascular: Reports no additional cardiovascular complaints Gastrointestinal Gastrointestinal: Reports no additional gastrointestinal complaints Physical Exam Vital Signs: Vital Signs: Last Vital Signs Temp 97.8 F 11/22/20 07:49 Pulse 55 11/22/20 08:37 Resp 17 11/22/20 07:49 BP 140/62 H 11/22/20 08:37 Pulse Ox 96 11/22/20 07:49 Body Mass Index 30.9 General: Alert, no acute distress Resp: CTA bilateral CVS: S1,S2,RRR GI: soft, non tender, non distended Neuro: motor grossly intact Psych: appropriate affect Objective Data Current Medications Generic Name Dose Route Start Last Admin Trade Name Freq PRN Reason Stop Dose Admin Acetaminophen 650 mg 11/16/20 23:00 11/19/20 15:53 Acetaminophen 325 Mg Tablet PO 650 mg Q6H PRN Administration Pain, Mild (Pain Scale 1-3) Apixaban 2.5 mg 11/20/20 09:00 11/22/20 08:37 Apixaban 2.5 Mg Tablet PO 2.5 mg BID [facility] Administration Ascorbic Acid 500 mg 11/16/20 23:00 11/22/20 08:36 Ascorbic Acid 500 Mg Tablet PO 500 mg BID [facility] Administration Aspirin 81 mg 11/17/20 09:00 11/22/20 08:36 Aspirin Enteric Coated 81 Mg Tablet. PO 81 mg DAILY [facility] Administration Atorvastatin Calcium 40 mg 11/17/20 22:00 11/21/20 20:44 Atorvastatin Calcium 40 Mg Tablet PO Not Given DAILY@2200 [facility] Bumetanide 2 mg 11/22/20 09:00 11/22/20 08:50 Bumetanide 1 Mg/4 Ml Vial IVPUSH 2 mg BID [facility] Administration Protocol Docusate Sodium 100 mg 11/16/20 23:00 Docusate Sodium 100 Mg Capsule PO DAILY PRN Constipation Ferrous Sulfate 324 mg 11/17/20 08:30 11/22/20 08:36 Ferrous Sulfate 324 Mg Tablet. PO 324 mg BIDPC [facility] Administration Insulin Glargine 15 unit 11/17/20 09:00 11/22/20 08:38 Insulin Glargine,Hum.Rec.Anlog 100 Unit/Ml 10 Ml Vial SUBCUT 15 unit DAILY [facility] Administration Insulin Human Lispro 0 unit 11/17/20 21:00 11/22/20 08:37 Insulin Lispro 100 Unit/Ml 3 Ml Vial SUBCUT Not Given QIDACHS [facility] Protocol Metoprolol Tartrate 12.5 mg 11/16/20 23:00 11/22/20 08:37 Metoprolol Tartrate 25 Mg Tablet PO Not Given BID [facility] Protocol Montelukast Sodium 10 mg 11/16/20 23:00 11/21/20 20:44 Montelukast Sodium 10 Mg Tablet PO Not Given BEDTIME [facility] Ondansetron HCl 4 mg 11/16/20 23:00 Ondansetron Hcl 4 Mg/2 Ml Vial IVPUSH Q8H PRN Nausea and Vomiting Sodium Chloride 3 ml 11/17/20 00:00 11/22/20 08:38 0.9 % Sodium Chloride Flush 3 Ml Syringe IVFLUSH 3 ml QSHIFT [facility] Administration Labs CBC & Chem 7: 11/22/20 06:12 11/22/20 06:12 Assessment and Plan (1) SILVER (acute kidney injury): Problem details: Has CKD 3 likely due due to type 2 CRS SILVER due to IV contrast and acute type 1 CRS. Diuresed however GFR progressively declining to the extent where she is developing hyperkalemia and metabolic acidosis. Continues to have some signs of volume overload. Status: Acute Assessment and Plan: This is a 75-year-old Mongolian-speaking female with a history of CAD, HFrEF, diabetes, asthma, PVD, hypertension, dyslipidemia who presents to the emergency department with shortness of breath and chest pain found to have elevated BNP now with worsening renal function Acute on chronic HFrEF ECHO from 10/14/20 shows Severely reduced LV ejection fraction with LVEF of 20-25% with regional wall motion abnormality consistent with ischemic cardiomyopathy with grade 3 diastolic dysfunction. 2. Dilated IVC without collapsibility suggestive significantly elevated right atrial pressures with moderately elevated right ventricular systolic pressure restarted diuresis with bumex SILVER continues to worsen, minimal urine output, no retention, acidosis, hyperkalemia continue to monitor, nephrology following daily kayexlate, bumex not deemed HD candidate prognosis is grave and unlikely to have meaningful recovery, this was discussed in detail with patient's daughter who demonstrated understanding, but wishes to continue with full code status left leg stump pain seems r/t abrasions in the area of pain no OM h/o NSVT in setting of severe ischemic CM had planned for outpatient Holter on last admission, has not yet followed up with cardiology Continue metoprolol, had 9 beat NSVT afib continue metoprolol AC with Eliquis decerased to 2.5 bid for renal function anemia h/h at baseline follow CBC Chest pain h/o CAD trops flat Continue aspirin, statin, BB Hypertension Continue metoprolol Diabetes insulin
[2020-11-22 11:30] LABS: Glucose, Whole Blood 141 mg/dL (60-115)
--- NOTE | 2020-11-22 14:09 | P.PNNP_ITS ---
Subjective Subjective Date of Service: 11/22/20 Interval history: awake and alert no change in mental status brito placed with some UOP However Clearance remains poor, acidosis and hyperkalemia today Physical Exam Vital Signs: Vital Signs: Last Vital Signs Temp 97.9 F 11/22/20 12:00 Pulse 64 11/22/20 12:00 Resp 18 11/22/20 12:00 BP 135/59 L 11/22/20 12:00 Pulse Ox 95 11/22/20 12:00 Body Mass Index 30.9 Const: General: cooperative, comfortable, no acute distress and alert HENMT: Mouth: Normal oral and palatal mucosa present, tongue normal and moist mucous membranes Eyes: Pupils: Equal, round and reactive pupils present Neck: Neck: Yes supple and Yes JVD Resp: Effort & Inspection: normal respiratory effort and Actively coughing Auscultation: rales and diminished lung sounds Cardio: Rate: regular rate GI: Palpation (GI): Soft to palpation Neuro: Other: Alert. Cognitive delays at baseline General: no focal motor deficits Cranial nerves: Yes Equal, round and reactive pupils present Objective Data Labs CBC & Chem 7: 11/22/20 06:12 11/22/20 06:12 Labs: Laboratory Results - last 24 hr 11/21/20 11/21/20 11/22/20 16:30 20:13 06:12 WBC 8.7 RBC 3.37 L Hgb 8.7 L Hct 27.1 L MCV 80.4 MCH 25.8 L MCHC 32.1 RDW 23.1 H Plt Count 187 MPV Not Reportable Immature Gran % (Auto) 0.5 H Neut % (Auto) 55.2 Lymph % (Auto) 26.3 [place] % (Auto) 15.9 H Eos % (Auto) 1.5 Baso % (Auto) 0.6 Lymph # (Auto) 2.3 [place] # (Auto) 1.4 H Eos # (Auto) 0.1 Baso # (Auto) 0.1 Abs Immat Gran (auto) 0.04 H Absolute Neuts (auto) 4.8 Absolute Nucleated RBC 0.000 Nucleated RBC % (auto) 0.0 Sodium Potassium Chloride Carbon Dioxide Anion Gap BUN Creatinine Estim Creat Clear Calc Estimated GFR POC Glucose 141 H 173 H Fasting Glucose Calcium 11/22/20 11/22/20 11/22/20 06:12 07:47 11:13 WBC RBC Hgb Hct MCV MCH MCHC RDW Plt Count MPV Immature Gran % (Auto) Neut % (Auto) Lymph % (Auto) [place] % (Auto) Eos % (Auto) Baso % (Auto) Lymph # (Auto) [place] # (Auto) Eos # (Auto) Baso # (Auto) Abs Immat Gran (auto) Absolute Neuts (auto) Absolute Nucleated RBC Nucleated RBC % (auto) Sodium 136 Potassium 6.1 H* Chloride 107 Carbon Dioxide 15 L Anion Gap 20 BUN 74 H Creatinine 5.14 H* Estim Creat Clear Calc 9.2 Estimated GFR 8 POC Glucose 119 H 141 H Fasting Glucose 127 H Calcium 7.9 L Assessment & Plan Assessment and plan (1) Cardiomyopathy: Status: Acute (2) Congestive heart failure: Status: Acute (3) SILVER (acute kidney injury): Problem details: Has CKD 3 likely due due to type 2 CRS SILVER due to IV contrast and acute type 1 CRS. Diuresed however GFR progressively declining to the extent where she is developing hyperkalemia and metabolic acidosis. Continues to have some signs of volume overload. She will require dialysis for refractory overload, hyperkalemia and acidosis. I have spoken with Daughter Vanessa ([facility]) [phone] who wish to start hemodialysis rather than explore palliative options. Status: Acute Assessment and Plan: - Bumex 2mg IV BID for Volume and Hyperkalemia - Kayexalate 15g BID for hyperkalemia - NaBicarb 1300mg TID for acidosis and Hyperkalemia - Plan for Permcath tomorrow to urgently start HD - HD tomorrow for 2 hours against a 2K bath with BFR 250ml/hr. No mannitol needed given reduced BFR. - then will order HD Tuesdy and Wed pending progress. (4) Cardiorenal syndrome with renal failure: Status: Acute Time Spent With Patient Time: Total time spent is greater than 50% in coordination of care (as documented) at patient's floor/unit and/or counseling patient:
[2020-11-22] MEDS: Sodium Bicarbonate 650 MG TABLET 1300 MG PO ×2 (16:34→21:32)
[2020-11-22 16:45] LABS: Glucose, Whole Blood 142 mg/dL (60-115)
[2020-11-22 20:53] LABS: Glucose, Whole Blood 95 mg/dL (60-115)
[2020-11-22] MEDS: Montelukast Sodium 10 MG TABLET PO (21:27)
[2020-11-22] MEDS: Atorvastatin Calcium 40 MG TABLET PO (21:27)
[2020-11-23 04:00] VITALS: BP 158/71; PULSE 62; RESP 18; TEMP 36.8; O2SAT 95
[2020-11-23 06:07] LABS: SCAN SMEAR FLAG 1
[2020-11-23 06:10] LABS: Basophils Absolute Auto 0.1 X10*3/uL (0.0-0.2); Basophils Percent Auto 0.5 % (0-2); Eosinophils Absolute Auto 0.1 X10*3/uL (0.0-0.4); Eosinophils Percent Auto 1.3 % (0-4); Hematocrit 27.6 % (37-47); Hemoglobin 8.8 g/dl (12.0-16.0); Imm Gran Abs Auto 0.05 X10*3/uL (0.00-0.03); Imm Gran Pct Auto 0.5 % (0.0-0.4); Lymphocytes Absolute Auto 1.9 X10*3/uL (1.2-4.9); Lymphocytes Percent Auto 20.9 % (20-40); Mean Corpuscular HGB Conc 31.9 g/dl (31.0-35.0); Mean Corpuscular Hemoglobin 24.9 pg (27.0-33.0); Monocytes Absolute Auto 1.2 X10*3/uL (0.1-1.2); Monocytes Percent Auto 12.8 % (2-11); Neutrophils Absolute Auto 5.9 X10*3/uL (2.0-8.3); Platelet Count 208 X10*3/uL (160-400); Red Blood Count 3.54 X10*6/uL (4.20-5.50); Red Cell Distribution Width 22.8 % (11.0-16.0); White Blood Count 9.3 X10*3/uL (4.8-10.8)
[2020-11-23 06:14] LABS: PLT ABN DIST 1
[2020-11-23 06:15] LABS: INTERNATIONAL NORM RATIO 1.6 (0.9-1.1); Prothrombin Time 19.4 SEC (10.8-13.0)
[2020-11-23 06:16] LABS: MANUAL DIFF FLAG NO
[2020-11-23 06:34] LABS: Anion Gap 18 (12-20); Blood Urea Nitrogen 78 mg/dL (9-16); Calcium 8.1 mg/dL (8.4-10.2); Carbon Dioxide 18 mmol/L (22-29); Chloride 108 mmol/L (96-108); Glucose Fasting 70 mg/dL (60-99); Potassium 5.6 mmol/L (3.3-5.1); Sodium 138 mmol/L (135-145)
[2020-11-23 06:35] LABS: Creatinine Clr Calc Pharmacy 9.4; Estimated Glomerular Filt Rate 8
[2020-11-23 07:58] LABS: Glucose, Whole Blood 57 mg/dL (60-115)
[2020-11-23 08:00] VITALS: BP 163/68; PULSE 64; RESP 17; TEMP 37.1; O2SAT 96
[2020-11-23] MEDS: Ferrous Sulfate 324 MG TABLET.DR PO ×2 (08:11→17:34)
[2020-11-23] MEDS: Sodium Bicarbonate 650 MG TABLET 1300 MG PO ×2 (08:11→17:34)
[2020-11-23] MEDS: Ascorbic Acid 500 MG TABLET PO (08:11)
[2020-11-23] MEDS: Bumetanide 1 MG/4 ML VIAL 2 MG IVPUSH ×2 (08:11→22:01)
[2020-11-23] MEDS: Metoprolol Tartrate 25 MG TABLET 12.5 MG PO (08:11)
[2020-11-23] MEDS: 0.9 % Sodium Chloride Flush 3 ML SYRINGE IVFLUSH ×2 (08:12→17:34)
[2020-11-23 09:24] LABS: Glucose, Whole Blood 119 mg/dL (60-115)
--- NOTE | 2020-11-23 10:25 | P.PNIM_ITS ---
Subjective Subjective Date of Service: 11/23/20 Interval History: happy, no complaints Cardiovascular Cardiovascular: Reports no additional cardiovascular complaints Respiratory Respiratory: Reports no additional respiratory complaints Physical Exam Vital Signs: Vital Signs: Last Vital Signs Temp 98.8 F 11/23/20 08:00 Pulse 64 11/23/20 08:00 Resp 17 11/23/20 08:00 BP 163/68 H 11/23/20 08:00 Pulse Ox 96 11/23/20 08:00 Body Mass Index 30.9 General: Alert, no acute distress Resp: CTA bilateral CVS: S1,S2,RRR GI: soft, non tender, non distended Psych: impaired insight Objective Data Current Medications Generic Name Dose Route Start Last Admin Trade Name Freq PRN Reason Stop Dose Admin Acetaminophen 650 mg 11/16/20 23:00 11/19/20 15:53 Acetaminophen 325 Mg Tablet PO 650 mg Q6H PRN Administration Pain, Mild (Pain Scale 1-3) Ascorbic Acid 500 mg 11/16/20 23:00 11/23/20 08:11 Ascorbic Acid 500 Mg Tablet PO 500 mg BID [facility] Administration Atorvastatin Calcium 40 mg 11/17/20 22:00 11/22/20 21:27 Atorvastatin Calcium 40 Mg Tablet PO 40 mg DAILY@2200 [facility] Administration Bumetanide 2 mg 11/22/20 21:00 11/23/20 08:11 Bumetanide 1 Mg/4 Ml Vial IVPUSH 2 mg BID [facility] Administration Protocol Docusate Sodium 100 mg 11/16/20 23:00 Docusate Sodium 100 Mg Capsule PO DAILY PRN Constipation Ferrous Sulfate 324 mg 11/17/20 08:30 11/23/20 08:11 Ferrous Sulfate 324 Mg Tablet. PO 324 mg BIDPC [facility] Administration Insulin Glargine 15 unit 11/17/20 09:00 11/23/20 08:12 Insulin Glargine,Hum.Rec.Anlog 100 Unit/Ml 10 Ml Vial SUBCUT Not Given DAILY [facility] Insulin Human Lispro 0 unit 11/17/20 21:00 11/23/20 07:42 Insulin Lispro 100 Unit/Ml 3 Ml Vial SUBCUT Not Given QIDACHS [facility] Protocol Metoprolol Tartrate 12.5 mg 11/16/20 23:00 11/23/20 08:11 Metoprolol Tartrate 25 Mg Tablet PO 12.5 mg BID [facility] Administration Protocol Montelukast Sodium 10 mg 11/16/20 23:00 11/22/20 21:27 Montelukast Sodium 10 Mg Tablet PO 10 mg BEDTIME [facility] Administration Ondansetron HCl 4 mg 11/16/20 23:00 Ondansetron Hcl 4 Mg/2 Ml Vial IVPUSH Q8H PRN Nausea and Vomiting Sodium Bicarbonate 1,300 mg 11/22/20 15:00 11/23/20 08:11 Sodium Bicarbonate 650 Mg Tablet PO 1,300 mg TID [facility] Administration Sodium Chloride 3 ml 11/17/20 00:00 11/23/20 08:12 0.9 % Sodium Chloride Flush 3 Ml Syringe IVFLUSH 3 ml QSHIFT [facility] Administration Sodium Polystyrene Sulfonate 15 gm 11/22/20 21:00 11/23/20 08:12 Sodium Polystyrene Sulfon/Sorb 15 Gm/60 Ml Oral.Susp PO Not Given BID [facility] Labs CBC & Chem 7: 11/23/20 05:53 11/23/20 05:53 Assessment and Plan (1) SILVER (acute kidney injury): Problem details: Has CKD 3 likely due due to type 2 CRS SILVER due to IV contrast and acute type 1 CRS. Diuresed however GFR progressively declining to the extent where she is developing hyperkalemia and metabolic acidosis. Continues to have some signs of volume overload. She will require dialysis for refractory overload, hyperkalemia and acidosis. I have spoken with Daughter Vanessa ([facility]) [phone] who wish to start hemodialysis rather than explore palliative options. Status: Acute Assessment and Plan: This is a 75-year-old Guatemalan-speaking female with a history of CAD, HFrEF, diabetes, asthma, PVD, hypertension, dyslipidemia who presented to the emergency department with shortness of breath and chest pain found to have elevated BNP now with worsening renal function Acute on chronic HFrEF ECHO from 10/14/20 showed Severely reduced LV ejection fraction with LVEF of 20-25% with regional wall motion abnormality consistent with ischemic cardiomyopathy with grade 3 diastolic dysfunction. 2. Dilated IVC without collapsibility suggestive significantly elevated right atrial pressures with moderately elevated right ventricular systolic pressure throughout admission has been on and off diuresis. restarted yesterday on bumex 2mg iv bid, brito placed for is and os SILVER probaly has some baseline CKD, creatinine around 1.5 at baseline. cardiorenal and contrast induced (had CTA on admission) creatinine increased from 1.39 on admission to peak of 5.14 on 11/22 with associated hyperkalemia of 6.1 and acidosis with bicarb of 15 initial plan was to obtain HD access today and start HD, but given slight improvement and 1.5L output, will hold off today with hope for some recovery, if no improvement patient will be NPO for tomorrow for possible HD access (although no order for procedure in place) continue kayexylate, oral bicarb left leg stump pain seems r/t abrasions in the area of pain no OM h/o NSVT in setting of severe ischemic CM had planned for outpatient Holter on last admission, has not yet followed up with cardiology Continue metoprololT afib continue metoprolol AC with Eliquis decerased to 2.5 bid for renal function (now held for possible HD access) Diabetes insulin dispo: lives at home with daughterAlison full code: d/w daughter, she is aware of overall poor prognosis, but wishes to continue with full code
[2020-11-23 12:00] VITALS: BP 153/79; PULSE 70; RESP 17; TEMP 36.6; O2SAT 95
--- NOTE | 2020-11-23 12:05 | MHC.CM.PN ---
PER MULTIDISCIPLINARY ROUNDS PT WILL NEED DIALYSIS HOWEVER NEPHROLOGY WILL MONITOR FOR 24HRS AND THEN MAKE DECISION TO START DIALYSIS, PT NOT READY FOR D/C. DISCHARGE PLAN: HOME W/RESUMPTION OF [facility] AND HAND BOOKB[employer] HOURS, DAUGHTER TO TRANSPORT
[2020-11-23 12:12] LABS: Glucose, Whole Blood 177 mg/dL (60-115)
[2020-11-23] MEDS: Insulin Lispro 100 UNIT/ML 3 ML VIAL SUBCUT ×3 (12:33→22:01)
[2020-11-23 15:49] VITALS: BP 181/79; PULSE 64; RESP 20; TEMP 36.8; O2SAT 95
[2020-11-23 16:47] LABS: Glucose, Whole Blood 165 mg/dL (60-115)
--- NOTE | 2020-11-23 17:28 | P.PNNP_ITS ---
Subjective Subjective Date of Service: 11/23/20 Interval history: happy, no complaints Physical Exam Vital Signs: Vital Signs: Last Vital Signs Temp 98.2 F 11/23/20 15:49 Pulse 64 11/23/20 15:49 Resp 20 11/23/20 15:49 BP 181/79 H 11/23/20 15:49 Pulse Ox 95 11/23/20 15:49 Body Mass Index 30.9 Const: General: cooperative, comfortable, no acute distress and alert HENMT: Mouth: Normal oral and palatal mucosa present, tongue normal and moist mucous membranes Eyes: Pupils: Equal, round and reactive pupils present Neck: Neck: Yes supple and Yes JVD Resp: Other: Tachypneic. Effort & Inspection: normal respiratory effort and Actively coughing Auscultation: rales and diminished lung sounds Cardio: Rate: regular rate GI: Palpation (GI): Soft to palpation Neuro: Other: Alert. Cognitive delays at baseline General: no focal motor deficits Cranial nerves: Yes Equal, round and reactive pupils present Objective Data Labs CBC & Chem 7: 11/23/20 05:53 11/23/20 05:53 Labs: Laboratory Results - last 24 hr 11/22/20 11/23/20 11/23/20 20:30 05:53 05:53 WBC 9.3 RBC 3.54 L Hgb 8.8 L Hct 27.6 L MCV 78.0 L MCH 24.9 L MCHC 31.9 RDW 22.8 H Plt Count 208 MPV Not Reportable Immature Gran % (Auto) 0.5 H Neut % (Auto) 64.0 Lymph % (Auto) 20.9 [place] % (Auto) 12.8 H Eos % (Auto) 1.3 Baso % (Auto) 0.5 Lymph # (Auto) 1.9 [place] # (Auto) 1.2 Eos # (Auto) 0.1 Baso # (Auto) 0.1 Abs Immat Gran (auto) 0.05 H Absolute Neuts (auto) 5.9 Absolute Nucleated RBC 0.000 Nucleated RBC % (auto) 0.0 PT INR APTT Sodium 138 Potassium 5.6 H Chloride 108 Carbon Dioxide 18 L Anion Gap 18 BUN 78 H Creatinine 5.02 H* Estim Creat Clear Calc 9.4 Estimated GFR 8 POC Glucose 95 Fasting Glucose 70 D Calcium 8.1 L 11/23/20 11/23/2021 05:53 07:35 09:21 WBC RBC Hgb Hct MCV MCH MCHC RDW Plt Count MPV Immature Gran % (Auto) Neut % (Auto) Lymph % (Auto) [place] % (Auto) Eos % (Auto) Baso % (Auto) Lymph # (Auto) [place] # (Auto) Eos # (Auto) Baso # (Auto) Abs Immat Gran (auto) Absolute Neuts (auto) Absolute Nucleated RBC Nucleated RBC % (auto) PT 19.4 H D INR 1.6 H APTT 33.0 Sodium Potassium Chloride Carbon Dioxide Anion Gap BUN Creatinine Estim Creat Clear Calc Estimated GFR POC Glucose 57 L* 119 H Fasting Glucose Calcium 11/23/20 11/23/20 11:57 16:40 WBC RBC Hgb Hct MCV MCH MCHC RDW Plt Count MPV Immature Gran % (Auto) Neut % (Auto) Lymph % (Auto) [place] % (Auto) Eos % (Auto) Baso % (Auto) Lymph # (Auto) [place] # (Auto) Eos # (Auto) Baso # (Auto) Abs Immat Gran (auto) Absolute Neuts (auto) Absolute Nucleated RBC Nucleated RBC % (auto) PT INR APTT Sodium Potassium Chloride Carbon Dioxide Anion Gap BUN Creatinine Estim Creat Clear Calc Estimated GFR POC Glucose 177 H 165 H Fasting Glucose Calcium Assessment & Plan Assessment and plan (1) SILVER (acute kidney injury): Problem details: Has CKD 3 likely due due to type 2 CRS SILVER due to IV contrast and acute type 1 CRS. Making good amount of Urine - Improved hyperkalemia and metabolic acidosis. Improved volume overload. Hold HD today as pt making good urine [employer] associates spoke to Daughter Susan yesterday (HCP) [phone] who wish to start hemodialysis rather than explore palliative options. Status: Acute Assessment and Plan: Acute on chronic HFrEF ECHO from 10/14/20 showed Severely reduced LV ejection fraction with LVEF of 20-25% with regional wall motion abnormality consistent with ischemic cardiomyopathy with grade 3 diastolic dysfunction. 2. Dilated IVC without collapsibility suggestive significantly elevated right atrial pressures with moderately elevated right ventricular systolic pressure Comntinue bumex 2mg iv bid Keep Moncada NPO for tomorrow for possible HD access (although no order for procedure in place) continue kayexylate, oral bicarb h/o NSVT in setting of severe ischemic CM had planned for outpatient Holter on last admission, has not yet followed up with cardiology Continue metoprolol afib continue metoprolol AC with Elirudiis decerased to 2.5 bid for renal function (now held for possible HD access) Diabetes insulin dispo: lives at home with daughter, Alison full code: overall poor prognosis, but HCP wishes to continue with full code Time Spent With Patient Time: Total time spent is greater than 50% in coordination of care (as docu mented) at patient's floor/unit and/or counseling patient: Procedures Date of Service Date of Service: 11/23/20
[2020-11-23 19:10] VITALS: BP 144/63; PULSE 71; RESP 19; TEMP 37.2; O2SAT 98
[2020-11-23 20:34] LABS: Glucose, Whole Blood 159 mg/dL (60-115)
[2020-11-23 23:44] VITALS: BP 133/70; PULSE 76; RESP 18; TEMP 36.6; O2SAT 94
[2020-11-24] MEDS: 0.9 % Sodium Chloride Flush 3 ML SYRINGE IVFLUSH ×3 (03:32→16:56)
[2020-11-24 03:52] VITALS: BP 133/59; PULSE 76; RESP 18; TEMP 36.5; O2SAT 97
[2020-11-24 07:20] VITALS: BP 144/78; PULSE 72; RESP 17; TEMP 37.7; O2SAT 90
[2020-11-24] MEDS: Bumetanide 1 MG/4 ML VIAL 2 MG IVPUSH (08:29)
[2020-11-24 08:32] LABS: Glucose, Whole Blood 128 mg/dL (60-115)
[2020-11-24 10:36] LABS: Monocytes Percent Auto 13.1 % (2-11); Red Blood Count 3.55 X10*6/uL (4.20-5.50)
[2020-11-24 10:38] LABS: Basophils Absolute Auto 0.1 X10*3/uL (0.0-0.2); Basophils Percent Auto 0.5 % (0-2); Eosinophils Absolute Auto 0.1 X10*3/uL (0.0-0.4); Eosinophils Percent Auto 0.6 % (0-4); Hematocrit 27.4 % (37-47); Hemoglobin 8.9 g/dl (12.0-16.0); Imm Gran Abs Auto 0.06 X10*3/uL (0.00-0.03); Imm Gran Pct Auto 0.6 % (0.0-0.4); Lymphocytes Absolute Auto 2.3 X10*3/uL (1.2-4.9); Lymphocytes Percent Auto 21.6 % (20-40); Mean Corpuscular HGB Conc 32.5 g/dl (31.0-35.0); Mean Corpuscular Hemoglobin 25.1 pg (27.0-33.0); Mean Corpuscular Volume 77.2 fL (80-98); Monocytes Absolute Auto 1.4 X10*3/uL (0.1-1.2); Neutrophils Absolute Auto 6.7 X10*3/uL (2.0-8.3); Neutrophils Percent Auto 63.6 % (45-73); Platelet Count 218 X10*3/uL (160-400); Red Cell Distribution Width 23.5 % (11.0-16.0); White Blood Count 10.5 X10*3/uL (4.8-10.8)
[2020-11-24 10:39] LABS: MANUAL DIFF FLAG NO
[2020-11-24 11:09] LABS: Anion Gap 19 (12-20); Blood Urea Nitrogen 78 mg/dL (9-16); Carbon Dioxide 18 mmol/L (22-29); Chloride 107 mmol/L (96-108); Creatinine Clr Calc Pharmacy 10.3; Estimated Glomerular Filt Rate 9; Glucose Fasting 113 mg/dL (60-99); Potassium 5.3 mmol/L (3.3-5.1); Sodium 139 mmol/L (135-145)
--- NOTE | 2020-11-24 11:20 | MHC.CM.PN ---
Addendum entered by Louann Garcia RN 11/24/20 11:29: DISCHARGE PLAN: HOME W/RESUMPTION OF [facility] AND DIRECTOR [employer], DAUGHTER OR SON TO TRANSPORT, CM WILL CONTINUE TO FOLLOW FOR DISCHARGE NEEDS. Original Note: EMR REVIEWED, PER MULTIDISCIPLINARY ROUNDS NO DISCHARGE PLANNED TODAY, DEPENDANT ON BLOOD WORK PT MAY HAVE PERMACATH PLANTED TODAY
--- NOTE | 2020-11-24 11:24 | PC.NURSE ---
Addendum entered by Aleja Stauffer RN 11/24/20 11:36: received confirmation that fax went through to 's office. Original Note: Called Dr. Moran office with results of BUN and Creat. Was asked to fax BUN and Creat over, faxed over to [phone]. Awaiting confirmation.
[2020-11-24 11:33] LABS: Glucose, Whole Blood 118 mg/dL (60-115)
[2020-11-24 12:00] VITALS: BP 161/70; PULSE 84; RESP 18; TEMP 37.3; O2SAT 93
[2020-11-24 15:17] VITALS: BP 152/68; PULSE 76; RESP 18; TEMP 36.6; O2SAT 94
--- NOTE | 2020-11-24 15:19 | MHC.CLN ---
F/U 100% PO INTAKE DIET RX: 1800DM WITH 1800CC FR-PT WOULD BENEFIT FROM 2GM NA DIET R/T HX CHF WILL RESTART 2GM NA FOLLOWING
[2020-11-24] MEDS: Sodium Bicarbonate 650 MG TABLET 1300 MG PO (16:10)
[2020-11-24] MEDS: Ferrous Sulfate 324 MG TABLET.DR PO (16:11)
[2020-11-24 16:52] LABS: Glucose, Whole Blood 180 mg/dL (60-115)
[2020-11-24] MEDS: Insulin Lispro 100 UNIT/ML 3 ML VIAL SUBCUT ×2 (16:56→21:48)
--- NOTE | 2020-11-24 17:03 | P.PNIM_ITS ---
Subjective Subjective Date of Service: 11/24/20 Interval History: History obtained via automotive parts interpreter, patient wants to go home and refusing medications and lab draws but after talking to daughter and automotive parts interpreter patient agreed. 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 Constitutional no fever, no chills Physical Exam Vital Signs: Vital Signs: Last Vital Signs Temp 98 F 11/24/20 15:17 Pulse 76 11/24/20 15:17 Resp 18 11/24/20 15:17 BP 152/68 H 11/24/20 15:17 Pulse Ox 94 11/24/20 15:17 Body Mass Index 30.9 General: Awake, Alert, no acute distress Neck is supple no JVD Resp: CTA bilateral, no respiratory distress CVS: S1,S2,RRR GI: soft, non tender, non distended Extremities right AKA, left BKA Psych: impaired insight Objective Data Current Medications Generic Name Dose Route Start Last Admin Trade Name Freq PRN Reason Stop Dose Admin Acetaminophen 650 mg 11/16/20 23:00 11/19/20 15:53 Acetaminophen 325 Mg Tablet PO 650 mg Q6H PRN Administration Pain, Mild (Pain Scale 1-3) Ascorbic Acid 500 mg 11/16/20 23:00 11/24/20 09:23 Ascorbic Acid 500 Mg Tablet PO Not Given BID [facility] Atorvastatin Calcium 40 mg 11/17/20 22:00 11/23/20 22:05 Atorvastatin Calcium 40 Mg Tablet PO Not Given DAILY@2200 [facility] Docusate Sodium 100 mg 11/16/20 23:00 Docusate Sodium 100 Mg Capsule PO DAILY PRN Constipation Ferrous Sulfate 324 mg 11/17/20 08:30 11/24/20 16:11 Ferrous Sulfate 324 Mg Tablet. PO 324 mg BIDPC [facility] Administration Insulin Glargine 15 unit 11/17/20 09:00 11/24/20 07:51 Insulin Glargine,Hum.Rec.Anlog 100 Unit/Ml 10 Ml Vial SUBCUT Not Given DAILY [facility] Insulin Human Lispro 0 unit 11/17/20 21:00 11/24/20 16:56 Insulin Lispro 100 Unit/Ml 3 Ml Vial SUBCUT 2 unit QIDACHS [facility] Administration Protocol Metoprolol Tartrate 12.5 mg 11/16/20 23:00 11/24/20 09:23 Metoprolol Tartrate 25 Mg Tablet PO Not Given BID [facility] Protocol Montelukast Sodium 10 mg 11/16/20 23:00 11/23/20 22:04 Montelukast Sodium 10 Mg Tablet PO Not Given BEDTIME [facility] Ondansetron HCl 4 mg 11/16/20 23:00 Ondansetron Hcl 4 Mg/2 Ml Vial IVPUSH Q8H PRN Nausea and Vomiting Sodium Bicarbonate 1,300 mg 11/22/20 15:00 11/24/20 16:10 Sodium Bicarbonate 650 Mg Tablet PO 1,300 mg TID GABO Administration Sodium Chloride 3 ml 11/17/20 00:00 11/24/20 16:56 0.9 % Sodium Chloride Flush 3 Ml Syringe IVFLUSH 3 ml QSHIFT GABO Administration Sodium Polystyrene Sulfonate 15 gm 11/22/20 21:00 11/24/20 07:56 Sodium Polystyrene Sulfon/Sorb 15 Gm/60 Ml Oral.Susp PO Not Given BID [facility] Labs CBC & Chem 7: 11/24/20 10:27 11/24/20 10:27 Assessment and Plan (1) Cardiorenal syndrome with renal failure: Status: Acute (2) Peripheral vascular disease: Status: Acute (3) Paroxysmal atrial fibrillation: Status: Acute Assessment and Plan: 75-year-old Montenegrin-speaking female with a history of CAD, HFrEF, diabetes, asthma, PVD, hypertension, dyslipidemia who presented to the emergency department with shortness of breath and chest pain found to have elevated BNP now with worsening renal function Acute on chronic HFrEF ECHO from 10/14/20 showed Severely reduced LVEF of 20-25% with regional wall motion abnormality consistent with ischemic cardiomyopathy with grade 3 jacquie stolic dysfunction,Dilated IVC without collapsibility suggestive significantly elevated right atrial pressures with moderately elevated right ventricular systolic pressure throughout admission has been on and off diuresis, currently off diuretics, Moncada with clear urine. 1.6 L positive since admit SILVER creatinine around 1.5 at baseline. Likely SILVER cardiorenal and contrast induced (had CTA on admission) creatinine increased from 1.39 on admission to peak of 5.14 on 11/22 with associated hyperkalemia of 6.1 and acidosis with bicarb of 15, repeat creatinine trending down this a.m. creatinine is 4.6 initial plan was to obtain HD access today and start HD, but given improvement in creat. Procedure has been canceled by Nephrology patient making urine 3.5 L today continue kayexylate, potassium 5.3, oral bicarb follow BMP left leg stump pain No acute complaints today, seems r/t abrasions in the area of pain,no OM h/o NSVT in setting of severe ischemic CM, had planned for outpatient Holter on last admission, has not yet followed up with cardiology,Continue metoprolol. afib continue metoprolol AC with Eliquis decerased to 2.5 bid for renal function , will resume Eliquis from tomorrow no need for hemodialysis access Diabetes Blood sugars stable this morning on Lantus insulin 15 units daily dispo: lives at home with daughter full code: d/w daughter, she is aware of overall poor prognosis, but wishes to continue with full code
[2020-11-24 19:19] VITALS: BP 139/62; PULSE 83; RESP 18; TEMP 36.6; O2SAT 93
[2020-11-24 20:38] LABS: Glucose, Whole Blood 211 mg/dL (60-115)
[2020-11-24] MEDS: Sodium Polystyrene Sulfon/Sorb 15 GM/60 ML ORAL.SUSP PO (21:39)
--- NOTE | 2020-11-24 22:34 | PM.PNNEP ---
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 Constitutional no fever, no chills Physical Exam Vital Signs: Vital Signs: Last Vital Signs Temp 97.9 F 11/24/20 19:19 Pulse 83 11/24/20 19:19 Resp 18 11/24/20 19:19 BP 139/62 11/24/20 19:19 Pulse Ox 93 11/24/20 19:19 Body Mass Index 30.9 Const: General: cooperative, comfortable, no acute distress and alert HENMT: Mouth: Normal oral and palatal mucosa present, tongue normal and moist mucous membranes Eyes: Pupils: Equal, round and reactive pupils present Neck: Neck: Yes supple and Yes JVD Resp: Other: Tachypneic. Effort & Inspection: normal respiratory effort and Actively coughing Auscultation: rales and diminished lung sounds Cardio: Rate: regular rate GI: Palpation (GI): Soft to palpation Neuro: Other: Alert. Cognitive delays at baseline General: no focal motor deficits Cranial nerves: Yes Equal, round and reactive pupils present Objective Data Labs CBC & Chem 7: 11/24/20 10:27 11/24/20 10:27 Labs: Laboratory Results - last 24 hr 11/24/20 11/24/20 11/24/20 07:22 10:27 10:27 WBC 10.5 RBC 3.55 L Hgb 8.9 L Hct 27.4 L MCV 77.2 L MCH 25.1 L MCHC 32.5 RDW 23.5 H Plt Count 218 MPV Not Reportable Immature Gran % (Auto) 0.6 H Neut % (Auto) 63.6 Lymph % (Auto) 21.6 [place] % (Auto) 13.1 H Eos % (Auto) 0.6 Baso % (Auto) 0.5 Lymph # (Auto) 2.3 [place] # (Auto) 1.4 H Eos # (Auto) 0.1 Baso # (Auto) 0.1 Abs Immat Gran (auto) 0.06 H Absolute Neuts (auto) 6.7 Absolute Nucleated RBC 0.000 Nucleated RBC % (auto) 0.0 Sodium 139 Potassium 5.3 H Chloride 107 Carbon Dioxide 18 L Anion Gap 19 BUN 78 H Creatinine 4.60 H* Estim Creat Clear Calc 10.3 Estimated GFR 9 POC Glucose 128 H Fasting Glucose 113 H D Calcium 8.0 L 11/24/20 11/24/20 11/24/20 11:29 16:46 20:29 WBC RBC Hgb Hct MCV MCH MCHC RDW Plt Count MPV Immature Gran % (Auto) Neut % (Auto) Lymph % (Auto) [place] % (Auto) Eos % (Auto) Baso % (Auto) Lymph # (Auto) [place] # (Auto) Eos # (Auto) Baso # (Auto) Abs Immat Gran (auto) Absolute Neuts (auto) Absolute Nucleated RBC Nucleated RBC % (auto) Sodium Potassium Chloride Carbon Dioxide Anion Gap BUN Creatinine Estim Creat Clear Calc Estimated GFR POC Glucose 118 H 180 H 211 H Fasting Glucose Calcium Assessment & Plan Assessment and plan (1) Cardiorenal syndrome with renal failure: Status: Acute (2) Peripheral vascular disease: Status: Acute (3) Paroxysmal atrial fibrillation: Status: Acute Assessment and Plan: 75-year-old Nepalese-speaking female with a history of CAD, HFrEF, diabetes, asthma, PVD, hypertension, dyslipidemia who presented to the emergency department with shortness of breath and chest pain found to have elevated BNP now with worsening renal function I D/c 'd IV Bumex Will decide on PO Diuretics in AM Keep Moncada Dc NPO f Hold Permcath placement continue kayexylate, oral bicarb Check labs in AM h/o NSVT in setting of severe ischemic CM had planned for outpatient Holter on last admission, has not yet followed up with cardiology Continue metoprolol afib continue metoprolol Eliquis On hold - Contineu to hold for now Diabetes insulin dispo: lives at home with daughterAlison full code: overall poor prognosis, but HCP wishes to continue with full code Time Spent With Patient Time: Total time spent is greater than 50% in coordination of care (as documented) at patient's floor/unit and/or counseling patient: Procedures Date of Service Date of Service: 11/24/20
--- NOTE | 2020-11-24 22:44 | PC.NURSE ---
Pt refusing 9pm PO medications, multiple attempts made to administer.
[2020-11-24 23:36] VITALS: BP 144/66; PULSE 78; RESP 19; TEMP 36.4; O2SAT 97
[2020-11-25] MEDS: 0.9 % Sodium Chloride Flush 3 ML SYRINGE IVFLUSH ×4 (02:19→20:43)
[2020-11-25 04:00] VITALS: BP 133/60; PULSE 86; RESP 20; TEMP 36.4; O2SAT 96
[2020-11-25] MEDS: Acetaminophen 325 MG TABLET 650 MG PO (04:49)
[2020-11-25 07:19] VITALS: BP 147/67; PULSE 89; RESP 16; TEMP 37; O2SAT 96
[2020-11-25] MEDS: Insulin Lispro 100 UNIT/ML 3 ML VIAL SUBCUT ×3 (07:36→16:47)
[2020-11-25 07:50] LABS: Glucose, Whole Blood 269 mg/dL (60-115)
[2020-11-25 08:04] LABS: Anion Gap 17 (12-20); Blood Urea Nitrogen 77 mg/dL (9-16); Calcium 8.2 mg/dL (8.4-10.2); Carbon Dioxide 21 mmol/L (22-29); Chloride 105 mmol/L (96-108); Creatinine Clr Calc Pharmacy 11.1; Estimated Glomerular Filt Rate 10; Glucose Random 285 mg/dL (60-115); Potassium 4.6 mmol/L (3.3-5.1); Sodium 138 mmol/L (135-145)
[2020-11-25] MEDS: Ferrous Sulfate 324 MG TABLET.DR PO ×2 (08:10→16:48)
[2020-11-25] MEDS: Ascorbic Acid 500 MG TABLET PO ×2 (08:10→20:42)
[2020-11-25] MEDS: Sodium Bicarbonate 650 MG TABLET 1300 MG PO ×3 (08:13→20:42)
[2020-11-25] MEDS: Metoprolol Tartrate 25 MG TABLET 12.5 MG PO ×2 (08:14→20:42)
[2020-11-25] MEDS: Insulin Glargine,Hum.rec.anlog 100 UNIT/ML 10 ML VIAL 15 UNIT SUBCUT (08:14)
[2020-11-25] MEDS: Apixaban 2.5 MG TABLET PO ×2 (11:34→20:43)
[2020-11-25 11:35] VITALS: BP 119/58; PULSE 74; RESP 18; TEMP 36.8; O2SAT 98
[2020-11-25 12:13] LABS: Glucose, Whole Blood 206 mg/dL (60-115)
--- NOTE | 2020-11-25 12:52 | P.PNIM_ITS ---
Subjective Subjective Date of Service: 11/25/20 Interval History: History obtained via gate watchman, Patient upset wishes to be discharged home offers no acute complaints tolerating diet. 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 Constitutional no fever, no chills, no pain Physical Exam Vital Signs: Vital Signs: Last Vital Signs Temp 98.2 F 11/25/20 11:35 Pulse 74 11/25/20 11:35 Resp 18 11/25/20 11:35 BP 119/58 L 11/25/20 11:35 Pulse Ox 98 11/25/20 11:35 Body Mass Index 30.9 General: Awake, Alert, no acute distress Neck supple ,no JVD Resp: CTA bilaterally, no respiratory distress CVS: Regular rate rhythm GI: soft, non tender, non distended Extremities right AKA, left BKA Psych: impaired insight Objective Data Current Medications Generic Name Dose Route Start Last Admin Trade Name Freq PRN Reason Stop Dose Admin Acetaminophen 650 mg 11/16/20 23:00 11/25/20 04:49 Acetaminophen 325 Mg Tablet PO 650 mg Q6H PRN Administration Pain, Mild (Pain Scale 1-3) Apixaban 2.5 mg 11/25/20 09:00 11/25/20 11:34 Apixaban 2.5 Mg Tablet PO 2.5 mg BID GABO Administration Ascorbic Acid 500 mg 11/16/20 23:00 11/25/20 08:10 Ascorbic Acid 500 Mg Tablet PO 500 mg BID GABO Administration Atorvastatin Calcium 40 mg 11/17/20 22:00 11/24/20 21:49 Atorvastatin Calcium 40 Mg Tablet PO Not Given DAILY@2200 [facility] Docusate Sodium 100 mg 11/16/20 23:00 Docusate Sodium 100 Mg Capsule PO DAILY PRN Constipation Ferrous Sulfate 324 mg 11/17/20 08:30 11/25/20 08:10 Ferrous Sulfate 324 Mg Tablet. PO 324 mg BIDPC GABO Administration Insulin Glargine 15 unit 11/17/20 09:00 11/25/20 08:14 Insulin Glargine,Hum.Rec.Anlog 100 Unit/Ml 10 Ml Vial SUBCUT 15 unit DAILY G[facility] Administration Insulin Human Lispro 0 unit 11/17/20 21:00 11/25/20 11:45 Insulin Lispro 100 Unit/Ml 3 Ml Vial SUBCUT 4 unit QIDACHS [facility] Administration Protocol Metoprolol Tartrate 12.5 mg 11/16/20 23:00 11/25/20 08:14 Metoprolol Tartrate 25 Mg Tablet PO 12.5 mg BID [facility] Administration Protocol Montelukast Sodium 10 mg 11/16/20 23:00 11/24/20 21:49 Montelukast Sodium 10 Mg Tablet PO Not Given BEDTIME [facility] Ondansetron HCl 4 mg 11/16/20 23:00 Ondansetron Hcl 4 Mg/2 Ml Vial IVPUSH Q8H PRN Nausea and Vomiting Sodium Bicarbonate 1,300 mg 11/22/20 15:00 11/25/20 08:13 Sodium Bicarbonate 650 Mg Tablet PO 1,300 mg TID GABO Administration Sodium Chloride 3 ml 11/17/20 00:00 11/25/20 07:02 0.9 % Sodium Chloride Flush 3 Ml Syringe IVFLUSH 3 ml QSHIFT GABO Administration Sodium Polystyrene Sulfonate 15 gm 11/22/20 21:00 11/25/20 08:15 Sodium Polystyrene Sulfon/Sorb 15 Gm/60 Ml Oral.Susp PO Not Given BID [facility] Labs CBC & Chem 7: 11/24/20 10:27 11/25/20 06:13 Assessment and Plan (1) Cardiorenal syndrome with renal failure: Status: Acute (2) SILVER (acute kidney injury): Problem details: Has CKD 3 likely due due to type 2 CRS SILVER due to IV contrast and acute type 1 CRS. Making good amount of Urine - Improved hyperkalemia and metabolic acidosis. Improved volume overload. Hold HD today as pt making good urine [employer] associates spoke to Daughter Susan yesterday (HCP) [phone] who wish to start hemodialysis rather than explore palliative options. Status: Acute (3) Ischemic cardiomyopathy: Status: Acute (4) Paroxysmal atrial fibrillation: Status: Acute (5) Congestive heart failure: Status: Acute Assessment and Plan: 75-year-old Malay-speaking female with a history of CAD, HFrEF, diabetes, asthma, PVD, hypertension, dyslipidemia who presented to the emergency department with shortness of breath and chest pain found to have elevated BNP now with worsening renal function Acute on chronic HFrEF Patient denies shortness of breath, no chest pain. ECHO from 10/14/20 showed Severely reduced LVEF of 20-25% with regional wall motion abnormality consistent with ischemic cardiomyopathy with grade 3 diastolic dysfunction,Dilated IVC without collapsibility suggestive significantly elevated right atrial pressures with moderately elevated right ventricular systolic pressure throughout admission has been on and off diuresis, currently off diuretics, due to worsening renal failure, [place] with clear urine. SILVER creatinine around 1.5 at baseline.Likely SILVER cardiorenal and contrast induced (had CTA on admission) creatinine increased from 1.39 on admission to peak of 5.14 on 11/22 with associated hyperkalemia of 6.1 and acidosis with bicarb of 15, repeat creatinine trending down this a.m. creatinine is 4.23 initial plan was to obtain HD access and start HD, but given improvement in creat. Procedure has been canceled by Nephrology patient making urine continue kayexylate, and oral bicarb follow BMP potassium improved to 4.6 and hco3 21, patient not ready for discharge since the aix architect recommend to follow BMP for now and if it continue to trend down around 3 then patient will be discharged home. left leg stump pain No acute complaints today h/o NSVT in setting of severe ischemic CM, had planned for outpatient Holter on last admission, has not yet followed up with cardiology,Continue metoprolol. afib continue metoprolol AC with Eliquis dose decerased to 2.5 bid for renal function Diabetes Blood sugars stable on Lantus insulin 15 units daily dispo: lives at home with daughter
[2020-11-25 15:22] VITALS: BP 124/60; PULSE 75; RESP 18; TEMP 36.6; O2SAT 97
[2020-11-25 16:13] LABS: Glucose, Whole Blood 153 mg/dL (60-115)
--- NOTE | 2020-11-25 18:37 | P.PNNP_ITS ---
Subjective Subjective Date of Service: 11/25/20 Interval history: Patient is comfortable Making urine No acute overnight issues. 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 Constitutional no fever, no chills, no pain Physical Exam Vital Signs: Vital Signs: Last Vital Signs Temp 97.8 F 11/25/20 15:22 Pulse 75 11/25/20 15:22 Resp 18 11/25/20 15:22 BP 124/60 11/25/20 15:22 Pulse Ox 97 11/25/20 15:22 Body Mass Index 30.9 Const: General: cooperative, comfortable, no acute distress and alert HENMT: Mouth: Normal oral and palatal mucosa present, tongue normal and moist mucous membranes Eyes: Pupils: Equal, round and reactive pupils present Neck: Neck: Yes supple and Yes JVD Resp: Other: Tachypneic. Effort & Inspection: normal respiratory effort and Actively coughing Auscultation: rales and diminished lung sounds Cardio: Rate: regular rate GI: Palpation (GI): Soft to palpation Neuro: Other: Alert. Cognitive delays at baseline General: no focal motor deficits Cranial nerves: Yes Equal, round and reactive pupils present Objective Data Labs CBC & Chem 7: 11/24/20 10:27 11/25/20 06:13 Labs: Laboratory Results - last 24 hr 11/24/20 11/25/20 11/25/20 20:29 06:13 07:20 Sodium 138 Potassium 4.6 Chloride 105 Carbon Dioxide 21 L Anion Gap 17 BUN 77 H Creatinine 4.23 H* Estim Creat Clear Calc 11.1 Estimated GFR 10 POC Glucose 211 H 269 H Random Glucose 285 H D Calcium 8.2 L 11/25/20 11/25/20 11:08 16:03 Sodium Potassium Chloride Carbon Dioxide Anion Gap BUN Creatinine Estim Creat Clear Calc Estimated GFR POC Glucose 206 H 153 H Random Glucose Calcium Assessment & Plan Assessment and plan (1) Cardiorenal syndrome with renal failure: Status: Acute (2) SILVER (acute kidney injury): Status: Acute (3) Ischemic cardiomyopathy: Status: Acute (4) Paroxysmal atrial fibrillation: Status: Acute (5) Congestive heart failure: Status: Acute Assessment and Plan: 75-year-old Macedonian-speaking female with a history of CAD, HFrEF, diabetes, asthma, PVD, hypertension, dyslipidemia who presented to the emergency department with shortness of breath and chest pain found to have elevated BNP now with worsening renal function Off IV Bumex Will start PO Bumex 1 mg BID ( Pt was on Lasix 40 mg daily at home ) Will consider D/c Foly in AM No Nede for Permcath placement continue kayexylate, oral bicarb x 24 hrs Check labs in AM- Will decide if OK to DC in AM based on Creatinine trend d/w Nursing staff h/o NSVT in setting of severe ischemic CM had planned for outpatient Holter on last admission, has not yet followed up with cardiology Continue metoprolol afib continue metoprolol Eliquis On hold -Will restart 2.5 mg BID in Am if Cr improving Diabetes insulin dispo: lives at home with daughter, Alison full code: overall poor prognosis, but HCP wishes to continue with full code Time Spent With Patient Time: Total time spent is greater than 50% in coordination of care (as documented) at patient's floor/unit and/or counseling patient: Procedures Date of Service Date of Service: 11/25/20
[2020-11-25 20:33] LABS: Glucose, Whole Blood 148 mg/dL (60-115)
[2020-11-25] MEDS: Montelukast Sodium 10 MG TABLET PO (20:42)
[2020-11-25] MEDS: Atorvastatin Calcium 40 MG TABLET PO (20:42)
[2020-11-25 23:16] VITALS: BP 142/87; PULSE 82; RESP 18; TEMP 36.9; O2SAT 95
[2020-11-26 03:43] VITALS: BP 131/94; PULSE 85; RESP 20; TEMP 37.2; O2SAT 96
[2020-11-26] MEDS: Acetaminophen 325 MG TABLET 650 MG PO (04:10)
--- NOTE | 2020-11-26 05:42 | PC.NURSE ---
at 0455 pt had a 3 beat of VTach on cardiac panel monitor. Dr Gaston aware, ordered stat magnesium lab to be drawn.
[2020-11-26 06:50] LABS: Magnesium 1.8 mg/dL (1.6-2.6)
[2020-11-26 07:01] LABS: Anion Gap 14 (12-20); Blood Urea Nitrogen 67 mg/dL (9-16); Carbon Dioxide 22 mmol/L (22-29); Chloride 105 mmol/L (96-108); Creatinine Clr Calc Pharmacy 13.7; Estimated Glomerular Filt Rate 13; Glucose Random 154 mg/dL (60-115); Potassium 4.4 mmol/L (3.3-5.1); Sodium 137 mmol/L (135-145)
[2020-11-26 07:12] VITALS: BP 140/59; PULSE 81; RESP 22; TEMP 36.9; O2SAT 92
[2020-11-26 07:45] LABS: Glucose, Whole Blood 144 mg/dL (60-115)
[2020-11-26] MEDS: Apixaban 2.5 MG TABLET PO (07:47)
[2020-11-26] MEDS: Insulin Glargine,Hum.rec.anlog 100 UNIT/ML 10 ML VIAL 15 UNIT SUBCUT (07:47)
[2020-11-26] MEDS: Ascorbic Acid 500 MG TABLET PO (07:47)
[2020-11-26] MEDS: Ferrous Sulfate 324 MG TABLET.DR PO (07:47)
[2020-11-26] MEDS: Metoprolol Tartrate 25 MG TABLET 12.5 MG PO (07:47)
[2020-11-26] MEDS: Sodium Bicarbonate 650 MG TABLET 1300 MG PO (07:48)
[2020-11-26] MEDS: 0.9 % Sodium Chloride Flush 3 ML SYRINGE IVFLUSH (07:48)
--- NOTE | 2020-11-26 10:38 | PC.NURSE ---
brito cath removed at 0900, pt completed her first dtv @ 1030 of yellow urine
--- NOTE | 2020-11-26 11:02 | PM.DS ---
DS: Providers Provider Date of Service: 11/26/20 Date of admission: 11/16/20 20:04 Primary care physician: Verenice Kirby MD Consults: 11/16/20 20:04 Consult to Cardiology Routine Consulting Provider: Allan Coley Reason for consultation: chf Has provider been notified: No 11/19/20 06:59 Consult to Nephrology Routine Consulting Provider: Ridge Gonzalez Reason for consultation: silver DS: Diagnosis Discharge Diagnosis (1) Cardiorenal syndrome with renal failure: Status: Acute (2) SILVER (acute kidney injury): Status: Acute (3) Ischemic cardiomyopathy: Status: Acute (4) Paroxysmal atrial fibrillation: Status: Acute (5) Congestive heart failure: Status: Acute DS: Medications Discharge Medications Home Medications: Home Medications Medication Instructions Recorded Confirmed albuterol sulfate [ProAir HFA] 2 puff INHALATION Q4-6H PRN 09/10/20 11/16/20 ascorbic acid (vitamin C) 500 mg PO BID 09/10/20 11/16/20 aspirin 81 mg PO DAILY 09/10/20 11/16/20 atorvastatin 40 mg PO DAILY 09/10/20 11/16/20 ferrous sulfate 325 mg PO BID 09/10/20 11/16/20 montelukast 10 mg PO BEDTIME 09/10/20 11/16/20 nitroglycerin 0.4 mg SUBLINGUAL Q5M PRN 09/10/20 11/16/20 Previous Rx's Medication Instructions Recorded metoprolol tartrate 12.5 mg PO BID #30 tab 10/17/20 Lantus Solostar U-100 Insulin 15 unit SUBCUT QAM #0 ml 11/26/20 apixaban [Eliquis] 2.5 mg PO BID #60 tab 11/26/20 bumetanide 1 mg PO BID #60 tab 11/26/20 DS: Summary Hospital Course Hospital Course: History of presenting illness Chief Complaint: chest pain, leg pain, shortness of breath This is a 75 year old Lithuanian Speaking female with multiple medical problems who presents to the ED with multiple complaints. Her history was obtained with her daughter at the bedside as well as a aerial photograph interpreter. She has complaints of chest pain which has been going on forever. She is a vague historian and unable to describe the pain well. Her troponin was checked and was 57.3, repeat 50.3. She also reports shortness of breath which has been worse over the past two days. She denies associated cough, fever, or chills. She has abdominal pain in the left lower quadrant as well as left leg pain. There were abrasions noted on her stump, but patient and daughter both deny any trauma. Lab work was significant for anemia which is chronic, mild transaminitis with AST 44, ALT 63. BNP 2506, chest x-ray shows probable pulmonary edema. She underwent a CTA due to elevated D-dimer which showed no evidence of PE. Due to her abdominal pain she underwent a CT scan of her abdomen as well which showed bilateral renal masses which are most likely cysts and no other acute changes to account for her pain. She received a dose of IV Lasix in the decision was made to admit her for further management. Hospital course Acute on chronic HFrEF patient treated with diuretics, shortness of breath and chest pain has since resolved and echo from 10/14/20 shows Severely reduced LV ejection fraction with LVEF of 20-25% with regional wall motion abnormality consistent with ischemic cardiomyopathy with grade 3 diastolic dysfunction,Dilated IVC without collapsibility suggestive significantly elevated right atrial pressures with moderately elevated right ventricular systolic pressure, subsequently patient was noted to be in acute renal failure with creatinine jumping from 1.39-5.14 therefore diuretics were discontinued, patient was followed closely by Nephrology since patient creatinine is trending down currently 3.46 therefore patient does not require hemodialysis, and is being discharged home to have close outpatient follow-up with Nephrology Dr. Moran/Dr Ulloa and will have repeat labs on November 30, will hold her losartan and place her on Bumex 1 mg by mouth b.i.d. starting tomorrow morning. Spoke with patient's daughter and updated her about discharge plan. Atrial fibrillation patient ventricular rate remains stable she has been continued on metoprolol dose of Eliquis has been reduced to 2.5 mg b.i.d. Diabetes mellitus blood sugars and stable on low-dose Lantus 15 units daily recommend to continue current dose. History of NSVT in the setting of severe ischemic cardiomyopathy patient has outpatient Holter monitor planned recommend to follow-up with cardiology. Time Spent with Patient Time attestation: Total time spent providing and/or coordinating discharge services: Discharge coordination time: Greater than 30 minutes Physical Exam Vital Signs: Vital Signs: Last Vital Signs Temp 98.4 F 11/26/20 07:12 Pulse 81 11/26/20 07:12 Resp 22 H 11/26/20 07:12 BP 140/59 H 11/26/20 07:12 Pulse Ox 92 11/26/20 07:12 Body Mass Index 30.9 General: Awake, Alert, no acute distress Neck supple ,no JVD Resp: CTA bilaterally, no respiratory distress CVS: Regular rate rhythm GI: soft, non tender, non distended Extremities right AKA, left BKA Psych: impaired insight DS: Data Data Completed and Pending Completed studies during hospitalization [Text1]: Procedures Transfusion of Nonautologous Red Blood Cells into Peripheral Vein, Percutaneous Approach (09/10/20) Labs on day of discharge: Laboratory Results - last 24 hr 11/25/20 11/25/20 11/25/20 11:08 16:03 20:24 Sodium Potassium Chloride Carbon Dioxide Anion Gap BUN Creatinine Estim Creat Clear Calc Estimated GFR POC Glucose 206 H 153 H 148 H Random Glucose Calcium Magnesium 11/26/20 11/26/20 11/26/20 05:58 05:58 07:14 Sodium 137 Potassium 4.4 Chloride 105 Carbon Dioxide 22 Anion Gap 14 BUN 67 H Creatinine 3.46 H Estim Creat Clear Calc 13.7 Estimated GFR 13 POC Glucose 144 H Random Glucose 154 H D Calcium 8.0 L Magnesium 1.8 Discharge Plan Discharge Patient Disposition: Home Health Service Referrals: Verenice Kirby MD [Primary Care Provider] - 1 Week (TELE VISIT 12/03/2020 9:30) Discharge Medications: New Eliquis 2.5 mg Tablet 2.5 mg PO BID Qty: 60 RF: 0 bumetanide 1 mg tablet 1 mg PO BID Qty: 60 RF: 0 Continued metoprolol tartrate 25 mg tablet 12.5 mg PO BID Qty: 30 RF: 0 atorvastatin 40 mg Tablet 40 mg PO DAILY RF: 0 aspirin 81 mg Tablet,Delayed Release (Dr/Ec) 81 mg PO DAILY RF: 0 ascorbic acid (vitamin C) 500 mg Tablet 500 mg PO BID RF: 0 nitroglycerin 0.4 mg Tablet, Sublingual 0.4 mg SUBLINGUAL Q5M PRN (Reason: Chest Pain) RF: 0 montelukast 10 mg Tablet 10 mg PO BEDTIME RF: 0 albuterol sulfate [ProAir HFA] 90 mcg/actuation Hfa Aerosol Inhaler 2 puff INHALATION Q4-6H PRN (Reason: Shortness Of Breath) RF: 0 ferrous sulfate 325 mg (65 mg iron) Tablet,Delayed Release (Dr/Ec) 325 mg PO BID RF: 0 Changed Lantus Solostar U-100 Insulin 100 unit/mL (3 mL) Insulin Pen 15 unit SUBCUT QAM Qty: 0 RF: 0 Discontinued valsartan 80 mg Tablet 80 mg PO DAILY Qty: 30 RF: 0 furosemide 40 mg Tablet 40 mg PO DAILY RF: 0 Eliquis 5 mg Tablet 5 mg PO BID RF: 0 Discharge Orders: Discharge Order (Routine); Ordered 11/26/20 Ordered By: Woodrow Spencer Diet: diabetic diet and low salt diet Activity on Discharge: As tolerated Stand Alone Forms: Patient Portal Discharge page Other Ambulatory Orders: Basic Metabolic Panel (Routine) Timeframe: 20201130 Facility: [facility] - Location: Laboratory Ordered By: Woodrow Spencer Care Plan Goals: Check labs on November 30 Health Concerns: Cardiomyopathy/SILVER Plan of Treatment: Follow-up with primary care physician and Nephrology
--- NOTE | 2020-11-26 12:20 | MHC.CM.PN ---
IMM 11/26/20, PT DISCHARGED HOME W/RESUMPTION OF [facility]RS, BLS FOR TRANSPORT. CM REVIEWED MED CHANGES W/DAUGHTER REINALDO SALMERON.
== END 2020-11-26 11:54 | disposition home health service (06) | DRG 291 ==
LOC: HO.ED 20:56 → HO.EDOVER 21:15 → HO.S3 22:09
PROVIDERS: Internal Medicine; Internal Medicine Nephrology; Nurse Practitioner Primary Care; Physician Assistant Medical; Admitting Provider Hospitalist; Emergency Provider Internal Medicine; PCP Family Medicine; Visit Provider Hospitalist
DX: I13.0 Hypertensive heart and chronic kidney disease with heart failure and stage 1 through stage 4 chronic kidney disease, or unspecified chronic kidney disease (principal); I50.23 Acute on chronic systolic (congestive) heart failure; I48.19 Other persistent atrial fibrillation; N17.9 Acute kidney failure, unspecified; E87.2 Acidosis; I25.5 Ischemic cardiomyopathy; E11.22 Type 2 diabetes mellitus with diabetic chronic kidney disease; Z89.612 Acquired absence of left leg above knee; E11.51 Type 2 diabetes mellitus with diabetic peripheral angiopathy without gangrene; I25.10 Atherosclerotic heart disease of native coronary artery without angina pectoris; D63.1 Anemia in chronic kidney disease; N18.30 Chronic kidney disease, stage 3 unspecified; Z20.822 Contact with and (suspected) exposure to COVID-19; Z95.1 Presence of aortocoronary bypass graft; Z79.4 Long term (current) use of insulin; Z79.01 Long term (current) use of anticoagulants; Z79.82 Long term (current) use of aspirin; Z79.899 Other long term (current) drug therapy; E87.5 Hyperkalemia
CPT/HCPCS: 0241U; 36415; 71045; 71275; 73552; 74177; 80048; 80053; 80076; 82947; 83735; 83880; 84484; 85025; 85379; 85610; 85730; 87635; 93005; 96361; 96374; 96375; 99232; 99233; 99285; C1758; J1940; J2270; J2405; Q9967

== ENCOUNTER → 2020-11-17 11:20 | Outpatient (BNVA) | payer MEDICARE, SELFPAY | PROVIDERS: Visit Provider Nurse Practitioner ==

== ENCOUNTER 2020-12-03 10:58 | Outpatient (REF) | payer MEDICARE, SELFPAY ==
[2020-12-03 11:06] LABS: MANUAL DIFF FLAG NO
[2020-12-03 11:13] LABS: Basophils Percent Auto 0.4 % (0-2); Eosinophils Absolute Auto 0.1 X10*3/uL (0.0-0.4); Eosinophils Percent Auto 1.5 % (0-4); Hematocrit 25.9 % (37-47); Hemoglobin 8.2 g/dl (12.0-16.0); Imm Gran Abs Auto 0.04 X10*3/uL (0.00-0.03); Imm Gran Pct Auto 0.4 % (0.0-0.4); Immature Retic Fraction 32.3 % (3.0-15.9); Lymphocytes Absolute Auto 3.1 X10*3/uL (1.2-4.9); Lymphocytes Percent Auto 32.5 % (20-40); Mean Corpuscular HGB Conc 31.7 g/dl (31.0-35.0); Mean Corpuscular Hemoglobin 24.9 pg (27.0-33.0); Mean Corpuscular Volume 78.7 fL (80-98); Mean Platelet Volume 10.9 fL (9.4-12.3); Monocytes Absolute Auto 1.1 X10*3/uL (0.1-1.2); Monocytes Percent Auto 11.1 % (2-11); Neutrophils Absolute Auto 5.1 X10*3/uL (2.0-8.3); Neutrophils Percent Auto 54.1 % (45-73); Platelet Count 345 X10*3/uL (160-400); Red Blood Count 3.29 X10*6/uL (4.20-5.50); Red Cell Distribution Width 23.4 % (11.0-16.0); Retic HGB Equivalent 27.9 pg (30.0-35.0); Reticulocyte Percent 1.7 % (0.5-1.8); Reticulocytes Absolute 0.057 X10*6/uL (0.026-0.095); White Blood Count 9.4 X10*3/uL (4.8-10.8)
[2020-12-03 11:35] LABS: Estimated Average Glucose 169 mg/dL; Hemoglobin A1c % 7.5 %
[2020-12-03 12:03] LABS: B Type Natriuretic Peptide 3136 pg/mL (<100)
[2020-12-03 12:21] LABS: Ferritin 63 ng/mL (10-250); TSH reflex Free T4 3.93 uIU/mL (0.32-4.0)
[2020-12-03 12:33] LABS: Anion Gap 15 (12-20); Blood Urea Nitrogen 51 mg/dL (9-16); Calcium 8.6 mg/dL (8.4-10.2); Carbon Dioxide 21 mmol/L (22-29); Chloride 106 mmol/L (96-108); Cholesterol 85 mg/dL; Estimated Glomerular Filt Rate 24; Glucose Random 120 mg/dL (60-115); HDL Cholesterol 33 mg/dL; Iron 44 mcg/dL (30-160); LDL Cholesterol Calculated 41 mg/dl; Percent Iron Saturation 13 % (15-50); Potassium 4.1 mmol/L (3.3-5.1); Sodium 138 mmol/L (135-145); Total Iron Binding Capacity 345 mcg/dL (228-428); Triglycerides 57 mg/dL; Unsaturated Iron Binding 301 ug/dL
[2020-12-03 15:13] LABS: Folate 13.6 ng/mL (> or = 4.0); Vitamin B12 1130 pg/mL (200-900)
== END 2020-12-03 10:59 | disposition home or self-care (01) ==
LOC: HO.LNP 10:58
PROVIDERS: Visit Provider Family Medicine
DX: D64.9 Anemia, unspecified (principal)
CPT/HCPCS: 80048; 80061; 82607; 82728; 82746; 83036; 83540; 83880; 84443; 85025; 85045

== ENCOUNTER 2020-12-07 14:36 | Outpatient (REF) | payer MEDICARE, SELFPAY ==
[2020-12-07 15:27] LABS: Anion Gap 15 (12-20); Blood Urea Nitrogen 46 mg/dL (9-16); Calcium 8.4 mg/dL (8.4-10.2); Carbon Dioxide 24 mmol/L (22-29); Chloride 105 mmol/L (96-108); Estimated Glomerular Filt Rate 26; Glucose Random 65 mg/dL (60-115); Potassium 3.7 mmol/L (3.3-5.1); Sodium 140 mmol/L (135-145)
[2020-12-07 15:34] LABS: B Type Natriuretic Peptide 2908 pg/mL (<100)
== END 2020-12-07 14:37 | disposition home or self-care (01) ==
LOC: HO.LNP 14:36
PROVIDERS: Visit Provider Family Medicine
DX: I50.43 Acute on chronic combined systolic (congestive) and diastolic (congestive) heart failure (principal)
CPT/HCPCS: 80048; 83880

== ENCOUNTER 2020-12-14 07:54 | Outpatient (REF) | payer MEDICARE, SELFPAY ==
[2020-12-14 09:21] LABS: B Type Natriuretic Peptide 2732 pg/mL (<100)
[2020-12-14 09:26] LABS: Anion Gap 15 (12-20); Blood Urea Nitrogen 50 mg/dL (9-16); Calcium 8.7 mg/dL (8.4-10.2); Carbon Dioxide 25 mmol/L (22-29); Chloride 100 mmol/L (96-108); Estimated Glomerular Filt Rate 27; Glucose Random 186 mg/dL (60-115); Potassium 4.2 mmol/L (3.3-5.1); Sodium 136 mmol/L (135-145)
== END 2020-12-14 07:55 | disposition home or self-care (01) ==
LOC: HO.LAB 07:54
PROVIDERS: Internal Medicine Cardiovascular Disease; Absent Provider Hospitalist; PCP Family Medicine; Visit Provider Internal Medicine Hypertension Specialist
DX: N17.9 Acute kidney failure, unspecified (principal); I12.9 Hypertensive chronic kidney disease with stage 1 through stage 4 chronic kidney disease, or unspecified chronic kidney disease; E11.22 Type 2 diabetes mellitus with diabetic chronic kidney disease; N18.30 Chronic kidney disease, stage 3 unspecified; I25.5 Ischemic cardiomyopathy; I47.2 Ventricular tachycardia; I48.0 Paroxysmal atrial fibrillation; R94.31 Abnormal electrocardiogram [ECG] [EKG]
CPT/HCPCS: 36415; 80048; 83880

== ENCOUNTER 2021-01-14 08:46 | Outpatient (RCR) | payer MEDICARE, SELFPAY | END 2021-01-19 13:00 | disposition home or self-care (01) | LOC: HO.WCC 08:46 | PROVIDERS: Visit Provider Surgery | DX: E11.622 Type 2 diabetes mellitus with other skin ulcer (principal); L97.822 Non-pressure chronic ulcer of other part of left lower leg with fat layer exposed; T87.89 Other complications of amputation stump; E11.43 Type 2 diabetes mellitus with diabetic autonomic (poly)neuropathy; E11.22 Type 2 diabetes mellitus with diabetic chronic kidney disease; I13.10 Hypertensive heart and chronic kidney disease without heart failure, with stage 1 through stage 4 chronic kidney disease, or unspecified chronic kidney disease; N18.9 Chronic kidney disease, unspecified; E11.51 Type 2 diabetes mellitus with diabetic peripheral angiopathy without gangrene; R60.9 Edema, unspecified; Z89.611 Acquired absence of right leg above knee; Z89.512 Acquired absence of left leg below knee; Z79.4 Long term (current) use of insulin; Z79.82 Long term (current) use of aspirin; Z87.891 Personal history of nicotine dependence | CPT/HCPCS: 99203; 99213 ==

== ENCOUNTER 2021-01-21 13:07 | Inpatient (IN) | payer MEDICARE, SELFPAY ==
[2021-01-21] VITALS (8 sets, daily range): BP systolic 106–150; BP diastolic 63–84; PULSE 94–127; RESP 16–22; TEMP 37.2; O2SAT 94–96; BMI 33.6
--- NOTE | ~2021-01-21 | XR_ITS ---
EXAMINATION: XR CHEST CLINICAL INFORMATION: Dyspnea COMPARISON: November 16, 2020 and November 09, 2020 TECHNIQUE: AP portable view of the chest was obtained. FINDINGS: The cardiopericardial silhouette is again noted to be markedly enlarged. There is bilateral perihilar density most likely related to interstitial edema. Patient status post median sternotomy. No pneumothorax or significant pleural effusion. Appearance is similar to previous study. XR/XR chest 1V IMPRESSION: Cardiomegaly with probable pulmonary vascular congestion and mild interstitial edema.
--- NOTE | ~2021-01-21 | XR_ITS ---
EXAMINATION: XR CHEST CLINICAL INFORMATION: Insertion of dialysis catheter. COMPARISON: Chest 01/21/2021 TECHNIQUE: Frontal view of the chest was obtained. FINDINGS: Lungs are hypoexpanded but clear. There is mild blunting of right CP angle question pleural effusion or thickening The heart size is enlarged. Pulmonary vascularity is normal. There is new right jugular central catheter with its tip in the right atrium. There are median sternotomy sutures and mediastinal lore from previous CABG. No gross bony abnormality. XR/XR chest 1V IMPRESSION: New right jugular dialysis catheter tip in the right atrium. The lungs are hypoexpanded with mild blunting of right CP angle, ?pleural effusion versus thickening. Mild cardiomegaly
--- NOTE | ~2021-01-21 | US_ITS ---
EXAMINATION: US ABDOMEN LIMITED CLINICAL INFORMATION: Evaluate for abnormal LFTs. COMPARISON: CT abdomen and pelvis 11/16/2020. Renal ultrasound 10/14/2020. TECHNIQUE: Real-time imaging of the right upper quadrant abdominal viscera. Extremely limited, exam done portably with patient sitting upright. Patient unable to decub or hold breath. FINDINGS: PANCREAS: Unremarkable. LIVER: Unremarkable. GALLBLADDER: Unremarkable. COMMON BILE DUCT: Normal in caliber measuring 0.6 cm in diameter. RIGHT KIDNEY: 7.8 cm FREE FLUID: None. US/US abdomen limited IMPRESSION: 1. Small right kidney appears atrophic. The patient's known small renal cysts and intrarenal calculi seen on the previous CT scan were not well-seen sonographically. No other significant abnormality.
--- NOTE | ~2021-01-21 | XR_ITS ---
EXAMINATION: XR CHEST CLINICAL INFORMATION: Endotracheal tube COMPARISON: 01/24/2021 TECHNIQUE: Frontal view of the chest was obtained. FINDINGS: The endotracheal tube terminates approximately 1.7 cm above the wilder. Right internal jugular central venous catheter terminates over the right atrium, similar in position to prior. Cardiac leads overlie the chest. Median sternotomy wires appear intact. Surgical clips overlie the mediastinum. The lungs are well expanded. Improvement of the previous right costophrenic angle blunting. Decreased interstitial prominence. No pneumothorax. The cardiomediastinal silhouette remains prominent. XR/XR chest 1V IMPRESSION: Endotracheal tube terminating 1.7 cm above the wilder. Could consider slight retraction. Right internal jugular central venous catheter terminates over the right atrium, approximately 5 cm beyond the cavoatrial junction. Decreased interstitial prominence.
--- NOTE | 2021-01-21 13:33 | ECG_ITS ---
Test Reason : DYSPNEA Blood Pressure : / mmHG Vent. Rate : 126 BPM Atrial Rate : 126 BPM P-R Int : 208 ms QRS Dur : 134 ms QT Int : 290 ms P-R-T Axes : 000 127 -48 degrees QTc Int : 420 ms Sinus tachycardia Right axis deviation Right bundle branch block Abnormal ECG When compared with ECG of 16-NOV-2020 11:58, Vent. rate has increased BY 56 BPM QRS axis Shifted right Nonspecific T wave abnormality, worse in Inferior leads Referred By: Charlotte Morales Electronically Signed By:Allan Coley
--- NOTE | 2021-01-21 13:34 | ED.SOB ---
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 Mode of arrival: EMS Limitations: other (poor historian) History of Present Illness HPI Narrative: 75 yo female with hx of PAF on eliquis, PVD, CHF with renal dysfunction, asthma, CAD here with swollen extremities up to abdomen noted by VNA who also state she missed a few days of her diuretics which the patient denies at this time, L BKA healing well, patient is a poor historian MD elicited complaint: shortness of breath Pertinent past history: asthma and congestive heart failure Onset (ago): day(s) (1) Context: medication noncompliance Timing: constant Severity: moderate Exacerbating factors: lying flat and exertion Relieving factors: upright position Known history of: asthma and congestive heart failure Associated symptoms: denies other symptoms Treatment prior to arrival: none Related Data Home Medications Medication Instructions Recorded Confirmed albuterol sulfate [ProAir HFA] 2 puff INHALATION Q4-6H PRN 09/10/20 11/16/20 ascorbic acid (vitamin C) 500 mg PO BID 09/10/20 11/16/20 aspirin 81 mg PO DAILY 09/10/20 11/16/20 atorvastatin 40 mg PO DAILY 09/10/20 11/16/20 ferrous sulfate 325 mg PO BID 09/10/20 11/16/20 montelukast 10 mg PO BEDTIME 09/10/20 11/16/20 nitroglycerin 0.4 mg SUBLINGUAL Q5M PRN 09/10/20 11/16/20 Previous Rx's Medication Instructions Recorded metoprolol tartrate 12.5 mg PO BID #30 tab 10/17/20 Lantus Solostar U-100 Insulin 15 unit SUBCUT QAM #0 ml 11/26/20 apixaban [Eliquis] 2.5 mg PO BID #60 tab 11/26/20 bumetanide 1 mg PO BID #60 tab 11/26/20 Allergies Allergy/AdvReac Type Severity Reaction Status Date / Time No Known Allergies Allergy Verified 11/17/20 11:21 Review of Systems Review of Systems: Constitutional : No Fever, No Chills ENT/Mouth : No sore throat, No Rhinorrhea, No Swallowing Difficulty Eyes: No Eye Pain, No Swelling, No Redness Cardiovascular : No Chest Pain, positive SOB, No Orthopnea, positive Edema Respiratory : No Cough, No Sputum, No Wheezing, positive dyspnea Gastrointestinal : No Nausea, No Vomiting, No Diarrhea, No abdominal Pain, No Hematochezia, No Melena Genitourinary : No Dysuria, No Urinary Frequency, No Hematuria Musculoskeletal : No joint pain, No Myalgias Skin : No Skin Lesions, No rash Neuro : No Weakness, No Numbness, No Dizziness, No Headache Psych : No Anxiety/Panic, No Depression Heme/Lymph: No Bruising, No Lymphadenopathy Endocrine : No Polyuria, No Polydipsia All other systems reviewed and are negative [facility] Past Medical History Attestation statement: The following information was validated with the patient. Medical History Afib Asthma Atherosclerotic cardiovascular disease CAD (coronary artery disease) Cardiomyopathy CHF (congestive heart failure) CVA (cerebral vascular accident) Diabetes Hypertension NSVT (nonsustained ventricular tachycardia) Persistent atrial fibrillation PVD (peripheral vascular disease) Surgical History History of esophagogastroduodenoscopy (EGD) Hx of AKA (above knee amputation) Hx of colonoscopy Status post coronary artery bypass graft Family History Family History Father Heart attack Mother Heart attack Diabetes Social History Social History Household Members: Children Housing: Unknown / Unable to assess Alcohol intake: never Smoking Status: Never smoker Use of substances other than those prescribed or required for medical reasons: No Advance Directives: Yes Advance Directives on File: Yes Advance Directives Date on File: 09/10/20 service: No Current occupational status: disabled Physical Exam Vital Signs: Vital Signs: Last Vital Signs Pulse 127 H 01/21/21 14:34 Resp 20 01/21/21 13:32 BP 144/84 H 01/21/21 14:34 Pulse Ox 95 01/21/21 13:32 Body Mass Index 33.6 Appearance: Alert. Oriented X3. No acute distress. Eyes: Pupils equal, round and reactive to light. ENT: Pharynx normal. Neck: Normal inspection. Neck supple. CVS: Normal heart rate and rhythm. Pulses normal. Respiratory: No respiratory distress. Breath sounds normal. Abdomen: Soft and non-tender. Anasarcan of skin noted Skin: Skin warm and dry. Normal skin color. Normal skin turgor. Extremities: pos pitting lower extremity edema. L amutation site c/d/i no signs of infection. Neuro: Oriented X 3. No motor deficit. No sensory deficit. Course Course Course Narrative: elevated BNP and troponin, started on diltiazem gtt for afib, anticipate admission for CHF and anasarca at this time patient refusing brito at this time for I/O PO oxycodone for her chronic L amputation site pain MDM - SOB/Dyspnea MDM Narrative Medical decision making narrative: 75 yo female with hx of PAF on eliquis, PVD, CHF with renal dysfunction, asthma, CAD here with swollen extremities up to abdomen likely med noncompliance as VNA reports she did not take her diuretics for a couple of days, the patient is found to be in afib up to 120s at this time labs, CXR, bnp, EKG IV bumex ordered as well as IV dilt for rate control, dispo per results and improvement Lab Data Result diagrams: 01/21/21 14:44 01/21/21 14:44 Labs: Lab Results 01/21/21 01/21/21 01/21/21 Range/Units 14:44 14:44 14:44 WBC 8.9 (4.8-10.8) X10*3/uL RBC 3.75 L (4.20-5.50) X10*6/uL Hgb 9.9 L D (12.0-16.0) g/dl Hct 31.8 L D (37-47) % MCV 84.8 (80-98) fL MCH 26.4 L (27.0-33.0) pg MCHC 31.1 (31.0-35.0) g/dl RDW 21.1 H (11.0-16.0) % Plt Count 239 D (160-400) X10*3/uL MPV 11.4 (9.4-12.3) fL Immature Gran % (Auto) 0.4 (0.0-0.4) % Neut % (Auto) 69.5 (45-73) % Lymph % (Auto) 17.4 L (20-40) % [place] % (Auto) 10.3 (2-11) % Eos % (Auto) 1.7 (0-4) % Baso % (Auto) 0.7 (0-2) % Lymph # (Auto) 1.6 (1.2-4.9) X10*3/uL [place] # (Auto) 0.9 (0.1-1.2) X10*3/uL Eos # (Auto) 0.2 (0.0-0.4) X10*3/uL Baso # (Auto) 0.1 (0.0-0.2) X10*3/uL Abs Immat Gran (auto) 0.04 H (0.00-0.03) X10*3/uL Absolute Neuts (auto) 6.2 (2.0-8.3) X10*3/uL Absolute Nucleated RBC 0.000 (0.0-0.012) X10*3/uL Nucleated RBC % (auto) 0.0 (0.0-0.2) /100WBC PT (10.8-13.0) SEC INR (0.9-1.1) APTT (24.1-38.0) SEC Sodium 139 (135-145) mmol/L Potassium 4.1 (3.3-5.1) mmol/L Chloride 104 (96-108) mmol/L Carbon Dioxide 22 (22-29) mmol/L Anion Gap 17 (12-20) BUN 32 H (9-16) mg/dL Creatinine 1.70 H (0.5-1.4) mg/dL Estim Creat Clear Calc 27.9 Estimated GFR 29 Random Glucose 118 H D (60-115) mg/dL Calcium 8.7 (8.4-10.2) mg/dL Magnesium (1.6-2.6) mg/dL Total Bilirubin (0.0-1.0) mg/dL Direct Bilirubin (0.0-0.5) mg/dL AST (5-31) U/L ALT (0-31) U/L Alkaline Phosphatase (39-117) U/L Troponin I High Sens (<3.5-17.0) ng/L B-Natriuretic Peptide 2336 H (<100) pg/mL Total Protein (6.5-8.0) g/dL Albumin (3.5-5.0) g/dL COVID-19 ([facility]) (Negative) COVID-19 Clin Com 01/21/21 01/21/21 01/21/21 Range/Units 14:44 14:44 14:44 WBC (4.8-10.8) X10*3/uL RBC (4.20-5.50) X10*6/uL Hgb (12.0-16.0) g/dl Hct (37-47) % MCV (80-98) fL MCH (27.0-33.0) pg MCHC (31.0-35.0) g/dl RDW (11.0-16.0) % Plt Count (160-400) X10*3/uL MPV (9.4-12.3) fL Immature Gran % (Auto) (0.0-0.4) % Neut % (Auto) (45-73) % Lymph % (Auto) (20-40) % [place] % (Auto) (2-11) % Eos % (Auto) (0-4) % Baso % (Auto) (0-2) % Lymph # (Auto) (1.2-4.9) X10*3/uL [place] # (Auto) (0.1-1.2) X10*3/uL Eos # (Auto) (0.0-0.4) X10*3/uL Baso # (Auto) (0.0-0.2) X10*3/uL Abs Immat Gran (auto) (0.00-0.03) X10*3/uL Absolute Neuts (auto) (2.0-8.3) X10*3/uL Absolute Nucleated RBC (0.0-0.012) X10*3/uL Nucleated RBC % (auto) (0.0-0.2) /100WBC PT 29.1 H D (10.8-13.0) SEC INR 2.4 H (0.9-1.1) APTT 37.3 (24.1-38.0) SEC Sodium (135-145) mmol/L Potassium (3.3-5.1) mmol/L Chloride (96-108) mmol/L Carbon Dioxide (22-29) mmol/L Anion Gap (12-20) BUN (9-16) mg/dL Creatinine (0.5-1.4) mg/dL Estim Creat Clear Calc Estimated GFR Random Glucose (60-115) mg/dL Calcium (8.4-10.2) mg/dL Magnesium 2.0 (1.6-2.6) mg/dL Total Bilirubin 1.7 H (0.0-1.0) mg/dL Direct Bilirubin 1.1 H (0.0-0.5) mg/dL AST 34 H (5-31) U/L ALT 29 (0-31) U/L Alkaline Phosphatase 446 H D (39-117) U/L Troponin I High Sens (<3.5-17.0) ng/L B-Natriuretic Peptide (<100) pg/mL Total Protein 7.1 (6.5-8.0) g/dL Albumin 3.0 L (3.5-5.0) g/dL COVID-19 ([facility]) Negative (Negative) COVID-19 Clin Com See Note 01/21/21 Range/Units 14:44 WBC (4.8-10.8) X10*3/uL RBC (4.20-5.50) X10*6/uL Hgb (12.0-16.0) g/dl Hct (37-47) % MCV (80-98) fL MCH (27.0-33.0) pg MCHC (31.0-35.0) g/dl RDW (11.0-16.0) % Plt Count (160-400) X10*3/uL MPV (9.4-12.3) fL Immature Gran % (Auto) (0.0-0.4) % Neut % (Auto) (45-73) % Lymph % (Auto) (20-40) % [place] % (Auto) (2-11) % Eos % (Auto) (0-4) % Baso % (Auto) (0-2) % Lymph # (Auto) (1.2-4.9) X10*3/uL [place] # (Auto) (0.1-1.2) X10*3/uL Eos # (Auto) (0.0-0.4) X10*3/uL Baso # (Auto) (0.0-0.2) X10*3/uL Abs Immat Gran (auto) (0.00-0.03) X10*3/uL Absolute Neuts (auto) (2.0-8.3) X10*3/uL Absolute Nucleated RBC (0.0-0.012) X10*3/uL Nucleated RBC % (auto) (0.0-0.2) /100WBC PT (10.8-13.0) SEC INR (0.9-1.1) APTT (24.1-38.0) SEC Sodium (135-145) mmol/L Potassium (3.3-5.1) mmol/L Chloride (96-108) mmol/L Carbon Dioxide (22-29) mmol/L Anion Gap (12-20) BUN (9-16) mg/dL Creatinine (0.5-1.4) mg/dL Estim Creat Clear Calc Estimated GFR Random Glucose (60-115) mg/dL Calcium (8.4-10.2) mg/dL Magnesium (1.6-2.6) mg/dL Total Bilirubin (0.0-1.0) mg/dL Direct Bilirubin (0.0-0.5) mg/dL AST (5-31) U/L ALT (0-31) U/L Alkaline Phosphatase (39-117) U/L Troponin I High Sens 76.0 H D (<3.5-17.0) ng/L B-Natriuretic Peptide (<100) pg/mL Total Protein (6.5-8.0) g/dL Albumin (3.5-5.0) g/dL COVID-19 ([facility]) (Negative) COVID-19 Clin Com ECG Data Attestation: I personally reviewed and interpreted this ECG as follows: ECG interpretation date: 01/21/21 ECG interpretation time: 14:05 Interpretation: Rate: 126 Rhythm: afib Erwin: right RBBB ST T wave : nonspecific, no VARUN qTC: normal prior studies: unchanged Nov 2020 The study has been interpreted contemporaneously by me. . Discharge Plan Discharge Clinical Impression: Paroxysmal atrial fibrillation, Acute dyspnea Congestive heart failure Qualifiers: Heart failure type: unspecified Heart failure chronicity: acute on chronic Qualified Code(s): I50.9 - Heart failure, unspecified Patient Disposition: Admitted As Inpatient
--- NOTE | 2021-01-21 14:33 | PC.NURSE ---
kandace upper lungs - slightly diminished. kandace lower lobes slight crackles. md aware.
[2021-01-21] MEDS: dilTIAZem HCL 50 MG/10 ML VIAL 10 MG IVPUSH (14:34)
[2021-01-21] MEDS: Bumetanide 1 MG/4 ML VIAL IVPUSH (14:40)
[2021-01-21 14:51] LABS: MANUAL DIFF FLAG NO
[2021-01-21 14:53] LABS: Basophils Absolute Auto 0.1 X10*3/uL (0.0-0.2); Basophils Percent Auto 0.7 % (0-2); Eosinophils Absolute Auto 0.2 X10*3/uL (0.0-0.4); Eosinophils Percent Auto 1.7 % (0-4); Hematocrit 31.8 % (37-47); Hemoglobin 9.9 g/dl (12.0-16.0); Imm Gran Abs Auto 0.04 X10*3/uL (0.00-0.03); Imm Gran Pct Auto 0.4 % (0.0-0.4); Lymphocytes Absolute Auto 1.6 X10*3/uL (1.2-4.9); Lymphocytes Percent Auto 17.4 % (20-40); Mean Corpuscular HGB Conc 31.1 g/dl (31.0-35.0); Mean Corpuscular Hemoglobin 26.4 pg (27.0-33.0); Mean Corpuscular Volume 84.8 fL (80-98); Mean Platelet Volume 11.4 fL (9.4-12.3); Monocytes Absolute Auto 0.9 X10*3/uL (0.1-1.2); Monocytes Percent Auto 10.3 % (2-11); Neutrophils Absolute Auto 6.2 X10*3/uL (2.0-8.3); Neutrophils Percent Auto 69.5 % (45-73); Platelet Count 239 X10*3/uL (160-400); Red Blood Count 3.75 X10*6/uL (4.20-5.50); Red Cell Distribution Width 21.1 % (11.0-16.0); White Blood Count 8.9 X10*3/uL (4.8-10.8)
[2021-01-21 14:58] LABS: INTERNATIONAL NORM RATIO 2.4 (0.9-1.1); Prothrombin Time 29.1 SEC (10.8-13.0)
[2021-01-21 15:00] LABS: Partial Thromboplastin Time 37.3 SEC (24.1-38.0)
[2021-01-21 15:07] LABS: COVID-19 Test Negative (Negative)
[2021-01-21 15:15] LABS: Alanine Aminotransferase 29 U/L (0-31); Alkaline Phosphatase 446 U/L (39-117); Anion Gap 17 (12-20); Aspartate Amino Transferase 34 U/L (5-31); Bilirubin Direct 1.1 mg/dL (0.0-0.5); Bilirubin Total 1.7 mg/dL (0.0-1.0); Blood Urea Nitrogen 32 mg/dL (9-16); Calcium 8.7 mg/dL (8.4-10.2); Carbon Dioxide 22 mmol/L (22-29); Chloride 104 mmol/L (96-108); Creatinine Clr Calc Pharmacy 27.9; Estimated Glomerular Filt Rate 29; Glucose Random 118 mg/dL (60-115); Potassium 4.1 mmol/L (3.3-5.1); Sodium 139 mmol/L (135-145); Total Protein 7.1 g/dL (6.5-8.0)
[2021-01-21 15:22] LABS: B Type Natriuretic Peptide 2336 pg/mL (<100)
[2021-01-21] MEDS: oxyCODONE HCl Immed Release 5 MG TABLET PO ×2 (16:15)
[2021-01-21] MEDS: dilTIAZem HCL 125 MG in 0.9 % Sodium Chloride 100 ML 10 MG IVCONT (16:16)
--- NOTE | 2021-01-21 18:44 | PC.NURSE ---
patient started on Cardizem drip. did not react much to the medicine at first. patient HR now down to 88 from 130's. cardizem drip turned off per protocol. will continue to monitor.
--- NOTE | 2021-01-21 22:52 | PC.NURSE ---
patient was incontinent of a large amount of urine, bladder scan for 205ml
--- NOTE | 2021-01-21 22:55 | PC.NURSE ---
report was given to RENATE Felton
[2021-01-22] VITALS (10 sets, daily range): BP systolic 108–142; BP diastolic 53–78; PULSE 85–122; RESP 16–20; TEMP 36.4–36.9; O2SAT 93–98; BMI 33.9
[2021-01-22] MEDS: Metoprolol Tartrate 25 MG TABLET 12.5 MG PO ×3 (00:11→20:53)
[2021-01-22] MEDS: Furosemide 40 MG/4 ML VIAL IVPUSH ×3 (00:11→23:20)
[2021-01-22] MEDS: 0.9 % Sodium Chloride Flush 3 ML SYRINGE IVFLUSH ×4 (00:13→23:21)
[2021-01-22] MEDS: traMADoL HCL 50 MG TABLET PO (00:23)
[2021-01-22 00:37] LABS: Glucose, Whole Blood 137 mg/dL (60-115)
--- NOTE | 2021-01-22 05:23 | PM.IMHP ---
History of Present Illness Date of Service: 01/21/21 Chief Complaint: SOB Patient is Guatemalan-speaking and a poor historian and is not consistent with her history and is unable to answer any questions appropriately. 75-year-old female with past medical history of paroxysmal AFib on Eliquis, PVD, CHF, CKD, asthma, CT presents to the hospital with lower extremity swelling. Patient is per history and therefore history is obtained mostly from EMR and ED staff. It appears the patient's visiting nurse noticed dyspnea and leg swelling and sent her to the hospital. VNA also stated that patient missed few days of her diuretic unclear why but patient denies this to the ED physician. She has bilateral lower leg amputation. Of note patient was discharged in November after undergoing management for CHF exacerbation. She has an ejection fraction of 20-25%. Labs are significant for WBC count of 8.9, hemoglobin of 9.9 which is around her baseline, hematocrit 31.8, PT of 29.1, INR of 2.4, BUN of 32, creatinine of 1.7 which is significantly improved from her previous admission, total bili of 0.7, direct bili of 1.1, AST of 34, ALT of 29, alk-phos of 446, high sensitivity troponin of 76, albumin of 3.0, COVID-19 negative. Temp of 98.9?, heart rate of 120, respiratory rate of 20, blood pressure 146/79, satting 95% on room air Chest x-ray revealed cardiomegaly with pulmonary vascular congestion and mild interstitial edema And shows sinus tachycardia with right bundle-branch block on nonspecific T-wave abnormality Past surgical history is obtained see below Review of Systems Review of Systems: Yes Unobtainable due to mental status [facility] Medical History Afib Asthma Atherosclerotic cardiovascular disease CAD (coronary artery disease) Cardiomyopathy CHF (congestive heart failure) CVA (cerebral vascular accident) Diabetes Hypertension NSVT (nonsustained ventricular tachycardia) Persistent atrial fibrillation PVD (peripheral vascular disease) Family History Father Heart attack Mother Heart attack Diabetes Surgical History History of esophagogastroduodenoscopy (EGD) Hx of AKA (above knee amputation) Hx of colonoscopy Status post coronary artery bypass graft Social History Household Members: Children Housing: Unknown / Unable to assess Do you presently have visiting nurse or other home services: Yes (per records, unable to assess, not answering appropriately) Unable to assess alcohol history related to: Refusing to respond Alcohol intake: never Smoking Status: Never smoker Use of substances other than those prescribed or required for medical reasons: Unknown Currently Displaying Signs/Symptoms of Drug Intoxication Withdrawal: No Advance Directives: Yes Advance Directives on File: Yes Advance Directives Date on File: 09/10/20 Recently lost weight without trying: Unsure service: No Current occupational status: disabled Meds Allergies Allergy/AdvReac Type Severity Reaction Status Date / Time No Known Allergies Allergy Verified 11/17/20 11:21 Active Medications: Current Medications Generic Name Dose Route Start Last Admin Trade Name Freq PRN Reason Stop Dose Admin Acetaminophen 650 mg 01/21/21 22:50 Acetaminophen 325 Mg Tablet PO Q6H PRN Pain, Mild (Pain Scale 1-3) Albuterol Sulfate 2 puff 01/21/21 22:50 Albuterol Sulfate 90 Mcg 8 Gm Inhaler INHALE Q4H PRN Shortness Of Breath Apixaban 2.5 mg 01/22/21 09:00 Apixaban 2.5 Mg Tablet PO BID [facility] Ascorbic Acid 500 mg 01/22/21 09:00 Ascorbic Acid 500 Mg Tablet PO BID [facility] Aspirin 81 mg 01/22/21 09:00 Aspirin Enteric Coated 81 Mg Tablet.Dr PO DAILY [facility] Atorvastatin Calcium 40 mg 01/22/21 21:00 Atorvastatin Calcium 40 Mg Tablet PO BEDTIME [facility] Docusate Sodium 100 mg 01/21/21 22:50 Docusate Sodium 100 Mg Capsule PO DAILY PRN Constipation Furosemide 40 mg 01/21/21 22:50 01/22/21 00:11 Furosemide 40 Mg/4 Ml Vial IVPUSH 40 mg Q12H [facility] Administration Protocol Diltiazem HCl 125 mg/ Sodium 125 mls @ 0 mls/hr 01/21/21 14:45 01/21/21 16:16 Chloride IVCONT 10 mg/hr .Q0M GABO 10 mls/hr Administration Protocol Per Protocol Insulin Glargine 15 unit 01/22/21 09:00 Insulin Glargine,Hum.Rec.Anlog 100 Unit/Ml 10 Ml Vial SUBCUT DAILY [facility] Insulin Human Lispro 0 unit 01/22/21 07:30 Insulin Lispro 100 Unit/Ml 3 Ml Vial SUBCUT QIDACHS [facility] Protocol Metoprolol Tartrate 12.5 mg 01/21/21 22:50 01/22/21 00:11 Metoprolol Tartrate 25 Mg Tablet PO 12.5 mg BID [facility] Administration Protocol Montelukast Sodium 10 mg 01/22/21 21:00 Montelukast Sodium 10 Mg Tablet PO BEDTIME [facility] Ondansetron HCl 4 mg 01/21/21 22:50 Ondansetron Hcl 4 Mg/2 Ml Vial IVPUSH Q8H PRN Nausea and Vomiting Pharmacy Consult 1 each 01/21/21 13:32 Consult Rx Perform Med Rec MISCELLANE ONCE PRN Consult order Sodium Chloride 3 ml 01/22/21 00:00 01/22/21 00:13 0.9 % Sodium Chloride Flush 3 Ml Syringe IVFLUSH 3 ml QSHIFT [facility] Administration Tramadol HCl 50 mg 01/21/21 22:50 01/22/21 00:23 Tramadol Hcl 50 Mg Tablet PO 50 mg Q8H PRN Administration pain Home Medications Medication Instructions Recorded Confirmed Last Taken Type albuterol sulfate [ProAir HFA] 2 puff INHALATION Q4-6H PRN 09/10/20 01/21/21 Unknown History ascorbic acid (vitamin C) 500 mg PO BID 09/10/20 01/21/21 01/21/21 History aspirin 81 mg PO DAILY 09/10/20 01/21/21 01/21/21 History atorvastatin 40 mg PO BEDTIME 09/10/20 01/21/21 01/20/21 History montelukast 10 mg PO BEDTIME 09/10/20 01/21/21 01/20/21 History insulin lispro [Humalog KwikPen 3 unit SUBCUT TIDAC 01/21/21 01/21/21 01/21/21 History Insulin] tramadol 1 tab PO Q8H PRN 01/21/21 01/21/21 01/21/21 History Physical Exam Vital Signs and Narrative: Vital Signs: Last Vital Signs Temp 97.6 F 01/22/21 03:26 Pulse 92 01/22/21 03:26 Resp 16 01/22/21 03:26 BP 142/74 H 01/22/21 03:26 Pulse Ox 94 01/22/21 03:26 Body Mass Index 33.6 Const: General: cooperative and no acute distress Eyes: General: appearance normal, both eyes and all related structures Resp: Effort & Inspection: normal respiratory effort and able to speak in complete sentences Cardio: Rate: regular rate Rhythm: regular rhythm GI: Palpation (GI): Soft to palpation Auscultation: normal bowel sounds Skin: General skin exam: no rashes or lesions noted Extrem: Other: Has above knee amputation of the right leg, and below-knee amputation of the left, both have edema up to the groin Results Labs CBC and Chem 7: 01/21/21 14:44 01/21/21 14:44 Labs: Laboratory Results - last 24 hr 01/21/21 01/21/21 01/21/21 14:44 14:44 14:44 MCV 84.8 MCH 26.4 L MCHC 31.1 RDW 21.1 H Plt Count 239 D MPV 11.4 Immature Gran % (Auto) 0.4 Neut % (Auto) 69.5 Lymph % (Auto) 17.4 L [place] % (Auto) 10.3 Eos % (Auto) 1.7 Baso % (Auto) 0.7 Lymph # (Auto) 1.6 [place] # (Auto) 0.9 Eos # (Auto) 0.2 Baso # (Auto) 0.1 Abs Immat Gran (auto) 0.04 H Absolute Neuts (auto) 6.2 Absolute Nucleated RBC 0.000 Nucleated RBC % (auto) 0.0 PT INR APTT Anion Gap 17 Estim Creat Clear Calc 27.9 Estimated GFR 29 POC Glucose Random Glucose 118 H D Calcium 8.7 Magnesium Total Bilirubin Direct Bilirubin AST ALT Alkaline Phosphatase Troponin I High Sens B-Natriuretic Peptide 2336 H Total Protein Albumin COVID-19 ([facility]) COVID-19 Clin Com 01/21/21 01/21/21 01/21/21 14:44 14:44 14:44 MCV MCH MCHC RDW Plt Count MPV Immature Gran % (Auto) Neut % (Auto) Lymph % (Auto) [place] % (Auto) Eos % (Auto) Baso % (Auto) Lymph # (Auto) [place] # (Auto) Eos # (Auto) Baso # (Auto) Abs Immat Gran (auto) Absolute Neuts (auto) Absolute Nucleated RBC Nucleated RBC % (auto) PT 29.1 H D INR 2.4 H APTT 37.3 Anion Gap Estim Creat Clear Calc Estimated GFR POC Glucose Random Glucose Calcium Magnesium 2.0 Total Bilirubin 1.7 H Direct Bilirubin 1.1 H AST 34 H ALT 29 Alkaline Phosphatase 446 H D Troponin I High Sens B-Natriuretic Peptide Total Protein 7.1 Albumin 3.0 L COVID-19 ([facility]) Negative COVID-19 Clin Com See Note 01/21/21 01/22/21 14:44 00:32 MCV MCH MCHC RDW Plt Count MPV Immature Gran % (Auto) Neut % (Auto) Lymph % (Auto) [place] % (Auto) Eos % (Auto) Baso % (Auto) Lymph # (Auto) [place] # (Auto) Eos # (Auto) Baso # (Auto) Abs Immat Gran (auto) Absolute Neuts (auto) Absolute Nucleated RBC Nucleated RBC % (auto) PT INR APTT Anion Gap Estim Creat Clear Calc Estimated GFR POC Glucose 137 H Random Glucose Calcium Magnesium Total Bilirubin Direct Bilirubin AST ALT Alkaline Phosphatase Troponin I High Sens 76.0 H D B-Natriuretic Peptide Total Protein Albumin COVID-19 ([facility]) COVID-19 Clin Com Imaging Radiologist's Impressions: Impressions Chest X-Ray 01/21/21 13:33 IMPRESSION: Cardiomegaly with probable pulmonary vascular congestion and mild interstitial edema. Assessment and Plan (1) Acute dyspnea: Status: Acute (2) Acute exacerbation of CHF (congestive heart failure): Status: Acute 35-year-old female with past medical history of heart failure with reduced ejection fraction of 25-30% presents to the hospital with dyspnea as well as lower extremity edema noticed by her VNA # acute CHF exacerbation - patient was on Bumex and had missed few days of her diuretic- unclear why - has mildly elevated troponin, chest x-ray revealing pulmonary congestion and interstitial edema - at this time will treat with Lasix IV b.i.d., strict I&O, daily weight, low-sodium diet - had an echo done in November therefore I will not repeat - consult cardiology # CKD - significantly improved kidney function from previous admission November - diabetic as above - follow BMP closely # AFib - continue Eliquis, and metoprolol # diabetes - continue home insulin - low-dose sliding scale insulin - diabetic diet DVT prophylaxis: Eliquis
[2021-01-22 06:38] LABS: MANUAL DIFF FLAG NO
[2021-01-22 07:04] LABS: Basophils Absolute Auto 0.1 X10*3/uL (0.0-0.2); Eosinophils Absolute Auto 0.1 X10*3/uL (0.0-0.4); Eosinophils Percent Auto 0.6 % (0-4); Hematocrit 30.2 % (37-47); Hemoglobin 9.6 g/dl (12.0-16.0); Imm Gran Abs Auto 0.04 X10*3/uL (0.00-0.03); Imm Gran Pct Auto 0.5 % (0.0-0.4); Lymphocytes Absolute Auto 1.4 X10*3/uL (1.2-4.9); Lymphocytes Percent Auto 16.7 % (20-40); Mean Corpuscular HGB Conc 31.8 g/dl (31.0-35.0); Mean Corpuscular Hemoglobin 26.9 pg (27.0-33.0); Mean Corpuscular Volume 84.6 fL (80-98); Mean Platelet Volume 11.9 fL (9.4-12.3); Monocytes Absolute Auto 0.9 X10*3/uL (0.1-1.2); Monocytes Percent Auto 11.5 % (2-11); Neutrophils Absolute Auto 5.7 X10*3/uL (2.0-8.3); Neutrophils Percent Auto 69.7 % (45-73); Platelet Count 260 X10*3/uL (160-400); Red Blood Count 3.57 X10*6/uL (4.20-5.50); Red Cell Distribution Width 20.4 % (11.0-16.0); White Blood Count 8.1 X10*3/uL (4.8-10.8)
[2021-01-22 07:17] LABS: Glucose, Whole Blood 96 mg/dL (60-115)
[2021-01-22 07:31] LABS: Anion Gap 21 (12-20); Blood Urea Nitrogen 37 mg/dL (9-16); Calcium 8.9 mg/dL (8.4-10.2); Carbon Dioxide 18 mmol/L (22-29); Chloride 104 mmol/L (96-108); Creatinine Clr Calc Pharmacy 24.1; Estimated Glomerular Filt Rate 25; Glucose Random 98 mg/dL (60-115); Potassium 4.7 mmol/L (3.3-5.1); Sodium 138 mmol/L (135-145)
--- NOTE | 2021-01-22 08:55 | P.CDIC_ITS ---
CDI Concurrent Query Service Date: 01/22/21 Documentation Clarification: Please clarify if you are treating a proba ble/suspected/likely or confirmed: Chronic kidney disease Stage 1-5 Acute on chronic kidney disease Stage 1-5 Please specify if known Provider Response: CKD Stage 4 PLEASE DO NOT DELETE/MODIFY EXISTING CONTENT Additional information is needed in order to code to the highest accuracy and appropriate Severity of Illness (SOI). Please clarify the information noted below in your progress notes and discharge summary. Risk Factors/Clinical Indicators/Treatments CKD: significantly improved kidney function from previous admit. diabetic as above follow BMP closely Cr: 1.70 Bun 32 Gfr: 29 CDS: Bethany Aponte CCS, CDIS Contact Number: [phone] Please Review the information above and exercise your independent professional judgment in responding to the query. If you concur, pleas document in the PROGRESS NOTES and DISCHARGE SUMMARY. If you do not agree with the query, please document in the query above. THIS QUERY IS PART OF THE PERMANENT MEDICAL RECORD
[2021-01-22 09:09] LABS: Alanine Aminotransferase 33 U/L (0-31); Alkaline Phosphatase 427 U/L (39-117); Aspartate Amino Transferase 39 U/L (5-31); Bilirubin Direct 1.4 mg/dL (0.0-0.5); Bilirubin Total 2.2 mg/dL (0.0-1.0); Total Protein 6.9 g/dL (6.5-8.0)
[2021-01-22] MEDS: Insulin Glargine,Hum.rec.anlog 100 UNIT/ML 10 ML VIAL 15 UNIT SUBCUT (09:15)
[2021-01-22] MEDS: Apixaban 2.5 MG TABLET PO ×2 (09:15→20:55)
--- NOTE | 2021-01-22 10:22 | MHC.CM.PN ---
with [employer] [facility] spoke with both pt and daughter with whom she lives and is her [place] pt is active with [facility] pts daughter will transport pt home
[2021-01-22 11:16] LABS: Glucose, Whole Blood 117 mg/dL (60-115)
[2021-01-22] MEDS: Lactulose 20 GM/30 ML SOLUTION PO (11:34)
[2021-01-22 16:28] LABS: Glucose, Whole Blood 112 mg/dL (60-115)
--- NOTE | 2021-01-22 17:21 | P.PNIM_ITS ---
Subjective Subjective Date of Service: 01/22/21 Interval History: the patient was seen and evaluated this morning Laying in bed, feels comfortable overall, complaining of constipation Denies any fever, chills or shortness of breath No reported other overnight events. Systemic review: No fever, chills but general weakness No chest pain, palpitation No shortness of breath or coughing No abdominal pain, nausea or vomiting No urinary symptoms No any rash or wounds Physical Exam Vital Signs: Vital Signs: Last Vital Signs Temp 98.5 F 01/22/21 15:04 Pulse 98 01/22/21 15:04 Resp 18 01/22/21 15:04 BP 130/69 01/22/21 15:04 Pulse Ox 94 01/22/21 15:04 Body Mass Index 33.9 Const: Other: Constitutional : Alert, oriented, not in distress Neck : Normal inspection, Supple Cardiovascular : RRR, S1 S2, no lower extremity edema Respiratory : Good bilateral air entry, no crackles, wheezes or rhonchi Gastrointestinal: soft, lax, Normal bowel sounds, Non tender Skin : Warm/Dry, No rash Musculoskeletal, bilateral above knee amputation of lower extremities, stump looks stable Neurological : Alert & oriented x3, No focal deficit Objective Data Current Medications Generic Name Dose Route Start Last Admin Trade Name Freq PRN Reason Stop Dose Admin Acetaminophen 650 mg 01/21/21 22:50 Acetaminophen 325 Mg Tablet PO Q6H PRN Pain, Mild (Pain Scale 1-3) Albuterol Sulfate 2 puff 01/21/21 22:50 Albuterol Sulfate 90 Mcg 8 Gm Inhaler INHALE Q4H PRN Shortness Of Breath Apixaban 2.5 mg 01/22/21 09:00 01/22/21 09:15 Apixaban 2.5 Mg Tablet PO 2.5 mg BID [facility] Administration Ascorbic Acid 500 mg 01/22/21 09:00 01/22/21 09:21 Ascorbic Acid 500 Mg Tablet PO Not Given BID [facility] Aspirin 81 mg 01/22/21 09:00 01/22/21 09:22 Aspirin Enteric Coated 81 Mg Tablet.Dr PO Not Given DAILY [facility] Atorvastatin Calcium 40 mg 01/22/21 21:00 Atorvastatin Calcium 40 Mg Tablet PO BEDTIME [facility] Docusate Sodium 100 mg 01/21/21 22:50 Docusate Sodium 100 Mg Capsule PO DAILY PRN Constipation Furosemide 40 mg 01/21/21 22:50 01/22/21 09:14 Furosemide 40 Mg/4 Ml Vial IVPUSH 40 mg Q12H [facility] Administration Protocol Diltiazem HCl 125 mg/ Sodium 125 mls @ 0 mls/hr 01/21/21 14:45 01/21/21 16:50 Chloride IVCONT 0 mg/hr .Q0M [facility] 0 mls/hr Titration Protocol Per Protocol Insulin Glargine 15 unit 01/22/21 09:00 01/22/21 09:15 Insulin Glargine,Hum.Rec.Anlog 100 Unit/Ml 10 Ml Vial SUBCUT 15 unit DAILY [facility] Administration Insulin Human Lispro 0 unit 01/22/21 07:30 01/22/21 16:30 Insulin Lispro 100 Unit/Ml 3 Ml Vial SUBCUT Not Given QIDACHS [facility] Protocol Lactulose 20 gm 01/22/21 11:15 01/22/21 11:34 Lactulose 20 Gm/30 Ml Solution PO 20 gm DAILY [facility] Administration Metoprolol Tartrate 12.5 mg 01/21/21 22:50 01/22/21 09:15 Metoprolol Tartrate 25 Mg Tablet PO 12.5 mg BID [facility] Administration Protocol Montelukast Sodium 10 mg 01/22/21 21:00 Montelukast Sodium 10 Mg Tablet PO BEDTIME [facility] Ondansetron HCl 4 mg 01/21/21 22:50 Ondansetron Hcl 4 Mg/2 Ml Vial IVPUSH Q8H PRN Nausea and Vomiting Pharmacy Consult 1 each 01/21/21 13:32 Consult Rx Perform Med Rec MISCELLANE ONCE PRN Consult order Sodium Chloride 3 ml 01/22/21 00:00 01/22/21 16:32 0.9 % Sodium Chloride Flush 3 Ml Syringe IVFLUSH 3 ml QSHIFT [facility] Administration Tramadol HCl 50 mg 01/21/21 22:50 01/22/21 00:23 Tramadol Hcl 50 Mg Tablet PO 50 mg Q8H PRN Administration pain Labs CBC & Chem 7: 01/22/21 05:41 01/22/21 05:41 Assessment and Plan (1) Acute dyspnea: Status: Acute (2) Acute exacerbation of CHF (congestive heart failure): Status: Acute (3) Transaminitis: Status: Acute Assessment and Plan: 35-year-old female with past medical history of heart failure with reduced ejection fraction of 25-30% presents to the hospital with dyspnea as well as lower extremity edema noticed by her VNA acute CHF exacerbation patient was on Bumex and had missed few days of her diuretic mildly elevated troponin likely from CKD You chest x-ray revealing pulmonary congestion and interstitial edema Continue with Lasix IV b.i.d. strict I&O, daily weight, low-sodium diet had an echo done in November therefore I will not repeat Transaminitis Elevated INR Elevated bilirubin in mild AST ALT INR 2.4, patient on apixaban To check abdominal ultrasound Patient is Constipation Start laxative treatment CKD stage IV Stable follow BMP closely AFib continue Eliquis, and metoprolol diabetes continue home insulin low-dose sliding scale insulin diabetic diet DVT prophylaxis Eliquis
[2021-01-22 20:06] LABS: Glucose, Whole Blood 108 mg/dL (60-115)
[2021-01-22] MEDS: Montelukast Sodium 10 MG TABLET PO (20:53)
[2021-01-22] MEDS: Atorvastatin Calcium 40 MG TABLET PO (20:55)
[2021-01-22] MEDS: Ascorbic Acid 500 MG TABLET PO (21:11)
[2021-01-23] VITALS (7 sets, daily range): BP systolic 91–132; BP diastolic 51–79; PULSE 58–77; RESP 20–24; TEMP 35.7–36.2; O2SAT 88–100; BMI 34.2
[2021-01-23 07:05] LABS: B Type Natriuretic Peptide 2235 pg/mL (<100)
[2021-01-23 07:43] LABS: Glucose, Whole Blood 37 mg/dL (60-115)
[2021-01-23 07:43] LABS: Glucose, Whole Blood 39 mg/dL (60-115)
--- NOTE | 2021-01-23 07:54 | PC.NURSE ---
POC 37 with redpeat of 39. Amp d50 iv given, Dr Randhawa notified. will monitor
[2021-01-23] MEDS: 0.9 % Sodium Chloride Flush 3 ML SYRINGE IVFLUSH ×2 (07:57→14:58)
[2021-01-23 08:04] LABS: Glucose, Whole Blood 170 mg/dL (60-115)
[2021-01-23 08:13] LABS: Alanine Aminotransferase 62 U/L (0-31); Albumin Level 2.9 g/dL (3.5-5.0); Alkaline Phosphatase 393 U/L (39-117); Anion Gap 26 (12-20); Aspartate Amino Transferase 91 U/L (5-31); Bilirubin Direct 1.9 mg/dL (0.0-0.5); Bilirubin Total 2.6 mg/dL (0.0-1.0); Blood Urea Nitrogen 48 mg/dL (9-16); Calcium 8.7 mg/dL (8.4-10.2); Carbon Dioxide 13 mmol/L (22-29); Chloride 102 mmol/L (96-108); Creatinine Clr Calc Pharmacy 17.6; Estimated Glomerular Filt Rate 17; Glucose Random 42 mg/dL (60-115); Potassium 4.9 mmol/L (3.3-5.1); Sodium 136 mmol/L (135-145); Total Protein 6.6 g/dL (6.5-8.0)
[2021-01-23] MEDS: Apixaban 2.5 MG TABLET PO ×2 (08:59→20:45)
[2021-01-23] MEDS: Ascorbic Acid 500 MG TABLET PO (08:59)
[2021-01-23] MEDS: Aspirin Enteric Coated 81 MG TABLET.DR PO (08:59)
[2021-01-23] MEDS: Sodium Bicarbonate 650 MG TABLET PO (11:44)
[2021-01-23 11:54] LABS: Glucose, Whole Blood 104 mg/dL (60-115)
--- NOTE | 2021-01-23 13:56 | P.PNIM_ITS ---
Subjective Subjective Date of Service: 01/23/21 Interval History: the patient was seen and evaluated this morning Laying in bed, feels comfortable overall, complaining of constipation Denies any fever, chills but still complaining of mild shortness of breath No reported other overnight events. Systemic review: No fever, chills but general weakness No chest pain, palpitation Mild shortness of breath requiring oxygen supplement No abdominal pain, nausea or vomiting No urinary symptoms No any rash or wounds Physical Exam Vital Signs: Vital Signs: Last Vital Signs Temp 97.1 F 01/23/21 11:20 Pulse 62 01/23/21 11:20 Resp 22 H 01/23/21 11:20 BP 91/55 L 01/23/21 11:20 Pulse Ox 92 01/23/21 11:20 Body Mass Index 34.2 Const: Other: Constitutional : Alert, oriented, not in distress Neck : Normal inspection, Supple Cardiovascular : RRR, S1 S2, no lower extremity edema Respiratory : Good bilateral air entry, no crackles, wheezes or rhonchi Gastrointestinal: soft, lax, Normal bowel sounds, Non tender Skin : Warm/Dry, No rash Musculoskeletal, bilateral above knee amputation of lower extremities, stump looks stable Neurological : Alert & oriented x3, No focal deficit Objective Data Current Medications Generic Name Dose Route Start Last Admin Trade Name Freq PRN Reason Stop Dose Admin Acetaminophen 650 mg 01/21/21 22:50 Acetaminophen 325 Mg Tablet PO Q6H PRN Pain, Mild (Pain Scale 1-3) Albuterol Sulfate 2 puff 01/21/21 22:50 Albuterol Sulfate 90 Mcg 8 Gm Inhaler INHALE Q4H PRN Shortness Of Breath Apixaban 2.5 mg 01/22/21 09:00 01/23/21 08:59 Apixaban 2.5 Mg Tablet PO 2.5 mg BID [facility] Administration Ascorbic Acid 500 mg 01/22/21 09:00 01/23/21 08:59 Ascorbic Acid 500 Mg Tablet PO 500 mg BID [facility] Administration Aspirin 81 mg 01/22/21 09:00 01/23/21 08:59 Aspirin Enteric Coated 81 Mg Tablet. PO 81 mg DAILY [facility] Administration Atorvastatin Calcium 40 mg 01/22/21 21:00 01/22/21 20:55 Atorvastatin Calcium 40 Mg Tablet PO 40 mg BEDTIME [facility] Administration Docusate Sodium 100 mg 01/21/21 22:50 Docusate Sodium 100 Mg Capsule PO DAILY PRN Constipation Insulin Human Lispro 0 unit 01/22/21 07:30 01/23/21 11:44 Insulin Lispro 100 Unit/Ml 3 Ml Vial SUBCUT Not Given QIDACHS [facility] Protocol Lactulose 20 gm 01/22/21 11:15 01/23/21 09:13 Lactulose 20 Gm/30 Ml Solution PO Not Given DAILY [facility] Metoprolol Tartrate 12.5 mg 01/21/21 22:50 01/23/21 09:05 Metoprolol Tartrate 25 Mg Tablet PO Not Given BID [facility] Protocol Montelukast Sodium 10 mg 01/22/21 21:00 01/22/21 20:53 Montelukast Sodium 10 Mg Tablet PO 10 mg BEDTIME [facility] Administration Ondansetron HCl 4 mg 01/21/21 22:50 Ondansetron Hcl 4 Mg/2 Ml Vial IVPUSH Q8H PRN Nausea and Vomiting Pharmacy Consult 1 each 01/21/21 13:32 Consult Rx Perform Med Rec MISCELLANE ONCE PRN Consult order Sodium Bicarbonate 650 mg 01/23/21 09:00 01/23/21 11:44 Sodium Bicarbonate 650 Mg Tablet PO 650 mg TID [facility] Administration Sodium Chloride 3 ml 01/22/21 00:00 01/23/21 07:57 0.9 % Sodium Chloride Flush 3 Ml Syringe IVFLUSH 3 ml QSHIFT [facility] Administration Tramadol HCl 50 mg 01/21/21 22:50 01/22/21 00:23 Tramadol Hcl 50 Mg Tablet PO 50 mg Q8H PRN Administration pain Labs CBC & Chem 7: 01/22/21 05:41 01/23/21 05:33 Assessment and Plan (1) Acute dyspnea: Status: Acute (2) Acute exacerbation of CHF (congestive heart failure): Status: Acute (3) Transaminitis: Status: Acute Assessment and Plan: 35-year-old female with past medical history of heart failure with reduced ejection fraction of 25-30% presents to the hospital with dyspnea as well as lower extremity edema noticed by her VNA Acute hypoxic respiratory failure Secondary to acute CHF exacerbation O2 sat dropped to 88% on room air this morning requiring O2 supplement patient was on Bumex and had missed few days of her diuretic mildly elevated troponin likely from CKD chest x-ray revealing pulmonary congestion and interstitial edema Lasix held this morning for hypotension, to restart once blood pressure stable strict I&O, daily weight, low-sodium diet with water restriction Has recent echo from November with severe low ejection fraction of 20 25% To get cardiology evaluation Transaminitis Elevated INR Elevated bilirubin in mild AST ALT INR 2.4, patient on apixaban Within normal abdominal ultrasound Patient is Constipation Start laxative treatment Armond I on CKD stage IV Anion Metabolic acidosis Creatinine worsened to 2.7 with metabolic acidosis Add sodium bicarbonate To get Nephrology evaluation follow BMP closely AFib continue Eliquis, and metoprolol Hypoglycemia, diabetes Discontinue Lantus for now Received D50 low-dose sliding scale insulin diabetic diet DVT prophylaxis Eliquis
[2021-01-23] MEDS: traMADoL HCL 50 MG TABLET PO (14:58)
--- NOTE | 2021-01-23 15:06 | PC.NURSE ---
Late entry: POC this morning 15 minutes after low POC was 170. Poor po intake. Will continue to encourage to eat. Pt brito inserted per md order- approx 25ml rust colored urine output. Had large incontinent urine this morning. Dr Randhawa notified of low urine output
[2021-01-23] MEDS: Sodium Bicarbonate 8.4% 150 MEQ in Dextrose 5 % 850 ML 50 MEQ IV (15:38)
[2021-01-23 16:25] LABS: Lactic Acid 9.1 mmol/L (0.5-2.0)
[2021-01-23] MEDS: 0.9 % Sodium Chloride 500 ML IV (16:34)
[2021-01-23 17:03] LABS: Glucose, Whole Blood 70 mg/dL (60-115)
[2021-01-23] MEDS: Furosemide 40 MG/4 ML VIAL IVPUSH (17:39)
[2021-01-23] MEDS: Sodium Bicarbonate 8.4% 150 MEQ in Dextrose 5 % 850 ML 100 MEQ IV (17:41)
[2021-01-23 17:55] LABS: Reflex Lactate? Lactic Acid Added
--- NOTE | 2021-01-23 18:30 | PC.NURSE ---
POC before dinner was 70. Attempted to have pt eat dinner but refused. Repeat POC 68. Dr Randhawa notified by [facility]. Awaiting any further orders
[2021-01-23 18:33] LABS: Glucose, Whole Blood 68 mg/dL (60-115)
[2021-01-23 20:11] LABS: ~Lactic Acid-LAB USE ONLY 10.6 mmol/L (0.5-2.0)
[2021-01-23] MEDS: Dextrose 10 % 1,000 ML 10 ML IVCONT (20:43)
[2021-01-23] MEDS: Metoprolol Tartrate 25 MG TABLET 12.5 MG PO (20:46)
[2021-01-23] MEDS: Montelukast Sodium 10 MG TABLET PO (20:48)
[2021-01-23 21:02] LABS: Reflex Lactate? 2 Y
--- NOTE | 2021-01-23 22:01 | PM.EVENT ---
Event Note Date of Service: 01/23/21 Event Note: Pt seen amnd examind D/w Medical team Full Consult to follow
[2021-01-23 22:10] LABS: Basophils Percent Auto 0.2 % (0-2); Hemoglobin 9.6 g/dl (12.0-16.0); Imm Gran Abs Auto 0.25 X10*3/uL (0.00-0.03); Imm Gran Pct Auto 1.6 % (0.0-0.4); Lymphocytes Absolute Auto 1.6 X10*3/uL (1.2-4.9); Lymphocytes Percent Auto 10.7 % (20-40); MANUAL DIFF FLAG SCAN; Mean Corpuscular Volume 89.9 fL (80-98); Mean Platelet Volume 12.2 fL (9.4-12.3); Monocytes Absolute Auto 1.6 X10*3/uL (0.1-1.2); Monocytes Percent Auto 10.5 % (2-11); NRBC Pct Auto 0.3 /100WBC (0.0-0.2); Neutrophils Absolute Auto 11.8 X10*3/uL (2.0-8.3); Platelet Count 240 X10*3/uL (160-400); Red Blood Count 3.56 X10*6/uL (4.20-5.50); SCAN SMEAR FLAG 1; White Blood Count 15.4 X10*3/uL (4.8-10.8)
[2021-01-23 22:29] LABS: Anion Gap 36 (12-20); Blood Urea Nitrogen 55 mg/dL (9-16); Calcium 7.7 mg/dL (8.4-10.2); Carbon Dioxide 5 mmol/L (22-29); Chloride 104 mmol/L (96-108); Creatinine Clr Calc Pharmacy 13.8; Estimated Glomerular Filt Rate 13; Glucose Random 47 mg/dL (60-115); Potassium 7.4 mmol/L (3.3-5.1); Sodium 138 mmol/L (135-145)
[2021-01-23 22:29] LABS: SLIDE REVIEW VERIFIED
[2021-01-23] MEDS: Calcium Chloride 1 GM/10 ML SYRINGE IVPUSH (22:57)
[2021-01-23] MEDS: Sodium Bicarbonate 8.4% 50 MEQ/50 ML VIAL IVPUSH (23:01)
--- NOTE | 2021-01-23 23:01 | ECG_ITS ---
Test Reason : AFIB Blood Pressure : / mmHG Vent. Rate : 085 BPM Atrial Rate : 051 BPM P-R Int : 000 ms QRS Dur : 150 ms QT Int : 450 ms P-R-T Axes : 000 119 -77 degrees QTc Int : 535 ms Atrial fibrillation Right bundle branch block T wave abnormality, consider inferior ischemia Abnormal ECG When compared to the previous EKG of Vent. rate has decreased Referred By: Charlotte Morales Electronically Signed By:ROMAN BRYANT MD
[2021-01-23 23:05] LABS: Glucose, Whole Blood 161 mg/dL (60-115)
--- NOTE | 2021-01-23 23:17 | P.EN_ITS ---
Event Note Date of Service: 01/23/21 Event Note: A rapid response was called on the patient around 1045 due to ence phalopathy, abnormal labs. Patient was found to be hypoxic in the 70s, with blood pressure of 80s over 40s. Labs are significantly deranged including a potassium of 7.4, bicarb of 5, glucose of 47, of note specimen was collected from the capillary as phlebotomy had difficulty obtaining venous sample. Patient's lactic acid was 10. Patient was placed on a non-rebreather with oxygen improving to 100%. She received 3 amps of bicarb, calcium gluconate, furosemide 60 mg IV, as well as D50. Given her low blood pressure 1 L of LR bolus was started. ICU attending was notified and patient will be transferred to ICU.
--- NOTE | 2021-01-23 23:27 | MHC.PIE ---
p; lab critical 10.6, glucose 47, potassium 7.4, bicarb 5. i; dr burgos notified and in room. typists supervisor called, d50 given, calcium chloride given, lasix given, lr 1l bolus, sodium bicarb. rersp in room, pt placed on nrb. poc done, pt more alert? e; pt transfered to icu, nurse to nurse given
[2021-01-23 23:41] LABS: VBG Base Excess -16.5 mmol/L; VBG HCO3 10 mmol/L (22-26); VBG pCO2 28 mmHg; VBG pH 7.16 (7.32-7.43); VBG pO2 51 mmHg
[2021-01-23 23:50] LABS: Glucose, Whole Blood 145 mg/dL (60-115)
[2021-01-24] VITALS (25 sets, daily range): BP systolic 47–178; BP diastolic 15–100; PULSE 65–136; RESP 15–27; TEMP 36.5–36.9; O2SAT 90–100; BMI 34.9
--- NOTE | 2021-01-24 00:12 | P.PNNP_ITS ---
Subjective Subjective Date of Service: 01/24/21 Interval history: Called for refractory metabolic acidosis and hyperkalemia. Will prioritize central line for dialysis access and start iHD acutely HD against a 2K/2.5Ca/36B bath for 3 hours Will try to UF 3L Physical Exam Vital Signs: Vital Signs: Last Vital Signs Temp 97.0 F 01/23/21 15:08 Pulse 67 01/23/21 17:42 Resp 24 H 01/23/21 23:46 BP 131/75 01/23/21 17:42 Pulse Ox 90 L 01/23/21 15:08 Body Mass Index 34.2 Objective Data Labs CBC & Chem 7: 01/23/21 22:00 01/23/21 21:15 Labs: Laboratory Results - last 24 hr 01/23/21 01/23/21 01/23/21 05:33 05:33 07:32 WBC RBC Hgb Hct MCV MCH MCHC RDW Plt Count MPV Immature Gran % (Auto) Neut % (Auto) Lymph % (Auto) [place] % (Auto) Eos % (Auto) Baso % (Auto) Lymph # (Auto) [place] # (Auto) Eos # (Auto) Baso # (Auto) Abs Immat Gran (auto) Absolute Neuts (auto) Absolute Nucleated RBC Nucleated RBC % (auto) Smear Tech's Comments VBG pH VBG pCO2 VBG pO2 VBG HCO3 VBG O2 Saturation VBG Base Excess Sodium 136 Potassium 4.9 Chloride 102 Carbon Dioxide 13 L Anion Gap 26 H BUN 48 H Creatinine 2.72 H Estim Creat Clear Calc 17.6 Estimated GFR 17 POC Glucose 37 L* Random Glucose 42 L* Lactic Acid Lactic Acid Fup @ 2Hr Calcium 8.7 Total Bilirubin 2.6 H Direct Bilirubin 1.9 H AST 91 H ALT 62 H Alkaline Phosphatase 393 H B-Natriuretic Peptide 2235 H Total Protein 6.6 Albumin 2.9 L 01/23/21 01/23/21 01/23/21 07:34 07:59 11:42 WBC RBC Hgb Hct MCV MCH MCHC RDW Plt Count MPV Immature Gran % (Auto) Neut % (Auto) Lymph % (Auto) [place] % (Auto) Eos % (Auto) Baso % (Auto) Lymph # (Auto) [place] # (Auto) Eos # (Auto) Baso # (Auto) Abs Immat Gran (auto) Absolute Neuts (auto) Absolute Nucleated RBC Nucleated RBC % (auto) Smear Tech's Comments VBG pH VBG pCO2 VBG pO2 VBG HCO3 VBG O2 Saturation VBG Base Excess Sodium Potassium Chloride Carbon Dioxide Anion Gap BUN Creatinine Estim Creat Clear Calc Estimated GFR POC Glucose 39 L* 170 H 104 Random Glucose Lactic Acid Lactic Acid Fup @ 2Hr Calcium Total Bilirubin Direct Bilirubin AST ALT Alkaline Phosphatase B-Natriuretic Peptide Total Protein Albumin 01/23/21 01/23/21 01/23/21 15:50 16:51 18:27 WBC RBC Hgb Hct MCV MCH MCHC RDW Plt Count MPV Immature Gran % (Auto) Neut % (Auto) Lymph % (Auto) [place] % (Auto) Eos % (Auto) Baso % (Auto) Lymph # (Auto) [place] # (Auto) Eos # (Auto) Baso # (Auto) Abs Immat Gran (auto) Absolute Neuts (auto) Absolute Nucleated RBC Nucleated RBC % (auto) Smear Tech's Comments VBG pH VBG pCO2 VBG pO2 VBG HCO3 VBG O2 Saturation VBG Base Excess Sodium Potassium Chloride Carbon Dioxide Anion Gap BUN Creatinine Estim Creat Clear Calc Estimated GFR POC Glucose 70 68 Random Glucose Lactic Acid 9.1 H* Lactic Acid Fup @ 2Hr Calcium Total Bilirubin Direct Bilirubin AST ALT Alkaline Phosphatase B-Natriuretic Peptide Total Protein Albumin 01/23/21 01/23/21 01/23/21 18:57 21:15 22:00 WBC 15.4 H RBC 3.56 L Hgb 9.6 L Hct 32.0 L MCV 89.9 D MCH 27.0 MCHC 30.0 L RDW 20.0 H Plt Count 240 MPV 12.2 Immature Gran % (Auto) 1.6 H Neut % (Auto) 77.0 H Lymph % (Auto) 10.7 L [place] % (Auto) 10.5 Eos % (Auto) 0.0 Baso % (Auto) 0.2 Lymph # (Auto) 1.6 [place] # (Auto) 1.6 H Eos # (Auto) 0.0 Baso # (Auto) 0.0 Abs Immat Gran (auto) 0.25 H Absolute Neuts (auto) 11.8 H Absolute Nucleated RBC 0.040 H Nucleated RBC % (auto) 0.3 H Smear Tech's Comments VERIFIED VBG pH VBG pCO2 VBG pO2 VBG HCO3 VBG O2 Saturation VBG Base Excess Sodium 138 Potassium 7.4 H* D Chloride 104 Carbon Dioxide 5 L* D Anion Gap 36 H BUN 55 H Creatinine 3.47 H Estim Creat Clear Calc 13.8 Estimated GFR 13 POC Glucose Random Glucose 47 L* Lactic Acid Lactic Acid Fup @ 2Hr 10.6 H* Calcium 7.7 L D Total Bilirubin Direct Bilirubin AST ALT Alkaline Phosphatase B-Natriuretic Peptide Total Protein Albumin 01/23/21 01/23/21 01/23/21 22:57 23:34 23:47 WBC RBC Hgb Hct MCV MCH MCHC RDW Plt Count MPV Immature Gran % (Auto) Neut % (Auto) Lymph % (Auto) [place] % (Auto) Eos % (Auto) Baso % (Auto) Lymph # (Auto) [place] # (Auto) Eos # (Auto) Baso # (Auto) Abs Immat Gran (auto) Absolute Neuts (auto) Absolute Nucleated RBC Nucleated RBC % (auto) Smear Tech's Comments VBG pH 7.16 L* VBG pCO2 28 VBG pO2 51 VBG HCO3 10 L VBG O2 Saturation 69.0 VBG Base Excess -16.5 Sodium Potassium Chloride Carbon Dioxide Anion Gap BUN Creatinine Estim Creat Clear Calc Estimated GFR POC Glucose 161 H 145 H Random Glucose Lactic Acid Lactic Acid Fup @ 2Hr Calcium Total Bilirubin Direct Bilirubin AST ALT Alkaline Phosphatase B-Natriuretic Peptide Total Protein Albumin
[2021-01-24 00:24] LABS: Alanine Aminotransferase 200 U/L (0-31); Albumin Level 2.5 g/dL (3.5-5.0); Alkaline Phosphatase 352 U/L (39-117); Anion Gap 34 (12-20); Aspartate Amino Transferase 403 U/L (5-31); Blood Urea Nitrogen 55 mg/dL (9-16); Calcium 7.9 mg/dL (8.4-10.2); Carbon Dioxide 7 mmol/L (22-29); Chloride 103 mmol/L (96-108); Creatinine Clr Calc Pharmacy 13.8; Estimated Glomerular Filt Rate 13; Glucose Random 103 mg/dL (60-115); Potassium 6.5 mmol/L (3.3-5.1); Sodium 137 mmol/L (135-145)
[2021-01-24 00:46] LABS: Troponin-I High Sensitivity 195.2 ng/L (<3.5-17.0)
[2021-01-24 00:47] LABS: ~Lactic Acid-LAB USE ONLY 14.1 mmol/L (0.5-2.0)
--- NOTE | 2021-01-24 00:47 | P.CONCC_ITS ---
History of Present Illness Data of Consult Service Date: 01/23/21 Requesting physician: Trinidad Gaston Primary Care Provider: Verenice Kirby MD HPI Reason for consult: AMS, hypoxemia, hyperkalemia 75-year-old female with past medical history of paroxysmal AFib (on Eliquis) PVD, CHF (LVEF of 20-25%) , CKD, asthma who was admitted into hospital medicine 01/22/21 for acute CHF exacerbation from missed doses of Bumex. Lasix was held this morning due to hypotension. Overnight patient became profoundly hypoxic in the 70s, SBP in the 80s, and worsened mentation. Laboratory data showed potassium of 7.4, bicarb of 5. Rapid response was called she received 3 amps of bicarb, 1 g of calcium gluconate, 60 of furosemide, and D50. LR bolus was ordered, but stopped by ICU team due to Reduced EF. Stat VBGs: pH 7.16, CO2 27.6, bicarb of 10. EKG did not show T-waves elevation. Transferred to ICU and placed on BiPAP Stat consultation to Nephrology place for profound severe metabolic acidosis, spoke with Dr. Leonard who agrees with acute hemodialysis. Review of Systems Review of Systems: Unable patient, AMS [facility] Past Medical History Medical History Afib Asthma Atherosclerotic cardiovascular disease CAD (coronary artery disease) Cardiomyopathy CHF (congestive heart failure) CVA (cerebral vascular accident) Diabetes Hypertension NSVT (nonsustained ventricular tachycardia) Persistent atrial fibrillation PVD (peripheral vascular disease) Family History Family History Father Heart attack Mother Heart attack Diabetes Surgical History Surgical History History of esophagogastroduodenoscopy (EGD) Hx of AKA (above knee amputation) Hx of colonoscopy Status post coronary artery bypass graft Social History Social History Household Members: Children Housing: Unknown / Unable to assess Do you presently have visiting nurse or other home services: Yes (per records, unable to assess, not answering appropriately) Unable to assess alcohol history related to: Refusing to respond Alcohol intake: never Smoking Status: Never smoker Use of substances other than those prescribed or required for medical reasons: Unknown Currently Displaying Signs/Symptoms of Drug Intoxication Withdrawal: No Advance Directives: Yes Advance Directives on File: Yes Advance Directives Date on File: 09/10/20 Do you have thoughts of harming others: None Do you have a plan to hurt others: No Plan Recently lost weight without trying: Unsure service: No Current occupational status: disabled Meds Allergies Allergy/AdvReac Type Severity Reaction Status Date / Time No Known Allergies Allergy Verified 11/17/20 11:21 Active Medications: Current Medications Generic Name Dose Route Start Last Admin Trade Name Freq PRN Reason Stop Dose Admin Acetaminophen 650 mg 01/21/21 22:50 Acetaminophen 325 Mg Tablet PO Q6H PRN Pain, Mild (Pain Scale 1-3) Albuterol Sulfate 2 puff 01/21/21 22:50 Albuterol Sulfate 90 Mcg 8 Gm Inhaler INHALE Q4H PRN Shortness Of Breath Apixaban 2.5 mg 01/22/21 09:00 01/23/21 20:45 Apixaban 2.5 Mg Tablet PO 2.5 mg BID GABO Administration Ascorbic Acid 500 mg 01/22/21 09:00 01/23/21 20:50 Ascorbic Acid 500 Mg Tablet PO Not Given BID GABO Aspirin 81 mg 01/22/21 09:00 01/23/21 08:59 Aspirin Enteric Coated 81 Mg Tablet.Dr PO 81 mg DAILY GABO Administration Atorvastatin Calcium 40 mg 01/22/21 21:00 01/23/21 20:51 Atorvastatin Calcium 40 Mg Tablet PO Not Given BEDTIME GABO Docusate Sodium 100 mg 01/21/21 22:50 Docusate Sodium 100 Mg Capsule PO DAILY PRN Constipation Furosemide 40 mg 01/23/21 18:00 01/23/21 17:39 Furosemide 40 Mg/4 Ml Vial IVPUSH 40 mg BID@0900,1800 GABO Administration Protocol Heparin Sodium (Porcine) 5,000 unit 01/24/21 07:00 Heparin Sodium,Porcine 5,000 Unit/Ml Vial INTRACATH 01/24/21 07:01 ONCE ONE Sodium Bicarbonate 150 meq/ 1,000 mls @ 100 mls/hr 01/23/21 16:30 01/23/21 23:06 Dextrose IV 0 mls/hr .Q10H GABO Infusion Dextrose 1,000 mls @ 0 mls/hr 01/23/21 18:45 01/23/21 23:06 D10 IVCONT 0 mls/hr .Q0M [facility] Infusion KVO Cefepime HCl 1 gm/ Sodium 50 mls @ 100 mls/hr 01/23/21 22:45 Chloride IV Q8H GABO Vancomycin HCl 500 mg/ Sodium 110 mls @ 110 mls/hr 01/23/21 23:00 Chloride IV Q24H [facility] Insulin Human Lispro 0 unit 01/22/21 07:30 01/23/21 20:51 Insulin Lispro 100 Unit/Ml 3 Ml Vial SUBCUT Not Given QIDACHS [facility] Protocol Lactulose 20 gm 01/22/21 11:15 01/23/21 09:13 Lactulose 20 Gm/30 Ml Solution PO Not Given DAILY [facility] Metoprolol Tartrate 12.5 mg 01/21/21 22:50 01/23/21 20:46 Metoprolol Tartrate 25 Mg Tablet PO 12.5 mg BID GABO Administration Protocol Montelukast Sodium 10 mg 01/22/21 21:00 01/23/21 20:48 Montelukast Sodium 10 Mg Tablet PO 10 mg BEDTIME [facility] Administration Ondansetron HCl 4 mg 01/21/21 22:50 Ondansetron Hcl 4 Mg/2 Ml Vial IVPUSH Q8H PRN Nausea and Vomiting Pharmacy Consult 1 each 01/21/21 13:32 Consult Rx Perform Med Rec MISCELLANE ONCE PRN Consult order Pharmacy Consult 1 each 01/23/21 22:44 Consult Rx Vancomycin Dosing MISCELLANE DAILY PRN Consult order Sodium Chloride 3 ml 01/22/21 00:00 01/23/21 14:58 0.9 % Sodium Chloride Flush 3 Ml Syringe IVFLUSH 3 ml QSHIFT [facility] Administration Tramadol HCl 50 mg 01/21/21 22:50 01/23/21 14:58 Tramadol Hcl 50 Mg Tablet PO 50 mg Q8H PRN Administration pain Home Medications Medication Instructions Recorded Confirmed Last Taken Type albuterol sulfate [ProAir HFA] 2 puff INHALATION Q4-6H PRN 09/10/20 01/21/21 Unknown History ascorbic acid (vitamin C) 500 mg PO BID 09/10/20 01/21/21 01/21/21 History aspirin 81 mg PO DAILY 09/10/20 01/21/2101/21/21 History atorvastatin 40 mg PO BEDTIME 09/10/20 01/21/21 01/20/21 History montelukast 10 mg PO BEDTIME 09/10/20 01/21/21 01/20/21 History insulin lispro [Humalog KwikPen 3 unit SUBCUT TIDAC 01/21/21 01/21/21 01/21/21 History Insulin] tramadol 1 tab PO Q8H PRN 01/21/21 01/21/21 01/21/21 History Physical Exam Vital Signs: Vital Signs: Last Vital Signs Temp 97.0 F 01/23/21 15:08 Pulse 78 01/24/21 00:00 Resp 27 H 01/24/21 00:00 BP 178/100 H 01/24/21 00:00 Pulse Ox 90 L 01/23/21 15:08 Body Mass Index 34.2 Focused assessment performed 2300 Constitutional: In acute resp distress. Confused, Able to open eyes to verbal command. HEENT: Dry mucuos membranes, head Normocephalic, atraumatic, PERRLA, Respiratory: Lungs rhonchi throughout. Cardiac: Significant JVD noted. Atrial fibrillation with bundle noted on EKG. no murmurs/rubs, pulses palpable and equal in all extremities, Normal cap refill Gastrointestinal: +BS, non-tender to palpation, non-distended Musculoskeletal: Right above the knee and Left below the knee amputation. Results Labs CBC & Chem 7: 01/23/21 22:00 01/23/21 23:33 Labs: Short CBC 01/23/21 Range/Units 22:00 WBC 15.4 H (4.8-10.8) X10*3/uL Hgb 9.6 L (12.0-16.0) g/dl Hct 32.0 L (37-47) % Plt Count 240 (160-400) X10*3/uL BMP 01/23/21 01/23/21 01/23/21 05:33 21:15 23:33 Sodium 136 138 137 Potassium 4.9 7.4 H* D 6.5 H* Chloride 102 104 103 Carbon Dioxide 13 L 5 L* D 7 L* D BUN 48 H 55 H 55 H Creatinine 2.72 H 3.47 H 3.48 H Calcium 8.7 7.7 L D 7.9 L Liver Function 01/23/21 01/23/21 Range/Units 05:33 23:33 Total Bilirubin 2.6 H 3.0 H (0.0-1.0) mg/dL Direct Bilirubin 1.9 H 2.0 H (0.0-0.5) mg/dL AST 91 H 403 H (5-31) U/L ALT 62 H 200 H (0-31) U/L Alkaline Phosphatase 393 H 352 H (39-117) U/L Albumin 2.9 L 2.5 L (3.5-5.0) g/dL Assessment and Plan (1) Cardiorenal syndrome with renal failure: Status: Acute Neuro: altered mental status, likely related to state of severe metabolic acidosis. Should improve after dialysis treatment Cardiac: Hypotension: in the setting of cardiorenal syndrome. We will start pressors. Should improve after dialysis. Elevated lactic: patient now has elevated white count. But I think elevated lactic is related to state of being in severe metabolic acidosis instead of septic shock. But will continue to treat empirically with antibiotics. Pulmonary: Acute hypoxic respiratory failure- acute onset of symptoms likely related to Acidemia. Will continue BiPAP until able to wean off. Renal: Cardiorenal syndrome: patient multiple electrolyte abnormalities, with potas sium elevated to 7.4, creatinine 3.47, Bicarb of 5, and pH of 7.14. She is not producing any urine despite administration of 60 of Lasix. Nephrology consulted, Dr. Leonard who agrees with acute hemodialysis. Will place dialysis catheter Endo: No acute issues. ID: leukocytosis, new leukocytosis. No clear source for possible infection. When patient is more stable will obtain abdominal CT. Will treat empirically in the meantime with cefepime GI: No acute issues. Heme/Onc: No acute issues. Psych: No acute issues. Miscellaneous: No acute issues. Prophylaxis: on Eliquis Diet: NPO CODE: FULL Critical care time: 90 minutes of critical care time (2) Transaminitis: Status: Acute (3) Acute exacerbation of CHF (congestive heart failure): Status: Acute (4) SILVER (acute kidney injury): Status: Acute (5) Paroxysmal atrial fibrillation: Status: Acute
[2021-01-24] MEDS: vancomycin HCL 500 MG in 0.9 % Sodium Chloride 100 ML 110 MG IV (00:57)
[2021-01-24] MEDS: cefEPime HCl 1 GM in 0.9 % Sodium Chloride 50 ML IV ×2 (00:57→08:28)
[2021-01-24] MEDS: 0.9 % Sodium Chloride Flush 3 ML SYRINGE IVFLUSH ×2 (01:09→09:37)
[2021-01-24 01:31] LABS: Venous Blood Gas Refer to POC result
[2021-01-24] MEDS: Sodium Bicarbonate 8.4% 50 MEQ/50 ML VIAL IVPUSH ×7 (01:41→10:46)
--- NOTE | 2021-01-24 01:55 | PC.NURSE ---
Addendum entered by Sol Perez RN 01/24/21 06:24: unable to draw labs peripherally. pressors held briefly to draw labs off dialysis cath. patient became agonal and burden. emergently intubated. 7.5@25. Addendum entered by Sol Perez RN 01/24/21 05:31: Patient hemodynamically unstable throughout dialysis. vasopressin and epi gtts started. ivp bicarb x3 amps. iv calcium gluconate. no uop. 2.8 liters off during hd. Addendum entered by Sol Perez RN 01/24/21 02:00: Family updated by ICU CONFECTIONERY LABORATORY MANAGER...remains full code at this time. Original Note: Patient transferred to ICU approx 2330 after WINDOWS SYSTEMS ADMIN on floor for altered mental status, hypotension, hypoxia, hypoglycemia, hyperkalemia, and low bicarb. Temporary HD cath inserted R IJ. Levo started. Patient placed on Bipap. Emergent dialysis in progress. Patient remains mostly unresponsive. Does not open eyes/track/follow commands. Intermittently restless/pulling at lines/thrashing. 4mm sluggish PERRL, Afib 70's-90's. No UOP. Skin intact.
[2021-01-24 02:13] LABS: Glucose, Whole Blood 149 mg/dL (60-115)
[2021-01-24] MEDS: Dextrose 10 % 1,000 ML 50 ML IVCONT (02:20)
[2021-01-24 03:35] LABS: Troponin-I High Sensitivity 568.4 ng/L (<3.5-17.0)
[2021-01-24] MEDS: Hydrocortisone Sod Succ/PF 100 MG VIAL IVPUSH (03:51)
[2021-01-24 03:58] LABS: Glucose, Whole Blood 151 mg/dL (60-115)
[2021-01-24 04:30] LABS: VBG Base Excess 3.6 mmol/L; VBG HCO3 30 mmol/L (22-26); VBG pCO2 53 mmHg; VBG pH 7.35 (7.32-7.43); VBG pO2 30 mmHg
[2021-01-24 04:40] LABS: Hemoglobin 10.1 g/dl (12.0-16.0); Mean Corpuscular HGB Conc 32.6 g/dl (31.0-35.0); Mean Corpuscular Hemoglobin 27.5 pg (27.0-33.0); Mean Corpuscular Volume 84.5 fL (80-98); Mean Platelet Volume 11.2 fL (9.4-12.3); NRBC Pct Auto 0.2 /100WBC (0.0-0.2); Platelet Count 254 X10*3/uL (160-400); Red Blood Count 3.67 X10*6/uL (4.20-5.50); Red Cell Distribution Width 20.2 % (11.0-16.0); White Blood Count 23.4 X10*3/uL (4.8-10.8)
[2021-01-24] MEDS: Calcium Gluconate/NaCl,Iso-Osm 2 GM/100 ML PLAST..BAG IV (04:46)
[2021-01-24] MEDS: EPINEPHrine 5 MG in Dextrose 5 % 250 ML 100.61 MG IVCONT (04:48)
[2021-01-24] MEDS: Aspirin 300 MG SUPP.RECT PR (05:12)
[2021-01-24 05:25] LABS: Alanine Aminotransferase 585 U/L (0-31); Alkaline Phosphatase 448 U/L (39-117); Anion Gap 22 (12-20); Aspartate Amino Transferase 1154 U/L (5-31); Bilirubin Direct 2.8 mg/dL (0.0-0.5); Bilirubin Total 3.9 mg/dL (0.0-1.0); Blood Urea Nitrogen 28 mg/dL (9-16); Calcium 8.1 mg/dL (8.4-10.2); Carbon Dioxide 25 mmol/L (22-29); Chloride 98 mmol/L (96-108); Creatinine Clr Calc Pharmacy 26.2; Estimated Glomerular Filt Rate 27; Glucose Random 145 mg/dL (60-115); Potassium 3.5 mmol/L (3.3-5.1); Sodium 141 mmol/L (135-145); Total Protein 7.1 g/dL (6.5-8.0)
[2021-01-24 06:23] LABS: Hematocrit 32.8 % (37-47); Hemoglobin 9.7 g/dl (12.0-16.0); Mean Corpuscular HGB Conc 29.6 g/dl (31.0-35.0); Mean Corpuscular Volume 91.4 fL (80-98); Mean Platelet Volume 12.1 fL (9.4-12.3); NRBC Pct Auto 0.2 /100WBC (0.0-0.2); Platelet Count 261 X10*3/uL (160-400); Red Blood Count 3.59 X10*6/uL (4.20-5.50); Red Cell Distribution Width 20.2 % (11.0-16.0)
[2021-01-24 06:25] LABS: ABG Base Excess -15.4 mmol/L; ABG HCO3 12 mmol/L (22-26); ABG pCO2 32 mmHg (32-45); ABG pH 7.16 (7.35-7.45); ABG pO2 309 mmHg (83-108)
[2021-01-24 06:30] LABS: WBC ABN SCTR FOR CBC 1
[2021-01-24 06:30] LABS: Venous Blood Gas Refer to POC result
[2021-01-24 06:37] LABS: Prothrombin Time 106.4 SEC (10.8-13.0)
--- NOTE | 2021-01-24 06:38 | W.PM.CCHP ---
Procedures Intubation Intubation Comments: Patient not responding to verbal commands and painful stimuli. Skin looking ashen/martini. Require emergent intubation for airway protection. Patient intubated with 7.5 cuffed ET tube under glide scope guidance with visualization of vocal cords, without immediate complications. ET tube position verified with Chest XRAY. Consent for Procedure: Emergent-no informed consent obtained Time out performed: Yes Sedative: none Laryngoscope: fiber optic video scope ET tube size: 7.5 Tube secured depth (cm): 25 Tube secured location: lips Tube placement confirmation: visualized tube passing through cords, equal breath sounds bilaterally, no breath sounds over epigastrium and confirmation by capnometry Intubation complications: none
[2021-01-24 06:44] LABS: INTERNATIONAL NORM RATIO 8.8 (0.9-1.1)
[2021-01-24] MEDS: fentaNYL citrate/PF 100 MCG/2 ML VIAL IVPUSH (06:44)
[2021-01-24 06:50] LABS: Anion Gap 29 (12-20); Blood Urea Nitrogen 31 mg/dL (9-16); Calcium 8.4 mg/dL (8.4-10.2); Carbon Dioxide 16 mmol/L (22-29); Chloride 99 mmol/L (96-108); Creatinine Clr Calc Pharmacy 21.9; Estimated Glomerular Filt Rate 22; Glucose Random 104 mg/dL (60-115); Potassium 4.4 mmol/L (3.3-5.1); Sodium 140 mmol/L (135-145)
[2021-01-24 06:53] LABS: B Type Natriuretic Peptide 2354 pg/mL (<100)
[2021-01-24 06:55] LABS: ABG Refer to POC result
[2021-01-24 07:07] LABS: Band Neutrophils Percent 15 % (3-5); Lymphocytes Percent Manual 5 % (20-40); Monocytes Percent Manual 15 % (2-11); Neutrophils Percent Manual 65 % (45-73)
[2021-01-24 07:14] LABS: Acanthocytes 1+ (0-2) /OIF; Burr Cells 3+ (>5) /OIF; Hypochromasia 1+ (5-14) /OIF; Macrocytosis 1+ (5-14) /OIF; Microcytosis 1+ (5-14) /OIF; Polychromasia 1+ (0-2) /OIF; RBC Morphology NOTED
[2021-01-24 07:15] LABS: Large Platelet PRESENT; Platelet Estimate NORMAL (NORMAL); Platelet Morphology Comment NOTED; Smudge Cells PRESENT; Toxic Vacuolation PRESENT
[2021-01-24 07:16] LABS: Lymphocytes Absolute Manual 1.3 X10*3/uL (0.6-4.8); Monocytes Absolute Manual 3.8 X10*3/uL (0.0-1.2); Neutrophils Absolute Manual 20.2 X10*3/uL (2.2-7.9); White Blood Count 25.2 X10*3/uL (4.8-10.8)
[2021-01-24] MEDS: fentaNYL citrate/NS 1,000 MCG/100 ML PLAST..BAG 2.5 MCG IVCONT (07:30)
[2021-01-24 07:52] LABS: Glucose, Whole Blood 131 mg/dL (60-115)
[2021-01-24] MEDS: propofoL 1,000 MG/100 ML VIAL 10.08 MG IVCONT ×2 (07:54→10:00)
--- NOTE | 2021-01-24 08:12 | PM.DS ---
DS: Providers Provider Date of Service: 01/24/21 Date of admission: 01/21/21 21:36 Primary care physician: Verenice Kirby MD Consults: 01/23/21 08:49 Consult to Nephrology Routine Consulting Provider: Rm Moran Reason for consultation: SILVER on CKD, metabolic acidosis 01/23/21 14:04 Consult to Cardiology Routine Consulting Provider: Ankit Fish Reason for consultation: Systolic CHF with exacerbation 01/23/21 16:28 Consult to Gastroenterology Routine Consulting Provider: Helio López Reason for consultation: Transaminitis with lactic acidosis for your kind eval. 01/24/21 07:12 Consult to Cardiology Stat Consulting Provider: [facility] Reason for consultation: cardiogenic hock Has provider been notified: No DS: Transfer Hospital Acceptance Reason for Transfer: Ischemia evaluation / cardiogenic shock. Name of Facility: [facility] Accepting Provider: Dr. Jayden Davidson DS: Diagnosis Discharge Diagnosis (1) Cardiorenal syndrome with renal failure: Status: Acute (2) Acute exacerbation of CHF (congestive heart failure): Status: Acute (3) Paroxysmal atrial fibrillation: Status: Acute (4) Cardiogenic shock: Status: Acute (5) Ischemic hepatitis: Status: Acute (6) Acute respiratory failure: Status: Acute (7) Cardiomyopathy: Status: Acute (8) CAD (coronary artery disease): Status: Inactive (9) PVD (peripheral vascular disease): Status: Inactive (10) Diabetes: Status: Inactive DS: Medications Discharge Medications Home Medications: Home Medications Medication Instructions Recorded Confirmed albuterol sulfate [ProAir HFA] 2 puff INHALATION Q4-6H PRN 09/10/20 01/21/21 ascorbic acid (vitamin C) 500 mg PO BID 09/10/20 01/21/21 aspirin 81 mg PO DAILY 09/10/20 01/21/21 atorvastatin 40 mg PO BEDTIME 09/10/20 01/21/21 montelukast 10 mg PO BEDTIME 09/10/20 01/21/21 insulin lispro [Humalog KwikPen 3 unit SUBCUT TIDAC 01/21/21 01/21/21 Insulin] tramadol 1 tab PO Q8H PRN 01/21/21 01/21/21 Previous Rx's Medication Instructions Recorded metoprolol tartrate 12.5 mg PO BID #30 tab 10/17/20 Lantus Solostar U-100 Insulin 15 unit SUBCUT QAM #0 ml 11/26/20 apixaban [Eliquis] 2.5 mg PO BID #60 tab 11/26/20 bumetanide 1 mg PO BID #60 tab 11/26/20 In patient medications at the time of discharge: 1. Levophed drip 2. Vasopressin drip 3. Phenylephrine drip 4. Propofol drip 5. D10 at 50 cc/hour 6. Sodium bicarbonate 50 mEq every 2 hours IV 7. Cefepime 1 g every 8 hours 8. Vancomycin 500 mg Q 24 hours 9. Aspirin 81 mg daily 10. Apixaban 5 mg b.i.d. 11. Atorvastatin 40 mg daily DS: Summary Hospital Course Hospital Course: 75-year-old lady with underlying history of AFib on Eliquis, CAD status post CABG, cardiomyopathy with ejection fraction of 20%, chronic kidney disease, peripheral vascular disease with left BKA and right AKA amputations, CVA, diabetes mellitus admitted on 01/22/2021 with progressive dyspnea secondary to heart failure exacerbation and initially treated with IV diuretic. Hospital course significant for progressive renal failure with cardiorenal syndrome refractory to diuretic therapy progressing to cardiogenic shock resulting in acute kidney injury, ischemic hepatitis, and profound metabolic acidosis requiring transfer to intensive care unit overnight 01/23-01/24/2021 for emergent hemodialysis and multiple vasopressor support. Patient intubated for refractory metabolic acidosis and acute respiratory failure on 01/24/2021 at of 6:00 a.m. Family has been notified of a clinical developments and wants to proceed with full support. Cardiology evaluation requested for ischemic workup and transfer to [facility] cardiovascular intensive care unit for likely left heart catheterization has been arranged. Time Spent with Patient Time attestation: Total time spent providing and/or coordinating discharge services: Discharge coordination time: Greater than 30 minutes Physical Exam Vital Signs: Vital Signs: Last Vital Signs Temp 97.8 F 01/24/21 07:00 Pulse 74 01/24/21 07:57 Resp 17 01/24/21 07:30 BP 150/39 H 01/24/21 07:57 Pulse Ox 96 01/24/21 07:30 Body Mass Index 34.9 Const: General: no acute distress and other (Sedated on the vent) Nutritional Appearance: obese Eyes: Sclerae: sclerae normal EOM: EOMs intact bilaterally Neck: Neck: Yes no lymphadenopathy, Yes trachea midline and Yes supple Resp: Auscultation: crackles (Bibasilar) Cardio: Rate: regular rate Rhythm: abnormal rhythm irregularly irregular Heart sounds: no gallops, no murmurs and no rubs GI: Palpation (GI): Soft to palpation and Other GI palpation findings present ( Nontender) Auscultation: normal bowel sounds Extrem: General: No clubbing, No cyanosis and Yes other (Bilateral lower extremity edema, right AKA, left BKA) DS: Data Data Completed and Pending Completed studies during hospitalization [Text1]: Procedures Transfusion of Nonautologous Red Blood Cells into Peripheral Vein, Percutaneous Approach (09/10/20) Labs on day of discharge: Laboratory Results - last 24 hr 01/23/21 01/23/21 01/23/21 05:33 11:42 15:50 WBC RBC Hgb Hct MCV MCH MCHC RDW Plt Count MPV Immature Gran % (Auto) Neut % (Auto) Lymph % (Auto) Angelina % (Auto) Eos % (Auto) Baso % (Auto) Lymph # (Auto) Angelina # (Auto) Eos # (Auto) Baso # (Auto) Abs Immat Gran (auto) Absolute Neuts (auto) Absolute Nucleated RBC Nucleated RBC % (auto) Neutrophils % (Manual) Band Neutrophils % Lymphocytes % (Manual) Monocytes % (Manual) Abs Neuts (Manual) Lymphocytes # (Manual) Monocytes # (Manual) Smudge Cells Toxic Vacuolation Platelet Estimate Large Platelets Plt Morphology Comment RBC Morphology Polychromasia Hypochromasia Microcytosis Macrocytosis [place] Cells Acanthocytes (Spur) Smear Tech's Comments PT INR O2 Saturation ABG pH at Pt Temp ABG pCO2 at Pt Temp ABG pO2 at Pt Temp ABG HCO3 ABG Base Excess (Actual) VBG pH VBG pCO2 VBG pO2 VBG HCO3 VBG O2 Saturation VBG Base Excess Sodium 136 Potassium 4.9 Chloride 102 Carbon Dioxide 13 L Anion Gap 26 H BUN 48 H Creatinine 2.72 H Estim Creat Clear Calc 17.6 Estimated GFR 17 POC Glucose 104 Random Glucose 42 L* Lactic Acid 9.1 H* Lactic Acid Fup @ 2Hr Lactic Acid Fup @ 4Hr Calcium 8.7 Total Bilirubin 2.6 H Direct Bilirubin 1.9 H AST 91 H ALT 62 H Alkaline Phosphatase 393 H Troponin I High Sens B-Natriuretic Peptide Total Protein 6.6 Albumin 2.9 L 01/23/21 01/23/21 01/23/21 16:51 18:27 18:57 WBC RBC Hgb Hct MCV MCH MCHC RDW Plt Count MPV Immature Gran % (Auto) Neut % (Auto) Lymph % (Auto) Angelina % (Auto) Eos % (Auto) Baso % (Auto) Lymph # (Auto) Angelina # (Auto) Eos # (Auto) Baso # (Auto) Abs Immat Gran (auto) Absolute Neuts (auto) Absolute Nucleated RBC Nucleated RBC % (auto) Neutrophils % (Manual) Band Neutrophils % Lymphocytes % (Manual) Monocytes % (Manual) Abs Neuts (Manual) Lymphocytes # (Manual) Monocytes # (Manual) Smudge Cells Toxic Vacuolation Platelet Estimate Large Platelets Plt Morphology Comment RBC Morphology Polychromasia Hypochromasia Microcytosis Macrocytosis Erik Cells Acanthocytes (Spur) Smear Tech's Comments PT INR O2 Saturation ABG pH at Pt Temp ABG pCO2 at Pt Temp ABG pO2 at Pt Temp ABG HCO3 ABG Base Excess (Actual) VBG pH VBG pCO2 VBG pO2 VBG HCO3 VBG O2 Saturation VBG Base Excess Sodium Potassium Chloride Carbon Dioxide Anion Gap BUN Creatinine Estim Creat Clear Calc Estimated GFR POC Glucose 70 68 Random Glucose Lactic Acid Lactic Acid Fup @ 2Hr 10.6 H* Lactic Acid Fup @ 4Hr Calcium Total Bilirubin Direct Bilirubin AST ALT Alkaline Phosphatase Troponin I High Sens B-Natriuretic Peptide Total Protein Albumin 01/23/21 01/23/21 01/23/21 21:15 22:00 22:57 WBC 15.4 H RBC 3.56 L Hgb 9.6 L Hct 32.0 L MCV 89.9 D MCH 27.0 MCHC 30.0 L RDW 20.0 H Plt Count 240 MPV 12.2 Immature Gran % (Auto) 1.6 H Neut % (Auto) 77.0 H Lymph % (Auto) 10.7 L Angelina % (Auto) 10.5 Eos % (Auto) 0.0 Baso % (Auto) 0.2 Lymph # (Auto) 1.6 Angelina # (Auto) 1.6 H Eos # (Auto) 0.0 Baso # (Auto) 0.0 Abs Immat Gran (auto) 0.25 H Absolute Neuts (auto) 11.8 H Absolute Nucleated RBC 0.040 H Nucleated RBC % (auto) 0.3 H Neutrophils % (Manual) Band Neutrophils % Lymphocytes % (Manual) Monocytes % (Manual) Abs Neuts (Manual) Lymphocytes # (Manual) Monocytes # (Manual) Smudge Cells Toxic Vacuolation Platelet Estimate Large Platelets Plt Morphology Comment RBC Morphology Polychromasia Hypochromasia Microcytosis Macrocytosis [place] Cells Acanthocytes (Spur) Smear Tech's Comments VERIFIED PT INR O2 Saturation ABG pH at Pt Temp ABG pCO2 at Pt Temp ABG pO2 at Pt Temp ABG HCO3 ABG Base Excess (Actual) VBG pH VBG pCO2 VBG pO2 VBG HCO3 VBG O2 Saturation VBG Base Excess Sodium 138 Potassium 7.4 H* D Chloride 104 Carbon Dioxide 5 L* D Anion Gap 36 H BUN 55 H Creatinine 3.47 H Estim Creat Clear Calc 13.8 Estimated GFR 13 POC Glucose 161 H Random Glucose 47 L* Lactic Acid Lactic Acid Fup @ 2Hr Lactic Acid Fup @ 4Hr Calcium 7.7 L D Total Bilirubin Direct Bilirubin AST ALT Alkaline Phosphatase Troponin I High Sens B-Natriuretic Peptide Total Protein Albumin 01/23/21 01/23/21 01/23/21 23:33 23:33 23:33 WBC RBC Hgb Hct MCV MCH MCHC RDW Plt Count MPV Immature Gran % (Auto) Neut % (Auto) Lymph % (Auto) Angelina % (Auto) Eos % (Auto) Baso % (Auto) Lymph # (Auto) Angelina # (Auto) Eos # (Auto) Baso # (Auto) Abs Immat Gran (auto) Absolute Neuts (auto) Absolute Nucleated RBC Nucleated RBC % (auto) Neutrophils % (Manual) Band Neutrophils % Lymphocytes % (Manual) Monocytes % (Manual) Abs Neuts (Manual) Lymphocytes # (Manual) Monocytes # (Manual) Smudge Cells Toxic Vacuolation Platelet Estimate Large Platelets Plt Morphology Comment RBC Morphology Polychromasia Hypochromasia Microcytosis Macrocytosis Erik Cells Acanthocytes (Spur) Smear Tech's Comments PT INR O2 Saturation ABG pH at Pt Temp ABG pCO2 at Pt Temp ABG pO2 at Pt Temp ABG HCO3 ABG Base Excess (Actual) VBG pH VBG pCO2 VBG pO2 VBG HCO3 VBG O2 Saturation VBG Base Excess Sodium Potassium Chloride Carbon Dioxide Anion Gap BUN Creatinine Estim Creat Clear Calc Estimated GFR POC Glucose Random Glucose Lactic Acid Lactic Acid Fup @ 2Hr Lactic Acid Fup @ 4Hr 14.1 H* Calcium Total Bilirubin Cancelled Direct Bilirubin Cancelled AST Cancelled ALT Cancelled Alkaline Phosphatase Cancelled Troponin I High Sens 195.2 H D B-Natriuretic Peptide Total Protein Cancelled Albumin Cancelled 01/23/21 01/23/21 01/23/21 23:33 23:34 23:47 WBC RBC Hgb Hct MCV MCH MCHC RDW Plt Count MPV Immature Gran % (Auto) Neut % (Auto) Lymph % (Auto) Angelina % (Auto) Eos % (Auto) Baso % (Auto) Lymph # (Auto) Angelina # (Auto) Eos # (Auto) Baso # (Auto) Abs Immat Gran (auto) Absolute Neuts (auto) Absolute Nucleated RBC Nucleated RBC % (auto) Neutrophils % (Manual) Band Neutrophils % Lymphocytes % (Manual) Monocytes % (Manual) Abs Neuts (Manual) Lymphocytes # (Manual) Monocytes # (Manual) Smudge Cells Toxic Vacuolation Platelet Estimate Large Platelets Plt Morphology Comment RBC Morphology Polychromasia Hypochromasia Microcytosis Macrocytosis [place] Cells Acanthocytes (Spur) Smear Tech's Comments PT INR O2 Saturation ABG pH at Pt Temp ABG pCO2 at Pt Temp ABG pO2 at Pt Temp ABG HCO3 ABG Base Excess (Actual) VBG pH 7.16 L* VBG pCO2 28 VBG pO2 51 VBG HCO3 10 L VBG O2 Saturation 69.0 VBG Base Excess -16.5 Sodium 137 Potassium 6.5 H* Chloride 103 Carbon Dioxide 7 L* D Anion Gap 34 H BUN 55 H Creatinine 3.48 H Estim Creat Clear Calc 13.8 Estimated GFR 13 POC Glucose 145 H Random Glucose 103 D Lactic Acid Lactic Acid Fup @ 2Hr Lactic Acid Fup @ 4Hr Calcium 7.9 L Total Bilirubin 3.0 H Direct Bilirubin 2.0 H AST 403 H ALT 200 H Alkaline Phosphatase 352 H Troponin I High Sens B-Natriuretic Peptide Total Protein 6.0 L Albumin 2.5 L 01/24/21 01/24/21 01/24/21 02:08 02:52 03:54 WBC RBC Hgb Hct MCV MCH MCHC RDW Plt Count MPV Immature Gran % (Auto) Neut % (Auto) Lymph % (Auto) Angelina % (Auto) Eos % (Auto) Baso % (Auto) Lymph # (Auto) Angelina # (Auto) Eos # (Auto) Baso # (Auto) Abs Immat Gran (auto) Absolute Neuts (auto) Absolute Nucleated RBC Nucleated RBC % (auto) Neutrophils % (Manual) Band Neutrophils % Lymphocytes % (Manual) Monocytes % (Manual) Abs Neuts (Manual) Lymphocytes # (Manual) Monocytes # (Manual) Smudge Cells Toxic Vacuolation Platelet Estimate Large Platelets Plt Morphology Comment RBC Morphology Polychromasia Hypochromasia Microcytosis Macrocytosis Erik Cells Acanthocytes (Spur) Smear Tech's Comments PT INR O2 Saturation ABG pH at Pt Temp ABG pCO2 at Pt Temp ABG pO2 at Pt Temp ABG HCO3 ABG Base Excess (Actual) VBG pH VBG pCO2 VBG pO2 VBG HCO3 VBG O2 Saturation VBG Base Excess Sodium Potassium Chloride Carbon Dioxide Anion Gap BUN Creatinine Estim Creat Clear Calc Estimated GFR POC Glucose 149 H 151 H Random Glucose Lactic Acid Lactic Acid Fup @ 2Hr Lactic Acid Fup @ 4Hr Calcium Total Bilirubin Direct Bilirubin AST ALT Alkaline Phosphatase Troponin I High Sens 568.4 H D B-Natriuretic Peptide Total Protein Albumin 01/24/21 01/24/21 01/24/21 04:24 04:24 04:24 WBC 23.4 H RBC 3.67 L Hgb 10.1 L Hct 31.0 L MCV 84.5 D MCH 27.5 MCHC 32.6 RDW 20.2 H Plt Count 254 MPV 11.2 Immature Gran % (Auto) Neut % (Auto) Lymph % (Auto) Angelina % (Auto) Eos % (Auto) Baso % (Auto) Lymph # (Auto) Angelina # (Auto) Eos # (Auto) Baso # (Auto) Abs Immat Gran (auto) Absolute Neuts (auto) Absolute Nucleated RBC 0.050 H Nucleated RBC % (auto) 0.2 Neutrophils % (Manual) Band Neutrophils % Lymphocytes % (Manual) Monocytes % (Manual) Abs Neuts (Manual) Lymphocytes # (Manual) Monocytes # (Manual) Smudge Cells Toxic Vacuolation Platelet Estimate Large Platelets Plt Morphology Comment RBC Morphology Polychromasia Hypochromasia Microcytosis Macrocytosis [place] Cells Acanthocytes (Spur) Smear Tech's Comments PT Cancelled INR Cancelled O2 Saturation ABG pH at Pt Temp ABG pCO2 at Pt Temp ABG pO2 at Pt Temp ABG HCO3 ABG Base Excess (Actual) VBG pH VBG pCO2 VBG pO2 VBG HCO3 VBG O2 Saturation VBG Base Excess Sodium 141 Potassium 3.5 D Chloride 98 Carbon Dioxide 25 Anion Gap 22 H BUN 28 H Creatinine 1.83 H Estim Creat Clear Calc 26.2 Estimated GFR 27 POC Glucose Random Glucose 145 H D Lactic Acid Lactic Acid Fup @ 2Hr Lactic Acid Fup @ 4Hr Calcium 8.1 L Total Bilirubin 3.9 H Direct Bilirubin 2.8 H AST 1154 H ALT 585 H Alkaline Phosphatase 448 H D Troponin I High Sens B-Natriuretic Peptide Total Protein 7.1 Albumin 3.0 L 01/24/21 01/24/21 01/24/21 04:24 05:28 05:28 WBC 25.2 H RBC 3.59 L Hgb 9.7 L Hct 32.8 L MCV 91.4 D MCH 27.0 MCHC 29.6 L RDW 20.2 H Plt Count 261 MPV 12.1 Immature Gran % (Auto) Cancelled Neut % (Auto) Cancelled Lymph % (Auto) Cancelled Angelina % (Auto) Cancelled Eos % (Auto) Cancelled Baso % (Auto) Cancelled Lymph # (Auto) Cancelled Angelina # (Auto) Cancelled Eos # (Auto) Cancelled Baso # (Auto) Cancelled Abs Immat Gran (auto) Cancelled Absolute Neuts (auto) Cancelled Absolute Nucleated RBC 0.050 H Nucleated RBC % (auto) 0.2 Neutrophils % (Manual) 65 Band Neutrophils % 15 H Lymphocytes % (Manual) 5 L Monocytes % (Manual) 15 H Abs Neuts (Manual) 20.2 H Lymphocytes # (Manual) 1.3 Monocytes # (Manual) 3.8 H Smudge Cells PRESENT Toxic Vacuolation PRESENT Platelet Estimate NORMAL Large Platelets PRESENT Plt Morphology Comment NOTED RBC Morphology NOTED Polychromasia 1+ (0-2) Hypochromasia 1+ (5-14) Microcytosis 1+ (5-14) Macrocytosis 1+ (5-14) Erik Cells 3+ (>5) Acanthocytes (Spur) 1+ (0-2) Smear Tech's Comments PT INR O2 Saturation ABG pH at Pt Temp ABG pCO2 at Pt Temp ABG pO2 at Pt Temp ABG HCO3 ABG Base Excess (Actual) VBG pH 7.35 VBG pCO2 53 VBG pO2 30 VBG HCO3 30 H VBG O2 Saturation 40.0 VBG Base Excess 3.6 Sodium 140 Potassium 4.4 D Chloride 99 Carbon Dioxide 16 L Anion Gap 29 H BUN 31 H Creatinine 2.21 H Estim Creat Clear Calc 21.9 Estimated GFR 22 POC Glucose Random Glucose 104 Lactic Acid Lactic Acid Fup @ 2Hr Lactic Acid Fup @ 4Hr Calcium 8.4 Total Bilirubin Direct Bilirubin AST ALT Alkaline Phosphatase Troponin I High Sens B-Natriuretic Peptide Total Protein Albumin 01/24/21 01/24/21 01/24/21 05:28 05:54 06:19 WBC RBC Hgb Hct MCV MCH MCHC RDW Plt Count MPV Immature Gran % (Auto) Neut % (Auto) Lymph % (Auto) Angelina % (Auto) Eos % (Auto) Baso % (Auto) Lymph # (Auto) Angelina # (Auto) Eos # (Auto) Baso # (Auto) Abs Immat Gran (auto) Absolute Neuts (auto) Absolute Nucleated RBC Nucleated RBC % (auto) Neutrophils % (Manual) Band Neutrophils % Lymphocytes % (Manual) Monocytes % (Manual) Abs Neuts (Manual) Lymphocytes # (Manual) Monocytes # (Manual) Smudge Cells Toxic Vacuolation Platelet Estimate Large Platelets Plt Morphology Comment RBC Morphology Polychromasia Hypochromasia Microcytosis Macrocytosis [place] Cells Acanthocytes (Spur) Smear Tech's Comments PT 106.4 H D INR 8.8 H* D O2 Saturation 99.0 ABG pH at Pt Temp 7.16 L* ABG pCO2 at Pt Temp 32 ABG pO2 at Pt Temp 309 H ABG HCO3 12 L ABG Base Excess (Actual) -15.4 VBG pH VBG pCO2 VBG pO2 VBG HCO3 VBG O2 Saturation VBG Base Excess Sodium Potassium Chloride Carbon Dioxide Anion Gap BUN Creatinine Estim Creat Clear Calc Estimated GFR POC Glucose Random Glucose Lactic Acid Lactic Acid Fup @ 2Hr Lactic Acid Fup @ 4Hr Calcium Total Bilirubin Direct Bilirubin AST ALT Alkaline Phosphatase Troponin I High Sens 1111.6 H D B-Natriuretic Peptide 2354 H Total Protein Albumin 01/24/21 07:48 WBC RBC Hgb Hct MCV MCH MCHC RDW Plt Count MPV Immature Gran % (Auto) Neut % (Auto) Lymph % (Auto) Angelina % (Auto) Eos % (Auto) Baso % (Auto) Lymph # (Auto) Angelina # (Auto) Eos # (Auto) Baso # (Auto) Abs Immat Gran (auto) Absolute Neuts (auto) Absolute Nucleated RBC Nucleated RBC % (auto) Neutrophils % (Manual) Band Neutrophils % Lymphocytes % (Manual) Monocytes % (Manual) Abs Neuts (Manual) Lymphocytes # (Manual) Monocytes # (Manual) Smudge Cells Toxic Vacuolation Platelet Estimate Large Platelets Plt Morphology Comment RBC Morphology Polychromasia Hypochromasia Microcytosis Macrocytosis [place] Cells Acanthocytes (Spur) Smear Tech's Comments PT INR O2 Saturation ABG pH at Pt Temp ABG pCO2 at Pt Temp ABG pO2 at Pt Temp ABG HCO3 ABG Base Excess (Actual) VBG pH VBG pCO2 VBG pO2 VBG HCO3 VBG O2 Saturation VBG Base Excess Sodium Potassium Chloride Carbon Dioxide Anion Gap BUN Creatinine Estim Creat Clear Calc Estimated GFR POC Glucose 131 H Random Glucose Lactic Acid Lactic Acid Fup @ 2Hr Lactic Acid Fup @ 4Hr Calcium Total Bilirubin Direct Bilirubin AST ALT Alkaline Phosphatase Troponin I High Sens B-Natriuretic Peptide Total Protein Albumin Discharge Plan Discharge Anticipated Discharge Date/Time: 01/24/21 08:31 Patient Disposition: Xfer Acute Care Hospital Discharge Diagnosis: Cardiogenic shock Referrals: Verenice Kibry MD [Primary Care Provider] - 1 Week Discharge Medications: Discontinued metoprolol tartrate 25 mg tablet 12.5 mg PO BID Qty: 30 RF: 0 Eliquis 2.5 mg Tablet 2.5 mg PO BID Qty: 60 RF: 0 bumetanide 1 mg tablet 1 mg PO BID Qty: 60 RF: 0 Lantus Solostar U-100 Insulin 100 unit/mL (3 mL) Insulin Pen 15 unit SUBCUT QAM Qty: 0 RF: 0 atorvastatin 40 mg Tablet 40 mg PO BEDTIME RF: 0 aspirin 81 mg Tablet,Delayed Release (Dr/Ec) 81 mg PO DAILY RF: 0 ascorbic acid (vitamin C) 500 mg Tablet 500 mg PO BID RF: 0 montelukast 10 mg Tablet 10 mg PO BEDTIME RF: 0 albuterol sulfate [ProAir HFA] 90 mcg/actuation Hfa Aerosol Inhaler 2 puff INHALATION Q4-6H PRN (Reason: Shortness Of Breath) RF: 0 tramadol 50 mg tablet 1 tab PO Q8H PRN (Reason: pain) RF: 0 insulin lispro [Humalog KwikPen Insulin] 100 unit/mL insulin pen 3 unit subcut TIDAC RF: 0 Discharge Orders: Discharge Order (Routine); Ordered 01/24/21 Ordered By: Ted Bey Activity on Discharge: Bedrest Stand Alone Forms: Patient Portal Discharge page Care Plan Goals: Comply with plan of care Health Concerns: Cardiogenic shock Plan of Treatment: Ischemia evaluation Assessment: Condition: Critical
[2021-01-24 09:55] LABS: Glucose, Whole Blood 177 mg/dL (60-115)
--- NOTE | 2021-01-24 13:16 | ECG_ITS ---
Test Reason : RHYTHM Blood Pressure : / mmHG Vent. Rate : 120 BPM Atrial Rate : 068 BPM P-R Int : 000 ms QRS Dur : 134 ms QT Int : 336 ms P-R-T Axes : 000 108 -32 degrees QTc Int : 474 ms Atrial fibrillation with rapid ventricular response Right bundle branch block Abnormal ECG When compared to the previous EKG of Vent. rate has increased Referred By: Ted Bey Electronically Signed By:ROMAN BRYANT MD
--- NOTE | 2021-01-24 22:25 | CONS_ITS ---
DATE OF SERVICE: 01/23/2021 HISTORY OF PRESENT ILLNESS: The patient is a 75-year-old female who is mostly Frisian speaking and not able to give a good history, who presents to the hospital, complains of shortness of breath. She is 75-year-old with past medical history of atrial fibrillation, on Eliquis; peripheral vascular disease; CKD stage 3; asthma; who presented with shortness of breath and lower extremity edema.. Her family noticed that she was short of breath , + leg swelling, sent to the ER. She has bilateral lower extremity amputation. She was discharged in November after management of CHF exacerbation. EF is around 20% to 25%. Lab work showed the patient was anemic with a hemoglobin of 9.9, BUN is 32, creatinine of 1.7. COVID was negative. She was hemodynamically stable except for tachycardia. X-ray showed cardiomegaly with pulmonary vascular congestion. Renal consult has been requested to help with management of her acute kidney injury. REVIEW OF SYSTEMS: Difficult to obtain. PAST MEDICAL HISTORY: Atrial fibrillation, asthma, atherosclerotic cardiovascular disease, coronary artery disease, cardiomyopathy, CHF, CVA, diabetes, hypertension, non-ST elevation [place], persistent atrial fibrillation, and peripheral vascular disease. FAMILY HISTORY: Significant for coronary artery disease and diabetes. PAST SURGICAL HISTORY: As noted in the history of presenting illness. SOCIAL HISTORY: The patient never smoked, never drank. ALLERGIES: PATIENT HAS NO KNOWN DRUG ALLERGIES. HOME MEDICATIONS: Include albuterol, ascorbic acid, aspirin, atorvastatin, montelukast, insulin, and tramadol. PHYSICAL EXAMINATION: GENERAL: Patient is resting in the bed, awake, in mild respiratory distress. VITAL SIGNS: Blood pressure was 151/55, pulse 62, afebrile. HEENT: Pupils equal and bilaterally reactive to light. NECK: No jugular venous distention. Neck was supple. CARDIOVASCULAR SYSTEM: S1, S2 without a rub. RESPIRATION: Air entry decreased in the bases, bibasilar crepitation. ABDOMEN: Obese, soft. Bowel sounds normal. EXTREMITIES: Showed bilateral amputation with edema. LABS: Done recently, sodium 136, potassium 4.9, chloride 102, CO2 13, BUN 48, creatinine 2.72, glucose 42, hemoglobin 9.6, hematocrit 30, WBCs 8.1, platelets 260. IMPRESSION: 1. Elderly female with acute kidney injury. Acute kidney injury in this patient likely secondary to renal hypoperfusion in the setting of congestive heart failure. 2. Chronic kidney disease stage 3 at baseline. 3. Acute hypoxemic respiratory failure in the setting of congestive heart failure. 4. Anion gap metabolic acidosis. We need to rule out lactic acidosis. 5. Hypoglycemia. RECOMMENDATIONS: At this time, I recommend continuation of IV Lasix. I recommend checking lactic acid level. I agree with sodium bicarbonate 650 mg 3 times a day. We need to monitor blood glucose level and try to maintain her blood sugars around 100. She is on a low-sodium diet and a fluid restriction. We will continue to follow the patient closely. Thank you for allowing me to participate in medical management of patient. MD RAO Chapman/CAROL ANN / [id number] MTDD
== END 2021-01-24 11:00 | disposition short-term general hospital (02) | DRG 291 ==
LOC: HO.ED 15:34 → HO.EDOVER 22:10 → HO.IMC 22:17 → HO.ICU 01-23 23:14
PROVIDERS: Registered Nurse Community Health; Student in an Organized Health Care Education/Training Program; Admitting Provider Internal Medicine; Emergency Provider Emergency Medicine; PCP Family Medicine; Visit Provider Internal Medicine Pulmonary Disease
DX: I13.0 Hypertensive heart and chronic kidney disease with heart failure and stage 1 through stage 4 chronic kidney disease, or unspecified chronic kidney disease (principal); G93.41 Metabolic encephalopathy; R57.0 Cardiogenic shock; J96.00 Acute respiratory failure, unspecified whether with hypoxia or hypercapnia; N18.4 Chronic kidney disease, stage 4 (severe); N17.9 Acute kidney failure, unspecified; E87.2 Acidosis; I25.10 Atherosclerotic heart disease of native coronary artery without angina pectoris; E11.51 Type 2 diabetes mellitus with diabetic peripheral angiopathy without gangrene; I42.9 Cardiomyopathy, unspecified; E11.22 Type 2 diabetes mellitus with diabetic chronic kidney disease; I50.9 Heart failure, unspecified; K75.89 Other specified inflammatory liver diseases; E87.5 Hyperkalemia; I48.0 Paroxysmal atrial fibrillation; R74.01 Elevation of levels of liver transaminase levels; Z20.822 Contact with and (suspected) exposure to COVID-19; Z91.14 Patient's other noncompliance with medication regimen; Z89.512 Acquired absence of left leg below knee; Z89.611 Acquired absence of right leg above knee; Z95.1 Presence of aortocoronary bypass graft
CPT/HCPCS: 36415; 71045; 76705; 80048; 80076; 82947; 83605; 83735; 83880; 84484; 85007; 85025; 85027; 85610; 85730; 87040; 87635; 90999; 93005; 94002; 94003; 94660; 94799; 96375; 99285; C1758; J0171; J0610; J0692; J1940; J2370; J3010; J3370